=== PATIENT | female | born 1965 | race Caucasian/White ===

== ENCOUNTER 2021-09-13 15:44 | Outpatient (REF) | payer BC, MEDICARE, MEDICAID, SELFPAY ==
--- NOTE | ~2021-09-13 | US_ITS ---
EXAMINATION: US THYROID CLINICAL INFORMATION: Nontoxic goiter, unspecified. COMPARISON: None TECHNIQUE: Linear transducer grayscale and color Doppler examination with attention to the region of the thyroid. FINDINGS: SIZE: Measurements of the thyroid lobes and nodules are given in sagittal, anteroposterior and transverse dimensions respectively. Right Thyroid Lobe: 5.3 x 1.2 x 1.5 cm, volume 4.8 mL. Parenchyma: The gland echotexture is homogeneous. Thyroid vascularity is normal. Left Thyroid Lobe: 4.9 x 1.2 x 1.5 cm, volume 4.5 mL. Parenchyma: The gland echotexture is homogeneous. Thyroid vascularity is normal. Isthmus: 0.4 cm in maximum AP dimension. No focal thyroid nodule is seen. NODES: No lymphadenopathy is seen in the tissue surrounding the thyroid gland. US/US thyroid IMPRESSION: Normal thyroid ultrasound.
== END 2021-09-13 15:45 | disposition home or self-care (01) ==
LOC: HO.US 15:44
PROVIDERS: PCP Internal Medicine; Visit Provider Internal Medicine
DX: E04.9 Nontoxic goiter, unspecified (principal)
CPT/HCPCS: 76536

== ENCOUNTER 2021-11-28 16:01 | Outpatient (REF) | payer BC, MEDICARE, MEDICAID, SELFPAY ==
[2021-11-28 17:57] LABS: Appearance Urine Clear; Color Urine Yellow; Glucose Urine UA Negative (Negative); Leukocyte Esterase Urine Moderate (2+) (Negative); Nitrite Urine Negative (Negative); PH 6.5 (5.0-9.0); Specific Gravity - Urine <= 1.005 (1.005-1.025); Urine Blood Negative (Negative); Urine Ketones Negative (Negative); Urine Protein Negative (Neg-Trace)
[2021-11-28 18:27] LABS: Bacteria Urine None Seen (None Seen); Hyaline Casts Urine 0-2 /LPF (0-2); RBC Urine 0-2 /HPF (0-2); Squamous Epithelial Cell Urine 0-2 /HPF (0-2); WBC Urine 0-5 /HPF (0-5)
== END 2021-11-28 16:02 | disposition home or self-care (01) ==
LOC: HO.LAB 16:01
PROVIDERS: PCP Internal Medicine; Visit Provider Internal Medicine
DX: R30.0 Dysuria (principal)
CPT/HCPCS: 81001

== ENCOUNTER 2021-12-04 08:28 | Outpatient (REF) | payer BC, MEDICARE, MEDICAID, SELFPAY ==
[2021-12-04 08:52] LABS: MANUAL DIFF FLAG NO
[2021-12-04 09:30] LABS: Appearance Urine Clear; Color Urine Yellow; Glucose Urine UA Negative (Negative); Leukocyte Esterase Urine Moderate (2+) (Negative); Nitrite Urine Negative (Negative); PH 5.5 (5.0-9.0); Specific Gravity - Urine 1.015 (1.005-1.025); UMIC TRIGGER UACC YES; Urine Blood Negative (Negative); Urine Ketones Trace mg/dL (Negative); Urine Protein Negative (Neg-Trace)
[2021-12-04 09:35] LABS: Basophils Absolute Auto 0.1 X10*3/uL (0.0-0.2); Basophils Percent Auto 0.9 % (0-2); Eosinophils Absolute Auto 0.5 X10*3/uL (0.0-0.4); Eosinophils Percent Auto 6.6 % (0-4); Hematocrit 38.7 % (37.0-47.0); Hemoglobin 12.5 g/dl (12.0-16.0); Imm Gran Abs Auto 0.01 X10*3/uL (0.00-0.03); Imm Gran Pct Auto 0.1 % (0.0-0.4); Lymphocytes Absolute Auto 2.4 X10*3/uL (1.2-4.9); Mean Corpuscular HGB Conc 32.3 g/dl (31.0-35.0); Mean Corpuscular Hemoglobin 26.2 pg (27.0-33.0); Mean Corpuscular Volume 81.1 fL (80.0-98.0); Mean Platelet Volume 9.4 fL (9.4-12.3); Monocytes Absolute Auto 0.5 X10*3/uL (0.1-1.2); Monocytes Percent Auto 7.6 % (2-11); Neutrophils Absolute Auto 3.5 x10*3/uL (2.0-8.3); Neutrophils Percent Auto 50.8 % (45-73); Platelet Count 279 X10*3/uL (160-400); Red Blood Count 4.77 X10*6/uL (4.20-5.50); Red Cell Distribution Width 12.6 % (11.0-16.0)
[2021-12-04 09:35] LABS: Bacteria Urine Trace (None Seen); Hyaline Casts Urine 0-2 /LPF (0-2); RBC Urine 0-2 /HPF (0-2); UACC Culture Trigger YES
[2021-12-04 10:12] LABS: Alanine Aminotransferase 15 U/L (0-31); Albumin Level 3.8 g/dL (3.5-5.0); Alkaline Phosphatase 94 U/L (39-117); Anion Gap 13 (12-20); Aspartate Amino Transferase 17 U/L (5-31); Bilirubin Total 0.7 mg/dL (0.0-1.0); Blood Urea Nitrogen 9 mg/dL (9-16); Calcium 9.1 mg/dL (8.4-10.2); Carbon Dioxide 24 mmol/L (22-29); Chloride 104 mmol/L (96-108); Estimated Glomerular Filt Rate > 60; Glucose Random 95 mg/dL (60-115); Potassium 4.1 mmol/L (3.3-5.1); Sodium 137 mmol/L (135-145); Total Protein 6.7 g/dL (6.5-8.0)
[2021-12-04 10:16] LABS: Thyroid Stimulating Hormone 1.02 uIU/mL (0.32-4.0)
[2021-12-04 11:50] LABS: Erythrocyte Sedimentation Rate 37 MM/HR (0-20)
== END 2021-12-04 08:29 | disposition home or self-care (01) ==
LOC: HO.LAB 08:28
PROVIDERS: Internal Medicine; PCP Internal Medicine; Visit Provider Internal Medicine
DX: L98.9 Disorder of the skin and subcutaneous tissue, unspecified (principal); D64.9 Anemia, unspecified; E04.9 Nontoxic goiter, unspecified
CPT/HCPCS: 36415; 80053; 81001; 84443; 85025; 85652; 87086

== ENCOUNTER 2022-01-10 14:00 | Outpatient (REF) | payer BC, MEDICARE, MEDICAID, SELFPAY ==
[2022-01-10 15:08] LABS: Cholesterol 161 mg/dL; HDL Cholesterol 41 mg/dL; LDL Cholesterol Calculated 87 mg/dl; Triglycerides 168 mg/dL
== END 2022-01-10 14:01 | disposition home or self-care (01) ==
LOC: HO.LAB 14:00
PROVIDERS: PCP Internal Medicine; Visit Provider Internal Medicine
DX: Z00.00 Encounter for general adult medical examination without abnormal findings (principal)
CPT/HCPCS: 36415; 80061

== ENCOUNTER 2022-07-05 16:44 | Outpatient (REF) | payer BC, MEDICARE, MEDICAID, SELFPAY ==
[2022-07-05 17:29] LABS: Influenza A PCR NEGATIVE (Negative); Influenza B PCR NEGATIVE (Negative); Resp Syncy Virus RNA Qual PCR NEGATIVE (Negative); SARS COV2 PCR INHOUSE NEGATIVE (Negative)
== END 2022-07-05 16:45 | disposition home or self-care (01) ==
LOC: HO.LNP 16:44
PROVIDERS: Visit Provider Internal Medicine
DX: Z20.822 Contact with and (suspected) exposure to COVID-19 (principal); R43.9 Unspecified disturbances of smell and taste
CPT/HCPCS: 0241U

== ENCOUNTER 2022-07-15 15:05 | Outpatient (REF) | payer BC, MEDICARE, MEDICAID, SELFPAY ==
--- NOTE | ~2022-07-15 | XR_ITS ---
EXAMINATION: XR CHEST CLINICAL INFORMATION: J06.9 - Acute upper respiratory infection, unspecified COMPARISON: Portable chest radiograph 02/16/2014 TECHNIQUE: 2 views of the chest were obtained. FINDINGS: The lungs are clear. Heart size normal. Vascularity normal. No airspace consolidation or groundglass opacity or effusion. The hilar and mediastinal contours and visualized bony structures are unremarkable. XR/XR chest 2V IMPRESSION: Unremarkable examination.
== END 2022-07-15 15:06 | disposition home or self-care (01) ==
LOC: HO.XRAY 15:05
PROVIDERS: PCP Internal Medicine; Visit Provider Internal Medicine
DX: J06.9 Acute upper respiratory infection, unspecified (principal)
CPT/HCPCS: 71046

== ENCOUNTER 2022-11-05 12:00 | Emergency (ER) | payer BC, MEDICARE, MEDICAID, SELFPAY ==
--- NOTE | ~2022-11-05 | US_ITS ---
EXAMINATION: US VENOUS ULTRASOUND WITH DOPPLER LOWER EXTREMITY, LEFT CLINICAL INFORMATION: Calf pain and tenderness. COMPARISON: None available. TECHNIQUE: Ultrasound of the deep veins is performed from the hip to the calf with compression sonography and color and pulse Doppler assessment. Spectral analysis with color-flow imaging is performed. FINDINGS: There is normal venous compression and respiratory variation and augmented flow. The visualized common femoral vein, superficial femoral vein, profunda femoral vein, popliteal vein, and the trifurcation region shows no evidence of deep venous thrombosis. There is no significant popliteal fossa cyst. If the patient's symptoms persist, followup ultrasound in 5 days 7 days might be of value to exclude proximal propagation from a non-visualized calf vein. US/US venous duplex LE IMPRESSION: No DVT demonstrated in the left lower extremity.
--- NOTE | ~2022-11-05 | XR_ITS ---
EXAMINATION: XR chest 1V CLINICAL INFORMATION: Chest pain COMPARISON: Prior chest x-ray June 2022 TECHNIQUE: Single frontal view. Lungs and Isabel: Both lungs are clear. Pleura: Normal. Costophrenic angles are sharp. No pneumothorax. Heart: The heart is normal in size. Mediastinum: The mediastinum is within normal limits.. Bones: Skeletal structures included are normal for patient's age. XR/XR chest 1V IMPRESSION: No radiographic evidence of acute cardiopulmonary disease.
--- NOTE | ~2022-11-05 | CT_ITS ---
EXAMINATION: CT HEAD WITHOUT CONTRAST CLINICAL INFORMATION: Headache COMPARISON: CT brain 02/16/2014 TECHNIQUE: Contiguous axial imaging was performed from the skull base to vertex without intravenous administration of contrast. This CT examination was performed using dose optimization techniques as appropriate, variously including the following: *Automated exposure control *Adjustment of mA and/or kV according to patient size (this includes techniques or standardized protocols for targeted exams where dose is matched to indication/reason for exam; i.e. extremities or head) *Use of iterative reconstruction technique DLP: 599 mGy-cm FINDINGS: There is no acute intra-axial, extra-axial bleed, masses, collection or midline shift. There is no acute infarction evolution. There is no edema. The mittal to white matter differentiation is maintained normal. The lateral ventricles are symmetrical in size and configuration without enlargement. Bone windows reveal no calvarial abnormality. Bilateral paranasal sinuses and mastoid air cells are well-aerated. No calvarial abnormality seen. Scalp soft tissue appears unremarkable.. CT/CT head/brain wo IV con IMPRESSION: No acute intracranial process seen.
--- NOTE | ~2022-11-05 | CT_ITS ---
EXAMINATION: CT ANGIOGRAM CHEST WITH AND WITHOUT CONTRAST (CT PULMONARY ANGIOGRAM FOR PE) CLINICAL INFORMATION: Chest pain, history of breast CA. COMPARISON: None available. TECHNIQUE: Prior to contrast administration, noncontrast localization images were obtained. Subsequently, multidetector volumetric imaging was performed from the thoracic inlet to below the diaphragms following the administration of 65 mL Omnipaque 350 intravenous contrast. No contrast reaction reported. Sagittal, coronal, and MIP oblique sagittal reformatted images were obtained on the CT workstation, uploaded to PACS, and reviewed. This CT examination was performed using dose optimization techniques as appropriate, variously including the following: *Automated exposure control. *Adjustment of mA and/or kV according to patient size (this includes techniques or standardized protocols for targeted exams where dose is matched to indication/reason for exam; i.e. extremities or head). *Use of iterative reconstruction technique. Total exam dose-length product 310 mGy-cm. FINDINGS: QUALITY OF STUDY/CONTRAST BOLUS: Satisfactory. PULMONARY ARTERIES: No pulmonary emboli. THORACIC AORTA: No aneurysm. LUNG: No focal consolidation, nodules or masses. PLEURA: No pleural effusion or pneumothorax. MEDIASTINUM: Normal heart size. No pericardial effusion. No hilar or mediastinal lymphadenopathy. No evidence of septal bowing or right heart strain. CORONARY ARTERY CALCIFICATION: None visualized on this study. CHEST WALL/AXILLA: No axillary or internal mammary lymphadenopathy. OSSEOUS STRUCTURES: No acute or suspicious osseous abnormality. UPPER ABDOMEN: Unremarkable. No reflux of contrast into the hepatic veins to suggest elevated right heart pressures. CT/CT angio chest PE protocol IMPRESSION: No evidence for pulmonary embolism. No active cardiopulmonary disease. VTE: Negative.
--- NOTE | 2022-11-05 12:12 | ECG_ITS ---
Test Reason : CHEST PAIN Blood Pressure : / mmHG Vent. Rate : 103 BPM Atrial Rate : 103 BPM P-R Int : 148 ms QRS Dur : 072 ms QT Int : 362 ms P-R-T Axes : 053 010 023 degrees QTc Int : 474 ms Sinus tachycardia Abnormal ECG When compared with ECG of 16-FEB-2014 20:39, Heart rate has increased QRS axis Shifted left Referred By: Bal Stuart Electronically Signed By:ITALIA ALEGRIA
[2022-11-05 12:13] VITALS: BP 160/100; PULSE 107; RESP 18; TEMP 36.8; O2SAT 100; BMI 32.0
--- NOTE | 2022-11-05 12:14 | ED_ITS ---
HPI - General Adult General Chief complaint: General Medical Stated complaint: Chest pain/HBP Time Seen by Provider: 11/05/22 16:36 Source: patient Mode of arrival: ambulatory Limitations: no limitations History of Present Illness HPI narrative: Patient is a 57-year-old female who presents emergency department for evaluation of multiple complaints. Primarily for the past 2 weeks she reports elevated blood pressure and heart rate. Reportedly diastolic blood pressure has not been below 100, systolic blood pressure ranging 140-150 despite taking clonidine as prescribed. Reports heart rate to be 100-110. She has been experiencing substernal chest pain described as a tightness which has been constant for the past 2 weeks with intermittent mild shortness of breath and fatigue. For the past few days she has been experiencing subjective left calf swelling and discomfort described as a tightness. She also endorses an intermittent headache without vision changes, dizziness, neck pain. She contacted her primary care provider who advised her to come to the emergency department for further evaluation. She denies abdominal pain, nausea, vomiting, genitourinary symptoms, known history of DVT/PE. History of breast cancer, s/p chemotherapy and right mastectomy in 2017 currently in remission. Related Data Home Medications Medication Instructions Recorded Confirmed ascorbate calcium (vitamin C) 500 500 mg PO DAILY 08/07/21 08/21/22 mg tablet escitalopram oxalate 10 mg tablet mg PO 04/30/22 08/21/22 Previous Rx's Medication Instructions Recorded alprazolam 0.25 mg tablet 0.25 mg PO TID PRN anxiety 30 days 08/07/21 #90 tabs magnesium oxide 500 mg capsule 500 mg PO DAILY 90 days #90 caps 08/07/21 montelukast 10 mg tablet 10 mg PO DAILY 90 days #90 tabs 08/07/21 meclizine 12.5 mg tablet 12.5 mg PO BID PRN dizziness 90 12/04/21 days #180 tabs cholecalciferol (vitamin D3) 125 125 mcg PO .every other day 03/30/22 mcg (5,000 unit) capsule days #45 caps azithromycin 250 mg tablet See Rx Instructions PO .COMPLEX #6 07/05/22 tabs prednisone 20 mg tablet 60 mg PO DAILY #9 tabs 07/05/22 clonidine HCl 0.1 mg tablet 0.1 mg PO BID 90 days #180 tabs 07/23/22 benzonatate 100 mg capsule 100 mg PO TID PRN cough 10 days 08/21/22 #30 caps desloratadine 5 mg tablet 10 mg PO DAILY 14 days #28 tabs 08/21/22 prednisone 50 mg tablet 50 mg PO DAILY 5 days #5 tabs 08/21/22 Ventolin HFA 90 mcg/actuation 2 puff PO Q6H PRN for muscle spasm 10/21/22 aerosol inhaler (albuterol sulfate) 30 days #18 grams Allergies Allergy/AdvReac Type Severity Reaction Status Date / Time clindamycin Allergy Severe itch, Verified 08/21/22 11:35 nausea, dizziness, scratchy throat, neck redness Penicillins [PENICILLINS] Allergy Intermediate RASH Verified 08/21/22 11:35 hydrocodone [HYDROCODONE] Allergy Unknown UNKNOWN Verified 08/21/22 11:35 morphine [MORPHINE] Allergy Unknown LETHARGY Verified 08/21/22 11:35 oxycodone [OXYCODONE] Allergy Unknown LEHTARGY Verified 08/21/22 11:35 Review of Systems Review of Systems: Yes all other systems are reviewed and are negative PMFSH Past Medical History Attestation statement: The following information was validated with the patient. Source: old records reviewed Medical History Allergic rhinitis Breast cancer, right Chronic fatigue syndrome Essential hypertension Fibromyalgia NAVA (generalized anxiety disorder) Goiter Hypothyroid Hypovitaminosis D Mild persistent asthma Mild recurrent major depression Neuropathy Osteoarthritis, shoulder Panic attacks Vertigo Surgical History History of breast implant History of mastectomy History of salpingectomy Family History Family History Mother Hypertension Asthma Osteoporosis Depression Anxiety Sleep apnea Fibromyalgia Mental health disorder Father Diabetes Substance use disorder Social History Social History Housing: House Alcohol intake: never Patient Tobacco Use Status: Never used Tobacco Smoked in Last 30 Days: No e-Cigarette/Vaping Use: Never Used Second Hand Smoke Exposure: No Use of substances other than those prescribed or required for medical reasons: No Advance Directives: No Advance Directives Information Provided: Yes Patient : No service: No Current occupational status: unemployed and disabled Cognitive needs: No Hearing needs: No Vision needs: No Physical Exam ED Vital Signs: Vital Signs - 24 hr 11/05/22 12:13 11/05/22 17:14 11/05/22 17:37 Temperature 98.2 F 98 F 98.9 F Pulse Rate 107 H 108 H Respiratory Rate 18 20 18 Blood Pressure 160/100 H 152/98 H 174/94 H Pulse Oximetry 100 97 96 Oxygen Delivery Method Room Air Room Air Room Air 11/05/22 18:58 11/05/22 20:43 11/05/22 21:53 Temperature 98.3 F 98.4 F 98.6 F Pulse Rate 102 H 87 84 Respiratory Rate 17 17 16 Blood Pressure 140/89 H 127/80 129/90 H Pulse Oximetry 98 96 98 Oxygen Delivery Method Room Air Room Air Room Air BMI result Body Mass Index 32.0 Appearance: Alert.?Oriented to person, place and time. No acute distress.?Normal affect. Eyes: Pupils equal, round and reactive to light.? ENT: Pharynx normal.?? Neck: Normal inspection.? Neck supple.?? CVS: Heart sounds normal. Normal heart rate and rhythm.? Pulses normal.?? Respiratory: No respiratory distress.? Lung sounds clear to auscultation bilaterally?? Abdomen: Soft and non-tender. Normoactive bowel sounds. ? Skin: Skin warm and dry.? Normal skin color.? Normal skin turgor.?? Extremities: No lower extremity edema.? Positive left calf ttp, 2+ DP/PT pulse bilaterally, +Sameul sign.? Neuro: Moves all extremities spontaneously. Sensation intact bilaterally. CN II- XII intact. No focal neuro deficits. Ambulates with normal steady gait. Course Course Course Narrative: This is an RME: Additional HPI, ROS, PE not included below will be deferred to primary provider. 57-year-old female history of hypertension, fibromyalgia, anxiety, depression presenting for evaluation of palpitations, shortness of breath, fatigue, malaise, headache diffuse in nature with intermittent visual disturbances with past few days. L calf discomfort Plan labs, imaging, EKG, troponin Reevaluation(s) Reevaluation #1: CBC reveals no leukocytosis, no anemia. CMP is unremarkable. BNP within normal limits. Troponin 4.0, EKG revealing a sinus tachycardia with ventricular rate of 103, normal RAFIQ, QTC 474, without ST elevation, ST depression, or acute is chemic findings, symptoms unlikely due to ACS. CT angio of the chest without evidence of pulmonary embolism or acute cardiopulmonary disease. At this time suspect pain is likely musculoskeletal in nature. Improvement in hypertension and tachycardia after receiving clonidine 0.2 mg orally. Venous duplex ultrasound without evidence of DVT. I reviewed all findings with patient. At this time stable for discharge, outpatient follow-up with primary care provider. Reviewed worrisome signs and symptoms that would warrant re-evaluation in the emergency department. All questions answered. Medications Administered Discontinued Medications Generic Name Dose Route Start Last Admin Trade Name Freq PRN Reason Stop Dose Admin Acetaminophen 975 mg 11/05/22 19:55 11/05/22 20:02 Acetaminophen 325 Mg Tablet PO 11/05/22 19:56 975 mg ONCE ONE Administration Clonidine HCl 0.2 mg 11/05/22 17:20 11/05/22 17:42 Clonidine Hcl 0.2 Mg Tablet PO 11/05/22 17:21 0.2 mg ONCE ONE Administration Protocol Sodium Chloride 1,000 mls @ 999 mls/hr 11/05/22 17:30 11/05/22 20:02 Ns IV 11/05/22 18:30 Infused .Q1H1M MEGAN Infusion Iohexol 100 ml 11/05/22 19:02 11/05/22 19:02 Iohexol 350 Mg/Ml 100 Ml Infus..Btl IV 11/05/22 19:03 65 ml ONCE ONE Administration Medical Decision Making Medical Decision Making [facility] Narrative: Patient is a 57-year-old female with past medical history of anxiety, depression, hypertension, hypothyroidism, fibromyalgia, vertigo, osteoarthritis, breast cancer presenting to emergency department for evaluation of multiple complaints as per HPI. At time of my examination she is overall well-appearing. No respiratory distress, speaking clear full sentences, no tachypnea or hypoxia. She is tachycardic and hypertensive. She has not yet taken her cloni dine today will trial clonidine 0.2 mg orally at this time. Will obtain CBC to evaluate for leukocytosis/ anemia, CMP to evaluate for abnormal electrolytes /abnormal renal function/ abnormal hepaticfunction, EKG and troponin to evaluate for ischemia/ACS, CT angio chest due to high risk with history of CA, and Urinalysis. Differential Diagnosis Differential Diagnoses: The differential diagnosis associated with the presentation includes (Migraine, tension headache, ICH, ACS, pulmonary embolism, DVT, uncontrolled hypertension) Admission/Observation Consideration of admission/observation: Escalation of care including admission/observation considered (Considered hospital admission for chest pain and multiple complaints, see course narrative for further detail) Lab Data MDM Lab Attestation statement: I reviewed the patient's lab results. (See course narrative for further detail) 11/05/22 16:16 11/05/22 16:16 Labs: Lab Results 11/05/22 11/05/22 11/05/22 Range/Units 16:16 16:16 16:16 WBC 10.3 (4.8-10.8) X10*3/uL RBC 5.23 (4.20-5.50) X10*6/uL Hgb 13.7 (12.0-16.0) g/dl Hct 43.2 (37.0-47.0) % MCV 82.6 (80.0-98.0) fL MCH 26.2 L (27.0-33.0) pg MCHC 31.7 (31.0-35.0) g/dl RDW 12.7 (11.0-16.0) % Plt Count 332 (160-400) X10*3/uL MPV 8.9 L (9.4-12.3) fL Immature Gran % (Auto) 0.2 (0.0-0.4) % Neut % (Auto) 63.6 (45-73) % Lymph % (Auto) 26.6 (20-40) % Spink % (Auto) 5.7 (2-11) % Eos % (Auto) 3.6 (0-4) % Baso % (Auto) 0.3 (0-2) % Lymph # (Auto) 2.7 (1.2-4.9) X10*3/uL Spink # (Auto) 0.6 (0.1-1.2) X10*3/uL Eos # (Auto) 0.4 (0.0-0.4) X10*3/uL Baso # (Auto) 0.0 (0.0-0.2) X10*3/uL Abs Immat Gran (auto) 0.02 (0.00-0.03) X10*3/uL Absolute Neuts (auto) 6.5 (2.0-8.3) x10*3/uL Absolute Nucleated RBC 0.000 (0.0-0.012) X10*3/uL Nucleated RBC % (auto) 0.0 (0.0-0.2) /100WBC D-Dimer High Sensitivty NG/ML Sodium 141 (135-145) mmol/L Potassium 4.5 (3.3-5.1) mmol/L Chloride 106 (96-108) mmol/L Carbon Dioxide 27 (22-29) mmol/L Anion Gap 13 (12-20) BUN 9 (9-16) mg/dL Creatinine 0.76 (0.5-1.4) mg/dL Estim Creat Clear Calc 65.8 Estimated GFR > 60 Random Glucose 103 (60-115) mg/dL Calcium 9.7 D (8.4-10.2) mg/dL Magnesium 2.1 (1.6-2.6) mg/dL Total Bilirubin 0.5 (0.0-1.0) mg/dL AST 20 (5-31) U/L ALT 19 (0-31) U/L Alkaline Phosphatase 96 (39-117) U/L Troponin I High Sens 4.0 (<3.5-17.0) ng/L B-Natriuretic Peptide (<100) pg/mL Total Protein 7.7 (6.5-8.0) g/dL Albumin 4.0 (3.5-5.0) g/dL Urine Test (NEGATIVE) 11/05/22 11/05/22 11/05/22 Range/Units 16:16 17:40 17:51 WBC (4.8-10.8) X10*3/uL RBC (4.20-5.50) X10*6/uL Hgb (12.0-16.0) g/dl Hct (37.0-47.0) % MCV (80.0-98.0) fL MCH (27.0-33.0) pg MCHC (31.0-35.0) g/dl RDW (11.0-16.0) % Plt Count (160-400) X10*3/uL MPV (9.4-12.3) fL Immature Gran % (Auto) (0.0-0.4) % Neut % (Auto) (45-73) % Lymph % (Auto) (20-40) % Spink % (Auto) (2-11) % Eos % (Auto) (0-4) % Baso % (Auto) (0-2) % Lymph # (Auto) (1.2-4.9) X10*3/uL Spink # (Auto) (0.1-1.2) X10*3/uL Eos # (Auto) (0.0-0.4) X10*3/uL Baso # (Auto) (0.0-0.2) X10*3/uL Abs Immat Gran (auto) (0.00-0.03) X10*3/uL Absolute Neuts (auto) (2.0-8.3) x10*3/uL Absolute Nucleated RBC (0.0-0.012) X10*3/uL Nucleated RBC % (auto) (0.0-0.2) /100WBC D-Dimer High Sensitivty 216 NG/ML Sodium (135-145) mmol/L Potassium (3.3-5.1) mmol/L Chloride (96-108) mmol/L Carbon Dioxide (22-29) mmol/L Anion Gap (12-20) BUN (9-16) mg/dL Creatinine (0.5-1.4) mg/dL Estim Creat Clear Calc Estimated GFR Random Glucose (60-115) mg/dL Calcium (8.4-10.2) mg/dL Magnesium (1.6-2.6) mg/dL Total Bilirubin (0.0-1.0) mg/dL AST (5-31) U/L ALT (0-31) U/L Alkaline Phosphatase (39-117) U/L Troponin I High Sens (<3.5-17.0) ng/L B-Natriuretic Peptide < 10 (<100) pg/mL Total Protein (6.5-8.0) g/dL Albumin (3.5-5.0) g/dL Urine Test NEGATIVE (NEGATIVE) Independent Interpretation I performed an independent interpretation of an: EKG (As per course narrative) and Plain X-Ray (I personally interpreted chest x-ray and agree with radiologist impression, no evidence of pneumonia, pneumothorax, pulmonary congestion) Radiology Impression Discussion of test interpretation with radiology: I have reviewed the radiologist's reading. Radiologist Impression: CT/CT head/brain wo IV con IMPRESSION: No acute intracranial process seen. ? XR/XR chest 1V IMPRESSION: ? No radiographic evidence of acute cardiopulmonary disease. CT/CT angio chest PE protocol IMPRESSION: No evidence for pulmonary embolism. ? No active cardiopulmonary disease. US/US venous duplex LE LT IMPRESSION: No DVT demonstrated in the left lower extremity. External Record Review External record reviewed: Outpatient record Prescription Management I considered prescription management with: Pain Medication (Acetaminophen/ibuprofen appropriate for management at this time) Chronic Conditions Patient?s care impacted by: Hypertension and Cancer Discharge Plan Discharge Clinical Impression: Chest pain, Essential hypertension Acute leg pain Qualifiers: Laterality: left Qualified Code(s): M79.605 - Pain in left leg Patient Disposition: Home, Self-Care Instructions: Chest Pain (ED), Chronic Hypertension (ED), Leg Pain (ED) Additional Instructions: Please return back to the emergency department any new or worsening symptoms or concerns. Follow-up with your primary care provider within 1-3 days. As discussed, they may consider increasing the dosage of your clonidine for persistently elevated blood pressure. You can take ibuprofen 200 mg, 3 tablets (600mg) every 6-8 hours as needed for pain, in addition to Tylenol 500 mg, 2 tablets (1,000mg) every 4-6 hours as ne eded for pain, but not to exceed 3 doses daily (3,000mg).? Prescriptions: No Action cholecalciferol (vitamin D3) 125 mcg (5,000 unit) capsule 125 mcg PO .every other day 90 Days Qty: 45 0RF clonidine HCl 0.1 mg tablet 0.1 mg PO BID 90 Days Qty: 180 1RF albuterol sulfate [Ventolin HFA] 90 mcg/actuation HFA aerosol inhaler 2 puff PO Q6H PRN (Reason: for muscle spasm) 30 Days Qty: 18 0RF escitalopram oxalate 10 mg tablet PO ascorbate calcium (vitamin C) 500 mg tablet 500 mg PO DAILY alprazolam 0.25 mg tablet 0.25 mg PO TID PRN (Reason: anxiety) 30 Days Qty: 90 0RF magnesium oxide 500 mg capsule 500 mg PO DAILY 90 Days Qty: 90 1RF montelukast 10 mg tablet 10 mg PO DAILY 90 Days Qty: 90 1RF meclizine 12.5 mg tablet 12.5 mg PO BID PRN (Reason: dizziness) 90 Days Qty: 180 1RF azithromycin 250 mg tablet See Rx Instructions PO .COMPLEX Qty: 6 0RF Rx Instructions: take 500 mg today (day 1), then 250 mg for 4 days (days 2-5) PO prednisone 20 mg tablet 60 mg PO DAILY Qty: 9 0RF prednisone 50 mg tablet 50 mg PO DAILY 5 Days Qty: 5 0RF desloratadine 5 mg tablet 10 mg PO DAILY 14 Days Qty: 28 0RF benzonatate 100 mg capsule 100 mg PO TID PRN (Reason: cough) 10 Days Qty: 30 1RF Referrals: Khushboo Alvares MD [Primary Care Provider] - Interventions: ED Discharge Assessment Last Done: 11/05/22 22:01 Discharge Date/Time: 11/05/22 22:01
[2022-11-05 16:22] LABS: MANUAL DIFF FLAG NO
[2022-11-05 16:26] LABS: Basophils Percent Auto 0.3 % (0-2); Eosinophils Absolute Auto 0.4 X10*3/uL (0.0-0.4); Eosinophils Percent Auto 3.6 % (0-4); Hematocrit 43.2 % (37.0-47.0); Hemoglobin 13.7 g/dl (12.0-16.0); Imm Gran Abs Auto 0.02 X10*3/uL (0.00-0.03); Imm Gran Pct Auto 0.2 % (0.0-0.4); Lymphocytes Absolute Auto 2.7 X10*3/uL (1.2-4.9); Lymphocytes Percent Auto 26.6 % (20-40); Mean Corpuscular HGB Conc 31.7 g/dl (31.0-35.0); Mean Corpuscular Hemoglobin 26.2 pg (27.0-33.0); Mean Corpuscular Volume 82.6 fL (80.0-98.0); Mean Platelet Volume 8.9 fL (9.4-12.3); Monocytes Absolute Auto 0.6 X10*3/uL (0.1-1.2); Monocytes Percent Auto 5.7 % (2-11); Neutrophils Absolute Auto 6.5 x10*3/uL (2.0-8.3); Neutrophils Percent Auto 63.6 % (45-73); Platelet Count 332 X10*3/uL (160-400); Red Blood Count 5.23 X10*6/uL (4.20-5.50); Red Cell Distribution Width 12.7 % (11.0-16.0); White Blood Count 10.3 X10*3/uL (4.8-10.8)
[2022-11-05 16:33] LABS: D Dimer High Sensitivity 216 NG/ML
[2022-11-05 16:38] LABS: Alanine Aminotransferase 19 U/L (0-31); Alkaline Phosphatase 96 U/L (39-117); Anion Gap 13 (12-20); Aspartate Amino Transferase 20 U/L (5-31); Bilirubin Total 0.5 mg/dL (0.0-1.0); Blood Urea Nitrogen 9 mg/dL (9-16); Calcium 9.7 mg/dL (8.4-10.2); Carbon Dioxide 27 mmol/L (22-29); Chloride 106 mmol/L (96-108); Creatinine Clr Calc Pharmacy 65.8; Estimated Glomerular Filt Rate > 60; Glucose Random 103 mg/dL (60-115); Magnesium 2.1 mg/dL (1.6-2.6); Potassium 4.5 mmol/L (3.3-5.1); Sodium 141 mmol/L (135-145); Total Protein 7.7 g/dL (6.5-8.0)
[2022-11-05 17:14] VITALS: BP 152/98; PULSE 108; RESP 20; TEMP 36.6; O2SAT 97
[2022-11-05 17:37] VITALS: BP 174/94; RESP 18; TEMP 37.2; O2SAT 96
[2022-11-05] MEDS: cloNIDine HCL 0.2 MG TABLET PO (17:42)
[2022-11-05] MEDS: 0.9 % Sodium Chloride 1,000 ML 999 ML IV (17:53)
[2022-11-05 17:54] LABS: UPreg QC Valid YES; Urine Pregnancy NEGATIVE (NEGATIVE)
[2022-11-05 18:23] LABS: B Type Natriuretic Peptide < 10 pg/mL (<100)
[2022-11-05 18:58] VITALS: BP 140/89; PULSE 102; RESP 17; TEMP 36.8; O2SAT 98
[2022-11-05] MEDS: iohexoL 350 MG/ML 100 ML INFUS..BTL IV (19:02)
[2022-11-05] MEDS: Acetaminophen 325 MG TABLET 975 MG PO (20:02)
--- NOTE | 2022-11-05 20:05 | PC.NURSE ---
this rn assumed care of pt @ 1900. pt medicated according to may. CT scan pending at this time
[2022-11-05 20:43] VITALS: BP 127/80; PULSE 87; RESP 17; TEMP 36.9; O2SAT 96
[2022-11-05 21:53] VITALS: BP 129/90; PULSE 84; RESP 16; TEMP 37; O2SAT 98
--- NOTE | 2022-11-05 21:59 | PC.NURSE ---
iv removed at discharge. pt reports decreased pain. vss. pt ambulatory at discharge. pt provided with discharge packet. pt verbalized understanding of discharge plan
== END 2022-11-05 22:01 | disposition home or self-care (01) ==
PROVIDERS: Nurse Practitioner Family; Physician Assistant; Emergency Provider Student in an Organized Health Care Education/Training Program; PCP Internal Medicine
DX: R07.9 Chest pain, unspecified (principal); I10 Essential (primary) hypertension; M79.605 Pain in left leg; R00.0 Tachycardia, unspecified; Z79.899 Other long term (current) drug therapy
CPT/HCPCS: 36415; 70450; 71045; 71275; 80053; 81025; 83735; 83880; 84484; 85025; 85379; 93005; 93971; 96360; 96361; 99284; 99285; Q9967

== ENCOUNTER 2022-12-26 11:48 | Outpatient (AMB) | payer BC, MEDICARE, MEDICAID, SELFPAY ==
[2022-12-26 11:50] VITALS: BP 128/82; PULSE 86; O2SAT 97; BMI 31.6
--- NOTE | 2022-12-26 11:50 | MHC.PC.OV ---
Vital Signs 12/26/22 11:50 Height 4 ft 10 in Weight 151 lb 4 oz BMI 31.6 BP 128/82 Blood Pressure Location Lt brachial Position Sitting Pulse 86 Pulse Source Pulse Oximeter Pulse Oximetry (%) 97 Oxygen Delivery Method Room Air Intake Visit Reasons: BP high Dog Behaviorist Required: No Accompanied by: Self / Same As Patient Allergies clindamycin Allergy (Severe, Verified 12/26/22 11:51) itch, nausea, dizziness, scratchy throat, neck redness Penicillins [PENICILLINS] Allergy (Intermediate, Verified 12/26/22 11:51) RASH hydrocodone [HYDROCODONE] Allergy (Unknown, Verified 12/26/22 11:51) UNKNOWN morphine [MORPHINE] Allergy (Unknown, Verified 12/26/22 11:51) LETHARGY oxycodone [OXYCODONE] Allergy (Unknown, Verified 12/26/22 11:51) LEHTARGY Tobacco use date assessed: 12/26/22 Dental Screening Dental Screen Date: 12/26/22 Did you have a dental visit in the last 12 months?: Yes Did you have a dental problem in the last 6 months where you did not have access to dental care?: No Was dental information given to patient?: Patient has dentist HPI HPI Comments History of Present Illness Details 57-year-old female past medical history significant for asthma, fibromyalgia, hypothyroid, hypertension, right breast, generalized anxiety disorder depression. Patient of Dr. Diallo presents today for ER follow up. Patient presented to [facility] Emergency Room with elevated blood pressure and increased heart rate 140-150/100-110 despite taking her clonidine with substernal chest pain and chest tightness mild shortness of breath fatigue as well as left calf swelling and discomfort. CBC showed no leukocytosis or anemia CMP unremarkable BNP within normal limits, controlled 4.0 EKG revealed sinus tachycardia otherwise unremarkable. Symptoms likely ACS CT angio of chest negative pulmonary embolism or acute cardiopulmonary disease. Venous Doppler negative for DVT. Patient was treated with 0.2 mg clonidine p.o. and responded well. Patient denies any chest pain, palpitations, shortness of breath and syncope. Blood pressure optimal in office today 128/82. Patient does report she does have some sinus pain and pressure x1 some headaches related to this states she is currently producing yellow sputum. Denies fever, chills, cough. States has been requiring to use her inhaler more frequently related to sinus infection. [facility] Medical History Allergic rhinitis Breast cancer, right Chronic fatigue syndrome Essential hypertension Fibromyalgia NAVA (generalized anxiety disorder) Goiter Hypothyroid Hypovitaminosis D Mild persistent asthma Mild recurrent major depression Neuropathy Osteoarthritis, shoulder Panic attacks Vertigo Surgical History History of salpingectomy History of breast implant History of mastectomy Family History Mother Hypertension Asthma Osteoporosis Depression Anxiety Sleep apnea Fibromyalgia Mental health disorder Father Diabetes Substance use disorder Social History Housing: House Alcohol intake: never Patient Tobacco Use Status: Never used Tobacco e-Cigarette/Vaping Use: Never Used Second Hand Smoke Exposure: No service: No Current occupational status: unemployed and disabled Cognitive needs: No Hearing needs: No Vision needs: No Questionnaire PHQ-9 Over the last 2 weeks, how often have you been bothered by any of the following problems? 1. Little interest or pleasure in doing things: not at all 2. Feeling down, depressed, or hopeless: more than half the days 3. Trouble falling or staying asleep, or sleeping too much: nearly every day 4. Feeling tired or having little energy: more than half the days 5. Poor appetite or overeating: several days 6. Feeling bad about yourself - or that you are a failure or have let yourself or your family down: not at all 7. Trouble concentrating on things, such as reading the newspaper or watching television: not at all 8. Moving or speaking so slowly that other people could have noticed. Or the opposite - being so fidgety or restless that you have been moving around a lot more than usual: not at all 9. Thoughts that you would be better off or of hurting yourself in some way: not at all Total score: 8 Depression Screening Interpretation: Positive Depression Screening Follow-up: Existing condition Depression Screening Done: Yes 63683 - PHQ-9 Billing: Yes Source: Developed by Drs. Homar Cancino, Mar Pike, Imre Montesinos and colleagues, with an educational nalini from [employer]. Thrive Questionnaire Date Thrive assessed: 12/26/22 I am a: Patient What is your living situation today?: I have a steady place to live Within the past 12 months, did the food you bought not last and you didn't have the money to get more?: Never true Within the past 12 months, did you worry whether your food would run out before you got money to buy more?: Never true Do you have trouble paying for medicines?: No Do you have trouble getting transportation to medical appointments?: No Do you have trouble paying your heating and electricity bill?: No Do you have trouble taking care of your child, family member or friend?: No Do you have trouble with day-to-day activities such as bathing, preparing meals, shopping, managing finances, etc.?: No Are you currently unemployed and looking for a job?: No Are you interested in more education?: No Please select the resources that you would like help with: None Currently or been in a relationship where the following occur: no concerns reported AUDIT C Alcohol Use Questionnaire (AUDIT-C) 1. How often do you have a drink containing alcohol?: Never Total Score: 0 NAVA-7 AMB Questionnaire NAVA-7 Date NAVA - 7 assessed: 12/26/22 Feeling nervous, anxious, or on edge: 3 = Nearly every day Not being able to stop or control worryin = Several days Worrying too much about different things: 3 = Nearly every day Trouble relaxin = Several days Being so restless that it is hard to sit still: 0 = Not at all Becoming easily annoyed or irritable: 2 = More than half the days Feeling afraid as if something awful might happen: 2 = More than half the days Total NAVA-7 score (0-4 normal; 5-9 mild; 10-14 moderate; 15-21 severe): 12 Source: Developed by Drs. Homar Cancino, Mar Pike, Imer Montesinos and colleagues, with an educational nalini from [employer]. NAVA-7 Assessment Billing NAVA-7 Assessment Tool: NAVA-7 Assessment 24271 Review of Systems Const Denies chills, Denies fatigue, Denies fever(s) and Denies poor appetite Eyes Denies no additional complaints ENT Reports Normal hearing present, Denies otalgia, Reports nasal congestion, Reports nasal discharge (yellow), Reports sinus pain, Reports sinus pressure and Denies sore throat Card Denies chest pain, Denies syncope, Denies rapid heart rate and Denies dyspnea Resp Denies cough and Denies dyspnea GI Denies change in stool character, Denies constipation, Denies diarrhea, Denies nausea and Denies vomiting Denies urinary frequency, Denies dysuria and Denies urinary urgency Neuro Reports Normal hearing present, Denies confusion and Denies syncope Psych Denies confusion Endo Denies fatigue Physical exam (Primary Care) Vital Signs: Last Vital Signs Pulse 86 12/26/22 11:50 BP 128/82 12/26/22 11:50 Pulse Ox 97 12/26/22 11:50 Oxygen Delivery Method Room Air 12/26/22 11:50 BMI result Body Mass Index 31.6 Tobacco/Smoking Status: Tobacco use Status Tobacco use date assessed 12/26/22 12/26/22 12:03 Patient Tobacco Use Status Never used Tobacco 12/26/22 12:03 Tobacco use type 04/25/22 14:48 e-Cigarette/Vaping Use Never Used 12/26/22 12:03 PHQ-9: PHQ-9 Score PHQ-9: Total score 8 12/26/22 12:07 Depression Screening Interpretation: Positive Depression Screening Follow-up: Existing condition Thrive Assessment: Date of Thrive Assessment Date Thrive assessed 12/26/22 12/26/22 12:03 Currently or been in a relationship where the following occur: no concerns reported Const General: No confusion Orientation/consciousness: No confusion HENMT Head: Yes normocephalic and Yes atraumatic Ears: hearing grossly normal bilaterally and TM's normal bilaterally General nose exam: Normal external nose present Face and sinus: Yes face symmetric and Yes sinus tenderness (Frontal and maxillary sinus tenderness noted. ) Eyes Conjunctivae: conjunctivae normal Chest Chest palpation & inspection: normal inspection of the chest Resp Effort & Inspection: normal respiratory effort Auscultation: clear to auscultation bilaterally, no crackles, no rhonchi and no wheezes Cardio Rate: regular rate Rhythm: regular rhythm Heart sounds: S1 normal heart sound present and S2 normal heart sound present GI Inspection: Yes normal to inspection Neuro General: No confusion Cranial nerves: Yes Normal hearing present Extrem General: No edema Assessment and Plan Assessment & Plan (1) Upper respiratory tract infection: Code(s): J06.9 - Acute upper respiratory infection, unspecified Plan: Will cover patient with azithromycin for upper respiratory infection/ possible developing sinus infection give sinus pain and pressure with yellow nasal congestion x 7 days. (2) Essential hypertension: Code(s): I10 - Essential (primary) hypertension Plan: Continue on clonidine 0.1 mg b.i.d.. Follow low-salt and exercise. (3) Fibromyalgia: Code(s): M79.7 - Fibromyalgia Medications: Refilled azithromycin take 500 mg today (day 1), then 250 mg for 4 days (days 2-5) PO 6 tabs 0RF Coding Level of Care Code Est Pt Level 3 (56870) Diagnoses Upper respiratory tract infection J06.9 Essential hypertension I10 Fibromyalgia M79.7 Additional Codes NAVA-7 Assessment Billing - NAVA-7 Assessment Tool: NAVA-7 Assessment 24990 ([id number])
== END 2022-12-26 12:21 | disposition home or self-care (01) ==
PROVIDERS: PCP Internal Medicine; Visit Provider Nurse Practitioner Family
DX: J06.9 Acute upper respiratory infection, unspecified (principal); I10 Essential (primary) hypertension; M79.7 Fibromyalgia
CPT/HCPCS: 99213

== ENCOUNTER 2023-01-06 13:22 | Outpatient (AMB) | payer BC, MEDICARE, MEDICAID, SELFPAY ==
[2023-01-06 14:37] VITALS: BP 118/78; PULSE 87; TEMP 36.6; O2SAT 99; BMI 31.6
--- NOTE | 2023-01-06 14:37 | AM.OFFWIN_ITS ---
Intake Vital Signs 01/06/23 14:37 Height 4 ft 10 in Weight 151 lb BMI 31.6 BP 118/78 Blood Pressure Location Lt brachial Position Sitting Pulse 87 Pulse Source Pulse Oximeter Temp 97.9 F Pulse Oximetry (%) 99 Oxygen Delivery Method Room Air Intake Visit Reasons: EP Asthma/Sinus (Masked) Intake Note: pt is here today for asthma/sinus Patient Tobacco Use Status: Never used Tobacco Allergies clindamycin Allergy (Severe, Verified 01/06/23 15:10) itch, nausea, dizziness, scratchy throat, neck redness Penicillins [PENICILLINS] Allergy (Intermediate, Verified 01/06/23 15:10) RASH hydrocodone [HYDROCODONE] Allergy (Unknown, Verified 01/06/23 15:10) UNKNOWN morphine [MORPHINE] Allergy (Unknown, Verified 01/06/23 15:10) LETHARGY oxycodone [OXYCODONE] Allergy (Unknown, Verified 01/06/23 15:10) LEHTARGY Medication List - Last Reconciled 01/06/23 by Marcio Frances MD alprazolam 0.25 mg PO TID PRN 30 days ascorbate calcium (vitamin C) 500 mg PO DAILY azithromycin take 500 mg today (day 1), then 250 mg for 4 days (days 2-5) PO benzonatate 100 mg PO TID PRN 10 days cholecalciferol (vitamin D3) 125 mcg PO .every other day 90 days clonidine HCl 0.1 mg PO BID 90 days cyclobenzaprine 10 mg PO BEDTIME desloratadine 10 mg (2 x 5 mg) PO DAILY 14 days escitalopram oxalate mg PO magnesium oxide 500 mg PO DAILY 90 days meclizine 12.5 mg PO BID PRN 90 days montelukast 10 mg PO DAILY 90 days Ventolin HFA 90 mcg/actuation (albuterol sulfate) 2 puffs PO Q6H PRN 30 days NS Do you need a note to return to daycare/school/sports/work: No HPI EP Asthma/Sinus (Masked) HPI Details 57-year-old female presents to the [facility] for a sick visit. Patient is complaining of an irritating cough, occasionally productive with postnasal drip in the past month. She has taken 1 round of antibiotics with minimal relief. No fevers or chills. Reporting pain on the right side of upper extremity. Feels very tired. History of breast cancer with right-sided mastectomy 5 years ago. [facility] Medical History Allergic rhinitis Breast cancer, right Chronic fatigue syndrome Essential hypertension Fibromyalgia NAVA (generalized anxiety disorder) Goiter Hypothyroid Hypovitaminosis D Mild persistent asthma Mild recurrent major depression Neuropathy Osteoarthritis, shoulder Panic attacks Vertigo Surgical History History of salpingectomy History of breast implant History of mastectomy Family History Mother Hypertension Asthma Osteoporosis Depression Anxiety Sleep apnea Fibromyalgia Mental health disorder Father Diabetes Substance use disorder Social History Housing: House Alcohol intake: never Patient Tobacco Use Status: Never used Tobacco e-Cigarette/Vaping Use: Never Used Second Hand Smoke Exposure: No service: No Current occupational status: unemployed and disabled Cognitive needs: No Hearing needs: No Vision needs: No Physical Exam Vital Signs: Last Vital Signs Temp 97.9 F 01/06/23 14:37 Pulse 87 01/06/23 14:37 BP 118/78 01/06/23 14:37 Pulse Ox 99 01/06/23 14:37 Oxygen Delivery Method Room Air 01/06/23 14:37 BMI result Body Mass Index 31.6 Const General: cooperative and healthy appearing Nutritional Appearance: well nourished Orientation/consciousness: patient oriented x3 Limitations: no limitations HEENT Head: Yes normal to inspection Eyes General: appearance normal, both eyes and all related structures Neck Neck: Yes normal visual inspection Chest Chest palpation & inspection: normal palpation of entire chest wall Resp Effort & Inspection: normal respiratory effort Neuro General: patient oriented x3 Assessment & Plan Assessment & Plan (1) Upper respiratory tract infection: Code(s): J06.9 - Acute upper respiratory infection, unspecified Plan: X-ray images were reviewed by me. No infiltrate seen. Bactrim, prednisone and blood work ordered. Orders: Orders XR chest 2V Today R05.9 - Cough, unspecified Coding Level of Care Code Est Pt Level 4 (78731) Diagnoses Upper respiratory tract infection J06.9
== END 2023-01-06 15:36 | disposition home or self-care (01) ==
PROVIDERS: PCP Internal Medicine; Visit Provider Internal Medicine
DX: J06.9 Acute upper respiratory infection, unspecified (principal)
CPT/HCPCS: 99214

== ENCOUNTER 2023-01-06 15:06 | Outpatient (REF) | payer BC, MEDICARE, MEDICAID, SELFPAY ==
--- NOTE | ~2023-01-06 | XR_ITS ---
EXAMINATION: XR CHEST CLINICAL INFORMATION: Cough. COMPARISON: 11/05/2022. TECHNIQUE: 2 views of the chest were obtained. FINDINGS: The cardiomediastinal silhouette is normal. There is no focal lung consolidation or pleural effusion. The bony structures and soft tissues are unremarkable. XR/XR chest 2V IMPRESSION: No active cardiopulmonary disease.
== END 2023-01-06 15:07 | disposition home or self-care (01) ==
LOC: HO.HMGCX 15:06
PROVIDERS: PCP Internal Medicine; Visit Provider Internal Medicine
DX: R05.9 Cough, unspecified (principal)
CPT/HCPCS: 71046

== ENCOUNTER 2023-02-06 15:02 | Outpatient (AMB) | payer BC, MEDICARE, MEDICAID, SELFPAY ==
[2023-02-06 15:08] VITALS: BP 120/82; BMI 31.7
--- NOTE | 2023-02-06 15:08 | MHC.PC.OV ---
Vital Signs 02/06/23 15:08 Height 4 ft 10 in Weight 151 lb 8 oz BMI 31.7 BP 120/82 Blood Pressure Location Lt brachial Position Sitting Intake Visit Reasons: ongoing cough, right arm pain, not able to lift Intake Note: Patient here c/o ongoing cough, right arm pain and not able to lift [employer] Required: No Accompanied by: Self / Same As Patient Allergies clindamycin Allergy (Severe, Verified 02/06/23 15:28) itch, nausea, dizziness, scratchy throat, neck redness Penicillins [PENICILLINS] Allergy (Intermediate, Verified 02/06/23 15:28) RASH hydrocodone [HYDROCODONE] Allergy (Unknown, Verified 02/06/23 15:28) UNKNOWN morphine [MORPHINE] Allergy (Unknown, Verified 02/06/23 15:) LETHARGY oxycodone [OXYCODONE] Allergy (Unknown, Verified 02/06/23 15:) LEHTARGY Medication List - Last Reconciled 02/06/23 by Khushboo Godinez MD alprazolam 0.25 mg PO TID PRN 30 days ascorbate calcium (vitamin C) 500 mg PO DAILY benzonatate 100 mg PO TID PRN 10 days cholecalciferol (vitamin D3) 125 mcg PO .every other day 90 days clonidine HCl 0.1 mg PO BID 90 days desloratadine 10 mg (2 x 5 mg) PO DAILY 14 days escitalopram oxalate mg PO magnesium oxide 500 mg PO DAILY 90 days meclizine 12.5 mg PO BID PRN 90 days montelukast 10 mg PO DAILY 90 days Ventolin HFA 90 mcg/actuation (albuterol sulfate) 2 puffs PO Q6H PRN 30 days NS Tobacco use date assessed: 12/26/22 Dental Screening Dental Screen Date: 02/06/23 Did you have a dental visit in the last 12 months?: Yes Did you have a dental problem in the last 6 months where you did not have access to dental care?: No Was dental information given to patient?: Patient has dentist HPI HPI Comments History of Present Illness Details This is a 57-year-old female with hypertension and mild major depression that complains of chronic cough that has been present for about 6 months and multiple upper respiratory tract infections since June that has been bothering her. No fever. Some shortness of breath and wheezing. I will refer her to pulmonology. She also has right shoulder pain which is limited elevation, abduction and adduction that has been present for few weeks. I did order x-ray and physical therapy. Since she had right breast cancer she is follow by Hematology-Oncology which order and imaging that will be done soon. Blood pressure stable with medication. Depression also well controlled with medications. [facility] Medical History (Updated 02/06/23 @ 15:36 by Khushboo Godinez MD) Goiter Osteoarthritis, shoulder Chronic fatigue syndrome Fibromyalgia Neuropathy Panic attacks Hypothyroid Breast cancer, right Essential hypertension Allergic rhinitis Hypovitaminosis D Vertigo Mild persistent asthma NAVA (generalized anxiety disorder) Mild recurrent major depression Surgical History History of salpingectomy History of breast implant History of mastectomy Family History Mother Hypertension Asthma Osteoporosis Depression Anxiety Sleep apnea Fibromyalgia Mental health disorder Father Diabetes Substance use disorder Social History Housing: House Alcohol intake: never Patient Tobacco Use Status: Never used Tobacco e-Cigarette/Vaping Use: Never Used Second Hand Smoke Exposure: No service: No Current occupational status: unemployed and disabled Cognitive needs: No Hearing needs: No Vision needs: No Questionnaire Thrive Questionnaire Date Thrive assessed: 12/26/22 NAVA-7 AMB Questionnaire NAVA-7 Date NAVA - 7 assessed: 12/26/22 Source: Developed by Drs. Homar Cancino, Mar Pike, Imer Montesinos and colleagues, with an educational nalini from [employer]. Review of Systems Const All systems reviewed & are unremarkable except as noted in HPI and below Eyes Reports no additional complaints, Denies change in vision and Denies other visual disturbances Card Denies chest pain at rest, Denies chest pain with activity, Denies edema, Denies irregular heart rhythm, Denies claudication, Denies dyspnea, Denies dyspnea on exertion, Denies orthopnea, Denies paroxysmal nocturnal dyspnea and Denies slow heart rate Resp Denies cough, Denies dyspnea and Denies dyspnea on exertion GI Denies abdominal pain, Denies change in bowel habits, Denies excessive flatus, Denies nausea and Denies vomiting Denies urinary incontinence, Denies urinary hesitancy and Denies urinary urgency Musc Denies abnormal gait, Denies atrophy, Denies deformity, Reports arthralgias and Reports limited range of motion Skin/Breast Denies bleeding lesions, Denies changing lesions and Denies rash Neuro Denies abnormal gait and Denies lack of coordination Physical exam (Primary Care) Vital Signs: Last Vital Signs BP 120/82 02/06/23 15:08 BMI result Body Mass Index 31.7 Tobacco/Smoking Status: Tobacco use Status Tobacco use date assessed 12/26/22 02/06/23 15:15 Patient Tobacco Use Status Never used Tobacco 02/06/23 15:15 Tobacco use type 02/04/23 17:58 e-Cigarette/Vaping Use Never Used 02/06/23 15:15 Thrive Assessment: Date of Thrive Assessment Date Thrive assessed 12/26/22 02/06/23 15:15 Eyes General: appearance normal, both eyes and all related structures Eyelids: Yes eyelids normal Conjunctivae: conjunctivae normal Neck Neck: Yes normal visual inspection and Yes supple Resp Effort & Inspection: normal respiratory effort Auscultation: clear to auscultation bilaterally Cardio Jugular venous distension: no JVD Rate: regular rate Rhythm: regular rhythm Heart sounds: S1 normal heart sound present and S2 normal heart sound present Extrem Right upper extremity: shoulder/upper arm Details: tenderness and abnormal ROM Details: pain with active ROM Details: in ADduction, in ABduction, in extension, in internal rotation and external rotation- Office Procedures Flu Questionnaire Does the patient have a severe egg allergy?: No Immunizations flu vacc [id number] 6mos up(PF) 60 mcg(15 mcgx4)/0.5 mL IM syringe Performing Provider: Khushboo Godinez MD [facility] Documented (not given) by: BHASKAR Call on 02/06/23 15:16 Reason Not Given: Patient Refused Assessment and Plan Assessment & Plan (1) Cough: Code(s): R05.9 - Cough, unspecified Plan: Referred to pulmonology. Treatment sent. (2) Right shoulder pain: Code(s): M25.511 - Pain in right shoulder Plan: X-ray ordered. Referred to physical therapy. (3) Mild recurrent major depression: Code(s): F33.0 - Major depressive disorder, recurrent, mild Plan: Continue escitalopram. (4) Essential hypertension: Code(s): I10 - Essential (primary) hypertension Plan: Continue clonidine. Blood pressure goal is equal or less than 130/80. Orders: Orders XR shoulder RT min 2V Today M25.511 - Pain in right shoulder PT Evaluation and Treatment Today M25.511 - Pain in right shoulder XR DEXA axial skeleton Today N95.9 - Unspecified menopausal and perimenopausal disorder Influenza [id number] Immunization Today Z23 - Encounter for immunization Referrals Pulmonology Referral R05.9 - Cough, unspecified Medications: Refilled benzonatate 100 mg PO TID 10 days PRN 30 caps 1RF cough Coding Level of Care Code Est Pt Level 4 (37204) Diagnoses Cough R05.9 Right shoulder pain M25.511 Mild recurrent major depression F33.0 Essential hypertension I10 Time Spent (min) 23
== END 2023-02-06 15:47 | disposition home or self-care (01) ==
PROVIDERS: PCP Internal Medicine; Visit Provider Internal Medicine
DX: R05.9 Cough, unspecified (principal); M25.511 Pain in right shoulder; F33.0 Major depressive disorder, recurrent, mild; I10 Essential (primary) hypertension
CPT/HCPCS: 99214

== ENCOUNTER 2023-02-06 15:59 | Outpatient (REF) | payer BC, MEDICARE, MEDICAID, SELFPAY ==
--- NOTE | ~2023-02-06 | XR_ITS ---
EXAMINATION: XR SHOULDER, RIGHT CLINICAL INFORMATION: Reason for Exam M25.511 - Pain in right shoulder COMPARISON: None TECHNIQUE: Four views of the shoulder. FINDINGS: No acute fracture or dislocation. Mild osteoarthritis of the shoulder with subchondral cystic change in the humeral head and acromioclavicular osteophytes. Calcification adjacent to the acromion may reflect sequelae of hydroxyapatite deposition disease. Soft tissues are unremarkable. XR/XR shoulder RT min 2V IMPRESSION: 1. Mild osteoarthritis of the shoulder. 2. Calcification adjacent to the acromion may reflect sequelae of hydroxyapatite deposition disease.
== END 2023-02-06 16:00 | disposition home or self-care (01) ==
LOC: HO.XRAY 15:59
PROVIDERS: PCP Internal Medicine; Visit Provider Internal Medicine
DX: M25.511 Pain in right shoulder (principal)
CPT/HCPCS: 73030

== ENCOUNTER 2023-03-11 14:42 | Outpatient (REF) | payer BC, MEDICARE, MEDICAID, SELFPAY ==
--- NOTE | ~2023-03-11 | MM_ITS ---
EXAMINATION: BONE DENSITOMETRY CLINICAL INDICATION: Menopause. COMPARISON: This is the patient's baseline examination. TECHNIQUE: Using a [employer] DXA System (software version: 13.1) manufactured by [employer] ([employer]), dual-energy x-ray absorptiometry was performed of the lumbar spine and left hip. The images are of good technical quality. Summary results are attached. FINDINGS: LEFT FEMUR, NECK: BMD 0.803 g/cm2, Z-score -0.6, T-score 1.7, osteopenia. LEFT FEMUR, TOTAL: BMD 0.955 g/cm2, Z-score 0.4, T-score -0.4, normal. AP SPINE L1-L4: BMD 0.845 g/cm2, Z-score -1.8, T-score -2.8, osteoporosis. IDENTIFIED RISK FACTORS: Menopause, height loss, osteoporosis, right oophorectomy. HISTORY OF FRACTURE: None listed. MEDICATIONS: Calcium, vitamin D. MM/XR DEXA axial skeleton IMPRESSION: 1. DIAGNOSIS: Osteoporosis based on the lowest T-score value of -2.8 in the lumbar spine applying World Health Organization criteria. 2. 10-YEAR FRACTURE RISK PREDICTION, FRAX: According to the guidelines, FRAX calculation should only be performed on patients in the osteopenia bone density category. Therefore, FRAX was not performed on this patient. 3. Treatment Recommendations: NOF guidelines recommend consideration for treatment in postmenopausal women and men age 50 and older presenting with the following: -A hip or vertebral (clinical or morphometric) fracture. -T-score less than or equal to -2.5 at the femoral neck or spine after appropriate evaluation to exclude secondary causes. -Low bone mass at the hip or spine and a 10-year fracture probability by FRAX of greater than or equal to 3% for hip fracture or greater than or equal to 20% for major osteoporotic fracture based on the [place] adapted WHO algorithm. 4. Other Recommendations: All treatment decisions require clinical judgment and consideration of individual patient factors, including patient preferences, comorbidities, previous drug use, risk factors not captured in the FRAX model (e.g. frailty, falls, vitamin D deficiency, increased bone turnover, interval significant decline in bone density) and possible under or overestimation of fracture risk by FRAX. Additional medical evaluation for secondary cause of low bone mineral density may be appropriate. FUTURE SCAN RECOMMENDATION: People with diagnosed cases of osteoporosis or at high risk for fracture should have regular bone mineral density tests. For patients eligible for Medicare, routine testing is allowed once every 2 years. The testing frequency can be increased to one year for patients who have rapidly progressing disease, those who are receiving or discontinuing medical therapy to restore bone mass, or have additional risk factors.
== END 2023-03-11 14:43 | disposition home or self-care (01) ==
LOC: HO.MAMMO 14:42
PROVIDERS: PCP Internal Medicine; Visit Provider Internal Medicine
DX: Z13.820 Encounter for screening for osteoporosis (principal); Z78.0 Asymptomatic menopausal state
CPT/HCPCS: 77080

== ENCOUNTER 2023-03-25 11:08 | Outpatient (AMB) | payer BC, MEDICARE, MEDICAID, SELFPAY ==
[2023-03-25 11:09] VITALS: BP 122/78; PULSE 87; O2SAT 98; BMI 31.8
--- NOTE | 2023-03-25 11:09 | A.OFFPC_ITS ---
Vital Signs 03/25/23 11:09 Height 4 ft 10 in Weight 152 lb 4 oz BMI 31.8 BP 122/78 Blood Pressure Location Lt brachial Position Sitting Pulse 87 Pulse Source Pulse Oximeter Pulse Oximetry (%) 98 Oxygen Delivery Method Room Air Intake Visit Reasons: Fribomyalgia, NAVA, depression, ashtma Health Center Manager Required: No Accompanied by: Self / Same As Patient Allergies clindamycin Allergy (Severe, Verified 03/25/23 11:33) itch, nausea, dizziness, scratchy throat, neck redness Penicillins [PENICILLINS] Allergy (Intermediate, Verified 03/25/23 11:33) RASH hydrocodone [HYDROCODONE] Allergy (Unknown, Verified 03/25/23 11:33) UNKNOWN morphine [MORPHINE] Allergy (Unknown, Verified 03/25/23 11:33) LETHARGY oxycodone [OXYCODONE] Allergy (Unknown, Verified 03/25/23 11:33) LEHTARGY Medication List - Last Reconciled 03/25/23 by Khushboo Godinez MD alprazolam 0.25 mg PO TID PRN 30 days ascorbate calcium (vitamin C) 500 mg PO DAILY benzonatate 100 mg PO TID PRN 10 days cholecalciferol (vitamin D3) 125 mcg PO .every other day 90 days clonidine HCl 0.1 mg PO BID 90 days desloratadine 10 mg (2 x 5 mg) PO DAILY 14 days escitalopram oxalate mg PO magnesium oxide 500 mg PO DAILY 90 days meclizine 12.5 mg PO BID PRN 90 days montelukast 10 mg PO DAILY 90 days Ventolin HFA 90 mcg/actuation (albuterol sulfate) 2 puffs PO Q6H PRN 30 days NS Tobacco use date assessed: 03/25/23 Dental Screening Dental Screen Date: 03/25/23 Did you have a dental visit in the last 12 months?: Yes Did you have a dental problem in the last 6 months where you did not have access to dental care?: No Was dental information given to patient?: Patient has dentist HPI HPI Comments History of Present Illness Details This is a 57-year-old female with mild recurrent major depression, anxiety, mild persistent asthma and right shoulder osteoarthritis that comes today for follow-up on her conditions. Depression and anxiety has been stable with medications. She has been requiring rescue inhaler more 10 of 10 and has an appointment with pulmonology next week. Still has right shoulder pain due to osteoarthritis with limited range of motion and will receive physical therapy tomorrow. No chest pain or shortness of breath. [facility] Medical History (Updated 03/25/23 @ 12:05 by Khushboo Godinez MD) Goiter Osteoarthritis, shoulder Chronic fatigue syndrome Fibromyalgia Neuropathy Panic attacks Hypothyroid Breast cancer, right Essential hypertension Allergic rhinitis Hypovitaminosis D Vertigo Mild persistent asthma NAVA (generalized anxiety disorder) Mild recurrent major depression Surgical History History of salpingectomy History of breast implant History of mastectomy Family History Mother Hypertension Asthma Osteoporosis Depression Anxiety Sleep apnea Fibromyalgia Mental health disorder Father Diabetes Substance use disorder Social History Housing: House Alcohol intake: never Patient Tobacco Use Status: Never used Tobacco e-Cigarette/Vaping Use: Never Used Second Hand Smoke Exposure: No service: No Current occupational status: unemployed and disabled Cognitive needs: No Hearing needs: No Vision needs: No Questionnaire PHQ-9 Over the last 2 weeks, how often have you been bothered by any of the following problems? 1. Little interest or pleasure in doing things: not at all 2. Feeling down, depressed, or hopeless: more than half the days 3. Trouble falling or staying asleep, or sleeping too much: nearly every day 4. Feeling tired or having little energy: more than half the days 5. Poor appetite or overeating: several days 6. Feeling bad about yourself - or that you are a failure or have let yourself or your family down: not at all 7. Trouble concentrating on things, such as reading the newspaper or watching television: not at all 8. Moving or speaking so slowly that other people could have noticed. Or the opposite - being so fidgety or restless that you have been moving around a lot more than usual: not at all 9. Thoughts that you would be better off or of hurting yourself in some way: not at all Total score: 8 Depression Screening Interpretation: Positive Depression Screening Follow-up: Existing condition Depression Screening Done: Yes 30364 - PHQ-9 Billing: Yes Source: Developed by Drs. Homar Cancino, Mar Pike, Imer Montesinos and colleagues, with an educational nalini from [employer]. Thrive Questionnaire Date Thrive assessed: 03/25/23 I am a: Patient What is your living situation today?: I have a steady place to live Within the past 12 months, did the food you bought not last and you didn't have the money to get more?: Never true Within the past 12 months, did you worry whether your food would run out before you got money to buy more?: Never true Do you have trouble paying for medicines?: No Do you have trouble getting transportation to medical appointments?: No Do you have trouble paying your heating and electricity bill?: No Do you have trouble taking care of your child, family member or friend?: No Do you have trouble with day-to-day activities such as bathing, preparing meals, shopping, managing finances, etc.?: No Are you currently unemployed and looking for a job?: No Are you interested in more education?: No Please select the resources that you would like help with: None Currently or been in a relationship where the following occur: no concerns reported AUDIT C Alcohol Use Questionnaire (AUDIT-C) 1. How often do you have a drink containing alcohol?: Never Total Score: 0 NAVA-7 AMB Questionnaire NAVA-7 Date NAVA - 7 assessed: 03/25/23 Feeling nervous, anxious, or on edge: 3 = Nearly every day Not being able to stop or control worryin = Nearly every day Worrying too much about different things: 3 = Nearly every day Trouble relaxin = Several days Being so restless that it is hard to sit still: 0 = Not at all Becoming easily annoyed or irritable: 0 = Not at all Feeling afraid as if something awful might happen: 1 = Several days Total NAVA-7 score (0-4 normal; 5-9 mild; 10-14 moderate; 15-21 severe): 11 Source: Developed by Drs. Homar Cancino, Imer Jj and colleagues, with an educational nalini from [employer]. NAVA-7 Assessment Billing NAVA-7 Assessment Tool: NAVA-7 Assessment 35717 Review of Systems Const All systems reviewed & are unremarkable except as noted in HPI and below Eyes Reports no additional complaints, Denies change in vision and Denies other visual disturbances Card Denies chest pain at rest, Denies chest pain with activity, Denies edema, Denies irregular heart rhythm, Denies claudication, Denies dyspnea, Denies dyspnea on exertion, Denies orthopnea, Denies paroxysmal nocturnal dyspnea and Denies slow heart rate Resp Denies cough, Denies dyspnea and Denies dyspnea on exertion GI Denies abdominal pain, Denies change in bowel habits, Denies excessive flatus, D enies nausea and Denies vomiting Denies urinary incontinence, Denies urinary hesitancy and Denies urinary urgency Musc Denies atrophy, Denies deformity and Denies limited range of motion Physical exam (Primary Care) Vital Signs: Last Vital Signs Pulse 87 03/25/23 11:09 BP 122/78 03/25/23 11:09 Pulse Ox 98 03/25/23 11:09 Oxygen Delivery Method Room Air 03/25/23 11:09 BMI result Body Mass Index 31.8 Tobacco/Smoking Status: Tobacco use Status Tobacco use date assessed 03/25/23 03/25/23 11:11 Patient Tobacco Use Status Never used Tobacco 03/25/23 11:11 Tobacco use type 02/04/23 17:58 e-Cigarette/Vaping Use Never Used 03/25/23 11:11 PHQ-9: PHQ-9 Score PHQ-9: Total score 8 03/25/23 11:35 Depression Screening Interpretation: Positive Depression Screening Follow-up: Existing condition Thrive Assessment: Date of Thrive Assessment Date Thrive assessed 03/25/23 03/25/23 11:11 Currently or been in a relationship where the following occur: no concerns reported Eyes General: appearance normal, both eyes and all related structures Eyelids: Yes eyelids normal Conjunctivae: conjunctivae normal Neck Neck: Yes normal visual inspection and Yes supple Resp Effort & Inspection: normal respiratory effort Auscultation: clear to auscultation bilaterally Cardio Jugular venous distension: no JVD Rate: regular rate Rhythm: regular rhythm Heart sounds: S1 normal heart sound present and S2 normal heart sound present Extrem General: Yes full ROM Assessment and Plan Assessment & Plan (1) Mild recurrent major depression: Code(s): F33.0 - Major depressive disorder, recurrent, mild Plan: Continue escitalopram. (2) NAVA (generalized anxiety disorder): Code(s): F41.1 - Generalized anxiety disorder Plan: Continue escitalopram. (3) Mild persistent asthma: Code(s): J45.30 - Mild persistent asthma, uncomplicated Plan: Use rescue inhaler as needed. Follow-up with pulmonology. (4) Primary osteoarthritis, right shoulder: Code(s): M19.011 - Primary osteoarthritis, right shoulder Plan: Start physical therapy tomorrow. Orders: Orders Lipid Panel Today Z00.00 - Encounter for general adult medical examination without abnormal findings Comprehensive [place]. Panel Fast Today Z00.00 - Encounter for general adult medical examination without abnormal findings Thyroid Stimulating Hormone Today E04.9 - Nontoxic goiter, unspecified Vitamin D 25-OH Total Today E55.9 - Vitamin D deficiency, unspecified Rast Allergen Today T78.40XA - Allergy, unspecified, initial encounter Coding Level of Care Code Est Pt Level 4 (28563) Diagnoses Mild recurrent major depression F33.0 NAVA (generalized anxiety disorder) F41.1 Mild persistent asthma J45.30 Primary osteoarthritis, right shoulder M19.011 Additional Codes NAVA-7 Assessment Billing - NAVA-7 Assessment Tool: NAVA-7 Assessment 32411 ([id number]) Time Spent (min) 22
== END 2023-03-25 11:49 | disposition home or self-care (01) ==
PROVIDERS: PCP Internal Medicine; Visit Provider Internal Medicine
DX: J45.30 Mild persistent asthma, uncomplicated (principal); F33.0 Major depressive disorder, recurrent, mild; F41.1 Generalized anxiety disorder; M19.011 Primary osteoarthritis, right shoulder
CPT/HCPCS: 99214

== ENCOUNTER 2023-03-26 08:30 | Outpatient (RCR) | payer BC, MEDICARE, MEDICAID, SELFPAY ==
[2023-03-26 08:58] VITALS: BP 136/86; PULSE 87
--- NOTE | 2023-03-26 10:11 | MHC.PT.EP ---
[facility] [place] Office [place] Office [place] Office [address] [phone] F: [phone] F: [phone] F: [phone] F: [phone] Physical Therapy Plan of Care Date of Evaluation: 03/26/23 Date of Surgery: NA Diagnosis: R shoulder pain Assessment: Bethany is a 57 year old female who is referred to PT for R shoulder pain . She reports of having pain R shoulder, R side neck, R arm and radiating down to her fingers for the last 6-8 months. She denies any trauma or falls. She has h/o R mastectomy 5 years back. On PT examination she presents with TTP over R UT, 8-10/10 pain in R UE at rest and with over head movements, decreased R shoulder ROM, decreased R shoulder muscle strength and altered posture. She lives with her family. She is independent with most ADLS except lifting heavy weight for which her family helps. She needs assistance with self care activities. She would benefit from skilled PT to address the aforementioned impairments and improve tolerance to functional activities. Frequency and Duration: The patient will be seen 2/week for 5 weeks Short Term Goals: 1. Pt will have 50% decrease in pain which will enable her to sleep through night in 2 weeks. 2. Pt be able to move shoulder through all planes of motion without pain which will enable her to dress her upper body without pain 3 weeks. Residential Goals: 1. Pt will demonstrate an increase in muscle strength by 1 grade which will enable her to carry weights without difficulty in 5 weeks. 2. Pt will be independent with all ADLS for symptom management and maintenance following d/c in 5 weeks. Treatment Plan: Modalities to reduce pain, spasms and effusion. Manual therapy to restore motion and function. Therapeutic exercise to improve strength and flexibility. Neuromuscular re-education for posture and balance. Therapeutic activities to return to functional activities of daily living. Electronically signed by: Dolly Lindsay PT DPT Please sign and return to therapist. Thank you for your referral.
--- NOTE | 2023-04-28 14:34 | MHC.PT.DC ---
[facility] [place] Office [place] Office [place] Office [address] Wright [address] [phone] F: [phone] F: [phone] F: [phone] F: [phone] Physical Therapy Discharge Report Diagnosis: R shoulder pain Date of Surgery: NA Date of Evaluation: 03/26/23 Date of Discharge: 04/28/23 Treatments to Date: 1 Cancellations to Date: 4 No Shows to Date: Discharge Status: Visit Non-compliance Discharge Summary: Bethany attended her eval and canceled several visits after due to lack of transportation. She has not been able to attend PT for about a month due to transportation issues. She is therefore being d/c from PT. Electronically signed by: Dolly Lindsay PT DPT Please sign and return to therapist. Thank you for your referral.
== END 2023-04-28 14:34 | disposition home or self-care (01) ==
LOC: HO.PT 08:30
PROVIDERS: PCP Internal Medicine; Visit Provider Internal Medicine
DX: M25.511 Pain in right shoulder (principal)
CPT/HCPCS: 97112; 97161

== ENCOUNTER 2023-03-26 10:04 | Outpatient (REF) | payer BC, MEDICARE, MEDICAID, SELFPAY | END 2023-03-26 10:05 | disposition home or self-care (01) | LOC: HO.LAB 10:04 | PROVIDERS: PCP Internal Medicine; Visit Provider Internal Medicine | DX: T78.40XA Allergy, unspecified, initial encounter (principal) | CPT/HCPCS: 36415; 86003 ==

== ENCOUNTER 2023-04-01 13:18 | Outpatient (AMB) | payer BC, MEDICARE, MEDICAID, SELFPAY ==
--- NOTE | 2023-04-01 13:21 | MHC.OFFVIS ---
Intake Vital Signs 04/01/23 13:23 Height 4 ft 10 in Weight 150 lb BMI 31.3 BP 128/70 Blood Pressure Location Lt brachial Position Sitting Pulse 86 Pulse Source Pulse Oximeter Pulse Oximetry (%) 99 Oxygen Delivery Method Room Air Intake Visit Reasons: cough Wood Preparation Supervisor Required: No Allergies clindamycin Allergy (Severe, Verified 04/01/23 13:25) itch, nausea, dizziness, scratchy throat, neck redness Penicillins [PENICILLINS] Allergy (Intermediate, Verified 04/01/23 13:25) RASH hydrocodone [HYDROCODONE] Allergy (Unknown, Verified 04/01/23 13:25) UNKNOWN morphine [MORPHINE] Allergy (Unknown, Verified 04/01/23 13:25) LETHARGY oxycodone [OXYCODONE] Allergy (Unknown, Verified 04/01/23 13:) LEHTARGY HPI HPI Comments History of Present Illness Details The patient is here for pulmonary evaluation. The patient is a 57 year woman with a known history of breast cancer status post mastectomy in addition to asthma. She has had mild intermittent asthma for many years. She has an inhaler that she rarely use. Unfortunately, the summer time she started developing worsening respiratory symptoms and had worsening cough and chest tightness. She has been using her rescue inhaler once or twice a day. the patient was evaluated in the ER he follow were October 2022 with worsening respiratory symptoms. She did undergo a CT a and ruled out pneumonia. The patient also with a history of breast cancer was reassuring without any evidence of any recurrence or any nodular densities or lymphadenopathy. the patient has also been allergic to cats and other other things. Based on her blood work she did have some degree of eosinophilia. Now even the family that only the CT when they go to visit her can exacerbate her breathing. Other triggers can be viruses strong perfumes can also trigger her breathing. In the office she does have significant chest tightness and coughing. The patient did receive a Xopenex treatment in the office improving her chest tightness although she did become tremulous. The patient does need to be on respiratory medications with maintenance inhalers at this time. Will request allergy testing PFTs to further address her ongoing symptoms. [facility] Medical History (Updated 04/01/23 @ 19:14 by Gagandeep Maravilla MD) Asthma Goiter Osteoarthritis, shoulder Chronic fatigue syndrome Fibromyalgia Neuropathy Panic attacks Hypothyroid Breast cancer, right Essential hypertension Allergic rhinitis Hypovitaminosis D Vertigo Mild persistent asthma NAVA (generalized anxiety disorder) Mild recurrent major depression Surgical History History of salpingectomy History of breast implant History of mastectomy Family History Mother Hypertension Asthma Osteoporosis Depression Anxiety Sleep apnea Fibromyalgia Mental health disorder Father Diabetes Substance use disorder Social History Housing: House Alcohol intake: never Patient Tobacco Use Status: Never used Tobacco e-Cigarette/Vaping Use: Never Used Second Hand Smoke Exposure: No service: No Current occupational status: unemployed and disabled Cognitive needs: No Hearing needs: No Vision needs: No Review of Systems Const Reports no additional complaints and Denies fever(s) Eyes Reports no additional complaints, Denies change in vision and Denies other visual disturbances ENT Reports nasal congestion Card Denies chest pain at rest Resp Reports chest congestion, Denies cough and Reports wheezing GI Denies abdominal pain Musc Denies atrophy, Denies deformity and Denies limited range of motion Skin/Breast Denies rash Neuro Reports no additional complaints Aller/Immun Reports wheezing Physical Exam Vital Signs: Last Vital Signs Pulse 86 04/01/23 13:23 BP 128/70 04/01/23 13:23 Pulse Ox 99 04/01/23 13:23 Oxygen Delivery Method Room Air 04/01/23 13:23 BMI result Body Mass Index 31.3 Const General: cooperative and healthy appearing Nutritional Appearance: well nourished Orientation/consciousness: patient oriented x3 Limitations: no limitations HEENT Head: Yes normal to inspection Eyes General: appearance normal, both eyes and all related structures Neck Neck: Yes normal visual inspection Chest Chest palpation & inspection: normal inspection of the chest Resp Effort & Inspection: normal respiratory effort and prolonged expiratory phase Auscultation: wheezes and diminished lung sounds Skin General skin exam: no rashes or lesions noted Neuro General: patient oriented x3 Extrem General: Yes no clubbing, cyanosis or edema Office Procedures Nebulizer Treatment Nebulizer Treatment 72308-Hrookqsum/MDI RX initial, or Nebulizer Subsequent Treatment Office Meds levalbuterol HCl 1.25 mg/3 mL solution for nebulization Performing Provider: Gagandeep Maravilla MD Performing Location: [facility] Pulmonology Services Administered by: Jade Cannon LPN on 04/01/23 13:58 Dose Route Admin Location Dispensed Lot Number Expiration Date [facility] Senior Game Designer 1.25 mg inhalation 3 mL [id number] 08/21/24 9219-6212-07 [employer] Assessment & Plan Assessment & Plan (1) Asthma exacerbation: Code(s): J45.901 - Unspecified asthma with (acute) exacerbation Qualifiers: Asthma severity: moderate Asthma persistence: unspecified Qualified Code(s): J45.901 - Unspecified asthma with (acute) exacerbation (2) Cough: Code(s): R05.9 - Cough, unspecified Qualifiers: Cough type: chronic Qualified Code(s): R05.3 - Chronic cough (3) Allergic reaction: Code(s): T78.40XA - Allergy, unspecified, initial encounter Qualifiers: Encounter type: initial encounter Qualified Code(s): T78.40XA - Allergy, unspecified, initial encounter (4) Allergic rhinitis: Code(s): J30.9 - Allergic rhinitis, unspecified Qualifiers: Allergic rhinitis trigger: other Allergic rhinitis seasonality: unspecified Qualified Code(s): J30.89 - Other allergic rhinitis Plan Start Breo 200 JAMES as needed continue singulair start medrol pack if no better anti histamines as needed will likely benefit from Biologic therapy PFTs Bloodwork/allergy testing pending F/U 6-8 weeks Orders: Orders Erythrocyte Sedimentation Rate Today J45.901 - Unspecified asthma with (acute) exacerbation Resp Allergy Profile Region I Today J45.901 - Unspecified asthma with (acute) exacerbation Immunoglobulins,IgG IgA IgM Today J45.901 - Unspecified asthma with (acute) exacerbation PFT pulmonary function test Today J45.909 - Unspecified asthma, uncomplicated AMB Nebulizer Treatment Today J45.901 - Unspecified asthma with (acute) exacerbation Complete Blood Count Auto Diff Today J45.901 - Unspecified asthma with (acute) exacerbation Immunoglobulin E Today J45.901 - Unspecified asthma with (acute) exacerbation Medications: New methylprednisolone (Medrol (Bennett)) 4 mg PO DAILY 6 days 6 ea 0RF fluticasone furoate-vilanterol 200-25 mcg/dose (Breo Ellipta) 1 inh inhalation DAILY 30 days 60 ea 11RF J45.909 - Unspecified asthma, uncomplicated Coding Level of Care Code New Pt Level 4 (48862) Diagnoses Moderate asthma with exacerbation, unspecified whether persistent J45.901 Asthma severity: moderate Asthma persistence: unspecified Chronic cough R05.3 Cough type: chronic Allergic reaction, initial encounter T78.40XA Encounter type: initial encounter Allergic rhinitis due to other allergic trigger, unspecified seasonality J30.89 Allergic rhinitis trigger: other Allergic rhinitis seasonality: unspecified CPT Codes Nebulizer Treatment - Nebulizer Treatment, initial or subsequent: 03209-Fxgaxqqxy/MDI RX initial, or Nebulizer Subsequent Treatment ([id number]) Time Spent (min) 40
[2023-04-01 13:23] VITALS: BP 128/70; PULSE 86; O2SAT 99; BMI 31.3
== END 2023-04-01 14:05 | disposition home or self-care (01) ==
PROVIDERS: PCP Internal Medicine; Visit Provider Hospitalist
DX: J45.901 Unspecified asthma with (acute) exacerbation (principal); R05.3 Chronic cough; T78.40XA Allergy, unspecified, initial encounter; J30.89 Other allergic rhinitis
CPT/HCPCS: 99204

== ENCOUNTER 2023-04-01 13:18 | Outpatient (REF) | payer BC, MEDICARE, MEDICAID, SELFPAY ==
[2023-04-01 14:22] LABS: MANUAL DIFF FLAG NO
[2023-04-01 15:26] LABS: Basophils Percent Auto 0.4 % (0-2); Eosinophils Absolute Auto 0.5 X10*3/uL (0.0-0.4); Eosinophils Percent Auto 4.9 % (0-4); Hematocrit 41.1 % (37.0-47.0); Hemoglobin 12.7 g/dl (12.0-16.0); Imm Gran Abs Auto 0.02 X10*3/uL (0.00-0.03); Imm Gran Pct Auto 0.2 % (0.0-0.4); Lymphocytes Absolute Auto 3.7 X10*3/uL (1.2-4.9); Lymphocytes Percent Auto 38.5 % (20-40); Mean Corpuscular HGB Conc 30.9 g/dl (31.0-35.0); Mean Corpuscular Hemoglobin 25.9 pg (27.0-33.0); Mean Corpuscular Volume 83.9 fL (80.0-98.0); Mean Platelet Volume 9.7 fL (9.4-12.3); Monocytes Absolute Auto 0.5 X10*3/uL (0.1-1.2); Monocytes Percent Auto 5.7 % (2-11); Neutrophils Absolute Auto 4.8 x10*3/uL (2.0-8.3); Neutrophils Percent Auto 50.3 % (45-73); Platelet Count 331 X10*3/uL (160-400); Red Cell Distribution Width 13.1 % (11.0-16.0); White Blood Count 9.5 X10*3/uL (4.8-10.8)
[2023-04-01 16:06] LABS: Erythrocyte Sedimentation Rate 46 MM/HR (0-20)
[2023-04-03 14:18] LABS: IgA 359 mg/dL (47-310); IgG 1105 mg/dL (600-1640); IgM 112 mg/dL (50-300)
[2023-04-04 09:58] LABS: Class Alternaria alternata 0; Class Aspergillus fumigatus 0; Class Bermuda Grass 0; Class Birch 0; Class Cat Dander 4; Class Cladosporium herbarum 0; Class Cockroach 2; Class Common Ragweed 0; Class Cottonwood 0; Class Derm. pterony 1; Class Dermatophagoides farinae 1; Class Dog Dander 6; Class Elm 0; Class Maple Box Elder 0; Class Mountain Cedar 0; Class Mouse Urine Protein 2; Class Mugwort 0; Class Oak 0; Class Penicillium crysogenum 0; Class Rough Pigweed 0; Class Sheep Sorrel 0; Class Sycamore 0; Class Timothy Grass 0; Class Walnut Tree 0; Class White Ash 0; Class White Mulberry 0; D002 - IgE D farinae 0.68 kU/L; E005 - IgE Dog Dander >100 kU/L; E072-IgE Mouse Urine 1.14 kU/L; G002 IgE Bermuda Grass <0.10 kU/L; G006 - IgE Timothy Grass <0.10 kU/L; I006-IgE Cockroach, German 2.33 kU/L; Immunoglobulin E 1127 kU/L (<OR=114); M001 IgE Penicillium chrysogen <0.10 kU/L; M002 - IgE Cladosporium herbar <0.10 kU/L; M003 - IgE Aspergillus fumigat <0.10 kU/L; M006 - IgE Alternaria alternat <0.10 kU/L; T001 IgE Maple/Box Elder <0.10 kU/L; T003 IgE Common Silver Birch <0.10 kU/L; T006 - IgE Cedar, Mountain <0.10 kU/L; T007 - IgE Oak, White <0.10 kU/L; T008 IgE Elm, American <0.10 kU/L; T010 - IgE Walnut <0.10 kU/L; T011 - IgE Maple Leaf Sycamore <0.10 kU/L; T014 - IgE Cottonwood <0.10 kU/L; T015 - IgE Ash, White <0.10 kU/L; T070 - IgE White Mulberry <0.10 kU/L; W001 - IgE Ragweed, Short <0.10 kU/L; W006 - IgE Mugwort <0.10 kU/L; W014 IgE Pigweed, Common <0.10 kU/L; W018 IgE Sheep Sorrel <0.10 kU/L
== END 2023-04-01 13:19 | disposition home or self-care (01) ==
LOC: HO.LAB 13:18
PROVIDERS: PCP Internal Medicine; Visit Provider Hospitalist
DX: J45.901 Unspecified asthma with (acute) exacerbation (principal); T78.40XA Allergy, unspecified, initial encounter; J30.89 Other allergic rhinitis
CPT/HCPCS: 36415; 82784; 82785; 85025; 85652; 86003; 94640

== ENCOUNTER 2023-05-16 10:52 | Outpatient (AMB) | payer BC, MEDICARE, MEDICAID, SELFPAY ==
[2023-05-16 11:25] VITALS: PULSE 71; O2SAT 98; BMI 31.5
--- NOTE | 2023-05-16 11:25 | A.OFFVIS_ITS ---
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 She has had mild intermittent asthma for many years. She has an inhaler that she rarely use. Unfortunately, the summer time she started developing worsening respiratory symptoms and had worsening cough and chest tightness. She has been using her rescue inhaler once or twice a day. the patient was evaluated in the ER he follow were October 2022 with worsening respiratory symptoms. She did undergo a CT a and ruled out pneumonia. The patient also with a history of breast cancer was reassuring without any evidence of any recurrence or any nodular densities or lymphadenopathy. the patient has also been allergic to cats and other other things. Based on her blood work she did have some degree of eosinophilia. Now even the family that only the CT when they go to visit her can exacerbate her breathing. Other triggers can be viruses strong perfumes can also trigger her breathing. In the office she does have significant chest tightness and coughing. The patient did receive a Xopenex treatment in the office improving her chest tightness although she did become tremulous. The patient does need to be on respiratory medications with maintenance inhalers at this time. Will request allergy testing PFTs to further address her ongoing symptoms. 05/16/2023 the patient is here for a pulmonary follow-up visit. The patient overall has been doing better. She continues to take the Breo daily. She does have a rescue inhaler she has not required as often. She continues to take her allergy medications including the Singulair in the antihistamine therapy. Seems like she is doing better from the asthma standpoint on this current therapy. She still uses her rescue inhaler but typically when exposed to her allergens. She did have allergy testing she has significant allergies to dust mites but more significantly has significant high allergies to both cats and dogs. The worse. She has never had episodes of any stridor angioedema or severe reactions in that fashion but she does have significant chest tightness and wheezing at times. The patient does not have a cat or dog. However, her children do. I did give her information for her to take to her children so they know how severe her allergies are to make sure that the animals in pets are not close to the patient. We did talk about biologic therapy. The patient does have a significant elevation of the IgE and also eosinophils and she will be a great candidate for Xolair in addition to other biologics. The patient also can consider allergy shots specially she was 2 modular humeral response to the dogs in the CT in the dust mites. The patient did not have her PFTs she was not able to do because her car broke down. Will plan to do it the next time. Therefore, she will continue with the current therapy but again she will call if her symptoms worsen we can consider biologic therapy. [facility] Medical History (Updated 05/19/23 @ 19:52 by Gagandeep Maravilla MD) Asthma Goiter Osteoarthritis, shoulder Chronic fatigue syndrome Fibromyalgia Neuropathy Panic attacks Hypothyroid Breast cancer, right Essential hypertension Allergic rhinitis Hypovitaminosis D Vertigo Mild persistent asthma NAVA (generalized anxiety disorder) Mild recurrent major depression Surgical History History of salpingectomy History of breast implant History of mastectomy Family History Mother Hypertension Asthma Osteoporosis Depression Anxiety Sleep apnea Fibromyalgia Mental health disorder Father Diabetes Substance use disorder Social History Housing: House Alcohol intake: never Patient Tobacco Use Status: Never used Tobacco e-Cigarette/Vaping Use: Never Used Second Hand Smoke Exposure: No service: No Current occupational status: unemployed and disabled Cognitive needs: No Hearing needs: No Vision needs: No Review of Systems Const Reports no additional complaints and Denies fever(s) Eyes Reports no additional complaints, Denies change in vision and Denies other visual disturbances ENT Reports nasal congestion Card Denies chest pain at rest Resp Reports chest congestion, Denies cough and Reports wheezing GI Denies abdominal pain Musc Denies atrophy, Denies deformity and Denies limited range of motion Skin/Breast Denies rash Neuro Reports no additional complaints Aller/Immun Reports wheezing Physical Exam Vital Signs: Last Vital Signs Pulse 71 05/16/23 11:25 Pulse Ox 98 05/16/23 11:25 Oxygen Delivery Method Room Air 05/16/23 11:25 BMI result Body Mass Index 31.5 Const General: cooperative and healthy appearing Nutritional Appearance: well nourished Orientation/consciousness: patient oriented x3 Limitations: no limitations HEENT Head: Yes normal to inspection Eyes General: appearance normal, both eyes and all related structures Neck Neck: Yes normal visual inspection Chest Chest palpation & inspection: normal inspection of the chest Resp Effort & Inspection: normal respiratory effort and No prolonged expiratory phase Auscultation: no wheezes and diminished lung sounds Skin General skin exam: no rashes or lesions noted Neuro General: patient oriented x3 Extrem General: Yes no clubbing, cyanosis or edema Assessment & Plan Assessment & Plan (1) Asthma: Code(s): J45.909 - Unspecified asthma, uncomplicated Qualifiers: Asthma severity: moderate Asthma persistence: persistent Asthma complication type: uncomplicated Qualified Code(s): J45.40 - Moderate persistent asthma, uncomplicated (2) Cough: Code(s): R05.9 - Cough, unspecified Qualifiers: Cough type: chronic Qualified Code(s): R05.3 - Chronic cough (3) Allergic reaction: Code(s): T78.40XA - Allergy, unspecified, initial encounter Qualifiers: Encounter type: initial encounter Qualified Code(s): T78.40XA - Allergy, unspecified, initial encounter (4) Allergic rhinitis: Code(s): J30.9 - Allergic rhinitis, unspecified Qualifiers: Allergic rhinitis seasonality: unspecified Allergic rhinitis trigger: other Qualified Code(s): J30.89 - Other allergic rhinitis Plan continue Breo 200 JAMES as needed continue singulair start ipratropium nasal spray anti histamines as needed F/U 4-6 months Medications: New ipratropium bromide administer into each nostril 2 sprays intranasal TID PRN 15 mL 6RF allergy symptoms Refilled montelukast 10 mg PO DAILY 90 days 90 tabs 3RF J30.9 - Allergic rhinitis, unspecified Coding Level of Care Code Est Pt Level 4 (86669) Diagnoses Moderate persistent asthma without complication J45.40 Asthma severity: moderate Asthma persistence: persistent Asthma complication type: uncomplicated Chronic cough R05.3 Cough type: chronic Allergic reaction, initial encounter T78.40XA Encounter type: initial encounter Allergic rhinitis due to other allergic trigger, unspecified seasonality J30.89 Allergic rhinitis seasonality: unspecified Allergic rhinitis trigger: other Time Spent (min) 17
== END 2023-05-16 11:48 | disposition home or self-care (01) ==
PROVIDERS: PCP Internal Medicine; Visit Provider Hospitalist
DX: J45.40 Moderate persistent asthma, uncomplicated (principal); R05.3 Chronic cough; T78.40XA Allergy, unspecified, initial encounter; J30.89 Other allergic rhinitis
CPT/HCPCS: 99214

== ENCOUNTER → 2023-05-16 10:52 | Outpatient (BNVA) | payer BC, MEDICARE, MEDICAID, SELFPAY | PROVIDERS: PCP Internal Medicine; Visit Provider Hospitalist | DX: J45.901 Unspecified asthma with (acute) exacerbation (principal); J45.909 Unspecified asthma, uncomplicated ==

== ENCOUNTER 2023-05-27 10:54 | Outpatient (REF) | payer BC, MEDICARE, MEDICAID, SELFPAY ==
[2023-05-27 12:30] LABS: MANUAL DIFF FLAG NO
[2023-05-27 13:53] LABS: Basophils Absolute Auto 0.1 X10*3/uL (0.0-0.2); Basophils Percent Auto 0.6 % (0-2); Eosinophils Absolute Auto 0.4 X10*3/uL (0.0-0.4); Eosinophils Percent Auto 4.7 % (0-4); Hematocrit 40.6 % (37.0-47.0); Hemoglobin 12.8 g/dl (12.0-16.0); Imm Gran Abs Auto 0.03 X10*3/uL (0.00-0.03); Imm Gran Pct Auto 0.3 % (0.0-0.4); Lymphocytes Absolute Auto 2.6 X10*3/uL (1.2-4.9); Lymphocytes Percent Auto 29.1 % (20-40); Mean Corpuscular HGB Conc 31.5 g/dl (31.0-35.0); Mean Corpuscular Hemoglobin 26.2 pg (27.0-33.0); Mean Platelet Volume 9.6 fL (9.4-12.3); Monocytes Absolute Auto 0.5 X10*3/uL (0.1-1.2); Neutrophils Absolute Auto 5.3 x10*3/uL (2.0-8.3); Neutrophils Percent Auto 59.3 % (45-73); Platelet Count 338 X10*3/uL (160-400); Red Blood Count 4.89 X10*6/uL (4.20-5.50); Red Cell Distribution Width 13.2 % (11.0-16.0)
[2023-05-27 14:53] LABS: Alanine Aminotransferase 14 U/L (0-31); Albumin Level 3.9 g/dL (3.5-5.0); Alkaline Phosphatase 108 U/L (39-117); Anion Gap 12 (12-20); Aspartate Amino Transferase 15 U/L (5-31); Bilirubin Total 0.5 mg/dL (0.0-1.0); Blood Urea Nitrogen 8 mg/dL (9-16); Calcium 9.4 mg/dL (8.4-10.2); Carbon Dioxide 28 mmol/L (22-29); Chloride 103 mmol/L (96-108); Estimated Glomerular Filt Rate > 60; Glucose Random 97 mg/dL (60-115); Phosphorus 2.7 mg/dL (2.7-4.5); Potassium 3.8 mmol/L (3.3-5.1); Sodium 139 mmol/L (135-145); TSH reflex Free T4 1.12 uIU/mL (0.32-4.0); Total Protein 7.2 g/dL (6.5-8.0)
[2023-05-27 15:58] LABS: Parathyroid Hormone Intact 82.6 pg/mL (8.7-77.1)
[2023-05-29 12:09] LABS: Prot Elec - Albumin 3.7 g/dL (3.8-4.8); Prot Elec - Alpha1 0.3 g/dL (0.2-0.3); Prot Elec - Alpha2 0.8 g/dL (0.5-0.9); Prot Elec - Beta 1 0.5 g/dL (0.4-0.6); Prot Elec - Beta 2 0.5 g/dL (0.2-0.5); Prot Elec - Total Protein 6.8 g/dL (6.1-8.1)
[2023-05-31 14:38] LABS: Vitamin D 25-OH, D2 <4 ng/mL; Vitamin D 25-OH, D3 37 ng/mL; Vitamin D 25-OH, Total 37 ng/mL (30-100)
== END 2023-05-27 10:55 | disposition home or self-care (01) ==
LOC: HO.LAB 10:54
PROVIDERS: PCP Internal Medicine; Visit Provider Student in an Organized Health Care Education/Training Program
DX: Z13.21 Encounter for screening for nutritional disorder (principal); M81.0 Age-related osteoporosis without current pathological fracture; E04.9 Nontoxic goiter, unspecified
CPT/HCPCS: 36415; 80053; 82306; 83970; 84100; 84165; 84443; 85025

== ENCOUNTER 2023-05-27 10:54 | Outpatient (AMB) | payer BC, MEDICARE, MEDICAID, SELFPAY ==
--- NOTE | 2023-05-27 11:00 | MHC.OFFVIS ---
Intake Vital Signs 05/27/23 11:01 Height 4 ft 11.61 in Weight 151 lb 0.266 oz BMI 29.9 BP 122/76 Blood Pressure Location Rt brachial Position Sitting Pulse 87 Pulse Source Pulse Oximeter Pulse Oximetry (%) 97 Oxygen Delivery Method Room Air Intake Visit Reasons: osteoporosis Intake Note: New pt presents today for Osteoporosis consult. Felt Hooker Required: No Accompanied by: Self / Same As Patient Allergies clindamycin Allergy (Severe, Verified 05/27/23 11:06) itch, nausea, dizziness, scratchy throat, neck redness Penicillins [PENICILLINS] Allergy (Intermediate, Verified 05/27/23 11:06) RASH hydrocodone [HYDROCODONE] Allergy (Unknown, Verified 05/27/23 11:06) UNKNOWN morphine [MORPHINE] Allergy (Unknown, Verified 05/27/23 11:06) LETHARGY oxycodone [OXYCODONE] Allergy (Unknown, Verified 05/27/23 11:06) LEHTARGY Medication List - Last Reconciled 05/27/23 by Franki Pascal MD alprazolam 0.25 mg PO TID PRN 30 days ascorbate calcium (vitamin C) 500 mg PO DAILY benzonatate 100 mg PO TID PRN 10 days cholecalciferol (vitamin D3) 125 mcg PO .every other day 90 days clonidine HCl 0.1 mg PO BID 90 days cyclobenzaprine 10 mg PO BEDTIME PRN desloratadine 10 mg (2 x 5 mg) PO DAILY 14 days duloxetine 30 mg PO QAM escitalopram oxalate 20 mg PO DAILY fluticasone furoate-vilanterol 200-25 mcg/dose (Breo Ellipta) 1 inh inhalation DAILY 30 days ipratropium bromide 2 sprays intranasal TID PRN magnesium oxide 500 mg PO DAILY 90 days meclizine 12.5 mg PO BID PRN 90 days methylprednisolone (Medrol (Bennett)) 4 mg PO DAILY 6 days montelukast 10 mg PO DAILY 90 days Ventolin HFA 90 mcg/actuation (albuterol sulfate) 2 puffs PO Q6H PRN 30 days NS HPI HPI Comments History of Present Illness Details This is a 57-year-old female who presents for evaluation of osteoporosis. Patient states that she was diagnosed with chronic fatigue syndrome many years ago. She was evaluated by senior manufacturing engineer at the [facility] and was told that there was no evidence of an autoimmune rheumatic disease. She was found to have multiple allergies and she was started on prednisone 85 mg daily for 2 and half years. She also stated that for years she would be on prednisone on and off for different conditions such as allergies and increased inflammation She stated that she broke her right foot around 2008 and it took a long time to heal as she was on prednisone around that time. She states that she is planning to get dental implants in the fall. She denies any falls. [facility] Medical History Foot fracture, right Asthma Goiter Osteoarthritis, shoulder Chronic fatigue syndrome Fibromyalgia Neuropathy Panic attacks Hypothyroid Breast cancer, right Essential hypertension Allergic rhinitis Hypovitaminosis D Vertigo Mild persistent asthma NAVA (generalized anxiety disorder) Mild recurrent major depression Surgical History History of salpingectomy History of breast implant History of mastectomy Family History Mother Hypertension Asthma Osteoporosis Depression Anxiety Sleep apnea Fibromyalgia Mental health disorder Father Diabetes Substance use disorder Social History Housing: House Alcohol intake: never Patient Tobacco Use Status: Never used Tobacco e-Cigarette/Vaping Use: Never Used Second Hand Smoke Exposure: No service: No Current occupational status: unemployed and disabled Cognitive needs: No Hearing needs: No Vision needs: No Review of Systems Const Reports fatigue, Reports headache(s), Reports weakness and Reports weight gain Eyes Reports blurry vision and Reports itchy eyes ENT Reports dizziness, Reports dry mouth and Reports headache(s) Card Reports dyspnea Resp Reports cough, Reports dyspnea and Reports wheezing GI Reports heartburn and Reports nausea Musc Reports arthralgias and Reports muscle weakness Neuro Reports dizziness, Reports headache(s), Reports memory loss and Reports weakness Psych Reports abnormal sleep pattern, Reports anxiety, Reports depression and Reports memory loss Endo Reports fatigue Aller/Immun Reports itchy eyes and Reports wheezing Physical Exam Vital Signs: Last Vital Signs Pulse 87 05/27/23 11:01 BP 122/76 05/27/23 11:01 Pulse Ox 97 05/27/23 11:01 Oxygen Delivery Method Room Air 05/27/23 11:01 BMI result Body Mass Index 29.9 Const General: cooperative, healthy appearing and comfortable Nutritional Appearance: overweight Orientation/consciousness: patient oriented x3 Limitations: no limitations HEENT Head: Yes normocephalic and Yes atraumatic Mouth: moist mucous membranes Resp Effort & Inspection: normal respiratory effort and able to speak in complete sentences Auscultation: clear to auscultation bilaterally Cardio Rate: regular rate Skin General skin exam: no rashes or lesions noted Neuro General: patient oriented x3 Extrem Other: No active synovitis Normal nailfold capillaroscopy Assessment & Plan Assessment & Plan (1) Osteoporosis: Code(s): M81.0 - Age-related osteoporosis without current pathological fracture Qualifiers: Osteoporosis type: age-related Presence of current pathological fracture: without current pathological fracture Qualified Code(s): M81.0 - Age-related osteoporosis without current pathological fracture Plan: This is a 57-year-old female who presents for evaluation of osteoporosis. Her mother had osteoporosis and patient was exposed to prednisone for extended periods of time over the last 10-15 years. DEXA last year showed T-score-2.8 in the L-spine. There is no history of fragility fractures. Discussed osteoporosis and its management. Patient states that she is planning to get dental implants this fall. She is worried about any side effects of osteoporosis medications with dental implants. Does not want to take alendronate at this point. Advised patient to get her implants 1st and we will discuss antiresorptive medications afterwards Patient takes vitamin-D 5000 units every other day. Will check vitamin-D level. Discussed weight-bearing exercises Will check labs to evaluate for any secondary causes of osteoporosis. Follow-up in about 9 months Plan I spent 46 minutes reviewing patient's chart, evaluating patient, ordering diagnostic workup, counseling patient and documenting in the chart Orders: Orders TSH reflex Free T4 Today M81.0 - Age-related osteoporosis without current pathological fracture Vitamin D 25-OH (D2 and D3) Today Z13.21 - Encounter for screening for nutritional disorder Comprehensive Met. Panel Today M81.0 - Age-related osteoporosis without current pathological fracture Phosphorus Today M81.0 - Age-related osteoporosis without current pathological fracture Parathyroid Hormone Intact Today M81.0 - Age-related osteoporosis without current pathological fracture Protein Electrophoresis, Serum Today M81.0 - Age-related osteoporosis without current pathological fracture Complete Blood Count Auto Diff Today M81.0 - Age-related osteoporosis without current pathological fracture Coding Level of Care Code New Pt Level 4 (74175) Diagnoses Age-related osteoporosis without current pathological fracture M81.0 Osteoporosis type: age-related Presence of current pathological fracture: without current pathological fracture
[2023-05-27 11:01] VITALS: BP 122/76; PULSE 87; O2SAT 97; BMI 29.9
== END 2023-05-27 11:49 | disposition home or self-care (01) ==
PROVIDERS: PCP Internal Medicine; Referring Provider Internal Medicine; Visit Provider Student in an Organized Health Care Education/Training Program
DX: M81.0 Age-related osteoporosis without current pathological fracture (principal)
CPT/HCPCS: 99204

== ENCOUNTER 2023-06-09 08:44 | Outpatient (REF) | payer BC, MEDICARE, MEDICAID, SELFPAY ==
[2023-06-09 10:47] LABS: Alanine Aminotransferase 13 U/L (0-31); Albumin Level 3.8 g/dL (3.5-5.0); Alkaline Phosphatase 105 U/L (39-117); Anion Gap 13 (12-20); Aspartate Amino Transferase 13 U/L (5-31); Bilirubin Total 0.5 mg/dL (0.0-1.0); Blood Urea Nitrogen 8 mg/dL (9-16); Calcium 9.2 mg/dL (8.4-10.2); Carbon Dioxide 28 mmol/L (22-29); Chloride 104 mmol/L (96-108); Cholesterol 146 mg/dL (<200); Estimated Glomerular Filt Rate > 60; Glucose Fasting 105 mg/dL (60-99); HDL Cholesterol 42 mg/dL (>40); LDL Cholesterol Calculated 85 mg/dL (<100); Potassium 3.2 mmol/L (3.3-5.1); Sodium 142 mmol/L (135-145); Total Protein 7.1 g/dL (6.5-8.0); Triglycerides 99 mg/dL (<150)
[2023-06-09 11:05] LABS: Thyroid Stimulating Hormone 1.26 uIU/mL (0.32-4.0); Vitamin D 25-OH Total 49.7 ng/mL (>30)
== END 2023-06-09 08:45 | disposition home or self-care (01) ==
LOC: HO.LAB 08:44
PROVIDERS: PCP Internal Medicine; Visit Provider Internal Medicine
DX: Z00.00 Encounter for general adult medical examination without abnormal findings (principal); Z13.6 Encounter for screening for cardiovascular disorders; E04.9 Nontoxic goiter, unspecified; E55.9 Vitamin D deficiency, unspecified
CPT/HCPCS: 36415; 80053; 80061; 82306; 84443

== ENCOUNTER 2023-06-11 16:21 | Outpatient (AMB) | payer BC, MEDICARE, MEDICAID, SELFPAY ==
[2023-06-11 16:24] VITALS: BP 130/92; PULSE 82; O2SAT 98; BMI 30.3
--- NOTE | 2023-06-11 16:24 | A.OFFPC_ITS ---
Vital Signs 06/11/23 16:24 Height 4 ft 11.61 in Weight 153 lb 0.2 oz BMI 30.3 BP 130/92 H Blood Pressure Location Lt brachial Position Sitting Pulse 82 Pulse Source Pulse Oximeter Pulse Oximetry (%) 98 Oxygen Delivery Method Room Air Intake Visit Reasons: Annual Exam Intake Note: Patient is here today for a physical. Regulatory Analyst Required: No Accompanied by: Self / Same As Patient Allergies clindamycin Allergy (Severe, Verified 06/11/23 16:46) itch, nausea, dizziness, scratchy throat, neck redness Penicillins [PENICILLINS] Allergy (Intermediate, Verified 06/11/23 16:46) RASH hydrocodone [HYDROCODONE] Allergy (Unknown, Verified 06/11/23 16:46) UNKNOWN morphine [MORPHINE] Allergy (Unknown, Verified 06/11/23 16:46) LETHARGY oxycodone [OXYCODONE] Allergy (Unknown, Verified 06/11/23 16:46) LEHTARGY Medication List - Last Reconciled 06/11/23 by Khushboo Godinez MD alprazolam 0.25 mg PO TID PRN 30 days ascorbate calcium (vitamin C) 500 mg PO DAILY benzonatate 100 mg PO TID PRN 10 days cholecalciferol (vitamin D3) 125 mcg PO .every other day 90 days clonidine HCl 0.1 mg PO BID 90 days desloratadine 10 mg (2 x 5 mg) PO DAILY 14 days duloxetine 30 mg PO QAM escitalopram oxalate 20 mg PO DAILY fluticasone furoate-vilanterol 200-25 mcg/dose (Breo Ellipta) 1 inh inhalation DAILY 30 days ipratropium bromide 2 sprays intranasal TID PRN magnesium oxide 500 mg PO DAILY 90 days methylprednisolone (Medrol (Bennett)) 4 mg PO DAILY 6 days montelukast 10 mg PO DAILY 90 days Ventolin HFA 90 mcg/actuation (albuterol sulfate) 2 puffs PO Q6H PRN 30 days NS Tobacco use date assessed: 06/11/23 Dental Screening Dental Screen Date: 06/11/23 Did you have a dental visit in the last 12 months?: Yes Did you have a dental problem in the last 6 months where you did not have access to dental care?: No Was dental information given to patient?: Patient has dentist HPI HPI Comments History of Present Illness Details This is a 57-year-old female with mild recurrent major depression, history of right breast cancer in 2017 and hyperparathyroidism that comes today for her physical exam. Depression is follow by psychiatrist and has improved but still present. Right breast cancer is follow by Hematology-Oncology. 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 Patient declines alendronate due to planning to do dental implants. Has elevated PTH that will be repeated along with other labs. No chest pain or shortness of breath. Mammogram done 2022. Pap smear done 2019. Colonoscopy done 2020 showing hyperplastic polyp and tubular adenoma. PENDING SALE TO [facility] Medical History (Updated 06/11/23 @ 16:59 by Khushboo Godinez MD) Foot fracture, right Asthma Goiter Osteoarthritis, shoulder Chronic fatigue syndrome Fibromyalgia Neuropathy Panic attacks Hypothyroid Breast cancer, right Essential hypertension Allergic rhinitis Hypovitaminosis D Vertigo Mild persistent asthma NAVA (generalized anxiety disorder) Mild recurrent major depression Surgical History History of salpingectomy History of breast implant History of mastectomy Family History (Updated 06/11/23 @ 16:49 by Khushboo Godinez MD) Mother Hypertension Asthma Osteoporosis Depression Anxiety Sleep apnea Fibromyalgia Mental health disorder Diabetes Father Diabetes Substance use disorder Social History Housing: House Alcohol intake: never Patient Tobacco Use Status: Never used Tobacco e-Cigarette/Vaping Use: Never Used Second Hand Smoke Exposure: No service: No Current occupational status: unemployed and disabled Cognitive needs: No Hearing needs: No Vision needs: No Questionnaire PHQ-9 Over the last 2 weeks, how often have you been bothered by any of the following problems? 1. Little interest or pleasure in doing things: not at all 2. Feeling down, depressed, or hopeless: more than half the days 3. Trouble falling or staying asleep, or sleeping too much: nearly every day 4. Feeling tired or having little energy: more than half the days 5. Poor appetite or overeating: several days 6. Feeling bad about yourself - or that you are a failure or have let yourself or your family down: not at all 7. Trouble concentrating on things, such as reading the newspaper or watching television: not at all 8. Moving or speaking so slowly that other people could have noticed. Or the opposite - being so fidgety or restless that you have been moving around a lot more than usual: not at all 9. Thoughts that you would be better off or of hurting yourself in some way: not at all Total score: 8 Depression Screening Interpretation: Positive Depression Screening Follow-up: Existing condition, In treatment, Community Mental Health Worker F/U and Follow- up Visit Requested Depression Screening Done: Yes 06666 - PHQ-9 Billing: Yes Source: Developed by Drs. Homar Cnacino, Mar Pike, Imer Montesinos and colleagues, with an educational nalini from [employer]. Thrive Questionnaire Date Thrive assessed: 03/25/23 I am a: Patient What is your living situation today?: I have a steady place to live Within the past 12 months, did the food you bought not last and you didn't have the money to get more?: Never true Within the past 12 months, did you worry whether your food would run out before you got money to buy more?: Never true Do you have trouble paying for medicines?: No Do you have trouble getting transportation to medical appointments?: No Do you have trouble paying your heating and electricity bill?: No Do you have trouble taking care of your child, family member or friend?: No Do you have trouble with day-to-day activities such as bathing, preparing meals, shopping, managing finances, etc.?: No Are you currently unemployed and looking for a job?: No Are you interested in more education?: No Please select the resources that you would like help with: None Currently or been in a relationship where the following occur: no concerns reported THRIVE Score: 0 AUDIT C Alcohol Use Questionnaire (AUDIT-C) 1. How often do you have a drink containing alcohol?: Never 3. How often do you have six or more drinks on one occasion?: Never Total Score: 0 NAVA-7 AMB Questionnaire NAVA-7 Date NAVA - 7 assessed: 03/25/23 Feeling nervous, anxious, or on edge: 3 = Nearly every day Not being able to stop or control worryin = Nearly every day Worrying too much about different things: 3 = Nearly every day Trouble relaxin = Several days Being so restless that it is hard to sit still: 0 = Not at all Becoming easily annoyed or irritable: 0 = Not at all Feeling afraid as if something awful might happen: 1 = Several days Total NAVA-7 score (0-4 normal; 5-9 mild; 10-14 moderate; 15-21 severe): 11 Source: Developed by Drs. Homar Cancino, Mar Pike, Imer Montesinos and colleagues, with an educational nalini from [employer]. NAVA-7 Assessment Billing NAVA-7 Assessment Tool: NAVA-7 Assessment 92566 Review of Systems Const All systems reviewed & are unremarkable except as noted in HPI and below Eyes Reports no additional complaints, Denies change in vision and Denies other visual disturbances Card Denies chest pain at rest, Denies chest pain with activity, Denies edema, Denies irregular heart rhythm, Denies claudication, Denies dyspnea, Denies dyspnea on exertion, Denies orthopnea, Denies paroxysmal nocturnal dyspnea and Denies slow heart rate Resp Denies cough, Denies dyspnea and Denies dyspnea on exertion GI Denies abdominal pain, Denies change in bowel habits, Denies excessive flatus, Denies nausea and Denies vomiting Denies urinary incontinence, Denies urinary hesitancy and Denies urinary urgency Musc Denies abnormal gait, Denies atrophy, Denies deformity and Denies limited range of motion Skin/Breast Denies bleeding lesions, Denies changing lesions and Denies rash Neuro Denies abnormal gait and Denies lack of coordination Physical exam (Primary Care) Vital Signs: Last Vital Signs Pulse 82 06/11/23 16:24 BP 130/92 H 06/11/23 16:24 Pulse Ox 98 06/11/23 16:24 Oxygen Delivery Method Room Air 06/11/23 16:24 BMI result Body Mass Index 30.3 Tobacco/Smoking Status: Tobacco use Status Tobacco use date assessed 06/11/23 06/11/23 16:35 Patient Tobacco Use Status Never used Tobacco 06/11/23 16:35 Tobacco use type 02/04/23 17:58 e-Cigarette/Vaping Use Never Used 06/11/23 16:35 PHQ-9: PHQ-9 Score PHQ-9: Total score 8 06/11/23 16:35 Depression Screening Interpretation: Positive Depression Screening Follow-up: Existing condition, In treatment, Community Mental Health Worker F/U and Follow- up Visit Requested Thrive Assessment: Date of Thrive Assessment Date Thrive assessed 03/25/23 06/11/23 16:35 Currently or been in a relationship where the following occur: no concerns reported Const Orientation/consciousness: patient oriented x3 [facility] Head: Yes normal to inspection, Yes normocephalic and Yes atraumatic Ears: external ears normal Eyes General: appearance normal, both eyes and all related structures Eyelids: Yes eyelids normal Conjunctivae: conjunctivae normal Neck Neck: Yes normal visual inspection and Yes supple Resp Effort & Inspection: normal respiratory effort Auscultation: clear to auscultation bilaterally Cardio Jugular venous distension: no JVD Rate: regular rate Rhythm: regular rhythm Heart sounds: S1 normal heart sound present and S2 normal heart sound present GI Inspection: Yes normal to inspection Palpation (GI): Soft to palpation and nontender Auscultation: normal bowel sounds Skin General skin exam: no rashes or lesions noted Neuro General: patient oriented x3 and no focal motor deficits Extrem General: Yes full ROM Psych Affect: Sad affect present Assessment and Plan Assessment & Plan (1) Physical exam: Code(s): Z00.00 - Encounter for general adult medical examination without abnormal findings Plan: Repeat in a year. (2) Hyperparathyroidism: Code(s): E21.3 - Hyperparathyroidism, unspecified Plan: Repeat labs and urine. (3) Mild recurrent major depression: Code(s): F33.0 - Major depressive disorder, recurrent, mild Plan: Continue duloxetine and escitalopram. Follow-up with psychiatry. (4) Breast cancer, right: Comment: 2017. [facility] receiving with right mastectomy and chemotherapy Code(s): C50.911 - Malignant neoplasm of unspecified site of right female breast Plan: Continue following up with Hematology-Oncology. Orders: Orders Parathyroid Hormone Intact Today E21.3 - Hyperparathyroidism, unspecified Calcium, Ionized 4 Months E21.3 - Hyperparathyroidism, unspecified Vitamin D 25-OH Total 4 Months E21.3 - Hyperparathyroidism, unspecified, E55.9 - Vitamin D deficiency, unspecified Vitamin D 25-OH (D2 and D3) 4 Months E21.3 - Hyperparathyroidism, unspecified, E55.9 - Vitamin D deficiency, unspecified Thyroid Stimulating Hormone 4 Months E21.3 - Hyperparathyroidism, unspecified Comprehensive Met. Panel 4 Months E21.3 - Hyperparathyroidism, unspecified Calcium, 24 Hr Ur 4 Months E21.3 - Hyperparathyroidism, unspecified Phosphorus 4 Months E21.3 - Hyperparathyroidism, unspecified Vitamin A 4 Months E21.3 - Hyperparathyroidism, unspecified Medications: New terbinafine HCl 250 mg PO DAILY 90 days 90 tabs 0RF Coding Level of Care Code Est Pt Prev Care 40-64y(24688) Diagnoses Physical exam Z00.00 Hyperparathyroidism E21.3 Mild recurrent major depression F33.0 Breast cancer, right C50.911 Additional Codes NAVA-7 Assessment Billing - NAVA-7 Assessment Tool: NAVA-7 Assessment 82515 ([id number]) Time Spent (min) 36
== END 2023-06-11 16:57 | disposition home or self-care (01) ==
PROVIDERS: PCP Internal Medicine; Visit Provider Internal Medicine
DX: Z00.00 Encounter for general adult medical examination without abnormal findings (principal); E21.3 Hyperparathyroidism, unspecified; F33.0 Major depressive disorder, recurrent, mild; C50.911 Malignant neoplasm of unspecified site of right female breast
CPT/HCPCS: 99396

== ENCOUNTER 2023-07-02 09:20 | Outpatient (AMB) | payer BC, MEDICARE, MEDICAID, SELFPAY ==
--- NOTE | 2023-07-02 09:30 | MHC.OFFWIV ---
Intake Vital Signs 07/02/23 09:31 Height 4 ft 11.61 in Weight 152 lb 2 oz BMI 30.1 BP 130/86 Blood Pressure Location Lt brachial Position Sitting Pulse 93 Pulse Source Pulse Oximeter Temp 97.7 F Temp Source Temporal Artery Scan Pulse Oximetry (%) 97 Oxygen Delivery Method Room Air Intake Visit Reasons: EP UTI (lobby) Intake Note: Pt presents to the office today for c/o UTI symptoms. Pt states she is having buring with urination, back pain, and urinary frequency that started this past weekend. Patient Tobacco Use Status: Never used Tobacco Allergies clindamycin Allergy (Severe, Verified 07/02/23 09:33) itch, nausea, dizziness, scratchy throat, neck redness Penicillins [PENICILLINS] Allergy (Intermediate, Verified 07/02/23:33) RASH hydrocodone [HYDROCODONE] Allergy (Unknown, Verified 07/02/23 09:33) UNKNOWN morphine [MORPHINE] Allergy (Unknown, Verified 07/02/23 09:33) LETHARGY oxycodone [OXYCODONE] Allergy (Unknown, Verified 07/02/23 09:33) LEHTARGY HPI HPI Comments History of Present Illness Details She presents to office with concern UTI she has back pain, strong urine odor + dysuria, urgency and frequency No hematuria 9/10 back pain intermittent since last week She has been very active so unsure if she hurt it initially No fever or chills PFSH Medical History Foot fracture, right Asthma Goiter Osteoarthritis, shoulder Chronic fatigue syndrome Fibromyalgia Neuropathy Panic attacks Hypothyroid Breast cancer, right Essential hypertension Allergic rhinitis Hypovitaminosis D Vertigo Mild persistent asthma NAVA (generalized anxiety disorder) Mild recurrent major depression Surgical History History of salpingectomy History of breast implant History of mastectomy Family History Mother Hypertension Asthma Osteoporosis Depression Anxiety Sleep apnea Fibromyalgia Mental health disorder Diabetes Father Diabetes Substance use disorder Social History Housing: House Alcohol intake: never Patient Tobacco Use Status: Never used Tobacco e-Cigarette/Vaping Use: Never Used Second Hand Smoke Exposure: No service: No Current occupational status: unemployed and disabled Cognitive needs: No Hearing needs: No Vision needs: No Review of Systems Const Reports body aches (back ache), Denies chills and Denies fever(s) Resp Denies cough GI Reports abdominal pain (pelvic pressure), Reports GI cramping, Denies nausea and Denies vomiting Denies hematuria, Reports difficulty voiding, Reports dysuria, Reports urinary hesitancy and Reports urinary urgency Musc Reports back pain Physical Exam Vital Signs: Last Vital Signs Temp 97.7 F 07/02/23 09:31 Pulse 93 07/02/23 09:31 BP 130/86 07/02/23 09:31 Pulse Ox 97 07/02/23 09:31 Oxygen Delivery Method Room Air 07/02/23 09:31 BMI result Body Mass Index 30.1 General: Non-toxic, NAD. Speaking full sentences. Skin: Warm dry throughout Eye: EOMI Respiratory: CTA bilaterally. No wheezes, rales or rhonchi Cardiac: RRR. No murmur Abdominal: Bs present. Non-tender to palpation. No CVAT MSK: Full ROM extremities. No midline spinal tenderness. Diffuse lumbar paravertebral muscle tendereness. Neurology: A/O. No aphasia or facial droop. Gait without abnormality Psych: Good mood and affect Results AMB Urinalysis, Automated UA Leukoctes 500 Sunshine/uL Last Edit by Jacqueline Simpson CMA on 07/02/23 09:46 UA Nitrite Negative Last Edit by Jacqueline Simpson CMA on 07/02/23 09:46 UA Urobilinogen 0.2 mg/dL Last Edit by Jacqueline Simpson CMA on 07/02/23 09:46 UA Protein 0 mg/dL Last Edit by Jacqueline Simpson CMA on 07/02/23 09:46 UA pH 6.0 Last Edit by Jacqueline Simpson CMA on 07/02/23 09:46 UA Blood 0 Alberto/uL Last Edit by Jacqueline Simpson CMA on 07/02/23 09:46 UA Specific [place] 1.005 Last Edit by Jacqueline Simpson CMA on 07/02/23 09:46 UA Ketone Negative Last Edit by Jacqueline Simpson CMA on 07/02/23 09:46 UA Bilirubin 0 mg/dL Last Edit by Jacqueline Simpson CMA on 07/02/23 09:46 UA Glucose 0 mg/dL Last Edit by Jacqueline Simpson CMA on 07/02/23 09:46 Results Reviewed Results Reviewed: Laboratory Last Values Urine pH (Auto) 6.0 07/02/23 09:45 Specific [place] (Auto) 1.005 07/02/23 09:45 Urine Protein (Auto) 0 mg/dL 07/02/23 09:45 Glucose (UA)(Auto) 0 mg/dL 07/02/23 09:45 Urine Ketones (Auto) Negative 07/02/23 09:45 Urine Blood (Auto) 0 Alberto/uL 07/02/23 09:45 Urine Nitrite (Auto) Negative 07/02/23 09:45 Urine Bilirubin (Auto) 0 mg/dL 07/02/23 09:45 Urine Urobilinogen (Auto) 0.2 mg/dL 07/02/23 09:45 Leukocyte Esterase (Auto) 500 Sunshine/uL 07/02/23 09:45 Assessment & Plan Assessment & Plan (1) Urinary tract infection: Code(s): N39.0 - Urinary tract infection, site not specified Qualifiers: Hematuria presence: without hematuria Urinary tract infection type: acute cystitis Qualified Code(s): N30.00 - Acute cystitis without hematuria Plan: Patient seen and evaluated. Ua + leuks Macrobid to pharmacy No CVAT on exam and vital stable Increase fluid Patient gave verbal understanding and had no additional questions or concerns at time of discharge All questions answered Orders: Orders AMB Urinalysis Automated Today Z13.9 - Encounter for screening, unspecified Medications: New nitrofurantoin monohyd/m-cryst 100 mg (Macrobid) must administer with a meal/food 100 mg PO Q12H 14 caps 0RF 7 days Coding Level of Care Code Est Pt Level 3 (43829) Diagnoses Acute cystitis without hematuria N30.00 Hematuria presence: without hematuria Urinary tract infection type: acute cystitis
[2023-07-02 09:31] VITALS: BP 130/86; PULSE 93; TEMP 36.5; O2SAT 97; BMI 30.1
== END 2023-07-02 09:50 | disposition home or self-care (01) ==
PROVIDERS: PCP Internal Medicine; Visit Provider Physician Assistant
DX: N30.00 Acute cystitis without hematuria (principal); R35.0 Frequency of micturition
CPT/HCPCS: 81003; 99213

== ENCOUNTER 2023-07-09 11:24 | Outpatient (AMB) | payer BC, MEDICARE, MEDICAID, SELFPAY ==
[2023-07-09 11:32] VITALS: BP 126/80; PULSE 93; O2SAT 98; BMI 30.7
--- NOTE | 2023-07-09 11:32 | MHC.OFFWIV ---
Intake Vital Signs 07/09/23 11:32 Height 4 ft 11 in Weight 152 lb BMI 30.7 BP 126/80 Blood Pressure Location Lt brachial Position Sitting Pulse 93 Pulse Source Pulse Oximeter Pulse Oximetry (%) 98 Oxygen Delivery Method Room Air Intake Visit Reasons: EP UTI severe back pain fever (lobby) Intake Note: pt is here for c/o severe back pain due to UTI. Patient Tobacco Use Status: Never used Tobacco Allergies clindamycin Allergy (Severe, Verified 07/09/23 11:32) itch, nausea, dizziness, scratchy throat, neck redness Penicillins [PENICILLINS] Allergy (Intermediate, Verified 07/09/23 11:32) RASH hydrocodone [HYDROCODONE] Allergy (Unknown, Verified 07/09/23 11:32) UNKNOWN morphine [MORPHINE] Allergy (Unknown, Verified 07/09/23 11:32) LETHARGY oxycodone [OXYCODONE] Allergy (Unknown, Verified 07/09/23 11:32) LEHTARGY Medication List - Last Reconciled 07/09/23 by Nedra Keller MD alprazolam 0.25 mg PO TID PRN 30 days ascorbate calcium (vitamin C) 500 mg PO DAILY benzonatate 100 mg PO TID PRN 10 days cholecalciferol (vitamin D3) 125 mcg PO .every other day 90 days clonidine HCl 0.1 mg PO BID 90 days desloratadine 10 mg (2 x 5 mg) PO DAILY 14 days duloxetine 30 mg PO QAM escitalopram oxalate 20 mg PO DAILY fluticasone furoate-vilanterol 200-25 mcg/dose (Breo Ellipta) 1 inh inhalation DAILY 30 days ipratropium bromide 2 sprays intranasal TID PRN magnesium oxide 500 mg PO DAILY 90 days montelukast 10 mg PO DAILY 90 days terbinafine HCl 250 mg PO DAILY 90 days umeclidinium 62.5 mcg/actuation (Incruse Ellipta) 1 inh inhalation DAILY 30 days Ventolin HFA 90 mcg/actuation (albuterol sulfate) 2 puffs PO Q6H PRN 30 days NS Do you need a note to return to daycare/school/sports/work: No HPI EP UTI severe back pain fever (lobby) HPI Details Patient is a 57 year old female came in today to be evaluated for possible urinary tract infection Patient says that she came in here July 01 for the same problem and was prescribed antibiotic for 5 days Patient says that she felt better for 2 days and then symptoms came back Now she has pain left flank as well She has a family history of kidney stones in brother Patient does not know if she has kidney stones or not She does have some chills this morning Also having frequency of urination and slight dysuria She is drinking a lot of water On urine test today we did not see any signs of inflammation or blood I have ordered ultrasound kidneys for the patient And I am treating her for possible kidney infection with Levaquin 500 mg once a day for 7 days Patient is to follow up with primary care for further management. [facility] Medical History Foot fracture, right Asthma Goiter Osteoarthritis, shoulder Chronic fatigue syndrome Fibromyalgia Neuropathy Panic attacks Hypothyroid Breast cancer, right Essential hypertension Allergic rhinitis Hypovitaminosis D Vertigo Mild persistent asthma NAVA (generalized anxiety disorder) Mild recurrent major depression Surgical History History of salpingectomy History of breast implant History of mastectomy Family History Mother Hypertension Asthma Osteoporosis Depression Anxiety Sleep apnea Fibromyalgia Mental health disorder Diabetes Father Diabetes Substance use disorder Social History Housing: House Alcohol intake: never Patient Tobacco Use Status: Never used Tobacco e-Cigarette/Vaping Use: Never Used Second Hand Smoke Exposure: No service: No Current occupational status: unemployed and disabled Cognitive needs: No Hearing needs: No Vision needs: No Review of Systems Const All systems reviewed & are unremarkable except as noted in HPI and below Physical Exam Vital Signs: Last Vital Signs Pulse 93 07/09/23 11:32 BP 126/80 07/09/23 11:32 Pulse Ox 98 07/09/23 11:32 Oxygen Delivery Method Room Air 07/09/23 11:32 BMI result Body Mass Index 30.7 Const General: no acute distress Orientation/consciousness: patient oriented x3 Eyes General: appearance normal, both eyes and all related structures Resp Effort & Inspection: normal respiratory effort and able to speak in complete sentences Auscultation: clear to auscultation bilaterally Cardio Other: S1 S2 GI Abdomen image: 1. Slight discomfort with deep pressure Back/Spine/Pelvis Back/spine/pelvis image: 1. Pain with percussion Neuro General: patient oriented x3 Psych Mental Status: mental status grossly normal Results AMB Urinalysis, Automated UA Leukoctes 0 Sunshine/uL Last Edit by Tejinder Green CMA on 07/09/23 11:43 UA Nitrite Negative Last Edit by Tejinder Green CMA on 07/09/23 11:43 UA Urobilinogen 0.2 mg/dL Last Edit by Tejinder Green CMA on 07/09/23 11:43 UA Protein 0 mg/dL Last Edit by Tejinder Green CMA on 07/09/23 11:43 UA pH 6.0 Last Edit by Tejinder Green CMA on 07/09/23 11:43 UA Blood 0 Alberto/uL Last Edit by Tejinder Green CMA on 07/09/23 11:43 UA Specific [place] 1.010 Last Edit by Tejinder Green CMA on 07/09/23 11:43 UA Ketone Negative Last Edit by Tejinder Green CMA on 07/09/23 11:43 UA Bilirubin 0 mg/dL Last Edit by Tejinder Green CMA on 07/09/23 11:43 UA Glucose 0 mg/dL Last Edit by Tejinder Green CMA on 07/09/23 11:43 Results Reviewed Results Reviewed: Laboratory Last Values Urine pH (Auto) 6.0 07/09/23 11:42 Specific [place] (Auto) 1.010 07/09/23 11:42 Urine Protein (Auto) 0 mg/dL 07/09/23 11:42 Glucose (UA)(Auto) 0 mg/dL 07/09/23 11:42 Urine Ketones (Auto) Negative 07/09/23 11:42 Urine Blood (Auto) 0 Alberto/uL 07/09/23 11:42 Urine Nitrite (Auto) Negative 07/09/23 11:42 Urine Bilirubin (Auto) 0 mg/dL 07/09/23 11:42 Urine Urobilinogen (Auto) 0.2 mg/dL 07/09/23 11:42 Leukocyte Esterase (Auto) 0 Sunshine/uL 07/09/23 11:42 Assessment & Plan Assessment & Plan (1) Left flank pain: Code(s): R10.9 - Unspecified abdominal pain (2) Frequency of urination: Code(s): R35.0 - Frequency of micturition (3) Suprapubic discomfort: Code(s): R10.2 - Pelvic and perineal pain (4) Dysuria: Code(s): R30.0 - Dysuria (5) Chills: Code(s): R68.83 - Chills (without fever) Plan Patient is a 57 year old female came in today to be evaluated for possible urinary tract infection Patient says that she came in here July 01 for the same problem and was prescribed antibiotic for 5 days Patient says that she felt better for 2 days and then symptoms came back Now she has pain left flank as well She has a family history of kidney stones in brother Patient does not know if she has kidney stones or not She does have some chills this morning Also having frequency of urination and slight dysuria She is drinking a lot of water On urine test today we did not see any signs of inflammation or blood I have ordered ultrasound kidneys for the patient And I am treating her for possible kidney infection with Levaquin 500 mg once a day for 7 days Patient is to follow up with primary care for further management. Orders: Orders US renal LT Today R10.9 - Unspecified abdominal pain AMB Urinalysis Automated Today Z13.9 - Encounter for screening, unspecified Medications: New levofloxacin 500 mg PO DAILY 7 tabs 0RF 7 days Coding Level of Care Code Est Pt Level 4 (53005) Diagnoses Left flank pain R10.9 Frequency of urination R35.0 Suprapubic discomfort R10.2 Dysuria R30.0 Chills R68.83
== END 2023-07-09 11:49 | disposition home or self-care (01) ==
PROVIDERS: PCP Internal Medicine; Visit Provider Internal Medicine
DX: R10.9 Unspecified abdominal pain (principal); R35.0 Frequency of micturition; R10.2 Pelvic and perineal pain; R30.0 Dysuria; R68.83 Chills (without fever); Z13.9 Encounter for screening, unspecified
CPT/HCPCS: 81003; 99214

== ENCOUNTER 2023-07-11 14:06 | Outpatient (REF) | payer BC, MEDICARE, MEDICAID, SELFPAY ==
--- NOTE | ~2023-07-11 | US_ITS ---
STUDY: Left renal ultrasound. INDICATION: Left flank pain COMPARISON: None TECHNIQUE: Real-time ultrasound was used to scan the left kidney. Permanent documented images obtained. FINDINGS: Left kidney measures 9.5 x 4.8 x 5.8 cm. No hydronephrosis, renal calculi or space-occupying lesions seen. US/US renal LT IMPRESSION: Unremarkable left kidney.
== END 2023-07-11 14:07 | disposition home or self-care (01) ==
LOC: HO.HMGCX 14:06
PROVIDERS: PCP Internal Medicine; Visit Provider Internal Medicine
DX: R10.9 Unspecified abdominal pain (principal)
CPT/HCPCS: 76775

== ENCOUNTER 2023-07-17 11:38 | Emergency (ER) | payer BC, MEDICARE, MEDICAID, SELFPAY ==
--- NOTE | ~2023-07-17 | CT_ITS ---
EXAMINATION: CT ABDOMEN AND PELVIS WITH CONTRAST CLINICAL INFORMATION: Abdominal pain. Left lower quadrant abdominal pain. COMPARISON: CT abdomen pelvis dated 12/08/2011. Renal ultrasound dated 07/11/2023. TECHNIQUE: Multidetector volumetric images were obtained from the superior aspect of the liver through the pubic symphysis following administration 85 mL of Omnipaque 350 intravenous contrast. Sagittal and coronal reformatted images were obtained on the technologist's workstation. Oral contrast: No This CT examination was performed using dose optimization techniques as appropriate, variously including the following: *Automated exposure control *Adjustment of mA and/or kV according to patient size (this includes techniques or standardized protocols for targeted exams where dose is matched to indication/reason for exam; i.e. extremities or head) *Use of iterative reconstruction technique DLP: 525 mGy-cm FINDINGS: LUNG BASES: The visualized lung bases are unremarkable. LIVER, GALLBLADDER, AND BILIARY TREE: The liver is normal in size, shape, and attenuation. No focal hepatic lesion or biliary ductal dilatation is present. There are gallstones. There is no gallbladder wall thickening or obvious pericholecystic inflammatory changes. PANCREAS: Unremarkable. SPLEEN: Unremarkable. ADRENAL GLANDS: There is thickening of the medial and lateral limbs of the right adrenal gland. Left adrenal gland is unremarkable. KIDNEYS AND URETERS: The kidneys are normal in size, shape, and attenuation. No hydronephrosis, hydroureter, or calculi seen. No perinephric stranding. BLADDER: Unremarkable. GASTROINTESTINAL TRACT: The small bowel and colon are normal in caliber. There is no pericolonic inflammatory stranding. No colonic wall thickening. The appendix is not definitively identified. However, there are no inflammatory changes within the right lower quadrant to suggest acute appendicitis. ABDOMINAL WALL: No significant hernia is appreciated. LYMPH NODES: No lymphadenopathy. VASCULAR: The aorta is normal in caliber. PELVIC VISCERA: The uterus and adnexal structures are normal in appearance. There is no adnexal mass. OSSEOUS STRUCTURES: There is significant sclerosis of the sacroiliac joints with marginal erosions, right greater than left. CT/CT abdomen pelvis w IV con IMPRESSION: No acute intra-abdominal/intrapelvic abnormality is seen. Cholelithiasis without evidence of acute cholecystitis. No evidence of colonic diverticular disease. Significant sclerosis of the sacroiliac joints with marginal erosions, right greater than left. Fleischner guidelines were followed.
[2023-07-17 11:40] VITALS: BP 129/89; PULSE 81; RESP 18; TEMP 36.3; O2SAT 99; BMI 30.8
--- NOTE | 2023-07-17 11:43 | ED_ITS ---
HPI - General Adult General Chief complaint: Urogenital-Female Stated complaint: UTI - sent by Time Seen by Provider: 07/17/23 18:11 Source: patient Mode of arrival: ambulatory Limitations: no limitations History of Present Illness HPI narrative: Patient comes to the emergency room complaining of left lower abdominal pain for approximately 5 weeks. Patient states that 5 weeks ago she was diagnosed with a UTI, patient has been on 2 courses of antibiotics, still complaining of left lower quadrant pain. Patient denies hematuria or dysuria. Denies nausea vomiting or diarrhea, no fever or chills. Patient had a renal ultrasound done on July 09, 6 days ago, did not show kidney stones. Related Data Home Medications ?Medication ?Instructions ?Recorded ?Confirmed ascorbate calcium (vitamin C) 500 500 mg PO DAILY 08/07/21 07/09/23 mg tablet duloxetine 30 mg capsule,delayed 30 mg PO QAM 04/01/23 07/09/23 release escitalopram oxalate 20 mg tablet 20 mg PO DAILY 05/16/23 07/09/23 Previous Rx's ?Medication ?Instructions ?Recorded alprazolam 0.25 mg tablet 0.25 mg PO TID PRN anxiety 30 days 08/07/21 #90 tabs magnesium oxide 500 mg capsule 500 mg PO DAILY 90 days #90 caps 08/07/21 cholecalciferol (vitamin D3) 125 125 mcg PO .every other day 03/30/22 mcg (5,000 unit) capsule days #45 caps desloratadine 5 mg tablet 10 mg (2 x 5 mg) PO DAILY 14 days 08/21/22 #28 tabs benzonatate 100 mg capsule 100 mg PO TID PRN cough 10 days 02/06/23 #30 caps Ventolin HFA 90 mcg/actuation 2 puff PO Q6H PRN for muscle spasm 03/26/23 aerosol inhaler (albuterol sulfate) 30 days #18 grams fluticasone furoate 200 1 inh inhalation DAILY 30 days #60 04/01/23 mcg-vilanterol 25 mcg/dose ea inhalation powder (Breo Ellipta) clonidine HCl 0.1 mg tablet 0.1 mg PO BID 90 days #180 tabs 05/07/23 ipratropium bromide 42 mcg (0.06 2 spray intranasal TID PRN allergy 05/16/23 %) nasal spray symptoms #15 mL montelukast 10 mg tablet 10 mg PO DAILY 90 days #90 tabs 05/16/23 terbinafine HCl 250 mg tablet 250 mg PO DAILY 90 days #90 tabs 06/11/23 umeclidinium 62.5 mcg/actuation 1 inh inhalation DAILY 30 days #30 06/30/23 blister powder for inhalation ea (Incruse Ellipta) levofloxacin 500 mg tablet 500 mg PO DAILY 7 days #7 tabs 07/09/23 Allergies Allergy/AdvReac Type Severity Reaction Status Date / Time clindamycin Allergy Severe itch, Verified 07/17/23 11:41 nausea, dizziness, scratchy throat, neck redness Penicillins [PENICILLINS] Allergy Intermediate RASH Verified 07/17/23 11:41 hydrocodone [HYDROCODONE] Allergy Unknown UNKNOWN Verified 07/17/23 11:41 morphine [MORPHINE] Allergy Unknown LETHARGY Verified 07/17/23 11:41 oxycodone [OXYCODONE] Allergy Unknown LEHTARGY Verified 07/17/23 11:41 Review of Systems 2 Review of Systems: Constitutional : No Weight loss, No Fever, No Chills, No Night Sweats, No Fatigue, No Malaise ENT/Mouth : No Hearing loss, No Ear Pain, No Nasal Congestion, No Sinus Pain, No Hoarseness, No sore throat, No Rhinorrhea, No Swallowing Difficulty Eyes: No Eye Pain, No Swelling, No Redness, No Foreign Body, No Discharge, No Vision Changes Cardiovascular : No Chest Pain, No SOB, No Dyspnea on Exertion, No Orthopnea, No Edema, No Palpitations Respiratory : No Cough, No Sputum, No Wheezing, No Smoke Exposure, No Dyspnea Gastrointestinal : No Nausea, No Vomiting, No Diarrhea, No Constipation, complaining of 5 weeks of left lower quadrant pain Genitourinary : no irregular bleeding, No Dysuria, No Urinary Frequency, No Hematuria, No Urinary Incontinence, No Urgency, No Flank Pain, No Urinary Flow Changes, No Hesitancy Musculoskeletal : No joint pain, No Myalgias, No Joint Swelling Skin : No Skin Lesions, No rash Neuro : No Weakness, No Numbness, No Paresthesias, No Loss of Consciousness, No Dizziness, No Headache Psych : No Anxiety/Panic, No Depression, No SI/HI/AH/VH, No Social Issues, Heme/Lymph: No Bruising, No Bleeding,No Lymphadenopathy Endocrine : No Polyuria, No Polydipsia, No Temperature Intolerance [facility] Past Medical History Medical History Foot fracture, right Asthma Goiter Osteoarthritis, shoulder Chronic fatigue syndrome Fibromyalgia Neuropathy Panic attacks Hypothyroid Breast cancer, right Essential hypertension Allergic rhinitis Hypovitaminosis D Vertigo Mild persistent asthma NAVA (generalized anxiety disorder) Mild recurrent major depression Surgical History History of salpingectomy History of breast implant History of mastectomy Family History Family History Mother Hypertension Asthma Osteoporosis Depression Anxiety Sleep apnea Fibromyalgia Mental health disorder Diabetes Father Diabetes Substance use disorder Social History Social History Housing: House Alcohol intake: never Patient Tobacco Use Status: Never used Tobacco e-Cigarette/Vaping Use: Never Used Second Hand Smoke Exposure: No Advance Directives: No Do you have a plan to hurt others: No Plan service: No Current occupational status: unemployed and disabled Cognitive needs: No Hearing needs: No Vision needs: No Physical Exam ED Vital Signs: Vital Signs - 24 hr 07/17/23 11:40 07/17/23 19:07 Temperature 97.3 F 97.9 F Pulse Rate 81 67 Respiratory Rate 18 17 Blood Pressure 129/89 142/76 H Pulse Oximetry 99 98 Oxygen Delivery Method Room Air Room Air BMI result Body Mass Index 30.8 Const Other: Appearance: Alert. Oriented X3. No acute distress. Eyes: Pupils equal, round and reactive to light. ENT: Pharynx normal. Neck: Normal inspection. Neck supple. No lymph nodes noted. No crepitus CVS: Normal heart rate and rhythm. Pulses normal. Normal S1 and S2 Respiratory: No respiratory distress. Breath sounds normal. No Wheezing. No rales Abdomen: Soft and nontender. No rigidity. No distention. Skin: Skin warm and dry. Normal skin color. Normal skin turgor. Extremities: No lower extremity edema. No Lacerations. No Rash Neuro: Oriented X 3. No motor deficit. No sensory deficit. Moving all extremities. No slurred speech. CN 2 through 12 grossly intact Psych: calm, cooperative, normal affect Course Course Course Narrative: This is a rapid medical exam: Additional HPI, ROS, PE not included below will be deferred to primary provider. Patient is a 57-year-old female with history of HTN, asthma, hypothyroid, fibromyalgia presenting to the emergency department with complaint of dysuria. Was treated for UTI on the , then went to [place] and symptoms did not resolve, returned on the and went back to the , was placed on additional abx still without improvement, PCP referred here. Plan: labs, UA 15:21 Patient back to triage office, complaining of 10/10 L sided abdominal pain, ibuprofen ordered, will likely need CT Medications Administered Discontinued Medications Generic Name Dose Route Start Last Admin Trade Name Freq PRN Reason Stop Dose Admin Ibuprofen 600 mg 07/17/23 15:19 07/17/23 15:20 Ibuprofen 600 Mg Tablet PO 07/17/23 15:20 600 mg ONCE ONE Administration Iohexol 85 ml 07/17/23 19:52 07/17/23 19:52 Iohexol 350 Mg/Ml 100 Ml Infus..Btl IV 07/17/23 19:53 85 ml ONCE ONE Administration Ketorolac Tromethamine 30 mg 07/17/23 20:54 07/17/23 21:02 Ketorolac Tromethamine 30 Mg/Ml Vial IVPUSH 07/17/23 20:55 30 mg ONCE ONE Administration Medical Decision Making Medical Decision Making [facility] Narrative: -my interpretation of labs: Hematology and chemistry at baseline, normal LFTs, normal kidney function, urinalysis negative for UTI, chronic leukocyte esterase. -my interpretation CT scan: No obvious abnormality that would explain patient's pain. -patient given a dose of IM Toradol. -radiology report: Sclerosis of sacroiliac joints [id number], which may be causing patient's pain Differential Diagnosis Differential Diagnoses: The differential diagnosis associated with the presentation includes (Ureterolithiasis, pyelonephritis, UTI, musculoskeletal pain) Admission/Observation Consideration of admission/observation: Escalation of care including admission/observation considered (Given patient's symptoms in length of symptoms, admission considered) Lab Data [facility] Lab Attestation statement: I reviewed the patient's lab results. 07/17/23 11:53 07/17/23 11:53 Labs: Lab Results 07/17/23 07/17/23 Range/Units 11:53 15:31 WBC 8.8 (4.8-10.8) X10*3/uL RBC 4.84 (4.20-5.50) X10*6/uL Hgb 12.6 (12.0-16.0) g/dl Hct 39.4 (37.0-47.0) % MCV 81.4 (80.0-98.0) fL MCH 26.0 L (27.0-33.0) pg MCHC 32.0 (31.0-35.0) g/dl RDW 13.2 (11.0-16.0) % Plt Count 332 (160-400) X10*3/uL MPV 9.1 L (9.4-12.3) fL Immature Gran % (Auto) 0.2 (0.0-0.4) % Neut % (Auto) 56.1 (45-73) % Lymph % (Auto) 29.2 (20-40) % Wise % (Auto) 7.4 (2-11) % Eos % (Auto) 6.6 H (0-4) % Baso % (Auto) 0.5 (0-2) % Lymph # (Auto) 2.6 (1.2-4.9) X10*3/uL Wise # (Auto) 0.7 (0.1-1.2) X10*3/uL Eos # (Auto) 0.6 H (0.0-0.4) X10*3/uL Baso # (Auto) 0.0 (0.0-0.2) X10*3/uL Abs Immat Gran (auto) 0.02 (0.00-0.03) X10*3/uL Absolute Neuts (auto) 4.9 (2.0-8.3) x10*3/uL Absolute Nucleated RBC 0.000 (0.0-0.012) X10*3/uL Nucleated RBC % (auto) 0.0 (0.0-0.2) /100WBC Sodium 140 (135-145) mmol/L Potassium 3.9 D (3.3-5.1) mmol/L Chloride 106 (96-108) mmol/L Carbon Dioxide 27 (22-29) mmol/L Anion Gap 11 L (12-20) BUN 15 (9-16) mg/dL Creatinine 0.70 (0.5-1.4) mg/dL Estim Creat Clear Calc 73.2 Estimated GFR > 60 Random Glucose 109 (60-115) mg/dL Calcium 9.4 (8.4-10.2) mg/dL Total Bilirubin 0.5 (0.0-1.0) mg/dL AST 16 (5-31) U/L ALT 16 (0-31) U/L Alkaline Phosphatase 105 (39-117) U/L Total Protein 7.2 (6.5-8.0) g/dL Albumin 3.9 (3.5-5.0) g/dL Urine Color Yellow Urine Appearance Clear Urine pH 5.5 (5.0-9.0) Ur Specific Moira 1.010 (1.005-1.025) Urine Protein Negative (Neg-Trace) mg/dL Urine Glucose (UA) Negative (Negative) mg/dL Urine Ketones Negative (Negative) mg/dL Urine Blood Negative (Negative) Urine Nitrite Negative (Negative) Ur Leukocyte Esterase Trace H (Negative) Urine RBC 0-2 (0-2) /HPF Urine WBC 0-5 (0-5) /HPF Ur Squamous Epith Cells 0-2 (0-2) /HPF Urine Bacteria None Seen (None Seen) Hyaline Casts 0-2 (0-2) /LPF Independent Interpretation I performed an independent interpretation of an: CT Scan Radiology Impression Discussion of test interpretation with radiology: I have reviewed the radiologist's reading. Radiologist Impression: FINDINGS: LUNG BASES: The visualized lung bases are unremarkable. LIVER, GALLBLADDER, AND BILIARY TREE: The liver is normal in size, shape, and attenuation. No focal hepatic lesion or biliary ductal dilatation is present. There are gallstones. There is no gallbladder wall thickening or obvious pericholecystic inflammatory changes. PANCREAS: Unremarkable. SPLEEN: Unremarkable. ADRENAL GLANDS: There is thickening of the medial and lateral limbs of the right adrenal gland. Left adrenal gland is unremarkable. KIDNEYS AND URETERS: The kidneys are normal in size, shape, and attenuation. No hydronephrosis, hydroureter, or calculi seen. No perinephric stranding. BLADDER: Unremarkable. GASTROINTESTINAL TRACT: The small bowel and colon are normal in caliber. There is no pericolonic inflammatory stranding. No colonic wall thickening. The appendix is not definitively identified. However, there are no inflammatory changes within the right lower quadrant to suggest acute appendicitis. ABDOMINAL WALL: No significant hernia is appreciated. LYMPH NODES: No lymphadenopathy. VASCULAR: The aorta is normal in caliber. PELVIC VISCERA: The uterus and adnexal structures are normal in appearance. There is no adnexal mass. OSSEOUS STRUCTURES: There is significant sclerosis of the sacroiliac joints with marginal erosions, right greater than left. CT/CT abdomen pelvis w IV con IMPRESSION: No acute intra-abdominal/intrapelvic abnormality is seen. Cholelithiasis without evidence of acute cholecystitis. No evidence of colonic diverticular disease. Significant sclerosis of the sacroiliac joints with marginal erosions, right greater than left. Critical Care Time Critical Care Time Critical Care Time: Yes Total Critical Care Time: 45 Attestation: I have personally provided critical care time. Time includes review of lab data, radiology results, discussion with consultants, and monitoring for potential decompensation. Intervention performed as documented. Discharge Plan Discharge Clinical Impression: Chronic abdominal pain Patient Disposition: Home, Self-Care Instructions: Abdominal Pain (ED) Additional Instructions: Please follow-up with your primary care physician tomorrow. If you have any worsening or new symptoms, please return to the emergency room or call 911 Prescriptions: No Action cholecalciferol (vitamin D3) 125 mcg (5,000 unit) capsule 125 mcg PO .every other day 90 Days Qty: 45 0RF albuterol sulfate [Ventolin HFA] 90 mcg/actuation HFA aerosol inhaler 2 puff PO Q6H PRN (Reason: for muscle spasm) 30 Days Qty: 18 0RF clonidine HCl 0.1 mg tablet 0.1 mg PO BID 90 Days Qty: 180 1RF Incruse Ellipta 62.5 mcg/actuation blister with device 1 inh inhalation DAILY 30 Days Qty: 30 11RF benzonatate 100 mg capsule 100 mg PO TID PRN (Reason: cough) 10 Days Qty: 30 1RF terbinafine HCl 250 mg tablet 250 mg PO DAILY 90 Days Qty: 90 0RF levofloxacin 500 mg tablet 500 mg PO DAILY 7 Days Qty: 7 0RF ascorbate calcium (vitamin C) 500 mg tablet 500 mg PO DAILY alprazolam 0.25 mg tablet 0.25 mg PO TID PRN (Reason: anxiety) 30 Days Qty: 90 0RF magnesium oxide 500 mg capsule 500 mg PO DAILY 90 Days Qty: 90 1RF desloratadine 5 mg tablet 10 mg PO DAILY 14 Days Qty: 28 0RF duloxetine 30 mg capsule,delayed release(DR/EC) 30 mg PO QAM fluticasone furoate-vilanterol [Breo Ellipta] 200-25 mcg/dose blister with device 1 inh inhalation DAILY 30 Days Qty: 60 11RF escitalopram oxalate 20 mg tablet 20 mg PO DAILY ipratropium bromide 42 mcg (0.06 %) spray,non-aerosol 2 spray intranasal TID PRN (Reason: allergy symptoms) Qty: 15 6RF Rx Instructions: administer into each nostril montelukast 10 mg tablet 10 mg PO DAILY 90 Days Qty: 90 3RF Print Language: Moroccan
[2023-07-17 11:59] LABS: MANUAL DIFF FLAG NO
[2023-07-17 12:02] LABS: Basophils Percent Auto 0.5 % (0-2); Eosinophils Absolute Auto 0.6 X10*3/uL (0.0-0.4); Eosinophils Percent Auto 6.6 % (0-4); Hematocrit 39.4 % (37.0-47.0); Hemoglobin 12.6 g/dl (12.0-16.0); Imm Gran Abs Auto 0.02 X10*3/uL (0.00-0.03); Imm Gran Pct Auto 0.2 % (0.0-0.4); Lymphocytes Absolute Auto 2.6 X10*3/uL (1.2-4.9); Lymphocytes Percent Auto 29.2 % (20-40); Mean Corpuscular Volume 81.4 fL (80.0-98.0); Mean Platelet Volume 9.1 fL (9.4-12.3); Monocytes Absolute Auto 0.7 X10*3/uL (0.1-1.2); Monocytes Percent Auto 7.4 % (2-11); Neutrophils Absolute Auto 4.9 x10*3/uL (2.0-8.3); Neutrophils Percent Auto 56.1 % (45-73); Platelet Count 332 X10*3/uL (160-400); Red Blood Count 4.84 X10*6/uL (4.20-5.50); Red Cell Distribution Width 13.2 % (11.0-16.0); White Blood Count 8.8 X10*3/uL (4.8-10.8)
[2023-07-17 12:17] LABS: Alanine Aminotransferase 16 U/L (0-31); Albumin Level 3.9 g/dL (3.5-5.0); Alkaline Phosphatase 105 U/L (39-117); Anion Gap 11 (12-20); Aspartate Amino Transferase 16 U/L (5-31); Bilirubin Total 0.5 mg/dL (0.0-1.0); Blood Urea Nitrogen 15 mg/dL (9-16); Calcium 9.4 mg/dL (8.4-10.2); Carbon Dioxide 27 mmol/L (22-29); Chloride 106 mmol/L (96-108); Creatinine Clr Calc Pharmacy 73.2; Estimated Glomerular Filt Rate > 60; Glucose Random 109 mg/dL (60-115); Potassium 3.9 mmol/L (3.3-5.1); Sodium 140 mmol/L (135-145); Total Protein 7.2 g/dL (6.5-8.0)
[2023-07-17] MEDS: Ibuprofen 600 MG TABLET PO (15:20)
[2023-07-17 15:39] LABS: Appearance Urine Clear; Color Urine Yellow; Glucose Urine UA Negative (Negative); Leukocyte Esterase Urine Trace (Negative); Nitrite Urine Negative (Negative); PH 5.5 (5.0-9.0); UMIC TRIGGER UACC YES; Urine Blood Negative (Negative); Urine Ketones Negative (Negative); Urine Protein Negative (Neg-Trace)
[2023-07-17 15:41] LABS: Bacteria Urine None Seen (None Seen); Hyaline Casts Urine 0-2 /LPF (0-2); RBC Urine 0-2 /HPF (0-2); Squamous Epithelial Cell Urine 0-2 /HPF (0-2); WBC Urine 0-5 /HPF (0-5)
[2023-07-17 19:07] VITALS: BP 142/76; PULSE 67; RESP 17; TEMP 36.6; O2SAT 98
--- NOTE | 2023-07-17 19:50 | PC.NURSE ---
p to ct-scan
--- NOTE | 2023-07-17 19:51 | PC.NURSE ---
pt has #20 in her left ac
[2023-07-17] MEDS: iohexoL 350 MG/ML 100 ML INFUS..BTL 85 ML IV (19:52)
[2023-07-17] MEDS: Ketorolac Tromethamine 30 MG/ML VIAL IVPUSH (21:02)
[2023-07-17 21:21] VITALS: BP 131/90; PULSE 76; RESP 16; TEMP 36.8; O2SAT 96
[2023-07-17 21:29] VITALS: BP 131/90; PULSE 76; RESP 16; TEMP 36.8; O2SAT 96
== END 2023-07-17 21:32 | disposition home or self-care (01) ==
PROVIDERS: Registered Nurse Emergency; Emergency Provider Emergency Medicine; PCP Internal Medicine
DX: R10.32 Left lower quadrant pain (principal); R30.0 Dysuria; Z79.899 Other long term (current) drug therapy
CPT/HCPCS: 36415; 74177; 80053; 81001; 85025; 96374; 99283; 99284; J1885; Q9967

== ENCOUNTER 2023-08-04 16:26 | Outpatient (AMB) | payer BC, MEDICARE, MEDICAID, SELFPAY ==
--- NOTE | 2023-08-04 16:35 | A.OFFPC_ITS ---
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: No Accompanied by: Self / Same As Patient Allergies clindamycin Allergy (Severe, Verified 08/04/23 17:00) itch, nausea, dizziness, scratchy throat, neck redness Penicillins [PENICILLINS] Allergy (Intermediate, Verified 08/04/23 17:00) RASH hydrocodone [HYDROCODONE] Allergy (Unknown, Verified 08/04/23 17:00) UNKNOWN morphine [MORPHINE] Allergy (Unknown, Verified 08/04/23 17:00) LETHARGY oxycodone [OXYCODONE] Allergy (Unknown, Verified 08/04/23 17:00) LEHTARGY Medication List - Last Reconciled 08/04/23 by Khushboo Godinez MD alprazolam 0.25 mg PO TID PRN 30 days ascorbate calcium (vitamin C) 500 mg PO DAILY cholecalciferol (vitamin D3) 125 mcg PO .every other day 90 days clonidine HCl 0.1 mg PO BID 90 days desloratadine 10 mg (2 x 5 mg) PO DAILY 14 days duloxetine 30 mg PO QAM escitalopram oxalate 20 mg PO DAILY fluticasone furoate-vilanterol 200-25 mcg/dose (Breo Ellipta) 1 inh inhalation DAILY 30 days ipratropium bromide 2 sprays intranasal TID PRN magnesium oxide 500 mg PO DAILY 90 days montelukast 10 mg PO DAILY 90 days terbinafine HCl 250 mg PO DAILY 90 days umeclidinium 62.5 mcg/actuation (Incruse Ellipta) 1 inh inhalation DAILY 30 days Ventolin HFA 90 mcg/actuation (albuterol sulfate) 2 puffs PO Q6H PRN 30 days NS Tobacco use date assessed: 06/11/23 Dental Screening Dental Screen Date: 06/11/23 HPI HPI Comments History of Present Illness Details This is a 57-year-old female with history of right breast cancer in 2017 treated with mastectomy, hypertension, major depression, anxiety and mild persistent asthma that comes today complaining of left lower quadrant abdominal pain that started about a month ago. She went to ER last month due to this matter and had a CT scan of abdomen and pelvis showing only gallstones and sclerosis of sacroiliac joint. She has been constipated for the past few days. No fever. No nausea or vomiting. Pain is slightly more prominent after eating. Will be referred to General surgery and Gastroenterology. Breast cancer is follow by Hematology-Oncology and has been in remission. Depression with anxiety stable with medications. Asthma well controlled with long-acting inhaler. Blood pressure stable with clonidine. [facility] Medical History (Updated 08/04/23 @ 19:51 by Khushboo Godinez MD) Foot fracture, right Asthma Goiter Osteoarthritis, shoulder Chronic fatigue syndrome Fibromyalgia Neuropathy Panic attacks Hypothyroid Breast cancer, right Essential hypertension Allergic rhinitis Hypovitaminosis D Vertigo Mild persistent asthma NAVA (generalized anxiety disorder) Mild recurrent major depression Surgical History History of salpingectomy History of breast implant History of mastectomy Family History Mother Hypertension Asthma Osteoporosis Depression Anxiety Sleep apnea Fibromyalgia Mental health disorder Diabetes Father Diabetes Substance use disorder Social History Housing: House Alcohol intake: never Patient Tobacco Use Status: Never used Tobacco e-Cigarette/Vaping Use: Never Used Second Hand Smoke Exposure: No service: No Current occupational status: unemployed and disabled Cognitive needs: No Hearing needs: No Vision needs: No Questionnaire Thrive Questionnaire Date Thrive assessed: 03/25/23 NAVA-7 AMB Questionnaire NAVA-7 Date NAVA - 7 assessed: 03/25/23 Source: Developed by Drs. Homar Cancino, Mar Pike, Imer Montesinos and colleagues, with an educational nalini from [employer]. Review of Systems Const All systems reviewed & are unremarkable except as noted in HPI and below Eyes Reports no additional complaints, Denies change in vision and Denies other visual disturbances Card Denies chest pain at rest, Denies chest pain with activity, Denies edema, Denies irregular heart rhythm, Denies claudication, Denies dyspnea, Denies dyspnea on exertion, Denies orthopnea, Denies paroxysmal nocturnal dyspnea and Denies slow heart rate Resp Denies cough, Denies dyspnea and Denies dyspnea on exertion GI Reports abdominal pain, Denies change in bowel habits, Denies excessive flatus, Denies nausea and Denies vomiting Denies urinary incontinence, Denies urinary hesitancy and Denies urinary urgency Physical exam (Primary Care) Vital Signs: Last Vital Signs BP 150/102 H 08/04/23 16:36 BMI result Body Mass Index 31.3 Tobacco/Smoking Status: Tobacco use Status Tobacco use date assessed 06/11/23 08/04/23 16:35 Patient Tobacco Use Status Never used Tobacco 08/04/23 16:35 Tobacco use type 02/04/23 17:58 e-Cigarette/Vaping Use Never Used 08/04/23 16:35 Thrive Assessment: Date of Thrive Assessment Date Thrive assessed 03/25/23 08/04/23 16:35 Resp Effort & Inspection: normal respiratory effort Auscultation: clear to auscultation bilaterally Cardio Jugular venous distension: no JVD Rate: regular rate Rhythm: regular rhythm Heart sounds: S1 normal heart sound present and S2 normal heart sound present GI Inspection: Yes normal to inspection Palpation (GI): Soft to palpation and Tenderness to palpation present (GI) in the LLQ Auscultation: normal bowel sounds Extrem General: Yes full ROM Results AMB Urinalysis, Automated UA Leukoctes 2 Sunshine/uL Last Edit by BHASKAR Call on 08/04/23 16:58 UA Nitrite Negative Last Edit by BHASKAR Call on 08/04/23 16:58 UA Urobilinogen 0.2 mg/dL Last Edit by BHASKAR Call on 08/04/23 16: 58 UA Protein 0 mg/dL Last Edit by BHASKAR Call on 08/04/23 16:58 UA pH 6.0 Last Edit by BHASKAR Call on 08/04/23 16:58 UA Blood 0 Alberto/uL Last Edit by BHASKAR Call on 08/04/23 16:58 UA Specific [place] 1.015 Last Edit by BHASKAR Call on 08/04/23 16 :58 UA Ketone Negative Last Edit by BHASKAR Call on 08/04/23 16:58 UA Bilirubin 0 mg/dL Last Edit by BHASKAR Call on 08/04/23 16:58 UA Glucose 0 mg/dL Last Edit by KhushbooBHASKAR Gabriel on 08/04/23 16:58 Results Reviewed Results Reviewed: Laboratory Last Values Urine pH (Auto) 6.0 08/04/23 16:49 Specific [place] (Auto) 1.015 08/04/23 16:49 Urine Protein (Auto) 0 mg/dL 08/04/23 16:49 Glucose (UA)(Auto) 0 mg/dL 08/04/23 16:49 Urine Ketones (Auto) Negative 08/04/23 16:49 Urine Blood (Auto) 0 Alberto/uL 08/04/23 16:49 Urine Nitrite (Auto) Negative 08/04/23 16:49 Urine Bilirubin (Auto) 0 mg/dL 08/04/23 16:49 Urine Urobilinogen (Auto) 0.2 mg/dL 08/04/23 16:49 Leukocyte Esterase (Auto) 2 Sunshine/uL 08/04/23 16:49 Assessment and Plan Assessment & Plan (1) Mild recurrent major depression: Code(s): F33.0 - Major depressive disorder, recurrent, mild Plan: Continue escitalopram. (2) NAVA (generalized anxiety disorder): Code(s): F41.1 - Generalized anxiety disorder Plan: Continue benzodiazepines as needed. Follow-up with psychiatry. (3) Mild persistent asthma: Code(s): J45.30 - Mild persistent asthma, uncomplicated Qualifiers: Asthma complication type: uncomplicated Qualified Code(s): J45.30 - Mild persistent asthma, uncomplicated Plan: Continue long-acting inhaler. Use rescue inhaler as needed. (4) Essential hypertension: Code(s): I10 - Essential (primary) hypertension Plan: Continue clonidine. Blood pressure goal is equal or less than 130/80. (5) Abdominal pain: Code(s): R10.9 - Unspecified abdominal pain Qualifiers: Abdominal location: left lower quadrant Qualified Code(s): R10.32 - Left lower quadrant pain Plan: Referred to surgery and Gastroenterology. Orders: Orders AMB Urinalysis Automated Today R30.0 - Dysuria Urine Culture Today R30.0 - Dysuria Referrals General Surgery Referral K80.20 - Calculus of gallbladder without cholecystitis without obstruction, R10.9 - Unspecified abdominal pain Gastroenterology Referral R10.9 - Unspecified abdominal pain Coding Level of Care Code Est Pt Level 4 (64624) Diagnoses Mild recurrent major depression F33.0 NVAA (generalized anxiety disorder) F41.1 Mild persistent asthma without complication J45.30 Asthma complication type: uncomplicated Essential hypertension I10 Left lower quadrant abdominal pain R10.32 Abdominal location: left lower quadrant Time Spent (min) 25
[2023-08-04 16:36] VITALS: BP 150/102; BMI 31.3
== END 2023-08-04 17:21 | disposition home or self-care (01) ==
PROVIDERS: PCP Internal Medicine; Visit Provider Internal Medicine
DX: F33.0 Major depressive disorder, recurrent, mild (principal); F41.1 Generalized anxiety disorder; J45.30 Mild persistent asthma, uncomplicated; I10 Essential (primary) hypertension; R10.32 Left lower quadrant pain; R30.0 Dysuria
CPT/HCPCS: 81003; 99214

== ENCOUNTER 2023-08-04 17:01 | Outpatient (REF) | payer BC, MEDICARE, MEDICAID, SELFPAY | END 2023-08-04 17:02 | disposition home or self-care (01) | LOC: HO.LAB 17:01 | PROVIDERS: Visit Provider Internal Medicine | DX: R30.0 Dysuria (principal) | CPT/HCPCS: 87086 ==

== ENCOUNTER 2023-08-14 14:11 | Outpatient (AMB) | payer BC, MEDICARE, MEDICAID, SELFPAY ==
--- NOTE | 2023-08-14 14:12 | A.OFFVIS_ITS ---
Intake Visit Reasons: Calculus of gallbladder, abdominal pain Intake Note: Patient referred by PCP Dr.Roca Godinez for evaluation and treatment of the gallbladder. Pt c/o: rt abd pain. Pain started 2m ago. CT:07/17/23 Service Center Technician Required: No Accompanied by: Self / Same As Patient Allergies clindamycin Allergy (Severe, Verified 08/14/23 14:19) itch, nausea, dizziness, scratchy throat, neck redness Penicillins [PENICILLINS] Allergy (Intermediate, Verified 08/14/23 14:19) RASH hydrocodone [HYDROCODONE] Allergy (Unknown, Verified 08/14/23 14:19) UNKNOWN morphine [MORPHINE] Allergy (Unknown, Verified 08/14/23 14:19) LETHARGY oxycodone [OXYCODONE] Allergy (Unknown, Verified 08/14/23 14:19) LEHTARGY Medication List - Last Reconciled 08/14/23 by Juan Boateng MD alprazolam 0.25 mg PO TID PRN 30 days ascorbate calcium (vitamin C) 500 mg PO DAILY cholecalciferol (vitamin D3) 125 mcg PO .every other day 90 days clonidine HCl 0.1 mg PO BID 90 days escitalopram oxalate 20 mg PO DAILY fluticasone furoate-vilanterol 200-25 mcg/dose (Breo Ellipta) 1 inh inhalation DAILY 30 days ipratropium bromide 2 sprays intranasal TID PRN magnesium oxide 500 mg PO DAILY 90 days montelukast 10 mg PO DAILY 90 days umeclidinium 62.5 mcg/actuation (Incruse Ellipta) 1 inh inhalation DAILY 30 days Ventolin HFA 90 mcg/actuation (albuterol sulfate) 2 puffs PO Q6H PRN 30 days NS HPI Comments Details: 57-year-old female patient with a prior history of right breast cancer status post right mastectomy with reconstruction in 2017 presenting with complaints of abdominal pain mainly in the left upper lower quadrants. The pain is associated with constipation, in fact she reports no bowel movement in the last 2 weeks. She reports feeling full with not much appetite and a constant bloated feeling. She does report increased discomfort when eating greasy foods however the pain begins immediately after eating. She previously underwent a colonoscopy in 2019 or 2020 and a repeat colonoscopy was recommended in 5 years ([facility]). She was determined to have a UTI and placed on oral antibiotics. The UTI improved however she continues to have the abdominal pain. Subsequent workup with CT abdomen and pelvis revealed gallstones within the gallbladder. She presents today to discuss a possible role for cholecystectomy. [facility] Medical History Foot fracture, right Asthma Goiter Osteoarthritis, shoulder Chronic fatigue syndrome Fibromyalgia Neuropathy Panic attacks Hypothyroid Breast cancer, right Essential hypertension Allergic rhinitis Hypovitaminosis D Vertigo Mild persistent asthma NAVA (generalized anxiety disorder) Mild recurrent major depression Surgical History History of salpingectomy History of breast implant History of mastectomy Family History Mother Hypertension Asthma Osteoporosis Depression Anxiety Sleep apnea Fibromyalgia Mental health disorder Diabetes Father Diabetes Substance use disorder Social History Housing: House Alcohol intake: never Patient Tobacco Use Status: Never used Tobacco e-Cigarette/Vaping Use: Never Used Second Hand Smoke Exposure: No service: No Current occupational status: unemployed and disabled Cognitive needs: No Hearing needs: No Vision needs: No Review of Systems Const All systems reviewed & are unremarkable except as noted in HPI and below Denies chills, Denies fever(s), Denies headache(s), Denies poor appetite and Denies weakness ENT Denies headache(s) Card Denies chest pain, Denies irregular heart rhythm, Denies palpitations and Denies dyspnea Resp Denies cough, Denies excessive phlegm production and Denies dyspnea GI Reports abdominal pain, Reports bloating, Denies change in bowel habits, Reports constipation, Denies heartburn, Denies diarrhea, Reports nausea and Denies vomiting Reports as per HPI and Denies urinary frequency Musc Denies back pain, Denies muscle weakness and Denies numbness Skin/Breast Denies changing lesions and Denies unusual bruising Neuro Denies headache(s), Denies numbness, Denies paresthesias and Denies weakness Psych Denies anxiety and Denies depression Endo Denies palpitations Chandu/Lymph Denies lymphadenopathy Physical Exam Const General: cooperative and no acute distress Nutritional Appearance: well nourished Orientation/consciousness: patient oriented x3 Limitations: no limitations HEENT Head: Yes normocephalic and Yes atraumatic Ears: hearing grossly normal bilaterally Resp Effort & Inspection: normal respiratory effort, no audible wheezes, no cough and no respiratory distress Cardio Jugular venous distension: no JVD GI Inspection: Yes normal to inspection Palpation (GI): Soft to palpation Skin Other: Warm, dry, no rash Neuro General: patient oriented x3 Extrem General: Yes no clubbing, cyanosis or edema Results Reviewed Results Reviewed: CT abdomen and pelvis reviewed with the patient. Assessment & Plan Assessment & Plan (1) Abdominal pain: Code(s): R10.9 - Unspecified abdominal pain Category: Medical Qualifiers: Abdominal location: left lower quadrant Qualified Code(s): R10.32 - Left lower quadrant pain (2) Gallstones: Code(s): K80.20 - Calculus of gallbladder without cholecystitis without obstruction Category: Medical (3) Constipation: Code(s): K59.00 - Constipation, unspecified Category: Medical Plan 57-year-old female patient presenting with complaints of left-sided abdominal pain, constipation, abdominal bloating and decreased appetite found on workup to have gallstones in the gallbladder. Patient does report fatty food intolerance as well. Her symptoms may be multifactorial including the chronic constipation causing the left-sided abdominal pain. She is due to see the gastroenterology clinic tomorrow and I will await their evaluation prior to any recommendations of surgery. If she can improve her symptoms by treating the constipation, no surgical intervention will be recommended for the gallstones. I recommended she return in 2 weeks to reassess her symptoms. She expressed understanding and agrees with the plan. Coding Level of Care Code New Pt Level 4 (26266) Diagnoses Left lower quadrant abdominal pain R10.32 Abdominal location: left lower quadrant Gallstones K80.20 Constipation K59.00
== END 2023-08-14 14:42 | disposition home or self-care (01) ==
PROVIDERS: PCP Internal Medicine; Referring Provider Internal Medicine; Visit Provider Surgery
DX: R10.32 Left lower quadrant pain (principal); K80.20 Calculus of gallbladder without cholecystitis without obstruction; K59.00 Constipation, unspecified
CPT/HCPCS: 99204

== ENCOUNTER → 2023-08-14 14:11 | Outpatient (BNVA) | payer BC, MEDICARE, MEDICAID, SELFPAY | PROVIDERS: PCP Internal Medicine; Referring Provider Internal Medicine; Visit Provider Surgery ==

== ENCOUNTER 2023-08-15 13:16 | Outpatient (AMB) | payer BC, MEDICARE, MEDICAID, SELFPAY ==
[2023-08-15 13:22] VITALS: BP 124/70; PULSE 90; BMI 30.7
--- NOTE | 2023-08-15 13:22 | A.OFFVIS_ITS ---
Vital Signs 08/15/23 13:22 Height 4 ft 11 in Weight 152 lb 1.903 oz BMI 30.7 BP 124/70 Blood Pressure Location Lt brachial Position Sitting Pulse 90 Intake Visit Reasons: Abdominal Pains Intake Note: Bethany presents in the office as a new patient for abdominal pains. CC: She states that she has been constipated on and off for the past 2.5 weeks. She was here yesterday seeing a surgeon. Professional Tutor Required: No Allergies clindamycin Allergy (Severe, Verified 08/15/23 13:22) itch, nausea, dizziness, scratchy throat, neck redness Penicillins [PENICILLINS] Allergy (Intermediate, Verified 08/15/23 13:22) RASH acetaminophen [From Percocet] Allergy (Mild, Verified 08/15/23 13:25) Unknown mushroom Allergy (Mild, Verified 08/15/23 13:25) Rash pineapple Allergy (Mild, Verified 08/15/23 13:25) Rash hydrocodone [HYDROCODONE] Allergy (Unknown, Verified 08/15/23 13:22) UNKNOWN morphine [MORPHINE] Allergy (Unknown, Verified 08/15/23 13:22) LETHARGY oxycodone [OXYCODONE] Allergy (Unknown, Verified 08/15/23 13:22) LEHTARGY HPI HPI Abdominal Pains: Details: 57-year-old female with past medical history of cholelithiasis, hyperparathyroidism, asthma, osteoarthritis of right shoulder, osteoporosis, asthma, fibromyalgia, neuropathy, hypothyroidism, essential hypertension, GERD, breast cancer, status post mastectomy is here today for initial consultation. Patient was referred to us by PCP for evaluation of abdominal pain. Patient reports that in the past several weeks she has had left lumbar and left lower abdominal discomfort. Patient reports that for about 2 weeks now she has not had a normal bowel movement. When she goes she only goes very small amount. Patient feels bloated. No matter what she eats she has pain in her left side of her abdomen. Patient denies right upper quadrant pain postprandially no pain in epigastric or right upper quadrant. Patient was seen in the ER on 16 of July and was diagnosed with cholelithiasis without cholecystitis on CT scan. No abnormalities were seen in small or large bowel. No diverticulosis noted. Prior to her ED visit patient had UTI and has been treated with antibiotic. Her pain then was more in her pelvic and left lower quadrant. Patient reports that she is using MiraLax and only able to go very small amounts. Reports postp randial abdominal bloating. Feels bloated and distended. Patient denies any melena, hematochezia, unintentional weight loss or ribbon like stools. Had colonoscopy 08/08/2020 that showed hyperplastic polyp in hepatic flexure and tubular adenoma in ascending colon. Patient also reports of feeling nauseous [facility] Medical History Foot fracture, right Asthma Goiter Osteoarthritis, shoulder Chronic fatigue syndrome Fibromyalgia Neuropathy Panic attacks Hypothyroid Breast cancer, right Essential hypertension Allergic rhinitis Hypovitaminosis D Vertigo Mild persistent asthma NAVA (generalized anxiety disorder) Mild recurrent major depression Surgical History Hx of colonoscopy History of salpingectomy History of breast implant History of mastectomy Family History Mother Hypertension Asthma Osteoporosis Depression Anxiety Sleep apnea Fibromyalgia Mental health disorder Diabetes Father Diabetes Substance use disorder Social History Housing: House Alcohol intake: never Patient Tobacco Use Status: Never used Tobacco e-Cigarette/Vaping Use: Never Used Second Hand Smoke Exposure: No service: No Current occupational status: unemployed and disabled Cognitive needs: No Hearing needs: No Vision needs: No Review of Systems Const Denies weight gain and Denies weight loss ENT Reports no additional complaints, Denies dysphagia and Denies odynophagia Card Reports no additional complaints Resp Reports no additional complaints GI Reports abdominal pain, Denies belching, Denies melena, Reports bloating, Reports constipation, Denies dysphagia, Denies excessive flatus, Denies dyspepsia, Denies heartburn, Denies diarrhea, Denies loose stools, Reports nausea, Denies odynophagia and Denies vomiting Reports no additional complaints Musc Reports no additional complaints Neuro Reports no additional complaints Psych Reports no additional complaints Endo Reports no additional complaints Physical Exam Vital Signs: Last Vital Signs Pulse 90 08/15/23 13:22 BP 124/70 08/15/23 13:22 BMI result Body Mass Index 30.7 Const General: healthy appearing and no acute distress Nutritional Appearance: obese Orientation/consciousness: patient oriented x3 Resp Effort & Inspection: normal respiratory effort, able to speak in complete sentences, no tracheal deviation and symmetric chest movement Auscultation: clear to auscultation bilaterally Cardio Rate: regular rate GI Inspection: Yes normal to inspection, No distended and Yes obesity Palpation (GI): Soft to palpation, not firm, nontender and No hepatosplenomegaly present Auscultation: normal bowel sounds General: Yes no CVA tenderness Back/Spine/Pelvis Back: no CVA tenderness Skin General skin exam: elasticity normal, turgor normal and dry skin Neuro General: patient oriented x3 Psych Appearance: grossly normal Mental Status: mental status grossly normal Assessment & Plan Assessment & Plan (1) Constipation: Code(s): K59.00 - Constipation, unspecified Category: Medical Qualifiers: Constipation type: slow transit constipation Qualified Code(s): K59.01 - Slow transit constipation (2) Abdominal pain: Code(s): R10.9 - Unspecified abdominal pain Category: Medical Qualifiers: Abdominal location: left lower quadrant Qualified Code(s): R10.32 - Left lower quadrant pain (3) Gallstones: Code(s): K80.20 - Calculus of gallbladder without cholecystitis without obstruction Category: Medical (4) Postprandial abdominal bloating: Code(s): R14.0 - Abdominal distension (gaseous) Plan Patient was encouraged to continue drinking fluids. Increase activity to promote better bowel motility. Decreased bowel sounds in the left side. Patient will take milk of citrate when she gets home split in 2 halves 1 hour apart. Continue taking MiraLax in the morning and will add senna. Patient will return in the office in 2 weeks to re-evaluate. If she will be going to the bathroom well and will continue to have pain we will send her for HIDA scan. Patient had negative Bautista sign good bowel sounds on the right side. Patient has appointment with Dr. Boateng in in 2 weeks as well. Patient will call our office if she will not have a bowel movement after taking magnesium citrate. Patient is agreeable to this plan and verbalizes understanding of instructions. She was given the opportunity to ask questions and all questions answered. Medications: New sennosides (Natural Senna Laxative) 17.2 mg (2 x 8.6 mg) PO BEDTIME 60 tabs 3RF constipation K59.00 - Constipation, unspecified magnesium citrate (Citrate of Magnesia oral) 150 mL PO DAILY PRN 296 mL 5RF constipation K59.00 - Constipation, unspecified Coding Level of Care Code New Pt Level 4 (35174) Diagnoses Slow transit constipation K59.01 Constipation type: slow transit constipation Left lower quadrant abdominal pain R10.32 Abdominal location: left lower quadrant Gallstones K80.20 Postprandial abdominal bloating R14.0 Time Spent (min) 45 Comment 30 minutes spent with patient and additional 15 minutes spent reviewing her records
== END 2023-08-15 14:00 | disposition home or self-care (01) ==
PROVIDERS: PCP Internal Medicine; Visit Provider Nurse Practitioner Family
DX: K59.01 Slow transit constipation (principal); R10.32 Left lower quadrant pain; K80.20 Calculus of gallbladder without cholecystitis without obstruction; R14.0 Abdominal distension (gaseous)
CPT/HCPCS: 99204

== ENCOUNTER → 2023-08-15 13:16 | Outpatient (BNVA) | payer BC, MEDICARE, MEDICAID, SELFPAY | PROVIDERS: PCP Internal Medicine; Visit Provider Nurse Practitioner Family ==

== ENCOUNTER 2023-08-27 12:54 | Outpatient (REF) | payer BC, MEDICARE, MEDICAID, SELFPAY ==
--- NOTE | ~2023-08-27 | XR_ITS ---
EXAMINATION: XR ABDOMEN KUB CLINICAL INDICATION: Constipation unspecified. COMPARISON: 07/17/2023 CT abdomen and pelvis, 07/11/2023 renal ultrasound. TECHNIQUE: 2 AP views of the abdomen. FINDINGS: Nonobstructive bowel gas pattern. [id number] amount of stool in the colon. Degenerative changes in the lumbar spine. Degenerative changes in bilateral sacroiliac joints. XR/XR KUB IMPRESSION: Nonobstructive bowel gas pattern. [id number] amount of stool in the colon.
== END 2023-08-27 12:55 | disposition home or self-care (01) ==
LOC: HO.XRAY 12:54
PROVIDERS: PCP Internal Medicine; Visit Provider Nurse Practitioner Family
DX: K59.01 Slow transit constipation (principal); R10.32 Left lower quadrant pain
CPT/HCPCS: 74018

== ENCOUNTER 2023-08-27 12:54 | Outpatient (AMB) | payer BC, MEDICARE, MEDICAID, SELFPAY ==
--- NOTE | 2023-08-27 13:03 | MHC.OFFVIS ---
Vital Signs 08/27/23 13:07 Height 4 ft 11 in Weight 152 lb 1.903 oz BMI 30.7 BP 134/79 Blood Pressure Location Lt brachial Position Sitting Pulse 84 Intake Visit Reasons: 2 week follow up Intake Note: Bethany presents in the office as a 2 week follow up. CC: She states the nagging pain is not as bad as before but every time she eats she has to go to the bathroom. When she has a BM she has diarrhea. 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 Allergies clindamycin Allergy (Severe, Verified 08/27/23 13:07) itch, nausea, dizziness, scratchy throat, neck redness Penicillins [PENICILLINS] Allergy (Intermediate, Verified 08/27/23 13:07) RASH acetaminophen [From Percocet] Allergy (Mild, Verified 08/27/23 13:07) Unknown mushroom Allergy (Mild, Verified 08/27/23 13:07) Rash pineapple Allergy (Mild, Verified 08/27/23 13:07) Rash hydrocodone [HYDROCODONE] Allergy (Unknown, Verified 08/27/23 13:07) UNKNOWN morphine [MORPHINE] Allergy (Unknown, Verified 08/27/23 13:07) LETHARGY oxycodone [OXYCODONE] Allergy (Unknown, Verified 08/27/23 13:07) LEHTARGY HPI HPI 2 week follow up: Details: LAST VISIT: Constipation Abdominal pain Gallstones Postprandial abdominal bloating Plan Patient was encouraged to continue drinking fluids. Increase activity to promote better bowel motility. Decreased bowel sounds in the left side. Patient will take milk of citrate when she gets home split in 2 halves 1 hour apart. Continue taking MiraLax in the morning and will add senna. Patient will return in the office in 2 weeks to re-evaluate. If she will be going to the bathroom well and will continue to have pain we will send her for HIDA scan. Patient had negative Bautista sign good bowel sounds on the right side. Patient has appointment with Dr. Boateng in in 2 weeks as well. Patient will call our office if she will not have a bowel movement after taking magnesium citrate. Patient is agreeable to this plan and verbalizes understanding of instructions. She was given the opportunity to ask questions and all questions answered. Medications New sennosides (Natural Senna Laxative) 17.2 mg (2 x 8.6 mg) PO BEDTIME 60 tabs 3RF constipation K59.00 magnesium citrate (Citrate of Magnesia oral) 150 mL PO DAILY PRN 296 mL 5RF constipation K59.00 TODAY'S VISIT: Patient is here today for follow-up. Patient reports that she is feeling little better, however she continues to have abdominal bloating. Patient admits to having epigastric discomfort as well as right upper quadrant pain postprandially. Patient did notice that her right upper quadrant pain is worse when she has something that is greasy. Patient however tries to avoid that. Patient denies any nausea or vomiting. Reports that she is moving her bowels, however she does not feel like she empties them completely. Often postprandial loose stools usually when she eats something that contains fat not necessarily fried or greasy or any fast food. Sometimes eating chicken salad with my on as will have her have a loose stool. Patient has an appointment with Dr. Boateng. Unsure if she should go for cholecystectomy. Patient denies any melena, hematochezia. Reports dyspepsia with acid reflux and epigastric burning postprandially. [facility] Medical History Foot fracture, right Asthma Goiter Osteoarthritis, shoulder Chronic fatigue syndrome Fibromyalgia Neuropathy Panic attacks Hypothyroid Breast cancer, right Essential hypertension Allergic rhinitis Hypovitaminosis D Vertigo Mild persistent asthma NAVA (generalized anxiety disorder) Mild recurrent major depression Surgical History Hx of colonoscopy History of salpingectomy History of breast implant History of mastectomy Family History Mother Hypertension Asthma Osteoporosis Depression Anxiety Sleep apnea Fibromyalgia Mental health disorder Diabetes Father Diabetes Substance use disorder Social History Housing: House Alcohol intake: never Patient Tobacco Use Status: Never used Tobacco e-Cigarette/Vaping Use: Never Used Second Hand Smoke Exposure: No service: No Current occupational status: unemployed and disabled Cognitive needs: No Hearing needs: No Vision needs: No Review of Systems Const Denies weight gain and Denies weight loss ENT Reports no additional complaints, Denies dysphagia and Denies odynophagia Card Reports no additional complaints Resp Reports no additional complaints GI Reports abdominal pain (Epigastric and right upper quadrant), Denies belching, Denies melena, Reports bloating, Reports constipation, Denies dysphagia, Denies excessive flatus, Reports dyspepsia, Denies heartburn, Denies diarrhea, Reports loose stools, Denies nausea, Denies odynophagia and Denies vomiting Reports no additional complaints Musc Reports no additional complaints Neuro Reports no additional complaints Psych Reports no additional complaints Endo Reports no additional complaints Physical Exam Vital Signs: Last Vital Signs Pulse 84 08/27/23 13:07 BP 134/79 08/27/23 13:07 BMI result Body Mass Index 30.7 Const General: healthy appearing and no acute distress Nutritional Appearance: obese Orientation/consciousness: patient oriented x3 Resp Effort & Inspection: normal respiratory effort, able to speak in complete sentences, no tracheal deviation and symmetric chest movement Auscultation: clear to auscultation bilaterally Cardio Rate: regular rate GI Inspection: Yes normal to inspection, No distended and Yes obesity Palpation (GI): Soft to palpation, not firm, nontender and No hepatosplenomegaly present Auscultation: normal bowel sounds General: Yes no CVA tenderness Back/Spine/Pelvis Back: no CVA tenderness Skin General skin exam: elasticity normal, turgor normal and dry skin Neuro General: patient oriented x3 Psych Appearance: grossly normal Mental Status: mental status grossly normal Assessment & Plan Assessment & Plan (1) Constipation: Code(s): K59.00 - Constipation, unspecified Category: Medical Qualifiers: Constipation type: slow transit constipation Qualified Code(s): K59.01 - Slow transit constipation (2) Abdominal pain: Code(s): R10.9 - Unspecified abdominal pain Category: Medical Qualifiers: Abdominal location: left lower quadrant Qualified Code(s): R10.32 - Left lower quadrant pain (3) Gallstones: Code(s): K80.20 - Calculus of gallbladder without cholecystitis without obstruction Category: Medical (4) Postprandial abdominal bloating: Code(s): R14.0 - Abdominal distension (gaseous) (5) GERD (gastroesophageal reflux disease): Code(s): K21.9 - Gastro-esophageal reflux disease without esophagitis Qualifiers: Esophagitis presence: esophagitis presence not specified Qualified Code(s): K21.9 - Gastro-esophageal reflux disease without esophagitis (6) Postprandial epigastric pain: Code(s): R10.13 - Epigastric pain Plan Will send patient for KUB ? Constipation. Patient does have decreased bowels sounds, no abdominal tenderness, negative Bautista sign. Will send her for HIDA scan. Script for simethicone, up to 3 times a day with food. Patient can start taking omeprazole every morning half an hour before breakfast. Continue avoiding dietary triggers. Small meals and more often. Discussed with patient low FODMAP diet. List of food recommended as well as list of food to avoid given to patient. Unsure if surgery is the right option for her at this point as her symptoms very specially with the bloating. Patient is not emptying her bowels completely her right upper quadrant pain is more right lumbar pain. Her symptoms could yet worst like postprandial diarrhea after the surgery. I will see patient in 5-6 weeks, sooner on as needed basis. She is agreeable to this plan and verbalizes understanding of instructions. She was given the opportunity to ask questions and all questions answered. Thank you for allowing me to participate in her care Orders: Orders NM hepatobiliary w pharm Today R10.11 - Right upper quadrant pain XR KUB Today K59.00 - Constipation, unspecified Medications: New simethicone 125 mg PO BID-QID PRN 120 caps 3RF abdominal distention K21.9 - Gastro-esophageal reflux disease without esophagitis omeprazole 20 mg PO DAILY 30 caps 3RF K21.9 - Gastro-esophageal reflux disease without esophagitis Coding Level of Care Code Est Pt Level 4 (08321) Diagnoses Slow transit constipation K59.01 Constipation type: slow transit constipation Left lower quadrant abdominal pain R10.32 Abdominal location: left lower quadrant Gallstones K80.20 Postprandial abdominal bloating R14.0 Gastroesophageal reflux disease, unspecified whether esophagitis present K21.9 Esophagitis presence: esophagitis presence not specified Postprandial epigastric pain R10.13 Time Spent (min) 35 Comment 20 minutes spent with patient and additional 15 minutes spent reviewing her records
[2023-08-27 13:07] VITALS: BP 134/79; PULSE 84; BMI 30.7
== END 2023-08-27 14:07 | disposition home or self-care (01) ==
PROVIDERS: PCP Internal Medicine; Visit Provider Nurse Practitioner Family
DX: K59.01 Slow transit constipation (principal); R10.32 Left lower quadrant pain; K80.20 Calculus of gallbladder without cholecystitis without obstruction; R14.0 Abdominal distension (gaseous); K21.9 Gastro-esophageal reflux disease without esophagitis; R10.13 Epigastric pain
CPT/HCPCS: 99214

== ENCOUNTER 2023-08-28 13:58 | Outpatient (AMB) | payer BC, MEDICARE, MEDICAID, SELFPAY ==
--- NOTE | 2023-08-28 14:00 | MHC.OFFVIS ---
Vital Signs 08/28/23 14:09 Height 4 ft 11 in Weight 152 lb BMI 30.7 BP 140/91 H Blood Pressure Location Lt brachial Position Sitting Pulse 97 Intake Visit Reasons: 2 wk follow up Calculus of gallbladder abd pain Intake Note: Patient is seen in office for 2 wks follow up visit, following calculus of the gallbladder. Pt c/o:started taking Magnesium with no relief, continued nausea, vomit, unable to eat, started a gluten free diet, bloating taking meds for const ? helped ? 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 Operator Required: No Accompanied by: Self / Same As Patient Allergies clindamycin Allergy (Severe, Verified 08/28/23 14:01) itch, nausea, dizziness, scratchy throat, neck redness Penicillins [PENICILLINS] Allergy (Intermediate, Verified 08/28/23 14:01) RASH acetaminophen [From Percocet] Allergy (Mild, Verified 08/28/23 14:01) Unknown mushroom Allergy (Mild, Verified 08/28/23 14:01) Rash pineapple Allergy (Mild, Verified 08/28/23 14:01) Rash hydrocodone [HYDROCODONE] Allergy (Unknown, Verified 08/28/23 14:01) UNKNOWN morphine [MORPHINE] Allergy (Unknown, Verified 08/28/23 14:01) LETHARGY oxycodone [OXYCODONE] Allergy (Unknown, Verified 08/28/23 14:01) LEHTARGY HPI Comments Details: 57-year-old female patient with a prior history of right breast cancer status post right mastectomy with reconstruction in 2017 presenting with complaints of abdominal pain mainly in the left upper lower quadrants. The pain is associated with constipation. She is been evaluated by Maddie Pak in gastroenterology. A HIDA scan has been ordered to further evaluate the gallbladder. She continues to have difficulty with the bowels and generally feels tired without much energy. She does occasionally have discomfort in the right side and less discomfort on the left side. She returns today for re-evaluation regarding her gallbladder. [facility] Medical History Foot fracture, right Asthma Goiter Osteoarthritis, shoulder Chronic fatigue syndrome Fibromyalgia Neuropathy Panic attacks Hypothyroid Breast cancer, right Essential hypertension Allergic rhinitis Hypovitaminosis D Vertigo Mild persistent asthma NAVA (generalized anxiety disorder) Mild recurrent major depression Surgical History Hx of colonoscopy History of salpingectomy History of breast implant History of mastectomy Family History Mother Hypertension Asthma Osteoporosis Depression Anxiety Sleep apnea Fibromyalgia Mental health disorder Diabetes Father Diabetes Substance use disorder Social History Housing: House Alcohol intake: never Patient Tobacco Use Status: Never used Tobacco e-Cigarette/Vaping Use: Never Used Second Hand Smoke Exposure: No service: No Current occupational status: unemployed and disabled Cognitive needs: No Hearing needs: No Vision needs: No Review of Systems Const All systems reviewed & are unremarkable except as noted in HPI and below Denies chills, Denies fever(s), Denies headache(s), Denies poor appetite and Denies weakness ENT Denies headache(s) Card Denies chest pain, Denies irregular heart rhythm, Denies palpitations and Denies dyspnea Resp Denies cough, Denies excessive phlegm production and Denies dyspnea GI Reports abdominal pain, Reports bloating, Denies change in bowel habits, Reports constipation, Denies heartburn, Denies diarrhea, Reports nausea and Denies vomiting Reports as per HPI and Denies urinary frequency Musc Denies back pain, Denies muscle weakness and Denies numbness Skin/Breast Denies changing lesions and Denies unusual bruising Neuro Denies headache(s), Denies numbness, Denies paresthesias and Denies weakness Psych Denies anxiety and Denies depression Endo Denies palpitations Chandu/Lymph Denies lymphadenopathy Physical Exam Vital Signs: Last Vital Signs Pulse 97 08/28/23 14:09 BP 140/91 H 08/28/23 14:09 BMI result Body Mass Index 30.7 Const General: cooperative and no acute distress Nutritional Appearance: well nourished Orientation/consciousness: patient oriented x3 Limitations: no limitations HEENT Head: Yes normocephalic and Yes atraumatic Ears: hearing grossly normal bilaterally Resp Effort & Inspection: normal respiratory effort, no audible wheezes, no cough and no respiratory distress Cardio Jugular venous distension: no JVD GI Inspection: Yes normal to inspection Palpation (GI): Soft to palpation Skin Other: Warm, dry, no rash Neuro General: patient oriented x3 Extrem General: Yes no clubbing, cyanosis or edema Assessment & Plan Assessment & Plan (1) Constipation: Code(s): K59.00 - Constipation, unspecified Category: Medical Qualifiers: Constipation type: slow transit constipation Qualified Code(s): K59.01 - Slow transit constipation (2) Abdominal pain: Code(s): R10.9 - Unspecified abdominal pain Category: Medical Qualifiers: Abdominal location: left lower quadrant Qualified Code(s): R10.32 - Left lower quadrant pain (3) Gallstones: Code(s): K80.20 - Calculus of gallbladder without cholecystitis without obstruction Category: Medical Plan Overall the patient is not significantly changed since her prior examination. She continues to have difficulty with the bowels but now reports some discomfort on the right side extending into the right back which may be more consistent with biliary colic. She is scheduled for a HIDA scan and asked her to return following the study to review the results and discuss any surgical options. She expressed understanding and agrees with the plan. Coding Level of Care Code Est Pt Level 3 (66706) Diagnoses Slow transit constipation K59.01 Constipation type: slow transit constipation Left lower quadrant abdominal pain R10.32 Abdominal location: left lower quadrant Gallstones K80.20
[2023-08-28 14:09] VITALS: BP 140/91; PULSE 97; BMI 30.7
== END 2023-08-28 14:39 | disposition home or self-care (01) ==
PROVIDERS: PCP Internal Medicine; Visit Provider Surgery
DX: K59.01 Slow transit constipation (principal); R10.32 Left lower quadrant pain; K80.20 Calculus of gallbladder without cholecystitis without obstruction
CPT/HCPCS: 99213

== ENCOUNTER → 2023-08-28 13:58 | Outpatient (BNVA) | payer BC, MEDICARE, MEDICAID, SELFPAY | PROVIDERS: PCP Internal Medicine; Visit Provider Surgery ==

== ENCOUNTER → 2023-09-08 12:37 | Outpatient (REF) | payer BC, MEDICARE, MEDICAID, SELFPAY ==
--- NOTE | ~2023-09-08 | NM_ITS ---
EXAMINATION: BILIARY TRACT IMAGING STUDY WITH CCK CLINICAL INFORMATION: Right upper quadrant pain.. COMPARISON: No previous biliary scan is available for comparison. The diagnostic CT scan of the abdomen and pelvis, dated 07/17/2023, is available for comparison.. TECHNIQUE: Serial gamma scintillation camera images were obtained over the abdomen for a total observation period of 95 minutes following the intravenous administration of 5 mCi Tc-99m Mebrofenin. FINDINGS: There is good concentration of activity in the liver by 5 minutes post injection. Biliary activity is visualized by 10 minutes. The gallbladder is well visualized by 35 minutes. Small bowel is well visualized by 20 minutes. At 60 minutes post radiopharmaceutical injection, a 30-minute infusion of 1.4 micrograms Sincalide was then begun and an additional 40 minutes of images were obtained. There is only minimal gallbladder emptying during the sincalide infusion. At the end of the study there is marked retention of activity in the gallbladder but almost complete clearance of activity from the liver. Diffuse small bowel activity is also visualized at this time. The calculated gallbladder ejection fraction is 22% (normal gallbladder ejection fraction is greater than 35%). NM/NM hepatobiliary w pharm IMPRESSION: 1. Visualization of the gallbladder is evidence of a patent cystic duct and strong evidence against the diagnosis of acute cholecystitis. The common bile duct is patent. Liver function appears normal. 2. Poor gallbladder emptying and a low gallbladder ejection fraction are evidence of impaired gallbladder contractility and most likely due to chronic cholecystitis.
== END ==
LOC: HO.NUCMED 12:37
PROVIDERS: PCP Internal Medicine; Visit Provider Nurse Practitioner Family
DX: R10.11 Right upper quadrant pain (principal)
CPT/HCPCS: 78227; A9537; J2805

== ENCOUNTER 2023-09-10 17:00 | Outpatient (AMB) | payer BC, MEDICARE, MEDICAID, SELFPAY ==
[2023-09-10 17:15] VITALS: BP 122/80; BMI 30.5
--- NOTE | 2023-09-10 17:15 | A.OFFPC_ITS ---
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 Accompanied by: Self / Same As Patient Allergies clindamycin Allergy (Severe, Verified 09/10/23 17:27) itch, nausea, dizziness, scratchy throat, neck redness Penicillins [PENICILLINS] Allergy (Intermediate, Verified 09/10/23 17:27) RASH acetaminophen [From Percocet] Allergy (Mild, Verified 09/10/23 17:27) Unknown mushroom Allergy (Mild, Verified 09/10/23 17:27) Rash pineapple Allergy (Mild, Verified 09/10/23 17:27) Rash hydrocodone [HYDROCODONE] Allergy (Unknown, Verified 09/10/23 17:27) UNKNOWN morphine [MORPHINE] Allergy (Unknown, Verified 09/10/23 17:27) LETHARGY oxycodone [OXYCODONE] Allergy (Unknown, Verified 09/10/23 17:27) LEHTARGY Medication List - Last Reconciled 09/10/23 by Khushboo Godinez MD alprazolam 0.25 mg PO TID PRN 30 days ascorbate calcium (vitamin C) 500 mg PO DAILY cholecalciferol (vitamin D3) 125 mcg PO .every other day 90 days clonidine HCl 0.1 mg PO BID 90 days cyclobenzaprine 10 mg PO BEDTIME PRN escitalopram oxalate 20 mg PO DAILY fluticasone furoate-vilanterol 200-25 mcg/dose (Breo Ellipta) 1 inh inhalation DAILY 30 days ipratropium bromide 2 sprays intranasal TID PRN magnesium citrate (Citrate of Magnesia oral) 150 mL PO DAILY PRN magnesium oxide 500 mg PO DAILY 90 days montelukast 10 mg PO DAILY 90 days omeprazole 20 mg PO DAILY sennosides (Natural Senna Laxative) 17.2 mg (2 x 8.6 mg) PO BEDTIME simethicone 125 mg PO BID-QID PRN umeclidinium 62.5 mcg/actuation (Incruse Ellipta) 1 inh inhalation DAILY 30 days Ventolin HFA 90 mcg/actuation (albuterol sulfate) 2 puffs PO Q6H PRN 30 days NS Tobacco use date assessed: 06/11/23 Dental Screening Dental Screen Date: 06/11/23 HPI HPI Comments History of Present Illness Details This is a 58-year-old female with mild major depression, anxiety, hypertension and chronic cholecystitis that still complains of abdominal pain. Will see surgeon tomorrow for this matter. Depression and anxiety stable with medications. Blood pressure well controlled. [facility] Medical History (Updated 09/10/23 @ 19:16 by Khushboo Godinez MD) Foot fracture, right Asthma Goiter Osteoarthritis, shoulder Chronic fatigue syndrome Fibromyalgia Neuropathy Panic attacks Hypothyroid Breast cancer, right Essential hypertension Allergic rhinitis Hypovitaminosis D Vertigo Mild persistent asthma NAVA (generalized anxiety disorder) Mild recurrent major depression Surgical History Hx of colonoscopy History of salpingectomy History of breast implant History of mastectomy Family History Mother Hypertension Asthma Osteoporosis Depression Anxiety Sleep apnea Fibromyalgia Mental health disorder Diabetes Father Diabetes Substance use disorder Social History Housing: House Alcohol intake: never Patient Tobacco Use Status: Never used Tobacco e-Cigarette/Vaping Use: Never Used Second Hand Smoke Exposure: No service: No Current occupational status: unemployed and disabled Cognitive needs: No Hearing needs: No Vision needs: No Questionnaire Thrive Questionnaire Date Thrive assessed: 03/25/23 NAVA-7 AMB Questionnaire NAVA-7 Date NAVA - 7 assessed: 03/25/23 Source: Developed by Drs. Homar Cancino, Mar Pike, Imer Montesinos and colleagues, with an educational nalini from [email or web address]. Review of Systems Const All systems reviewed & are unremarkable except as noted in HPI and below Card Denies chest pain at rest, Denies chest pain with activity, Denies edema, Denies irregular heart rhythm, Denies claudication, Denies dyspnea, Denies dyspnea on exertion, Denies orthopnea, Denies paroxysmal nocturnal dyspnea and Denies slow heart rate Resp Denies cough, Denies dyspnea and Denies dyspnea on exertion Physical exam (Primary Care) Vital Signs: Last Vital Signs BP 122/80 09/10/23 17:15 BMI result Body Mass Index 30.5 Tobacco/Smoking Status: Tobacco use Status Tobacco use date assessed 06/11/23 09/10/23 17:20 Patient Tobacco Use Status Never used Tobacco 09/10/23 17:20 Tobacco use type 02/04/23 17:58 e-Cigarette/Vaping Use Never Used 09/10/23 17:20 Thrive Assessment: Date of Thrive Assessment Date Thrive assessed 03/25/23 09/10/23 17:20 Resp Effort & Inspection: normal respiratory effort Auscultation: clear to auscultation bilaterally Cardio Jugular venous distension: no JVD Rate: regular rate Rhythm: regular rhythm Heart sounds: S1 normal heart sound present and S2 normal heart sound present GI Inspection: Yes normal to inspection Palpation (GI): Soft to palpation and nontender Auscultation: normal bowel sounds Extrem General: Yes full ROM Assessment and Plan Assessment & Plan (1) Mild recurrent major depression: Code(s): F33.0 - Major depressive disorder, recurrent, mild Plan: Continue escitalopram. (2) NAVA (generalized anxiety disorder): Code(s): F41.1 - Generalized anxiety disorder Plan: Continue benzodiazepines. Follow-up with psychiatry. (3) Essential hypertension: Code(s): I10 - Essential (primary) hypertension Plan: Continue clonidine. Blood pressure goal is equal or less than 130/80. (4) Chronic cholecystitis: Code(s): K81.1 - Chronic cholecystitis Plan: Follow-up with surgeon. Coding Level of Care Code Est Pt Level 4 (02137) Complex EM visit Add On G2211 Diagnoses Mild recurrent major depression F33.0 NAVA (generalized anxiety disorder) F41.1 Essential hypertension I10 Chronic cholecystitis K81.1 Time Spent (min) 20
== END 2023-09-10 17:54 | disposition home or self-care (01) ==
PROVIDERS: PCP Internal Medicine; Visit Provider Internal Medicine
DX: F33.0 Major depressive disorder, recurrent, mild (principal); F41.1 Generalized anxiety disorder; I10 Essential (primary) hypertension; K81.1 Chronic cholecystitis
CPT/HCPCS: 99214

== ENCOUNTER 2023-09-11 09:18 | Outpatient (AMB) | payer BC, MEDICARE, MEDICAID, SELFPAY ==
--- NOTE | 2023-09-11 09:24 | MHC.OFFVIS ---
Vital Signs 09/11/23 09:30 Height 4 ft 11 in Weight 152 lb BMI 30.7 BP 134/89 Blood Pressure Location Lt brachial Position Sitting Pulse 97 Intake Visit Reasons: Discuss HIDA scan & surg for gb Intake Note: Patient is seen in office for HIDA scan results, following the cholecystitis. Pt c/o: increase pain and gas, here for results HIDA: 09/08/23 Occupational Therapy Program Director Required: No Accompanied by: Self / Same As Patient Allergies clindamycin Allergy (Severe, Verified 09/11/23 09:25) itch, nausea, dizziness, scratchy throat, neck redness Penicillins [PENICILLINS] Allergy (Intermediate, Verified 09/11/23 09:25) RASH acetaminophen [From Percocet] Allergy (Mild, Verified 09/11/23 09:25) Unknown mushroom Allergy (Mild, Verified 09/11/23 09:25) Rash pineapple Allergy (Mild, Verified 09/11/23 09:25) Rash hydrocodone [HYDROCODONE] Allergy (Unknown, Verified 09/11/23 09:25) UNKNOWN morphine [MORPHINE] Allergy (Unknown, Verified 09/11/23 09:25) LETHARGY oxycodone [OXYCODONE] Allergy (Unknown, Verified 09/11/23 09:25) LEHTARGY Medication List - Last Reconciled 09/11/23 by Juan Boateng MD alprazolam 0.25 mg PO TID PRN 30 days ascorbate calcium (vitamin C) 500 mg PO DAILY cholecalciferol (vitamin D3) 125 mcg PO .every other day 90 days clonidine HCl 0.1 mg PO BID 90 days cyclobenzaprine 10 mg PO BEDTIME PRN escitalopram oxalate 20 mg PO DAILY fluticasone furoate-vilanterol 200-25 mcg/dose (Breo Ellipta) 1 inh inhalation DAILY 30 days ipratropium bromide 2 sprays intranasal TID PRN magnesium citrate (Citrate of Magnesia oral) 150 mL PO DAILY PRN magnesium oxide 500 mg PO DAILY 90 days montelukast 10 mg PO DAILY 90 days omeprazole 20 mg PO DAILY sennosides (Natural Senna Laxative) 17.2 mg (2 x 8.6 mg) PO BEDTIME simethicone 125 mg PO BID-QID PRN umeclidinium 62.5 mcg/actuation (Incruse Ellipta) 1 inh inhalation DAILY 30 days Ventolin HFA 90 mcg/actuation (albuterol sulfate) 2 puffs PO Q6H PRN 30 days NS HPI Comments Details: 57-year-old female patient with a prior history of right breast cancer status post right mastectomy with reconstruction in 2017 presenting with complaints of abdominal pain mainly in the left upper lower quadrants. The pain is associated with constipation. She is been evaluated by Maddie Pak in gastroenterology. A HIDA scan was recently completed and revealed normal visualization of the gallbladder however a delayed ejection fraction consistent with chronic cholecystitis. She continues to have difficulty with the bowels and generally feels tired without much energy. She does occasionally have discomfort in the right side and less discomfort on the left side. She returns today for re-evaluation regarding her gallbladder. [facility] Medical History Foot fracture, right Asthma Goiter Osteoarthritis, shoulder Chronic fatigue syndrome Fibromyalgia Neuropathy Panic attacks Hypothyroid Breast cancer, right Essential hypertension Allergic rhinitis Hypovitaminosis D Vertigo Mild persistent asthma NAVA (generalized anxiety disorder) Mild recurrent major depression Surgical History Hx of colonoscopy History of salpingectomy History of breast implant History of mastectomy Family History Mother Hypertension Asthma Osteoporosis Depression Anxiety Sleep apnea Fibromyalgia Mental health disorder Diabetes Father Diabetes Substance use disorder Social History Housing: House Alcohol intake: never Patient Tobacco Use Status: Never used Tobacco e-Cigarette/Vaping Use: Never Used Second Hand Smoke Exposure: No service: No Current occupational status: unemployed and disabled Cognitive needs: No Hearing needs: No Vision needs: No Review of Systems Const All systems reviewed & are unremarkable except as noted in HPI and below Denies chills, Denies fever(s), Denies headache(s), Denies poor appetite and Denies weakness ENT Denies headache(s) Card Denies chest pain, Denies irregular heart rhythm, Denies palpitations and Denies dyspnea Resp Denies cough, Denies excessive phlegm production and Denies dyspnea GI Reports abdominal pain, Reports bloating, Denies change in bowel habits, Reports constipation, Denies heartburn, Denies diarrhea, Reports nausea and Denies vomiting Reports as per HPI and Denies urinary frequency Musc Denies back pain, Denies muscle weakness and Denies numbness Skin/Breast Denies changing lesions and Denies unusual bruising Neuro Denies headache(s), Denies numbness, Denies paresthesias and Denies weakness Psych Denies anxiety and Denies depression Endo Denies palpitations Chandu/Lymph Denies lymphadenopathy Physical Exam Const General: cooperative and no acute distress Nutritional Appearance: well nourished Orientation/consciousness: patient oriented x3 Limitations: no limitations HEENT Head: Yes normocephalic and Yes atraumatic Ears: hearing grossly normal bilaterally Resp Effort & Inspection: normal respiratory effort, no audible wheezes, no cough and no respiratory distress Cardio Jugular venous distension: no JVD GI Inspection: Yes normal to inspection Palpation (GI): Soft to palpation and Tenderness to palpation present (GI) in the RUQ Skin Other: Warm, dry, no rash Neuro General: patient oriented x3 Extrem General: Yes no clubbing, cyanosis or edema Assessment & Plan Assessment & Plan (1) Constipation: Code(s): K59.00 - Constipation, unspecified Category: Medical Qualifiers: Constipation type: slow transit constipation Qualified Code(s): K59.01 - Slow transit constipation (2) Abdominal pain: Code(s): R10.9 - Unspecified abdominal pain Category: Medical Qualifiers: Abdominal location: left lower quadrant Qualified Code(s): R10.32 - Left lower quadrant pain (3) Gallstones: Code(s): K80.20 - Calculus of gallbladder without cholecystitis without obstruction Category: Medical Plan Overall the patient is not significantly changed since her prior examination. She continues to have difficulty with the bowels but now reports some discomfort on the right side extending into the right back which may be more consistent with biliary colic. HIDA scan confirms chronic cholecystitis with a delayed ejection fraction. We discussed the option of laparoscopic or possible open cholecystectomy. After discussion of the procedure, risks, and alternatives, she consents to the surgery. Coding Level of Care Code Est Pt Level 3 (55783) Diagnoses Slow transit constipation K59.01 Constipation type: slow transit constipation Left lower quadrant abdominal pain R10.32 Abdominal location: left lower quadrant Gallstones K80.20
[2023-09-11 09:30] VITALS: BP 134/89; PULSE 97; BMI 30.7
== END 2023-09-11 10:15 | disposition home or self-care (01) ==
PROVIDERS: PCP Internal Medicine; Visit Provider Surgery
DX: K59.01 Slow transit constipation (principal); R10.32 Left lower quadrant pain; K80.20 Calculus of gallbladder without cholecystitis without obstruction
CPT/HCPCS: 99214

== ENCOUNTER → 2023-09-11 09:18 | Outpatient (BNVA) | payer BC, MEDICARE, MEDICAID, SELFPAY | PROVIDERS: PCP Internal Medicine; Visit Provider Surgery ==

== ENCOUNTER 2023-09-17 07:29 | Day surgery (SDC) | payer BC, MEDICARE, MEDICAID, SELFPAY ==
--- NOTE | 2023-09-15 15:10 | HO.ANESPROP2 ---
Documented by User: Paulette Joyce NP 09/15/23 15:11 HPI - Anesthesia Eval Consult details Narrative: 58yo F for Cholecystectomy Laparoscopic,possible open PMFSH Active Problems Active Problems: All Active Problems Chronic cholecystitis (Acute) Constipation (Acute) Abdominal pain (Acute) Gallstones (Acute) Chills (Acute) Dysuria (Acute) Suprapubic discomfort (Acute) Frequency of urination (Acute) Left flank pain (Acute) Urinary tract infection (Acute) Hyperparathyroidism (Acute) Asthma (Acute) Primary osteoarthritis, right shoulder (Acute) Allergic reaction (Acute) Osteoporosis (Acute) Cough (Acute) Right shoulder pain (Acute) Asthma exacerbation (Acute) Upper respiratory tract infection (Acute) Pain in tooth (Acute) Toenail deformity (Acute) Physical exam (Acute) Skin lesion (Acute) Goiter (Acute) Osteoarthritis, shoulder (Acute) Chronic fatigue syndrome (Acute) Fibromyalgia (Acute) Neuropathy (Acute) Panic attacks (Acute) Hypothyroid (Acute) Breast cancer, right (Acute) Essential hypertension (Acute) Allergic rhinitis (Acute) Hypovitaminosis D (Acute) Vertigo (Acute) Mild persistent asthma (Acute) NAVA (generalized anxiety disorder) (Acute) Mild recurrent major depression (Acute) Past Medical History Medical History Foot fracture, right Asthma Goiter Osteoarthritis, shoulder Chronic fatigue syndrome Fibromyalgia Neuropathy Panic attacks Hypothyroid Breast cancer, right Essential hypertension Allergic rhinitis Hypovitaminosis D Vertigo Mild persistent asthma NAVA (generalized anxiety disorder) Mild recurrent major depression Family History Family History Mother Hypertension Asthma Osteoporosis Depression Anxiety Sleep apnea Fibromyalgia Mental health disorder Diabetes Father Diabetes Substance use disorder Surgical History Surgical History Hx of colonoscopy History of salpingectomy History of breast implant History of mastectomy Social History Social History Housing: House Alcohol intake: never Patient Tobacco Use Status: Never used Tobacco e-Cigarette/Vaping Use: Never Used Second Hand Smoke Exposure: No Use of substances other than those prescribed or required for medical reasons: No Are you DNR?: No Advance Directives: No Advance Directives Information Provided: Yes service: No Current occupational status: unemployed and disabled Cognitive needs: No Hearing needs: No Vision needs: No Meds Allergies Allergy/AdvReac Type Severity Reaction Status Date / Time clindamycin Allergy Severe itch, Verified 09/17/23 08:15 nausea, dizziness, scratchy throat, neck redness Penicillins [PENICILLINS] Allergy Intermediate RASH Verified 09/17/23 08:15 acetaminophen [From Percocet] Allergy Mild Unknown Verified 09/17/23 08:15 mushroom Allergy Mild Rash Verified 09/17/23 08:15 pineapple Allergy Mild Rash Verified 09/17/23 08:15 hydrocodone [HYDROCODONE] Allergy Unknown UNKNOWN Verified 09/17/23 08:15 morphine [MORPHINE] Allergy Unknown LETHARGY Verified 09/17/23 08:15 oxycodone [OXYCODONE] Allergy Unknown LEHTARGY Verified 09/17/23 08:15 Home Medications ?Medication ?Instructions ?Recorded ?Confirmed ?Last Taken ?Type ascorbate calcium (vitamin C) 500 500 mg PO DAILY 08/07/21 09/17/23 Unknown History mg tablet escitalopram oxalate 20 mg tablet 20 mg PO DAILY 05/16/23 09/17/23 Unknown History cyclobenzaprine 10 mg tablet 10 mg PO BEDTIME PRN Pain 08/15/23 09/17/23 Unknown History Exam Pertinent Lab Results Pertinent Lab Results: Laboratory Tests 07/17/23 11:53 WBC 8.8 Hgb 12.6 Hct 39.4 Plt Count 332 Sodium 140 Potassium 3.9 D Chloride 106 Carbon Dioxide 27 BUN 15 Creatinine 0.70 Narrative Narrative: EKG 2022 Vent. Rate : 103 BPM Atrial Rate : 103 BPM P-R Int : 148 ms QRS Dur : 072 ms QT Int : 362 ms P-R-T Axes : 053 010 023 degrees QTc Int : 474 ms Sinus tachycardia Abnormal ECG When compared with ECG of 16-FEB-2014 20:39, Heart rate has increased QRS axis Shifted left Assessment and Plan Assessment Anesthesia Assessment: Chart Reviewed Documented by User: Triny Amaro MD 09/17/23 09:42 PMFSH Past Medical History Medical History Foot fracture, right Asthma Goiter Osteoarthritis, shoulder Chronic fatigue syndrome Fibromyalgia Neuropathy Panic attacks Hypothyroid Breast cancer, right Essential hypertension Allergic rhinitis Hypovitaminosis D Vertigo Mild persistent asthma NAVA (generalized anxiety disorder) Mild recurrent major depression Family History Family History Mother Hypertension Asthma Osteoporosis Depression Anxiety Sleep apnea Fibromyalgia Mental health disorder Diabetes Father Diabetes Substance use disorder Surgical History Surgical History Hx of colonoscopy History of salpingectomy History of breast implant History of mastectomy History of Problems with Anesthesia: No Social History Social History Housing: House Alcohol intake: never Patient Tobacco Use Status: Never used Tobacco e-Cigarette/Vaping Use: Never Used Second Hand Smoke Exposure: No Use of substances other than those prescribed or required for medical reasons: No Are you DNR?: No Advance Directives: No Advance Directives Information Provided: Yes service: No Current occupational status: unemployed and disabled Cognitive needs: No Hearing needs: No Vision needs: No Meds Allergies Allergy/AdvReac Type Severity Reaction Status Date / Time clindamycin Allergy Severe itch, Verified 09/17/23 08:15 nausea, dizziness, scratchy throat, neck redness Penicillins [PENICILLINS] Allergy Intermediate RASH Verified 09/17/23 08:15 acetaminophen [From Percocet] Allergy Mild Unknown Verified 09/17/23 08:15 mushroom Allergy Mild Rash Verified 09/17/23 08:15 pineapple Allergy Mild Rash Verified 09/17/23 08:15 hydrocodone [HYDROCODONE] Allergy Unknown UNKNOWN Verified 09/17/23 08:15 morphine [MORPHINE] Allergy Unknown LETHARGY Verified 09/17/23 08:15 oxycodone [OXYCODONE] Allergy Unknown LEHTARGY Verified 09/17/23 08:15 Home Medications ?Medication ?Instructions ?Recorded ?Confirmed ?Last Taken ?Type ascorbate calcium (vitamin C) 500 500 mg PO DAILY 08/07/21 09/17/23 Unknown History mg tablet escitalopram oxalate 20 mg tablet 20 mg PO DAILY 05/16/23 09/17/23 Unknown History cyclobenzaprine 10 mg tablet 10 mg PO BEDTIME PRN Pain 08/15/23 09/17/23 Unknown History Exam Airway Mallampati Class: II TM Dist: >3cm Neck ROM: Full Denture: Upper Loose/Missing/Broken Teeth: Yes, Upper and Lower Heart: RRR Lungs: CTA Assessment and Plan Assessment Anesthesia Assessment: Anesthesia Plan Discussed Final Anesthetic Review History of Problems with Anesthesia: No NPO: Yes ASA Class: II Final Preanesthetic Review: Meds/Allgs Chart Reviewed, Consent Obtained/Reviewed and Anes Risks/Benef Reviewed Patient Risk: Low Procedure Risk: Intermediate Anesthetic Plan Anesthetic Plan: GA Disposition: Standard PACU
[2023-09-17] VITALS (8 sets, daily range): BP systolic 131–175; BP diastolic 89–101; PULSE 75–92; RESP 16–20; TEMP 36.2–36.6; O2SAT 95–100; BMI 30.7
--- NOTE | 2023-09-17 08:32 | MHC.SHP ---
Pre-Procedural Eval Section A - 24 Hr Update-Section A only Date of Service: 09/17/23 The patient is an INPATIENT: No Changes since office visit: Yes Patient answered all questions; No Cold of Flu in the past 2 weeks, No New Medical Problems and No Changes in Medication The patient has been examined within 24 hours of the surgical procedure. The History & Physical has been completed within 30 days and I have reviewed it.: Yes Section B - Complete if H&P > 30 days Chief Complaint: Calculus of gallbladder without cholecystitis, Allergies: Allergies Allergy/AdvReac Type Severity Reaction Status Date / Time clindamycin Allergy Severe itch, Verified 09/17/23 08:15 nausea, dizziness, scratchy throat, neck redness Penicillins [PENICILLINS] Allergy Intermediate RASH Verified 09/17/23 08:15 acetaminophen [From Percocet] Allergy Mild Unknown Verified 09/17/23 08:15 mushroom Allergy Mild Rash Verified 09/17/23 08:15 pineapple Allergy Mild Rash Verified 09/17/23 08:15 hydrocodone [HYDROCODONE] Allergy Unknown UNKNOWN Verified 09/17/23 08:15 morphine [MORPHINE] Allergy Unknown LETHARGY Verified 09/17/23 08:15 oxycodone [OXYCODONE] Allergy Unknown LEHTARGY Verified 09/17/23 08:15 Plan Diagnosis/Plan: Unchanged I have reviewed the history and physical and performed a pertinent physical examination on my patient. No changes have occurred unless specified. Time Spent With Patient Time: Total time managing care of this patient today ____ minutes.
--- NOTE | 2023-09-17 09:53 | W.PM.OPN ---
Operative Note Operative Note Date of Service: 09/17/23 Narrative: Preoperative diagnosis: Chronic cholecystitis Postoperative diagnosis: Same Procedure: Laparoscopic cholecystectomy Surgeon: Juan Boateng MD Maintenance Advisor: MAXINE Gerard Anesthesia: General endotracheal Indications for procedure: 58-year-old female patient with a history of abdominal pain in the left upper quadrant and right upper quadrant. Patient was found to have gallstones within the gallbladder. HIDA scan revealed delayed ejection fraction consistent with chronic cholecystitis. Operative findings: Minimally inflamed gallbladder with a gallbladder stone at the neck. Specimen: gallbladder Estimated blood loss: Less than 2 mL Complications: None Procedure details: Patient was brought to the OR and placed in a supine position. After administering general anesthesia the patient's abdomen was prepped with ChloraPrep and draped in a sterile fashion. A surgical time-out was called the consent confirmed. Patient received preoperative antibiotics and Venodyne boots were in place. Local anesthesia consisting of 0.5% Sensorcaine without epinephrine was infiltrated in a periumbilical region. A 5 mm incision was made above the umbilicus in a transverse fashion. The Veress needle was then inserted while elevating abdominal cavity with towel clips. After positive drop test the abdomen was insufflated to a pressure of 15 mm of mercury. The Veress needle was then removed and a 5 mm trocar inserted. The camera was inserted in the abdomen explored. A 12 mm trocar was then placed in the epigastrium. Two 5 mm trocars placed in the right upper quadrant by the assignment desk assistant. The patient was placed in reverse Trendelenburg positioning and rotated to the left. The gallbladder was grasped with the fundus and retracted cephalad by the assignment desk assistant. The infundibulum was then grasped and retracted away from the liver bed, also by the assignment desk assistant. The Dolphin dissected was then used by the surgeon to dissect the peritoneum off the infundibulum to reveal the junction with the cystic duct. Cystic artery was noted slightly medial and posterior to the cystic duct. After obtaining a critical view the cystic duct was doubly clipped and divided. The cystic artery was then doubly clipped and divided. The gallbladder was then dissected off the liver bed using electrocautery with an L hook. Hemostasis was assured all times using the electrocautery. When the gallbladder is completely dissected off the liver bed was placed in an Endo-Catch bag and brought out through the epigastric incision. The gallbladder was sent to pathology for further examination. The abdomen was then re-examined. The liver bed was irrigated and suctioned dry. No bleeding or bile leak could be identified. CO2 was then evacuated and all trocars removed. Fascia was closed at the epigastric incision using a [id number] 0 Polysorb suture. Skin was closed in all incisions using a subcuticular 4 0 Polysorb suture by both the surgeon and assignment desk assistant. Sterile dressings consisting of Steri-Strips, 2 x 2 gauze, and Tegaderm were then applied. The patient tolerated the procedure well. Sponge instrument and needle counts reported as correct. The patient was transferred to PACU in stable condition.
[2023-09-17] MEDS: fentaNYL citrate/PF 100 MCG/2 ML VIAL 25 MCG IVPUSH (10:45)
== END 2023-09-17 11:51 | disposition home or self-care (01) ==
PROVIDERS: PCP Internal Medicine; Visit Provider Surgery
PROC: 0FT44ZZ Resection of Gallbladder, Percutaneous Endoscopic Approach (ICD-10-PCS; CPT 47562; principal; 2023-09-17 09:10)
DX: K80.10 Calculus of gallbladder with chronic cholecystitis without obstruction (principal); R10.32 Left lower quadrant pain; M79.7 Fibromyalgia; G93.32 Myalgic encephalomyelitis/chronic fatigue syndrome; K59.01 Slow transit constipation; I10 Essential (primary) hypertension; F33.0 Major depressive disorder, recurrent, mild; F41.9 Anxiety disorder, unspecified; J45.20 Mild intermittent asthma, uncomplicated; Z85.3 Personal history of malignant neoplasm of breast; Z90.11 Acquired absence of right breast and nipple; Z79.51 Long term (current) use of inhaled steroids; Z79.899 Other long term (current) drug therapy; Z88.0 Allergy status to penicillin; Z88.5 Allergy status to narcotic agent; Z88.8 Allergy status to other drugs, medicaments and biological substances; Z56.0 Unemployment, unspecified
CPT/HCPCS: 47562; 88304; J2250; J2704; J2795; J3010

== ENCOUNTER → 2023-09-17 07:29 | Outpatient (BNV) | payer BC, MEDICARE, MEDICAID, SELFPAY | PROVIDERS: PCP Internal Medicine; Visit Provider Surgery | DX: K80.20 Calculus of gallbladder without cholecystitis without obstruction (principal) | CPT/HCPCS: 47562 ==

== ENCOUNTER 2023-09-26 11:50 | Outpatient (AMB) | payer BC, MEDICARE, MEDICAID, SELFPAY ==
--- NOTE | 2023-09-26 11:52 | MHC.OFFVIS ---
Vital Signs 09/26/23 11:58 Weight 149 lb BP 125/85 Blood Pressure Location Lt brachial Position Sitting Pulse 106 H Intake Visit Reasons: S/P lap arin Intake Note: This patient presents for a post-op assessment status post laparoscopic cholecystectomy. Patient c/o; reports dizziness, reports urinating more than usual. 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 Accompanied by: Daughter Allergies clindamycin Allergy (Severe, Verified 09/26/23 11:59) itch, nausea, dizziness, scratchy throat, neck redness Penicillins [PENICILLINS] Allergy (Intermediate, Verified 09/26/23 11:59) RASH mushroom Allergy (Mild, Verified 09/26/23 11:59) Rash pineapple Allergy (Mild, Verified 09/26/23 11:59) Rash hydrocodone [HYDROCODONE] Allergy (Unknown, Verified 09/26/23 11:59) UNKNOWN morphine [MORPHINE] Allergy (Unknown, Verified 09/26/23 11:59) LETHARGY oxycodone [OXYCODONE] Allergy (Unknown, Verified 09/26/23 11:59) LEHTARGY HPI Comments Details: Patient returns 1 week following laparoscopic cholecystectomy. She tolerated the procedure well but does have some incisional pain in the epigastric incision. Denies nausea or vomiting. [facility] Medical History Foot fracture, right Asthma Goiter Osteoarthritis, shoulder Chronic fatigue syndrome Fibromyalgia Neuropathy Panic attacks Hypothyroid Breast cancer, right Essential hypertension Allergic rhinitis Hypovitaminosis D Vertigo Mild persistent asthma NAVA (generalized anxiety disorder) Mild recurrent major depression Surgical History Hx of colonoscopy History of salpingectomy History of breast implant History of mastectomy Family History Mother Hypertension Asthma Osteoporosis Depression Anxiety Sleep apnea Fibromyalgia Mental health disorder Diabetes Father Diabetes Substance use disorder Social History Housing: House Alcohol intake: never Patient Tobacco Use Status: Never used Tobacco e-Cigarette/Vaping Use: Never Used Second Hand Smoke Exposure: No service: No Current occupational status: unemployed and disabled Cognitive needs: No Hearing needs: No Vision needs: No Physical Exam Vital Signs: Last Vital Signs Pulse 106 H 09/26/23 11:58 BP 125/85 09/26/23 11:58 Const General: comfortable Nutritional Appearance: well nourished Orientation/consciousness: patient oriented x3 Resp Effort & Inspection: normal respiratory effort GI Other: Trocar incisions are clean, dry, and intact. No hernia or infection is identified. Inspection: No distended Palpation (GI): Soft to palpation Neuro General: patient oriented x3 Extrem Other: No edema Assessment & Plan Assessment & Plan (1) Chronic cholecystitis: Code(s): K81.1 - Chronic cholecystitis Category: Medical Plan 58-year-old female patient status post laparoscopic cholecystectomy for chronic cholecystitis. She tolerated the procedure well and her wounds are healing nicely. She should continue to avoid lifting greater than 10 lb for the next week. She should also avoid fatty/fried foods for one-month following the surgery. She should follow up as needed. Coding Level of Care Code Global (68318) Diagnoses Chronic cholecystitis K81.1
[2023-09-26 11:58] VITALS: BP 125/85; PULSE 106
== END 2023-09-26 12:02 | disposition home or self-care (01) ==
PROVIDERS: PCP Internal Medicine; Visit Provider Surgery
DX: K81.1 Chronic cholecystitis (principal)
CPT/HCPCS: 99024

== ENCOUNTER → 2023-09-26 11:50 | Outpatient (BNVA) | payer BC, MEDICARE, MEDICAID, SELFPAY | PROVIDERS: PCP Internal Medicine; Visit Provider Surgery ==

== ENCOUNTER 2023-10-07 13:12 | Outpatient (REF) | payer BC, SELFPAY ==
[2023-10-07 14:51] LABS: Appearance Urine Clear; Color Urine Yellow; Glucose Urine UA Negative (Negative); Leukocyte Esterase Urine Negative (Negative); Nitrite Urine Negative (Negative); Specific Gravity - Urine <= 1.005 (1.005-1.025); Urine Blood Negative (Negative); Urine Ketones Negative (Negative); Urine Protein Negative (Neg-Trace)
== END 2023-10-07 13:13 | disposition home or self-care (01) ==
LOC: HO.LAB 13:12
PROVIDERS: PCP Internal Medicine; Visit Provider Nurse Practitioner Family
DX: R30.9 Painful micturition, unspecified (principal); K81.1 Chronic cholecystitis
CPT/HCPCS: 81003

== ENCOUNTER 2023-10-07 13:12 | Outpatient (AMB) | payer BC, MEDICARE, MEDICAID, SELFPAY ==
--- NOTE | 2023-10-07 13:26 | MHC.OFFVIS ---
Vital Signs 10/07/23 13:37 Height 4 ft 11 in Weight 153 lb 0.013 oz BMI 30.9 BP 124/88 Blood Pressure Location Lt brachial Position Sitting Pulse 90 Pulse Source Pulse Oximeter Pulse Oximetry (%) 96 Oxygen Delivery Method Room Air Intake Visit Reasons: 5 week Follow up Intake Note: Bethany presents in office for a scheduled 5 week FUV. CC; Pt reports that they did have their cholecystectomy s/p and have been healing well. Pt reports that they had been given colace by their surgeon for post op. Pt had been taking that and doing OK. Pt then obtained and began taking another stool softener as instructed by their surgeon and PCP. Pt has been doing somewhat OK since then. However, pt reports that they are still struggling with diarrhea intermittently as well as new onset of pain in the R flank. Pt has also been urinating frequently lately. Pt is unsure if this could be related to a UTI or if this is something GI related. Greeter Guest Services Required: No Allergies clindamycin Allergy (Severe, Verified 10/07/23 13:36) itch, nausea, dizziness, scratchy throat, neck redness Penicillins [PENICILLINS] Allergy (Intermediate, Verified 10/07/23 13:36) RASH mushroom Allergy (Mild, Verified 10/07/23 13:36) Rash pineapple Allergy (Mild, Verified 10/07/23 13:36) Rash hydrocodone [HYDROCODONE] Allergy (Unknown, Verified 10/07/23 13:36) UNKNOWN morphine [MORPHINE] Allergy (Unknown, Verified 10/07/23 13:36) LETHARGY oxycodone [OXYCODONE] Allergy (Unknown, Verified 10/07/23 13:36) LEHTARGY HPI HPI 5 week Follow up: Details: LAST VISIT Constipation Abdominal pain Gallstones Postprandial abdominal bloating GERD (gastroesophageal reflux disease) Postprandial epigastric pain Plan Will send patient for KUB ? Constipation. Patient does have decreased bowels sounds, no abdominal tenderness, negative Bautista sign. Will send her for HIDA scan. Script for simethicone, up to 3 times a day with food. Patient can start taking omeprazole every morning half an hour before breakfast. Continue avoiding dietary triggers. Small meals and more often. Discussed with patient low FODMAP diet. List of food recommended as well as list of food to avoid given to patient. Unsure if surgery is the right option for her at this point as her symptoms very specially with the bloating. Patient is not emptying her bowels completely her right upper quadrant pain is more right lumbar pain. Her symptoms could yet worst like postprandial diarrhea after the surgery. I will see patient in 5-6 weeks, sooner on as needed basis. She is agreeable to this plan and verbalizes understanding of instructions. She was given the opportunity to ask questions and all questions answered. ? Thank you for allowing me to participate in her care Orders Orders NM hepatobiliary w pharm Today R10.11 XR KUB Today K59.00 Medications New simethicone 125 mg PO BID-QID PRN 120 caps 3RF abdominal distention K21.9 omeprazole 20 mg PO DAILY 30 caps 3RF K21.9 TODAY'S VISIT Patient is here today for follow-up. Patient recently had cholecystectomy. HIDA scan showed poor gallbladder emptying most likely due to chronic cholecystitis. Patient is doing well after the surgery. Moving her bowels better now. Patient is taking stool softener. However she does report that she has increased pain in right upper quadrant that radiates to her right flank. Patient is worry about urinary infection that might affect her kidney. Patient denies any fever or chills. Denies any urinary symptoms. Patient describes this pain as cramping. Patient states that the pain is not associated to meals. Patient is following low FODMAP diet as discuss prior to her cholecystectomy had patient denies any nausea or vomiting. Denies any dyspepsia, dysphagia or odynophagia. [facility] Medical History Foot fracture, right Asthma Goiter Osteoarthritis, shoulder Chronic fatigue syndrome Fibromyalgia Neuropathy Panic attacks Hypothyroid Breast cancer, right Essential hypertension Allergic rhinitis Hypovitaminosis D Vertigo Mild persistent asthma NAVA (generalized anxiety disorder) Mild recurrent major depression Surgical History (Updated 10/07/23 @ 14:09 by Huma Pak CLERICAL AIDE-) Status post laparoscopic cholecystectomy Hx of cholecystectomy Hx of colonoscopy History of salpingectomy History of breast implant History of mastectomy Family History Mother Hypertension Asthma Osteoporosis Depression Anxiety Sleep apnea Fibromyalgia Mental health disorder Diabetes Father Diabetes Substance use disorder Social History Housing: House Alcohol intake: never Patient Tobacco Use Status: Never used Tobacco e-Cigarette/Vaping Use: Never Used Second Hand Smoke Exposure: No service: No Current occupational status: unemployed and disabled Cognitive needs: No Hearing needs: No Vision needs: No Review of Systems Const Denies weight gain and Denies weight loss ENT Reports no additional complaints, Denies dysphagia and Denies odynophagia Card Reports no additional complaints Resp Reports no additional complaints GI Reports abdominal pain (Epigastric and right upper quadrant), Denies belching, Denies melena, Reports bloating, Reports constipation, Denies dysphagia, Denies excessive flatus, Reports dyspepsia, Denies heartburn, Denies diarrhea, Reports loose stools, Denies nausea, Denies odynophagia and Denies vomiting Reports no additional complaints Musc Reports no additional complaints Neuro Reports no additional complaints Psych Reports no additional complaints Endo Reports no additional complaints Physical Exam Vital Signs: Last Vital Signs Pulse 90 10/07/23 13:37 BP 124/88 10/07/23 13:37 Pulse Ox 96 10/07/23 13:37 Oxygen Delivery Method Room Air 10/07/23 13:37 BMI result Body Mass Index 30.9 Const General: healthy appearing and no acute distress Nutritional Appearance: obese Orientation/consciousness: patient oriented x3 Resp Effort & Inspection: normal respiratory effort, able to speak in complete sentences, no tracheal deviation and symmetric chest movement Auscultation: clear to auscultation bilaterally Cardio Rate: regular rate GI Inspection: No distended and Yes obesity Palpation (GI): Soft to palpation, not firm, nontender and No hepatosplenomegaly present Auscultation: normal bowel sounds General: Yes no CVA tenderness Back/Spine/Pelvis Back: no CVA tenderness Skin General skin exam: elasticity normal, turgor normal and dry skin Neuro General: patient oriented x3 Psych Appearance: grossly normal Mental Status: mental status grossly normal Results Reviewed Results Reviewed: HIDA SCAN 09/08/2023 FINDINGS: There is good concentration of activity in the liver by 5 minutes post injection. Biliary activity is visualized by 10 minutes. The gallbladder is well visualized by 35 minutes. Small bowel is well visualized by 20 minutes. At 60 minutes post radiopharmaceutical injection, a 30-minute infusion of 1.4 micrograms Sincalide was then begun and an additional 40 minutes of images were obtained. There is only minimal gallbladder emptying during the sincalide infusion. At the end of the study there is marked retention of activity in the gallbladder but almost complete clearance of activity from the liver. Diffuse small bowel activity is also visualized at this time. The calculated gallbladder ejection fraction is 22% (normal gallbladder ejection fraction is greater than 35%). NM/NM hepatobiliary w pharm IMPRESSION: 1. Visualization of the gallbladder is evidence of a patent cystic duct and strong evidence against the diagnosis of acute cholecystitis. The common bile duct is patent. Liver function appears normal. 2. Poor gallbladder emptying and a low gallbladder ejection fraction are evidence of impaired gallbladder contractility and most likely due to chronic cholecystitis. Assessment & Plan Assessment & Plan (1) Chronic cholecystitis: Code(s): K81.1 - Chronic cholecystitis Category: Medical (2) Constipation: Code(s): K59.00 - Constipation, unspecified Category: Medical Qualifiers: Constipation type: slow transit constipation Qualified Code(s): K59.01 - Slow transit constipation (3) Abdominal pain: Code(s): R10.9 - Unspecified abdominal pain Category: Medical Qualifiers: Abdominal location: left lower quadrant Qualified Code(s): R10.32 - Left lower quadrant pain (4) Status post laparoscopic cholecystectomy: Code(s): Z90.49 - Acquired absence of other specified parts of digestive tract Category: Surgical Plan Patient reports right upper quadrant pain radiating to her flank. Denies any urinary symptoms, however will send patient for urinalysis. Patient reports that she was taking senna, however it was not helping her. Patient will start taking Dulcolax tablets. Increase fluid intake and activity to promote better bowel motility. Continue low FODMAP diet as well as low fat diet. Patient will follow-up in 3 months, sooner on as needed basis. Patient is agreeable to this plan and verbalizes understanding of instructions. She was given the opportunity to ask questions and all questions answered. Thank you for allowing me to participate in her care Orders: Orders UA CC w/rflx Micro + Cult 10/07/23 R30.9 - Painful micturition, unspecified Medications: New bisacodyl (Dulcolax (bisacodyl)) 10 mg (2 x 5 mg) PO BEDTIME 180 tabs 4RF Discontinued sennosides (Natural Senna Laxative) Discontinued Reason: Doctor's Order 17.2 mg (2 x 8.6 mg) PO BEDTIME 60 tabs 3RF constipation K59.00 - Constipation, unspecified Coding Level of Care Code Est Pt Level 4 (13182) Diagnoses Chronic cholecystitis K81.1 Slow transit constipation K59.01 Constipation type: slow transit constipation Left lower quadrant abdominal pain R10.32 Abdominal location: left lower quadrant Status post laparoscopic cholecystectomy Z90.49 Time Spent (min) 35 Comment 20 minutes spent with patient and additional 15 minutes spent reviewing her records
[2023-10-07 13:37] VITALS: BP 124/88; PULSE 90; O2SAT 96; BMI 30.9
== END 2023-10-07 14:17 | disposition home or self-care (01) ==
PROVIDERS: PCP Internal Medicine; Visit Provider Nurse Practitioner Family
DX: K81.1 Chronic cholecystitis (principal); K59.01 Slow transit constipation; R10.32 Left lower quadrant pain; Z90.49 Acquired absence of other specified parts of digestive tract
CPT/HCPCS: 99214

== ENCOUNTER 2023-11-12 11:16 | Outpatient (AMB) | payer BC, MEDICARE, MEDICAID, SELFPAY ==
[2023-11-12 11:18] VITALS: PULSE 89; O2SAT 100; BMI 30.5
--- NOTE | 2023-11-12 11:18 | MHC.OFFVIS ---
Vital Signs 11/12/23 11:18 Height 4 ft 11 in Weight 151 lb BMI 30.5 Pulse 89 Pulse Source Pulse Oximeter Pulse Oximetry (%) 100 Oxygen Delivery Method Room Air Intake Visit Reasons: cough Cloth Baler Required: No Allergies clindamycin Allergy (Severe, Verified 11/12/23 11:19) itch, nausea, dizziness, scratchy throat, neck redness Penicillins [PENICILLINS] Allergy (Intermediate, Verified 11/12/23 11:19) RASH mushroom Allergy (Mild, Verified 11/12/23 11:19) Rash pineapple Allergy (Mild, Verified 11/12/23 11:19) Rash hydrocodone [HYDROCODONE] Allergy (Unknown, Verified 11/12/23 11:19) UNKNOWN morphine [MORPHINE] Allergy (Unknown, Verified 11/12/23 11:19) LETHARGY oxycodone [OXYCODONE] Allergy (Unknown, Verified 11/12/23 11:19) LEHTARGY HPI Comments Details: The patient is a 58 year woman with a known history of breast cancer status post mastectomy in addition to asthma. She has had mild intermittent asthma for many years. She has an inhaler that she rarely use. Unfortunately, the summer time she started developing worsening respiratory symptoms and had worsening cough and chest tightness. She has been using her rescue inhaler once or twice a day. the patient was evaluated in the ER he follow were October 2022 with worsening respiratory symptoms. She did undergo a CT a and ruled out pneumonia. The patient also with a history of breast cancer was reassuring without any evidence of any recurrence or any nodular densities or lymphadenopathy. the patient has also been allergic to cats and other other things. Based on her blood work she did have some degree of eosinophilia. Now even the family that only the CT when they go to visit her can exacerbate her breathing. Other triggers can be viruses strong perfumes can also trigger her breathing. In the office she does have significant chest tightness and coughing. The patient did receive a Xopenex treatment in the office improving her chest tightness although she did become tremulous. The patient does need to be on respiratory medications with maintenance inhalers at this time. Will request allergy testing PFTs to further address her ongoing symptoms. 05/16/2023 the patient is here for a pulmonary follow-up visit. The patient overall has been doing better. She continues to take the Breo daily. She does have a rescue inhaler she has not required as often. She continues to take her allergy medications including the Singulair in the antihistamine therapy. Seems like she is doing better from the asthma standpoint on this current therapy. She still uses her rescue inhaler but typically when exposed to her allergens. She did have allergy testing she has significant allergies to dust mites but more significantly has significant high allergies to both cats and dogs. The worse. She has never had episodes of any stridor angioedema or severe reactions in that fashion but she does have significant chest tightness and wheezing at times. The patient does not have a cat or dog. However, her children do. I did give her information for her to take to her children so they know how severe her allergies are to make sure that the animals in pets are not close to the patient. We did talk about biologic therapy. The patient does have a significant elevation of the IgE and also eosinophils and she will be a great candidate for Xolair in addition to other biologics. The patient also can consider allergy shots specially she was 2 modular humeral response to the dogs in the CT in the dust mites. The patient did not have her PFTs she was not able to do because her car broke down. Will plan to do it the next time. Therefore, she will continue with the current therapy but again she will call if her symptoms worsen we can consider biologic therapy. 11/12/2023 the patient is here for a pulmonary follow-up visit. Overall she is doing better. Unfortunately, her dog and she now had does not have the allergy exposure which will help her asthma. The patient has been responding well to Breo. For some reason she has not been able to fill it. I will send him to the pharmacy. The Breo has been very affecting beneficial so we want to continue. She was not able to get her pulmonary function studies because we had to cancel. Will plan to repeat them or do them in 6 months' time. The patient does not need biologic therapy at this point. Her respiratory symptoms are better controlled on the maintenance inhaler and she needs to continue it as prescribed. She also has a rescue inhaler that she uses and tries to minimize to less than 2 times a week. If she is going to visit her siblings who have dogs sometimes she does have some symptoms. I did recommend that she can pretreated prior to those visits. She also continue antihistamine therapy as needed. So therefore for now will continue with the current therapy will make sure that she gets her Breo and will follow-up in 6 months with PFTs. [facility] Medical History Foot fracture, right Asthma Goiter Osteoarthritis, shoulder Chronic fatigue syndrome Fibromyalgia Neuropathy Panic attacks Hypothyroid Breast cancer, right Essential hypertension Allergic rhinitis Hypovitaminosis D Vertigo Mild persistent asthma NAVA (generalized anxiety disorder) Mild recurrent major depression Surgical History (Updated 10/07/23 @ 14:09 by Huma Pak, [facility]) Status post laparoscopic cholecystectomy Hx of cholecystectomy Hx of colonoscopy History of salpingectomy History of breast implant History of mastectomy Family History Mother Hypertension Asthma Osteoporosis Depression Anxiety Sleep apnea Fibromyalgia Mental health disorder Diabetes Father Diabetes Substance use disorder Social History Housing: House Alcohol intake: never Patient Tobacco Use Status: Never used Tobacco e-Cigarette/Vaping Use: Never Used Second Hand Smoke Exposure: No service: No Current occupational status: unemployed and disabled Cognitive needs: No Hearing needs: No Vision needs: No Review of Systems Const Reports no additional complaints and Denies fever(s) Eyes Reports no additional complaints, Denies change in vision and Denies other visual disturbances ENT Reports nasal congestion Card Denies chest pain at rest Resp Reports chest congestion, Denies cough and Reports wheezing GI Denies abdominal pain Musc Denies atrophy, Denies deformity and Denies limited range of motion Skin/Breast Denies rash Neuro Reports no additional complaints Aller/Immun Reports wheezing Physical Exam Vital Signs: Last Vital Signs Pulse 89 11/12/23 11:18 Pulse Ox 100 11/12/23 11:18 Oxygen Delivery Method Room Air 11/12/23 11:18 BMI result Body Mass Index 30.5 Const General: cooperative and healthy appearing Nutritional Appearance: well nourished Orientation/consciousness: patient oriented x3 Limitations: no limitations HEENT Head: Yes normal to inspection Eyes General: appearance normal, both eyes and all related structures Neck Neck: Yes normal visual inspection Chest Chest palpation & inspection: normal inspection of the chest Resp Effort & Inspection: normal respiratory effort and No prolonged expiratory phase Auscultation: clear to auscultation bilaterally and no wheezes Skin General skin exam: no rashes or lesions noted Neuro General: patient oriented x3 Extrem General: Yes no clubbing, cyanosis or edema Assessment & Plan Assessment & Plan (1) Asthma: Code(s): J45.909 - Unspecified asthma, uncomplicated Category: Medical Qualifiers: Asthma severity: moderate Asthma persistence: persistent Asthma complication type: uncomplicated Qualified Code(s): J45.40 - Moderate persistent asthma, uncomplicated (2) Cough: Code(s): R05.9 - Cough, unspecified Category: Medical Qualifiers: Cough type: chronic Qualified Code(s): R05.3 - Chronic cough (3) Allergic reaction: Code(s): T78.40XA - Allergy, unspecified, initial encounter Category: Medical Qualifiers: Encounter type: initial encounter Qualified Code(s): T78.40XA - Allergy, unspecified, initial encounter (4) Allergic rhinitis: Code(s): J30.9 - Allergic rhinitis, unspecified Category: Medical Qualifiers: Allergic rhinitis trigger: other Allergic rhinitis seasonality: unspecified Qualified Code(s): J30.89 - Other allergic rhinitis Plan continue Breo 200 JAMES as needed continue singulair ipratropium nasal spray anti histamines as needed PFTs 6 months F/U 4-6 months Medications: New fluticasone furoate-vilanterol 200-25 mcg/dose (Breo Ellipta) 1 inh inhalation DAILY 30 days 60 ea 11RF J45.40 - Moderate persistent asthma, uncomplicated Coding Level of Care Code Est Pt Level 4 (75843) Diagnoses Moderate persistent asthma without complication J45.40 Asthma severity: moderate Asthma persistence: persistent Asthma complication type: uncomplicated Chronic cough R05.3 Cough type: chronic Allergic reaction, initial encounter T78.40XA Encounter type: initial encounter Allergic rhinitis due to other allergic trigger, unspecified seasonality J30.89 Allergic rhinitis trigger: other Allergic rhinitis seasonality: unspecified Time Spent (min) 16
== END 2023-11-12 11:36 | disposition home or self-care (01) ==
PROVIDERS: PCP Internal Medicine; Visit Provider Hospitalist
DX: J45.40 Moderate persistent asthma, uncomplicated (principal); R05.3 Chronic cough; T78.40XA Allergy, unspecified, initial encounter; J30.89 Other allergic rhinitis
CPT/HCPCS: 99214

== ENCOUNTER → 2023-11-12 11:16 | Outpatient (BNVA) | payer BC, MEDICARE, MEDICAID, SELFPAY | PROVIDERS: PCP Internal Medicine; Visit Provider Hospitalist | DX: J45.901 Unspecified asthma with (acute) exacerbation (principal); J45.909 Unspecified asthma, uncomplicated; J30.9 Allergic rhinitis, unspecified ==

== ENCOUNTER 2024-01-07 12:40 | Outpatient (AMB) | payer BC, MEDICARE, MEDICAID, SELFPAY ==
--- NOTE | 2024-01-07 12:51 | MHC.OFFVIS ---
Vital Signs 01/07/24 12:52 Height 4 ft 11 in Weight 154 lb 12.232 oz BMI 31.3 BP 159/99 H Blood Pressure Location Lt brachial Position Sitting Pulse 86 Intake Visit Reasons: 3 month follow up Intake Note: Bethany presents in follow up of constipation and abdominal pain. CC: Patient states that even though she takes her laxative every day she still struggles to have a BM. She continues having lower left lower abdominal pain. 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 Accompanied by: Self / Same As Patient Allergies clindamycin Allergy (Severe, Verified 01/07/24 13:04) itch, nausea, dizziness, scratchy throat, neck redness Penicillins [PENICILLINS] Allergy (Intermediate, Verified 01/07/24 13:04) RASH mushroom Allergy (Mild, Verified 01/07/24 13:04) Rash pineapple Allergy (Mild, Verified 01/07/24 13:04) Rash hydrocodone [HYDROCODONE] Allergy (Unknown, Verified 01/07/24 13:04) UNKNOWN morphine [MORPHINE] Allergy (Unknown, Verified 01/07/24 13:04) LETHARGY oxycodone [OXYCODONE] Allergy (Unknown, Verified 01/07/24 13:04) LEHTARGY HPI HPI 3 month follow up: Details: LAST VISIT: Chronic cholecystitis Constipation Abdominal pain Status post laparoscopic cholecystectomy Plan Patient reports right upper quadrant pain radiating to her flank. Denies any urinary symptoms, however will send patient for urinalysis. Patient reports that she was taking senna, however it was not helping her. Patient will start taking Dulcolax tablets. Increase fluid intake and activity to promote better bowel motility. Continue low FODMAP diet as well as low fat diet. Patient will follow-up in 3 months, sooner on as needed basis. Patient is agreeable to this plan and verbalizes understanding of instructions. She was given the opportunity to ask questions and all questions answered. ? Thank you for allowing me to participate in her care Orders Orders UA CC w/rflx Micro + Cult 10/07/23 R30.9 Medications New bisacodyl (Dulcolax (bisacodyl)) 10 mg (2 x 5 mg) PO BEDTIME 180 tabs 4RF Discontinued sennosides (Natural Senna Laxative) Discontinued Reason: Doctor's Order 17.2 mg (2 x 8.6 mg) PO BEDTIME 60 tabs 3RF constipation K59.00 TODAY'S VISIT Patient is here today for follow-up. Patient reports that she continues to have constipation despite taking Dulcolax. Patient states that she is drinking fluids, admits to stressful and personal issues in her family. Patient does admit that this could be contributing to this. Patient reports that she is drinking fluids. Patient denies melena, hematochezia, unintentional weight loss or ribbon like stools. Patient denies any dyspepsia, dysphagia or odynophagia, admits that she continues to have acid taking omeprazole. Occasional postprandial epigastric pain and bloating. [facility] Medical History Foot fracture, right Asthma Goiter Osteoarthritis, shoulder Chronic fatigue syndrome Fibromyalgia Neuropathy Panic attacks Hypothyroid Breast cancer, right Essential hypertension Allergic rhinitis Hypovitaminosis D Vertigo Mild persistent asthma NAVA (generalized anxiety disorder) Mild recurrent major depression Surgical History Status post laparoscopic cholecystectomy Hx of cholecystectomy Hx of colonoscopy History of salpingectomy History of breast implant History of mastectomy Family History Mother Hypertension Asthma Osteoporosis Depression Anxiety Sleep apnea Fibromyalgia Mental health disorder Diabetes Father Diabetes Substance use disorder Social History Housing: House Alcohol intake: never Patient Tobacco Use Status: Never used Tobacco e-Cigarette/Vaping Use: Never Used Second Hand Smoke Exposure: No service: No Current occupational status: unemployed and disabled Cognitive needs: No Hearing needs: No Vision needs: No Review of Systems Const Denies weight gain and Denies weight loss ENT Reports no additional complaints, Denies dysphagia and Denies odynophagia Card Reports no additional complaints Resp Reports no additional complaints GI Denies abdominal pain, Denies belching, Denies melena, Denies bloating, Denies change in bowel habits, Reports constipation, Denies dysphagia, Denies excessive flatus, Denies dyspepsia, Reports heartburn, Denies diarrhea, Denies loose stools, Denies nausea, Denies odynophagia and Denies vomiting Reports no additional complaints Musc Reports no additional complaints Neuro Reports no additional complaints Psych Reports no additional complaints Endo Reports no additional complaints Physical Exam Vital Signs: Last Vital Signs Pulse 86 01/07/24 12:52 BP 159/99 H 01/07/24 12:52 BMI result Body Mass Index 31.3 Const General: healthy appearing and no acute distress Nutritional Appearance: obese Orientation/consciousness: patient oriented x3 Resp Effort & Inspection: normal respiratory effort, able to speak in complete sentences, no tracheal deviation and symmetric chest movement Auscultation: clear to auscultation bilaterally Cardio Rate: regular rate GI Inspection: No distended and Yes obesity Palpation (GI): Soft to palpation, not firm, nontender and No hepatosplenomegaly present Auscultation: normal bowel sounds General: Yes no CVA tenderness Back/Spine/Pelvis Back: no CVA tenderness Skin General skin exam: elasticity normal, turgor normal and dry skin Neuro General: patient oriented x3 Psych Appearance: grossly normal Mental Status: mental status grossly normal Assessment & Plan Assessment & Plan (1) Constipation: Code(s): K59.00 - Constipation, unspecified Category: Medical Qualifiers: Constipation type: slow transit constipation Qualified Code(s): K59.01 - Slow transit constipation (2) Abdominal pain: Code(s): R10.9 - Unspecified abdominal pain Category: Medical Qualifiers: Abdominal location: left lower quadrant Qualified Code(s): R10.32 - Left lower quadrant pain (3) Status post laparoscopic cholecystectomy: Code(s): Z90.49 - Acquired absence of other specified parts of digestive tract Category: Surgical (4) IBS (irritable bowel syndrome): Code(s): K58.9 - Irritable bowel syndrome, unspecified Qualifiers: Irritable bowel syndrome type: without diarrhea Qualified Code(s): K58.9 - Irritable bowel syndrome, unspecified Plan Will stop Dulcolax and patient can start taking Linzess. She will call our office if she will continue to be constipated we can increase the dose. Increase fluid intake and activity to promote better bowel motility. Stop omeprazole and start Nexium daily. Avoid dietary triggers and late night snacking. Staying upright for minimum 3 hours after meals discussed with patient. Script for Proctosol send. Follow-up in the office in 3 months, sooner on as needed basis. Patient is agreeable to this plan and verbalizes understanding of instructions. She was given the opportunity to ask questions and all questions answered. Thank you for allowing me to participate in her care Medications: New hydrocortisone 2.5% (Proctosol HC) 1 appl PA BID-QID PRN 30 grams 2RF hemorrhoids K64.9 - Unspecified hemorrhoids linaclotide (Linzess) 145 mcg PO DAILY 30 caps 2RF esomeprazole magnesium (Nexium) 40 mg PO DAILY 30 caps 5RF K21.9 - Gastro-esophageal reflux disease without esophagitis Discontinued omeprazole Discontinued Reason: Doctor's Order 20 mg PO DAILY 30 caps 3RF K21.9 - Gastro-esophageal reflux disease without esophagitis Coding Level of Care Code Est Pt Level 3 (27865) Diagnoses Slow transit constipation K59.01 Constipation type: slow transit constipation Left lower quadrant abdominal pain R10.32 Abdominal location: left lower quadrant Status post laparoscopic cholecystectomy Z90.49 Irritable bowel syndrome without diarrhea K58.9 Irritable bowel syndrome type: without diarrhea Time Spent (min) 35 Comment 25 minutes spent with patient and additional 10 minutes spent reviewing her records
[2024-01-07 12:52] VITALS: BP 159/99; PULSE 86; BMI 31.3
== END 2024-01-07 13:41 | disposition home or self-care (01) ==
PROVIDERS: PCP Internal Medicine; Visit Provider Nurse Practitioner Family
DX: K59.01 Slow transit constipation (principal); R10.32 Left lower quadrant pain; Z90.49 Acquired absence of other specified parts of digestive tract; K58.9 Irritable bowel syndrome, unspecified
CPT/HCPCS: 99213

== ENCOUNTER → 2024-01-07 12:40 | Outpatient (BNVA) | payer BC, MEDICARE, MEDICAID, SELFPAY | PROVIDERS: PCP Internal Medicine; Visit Provider Nurse Practitioner Family ==

== ENCOUNTER 2024-01-28 16:41 | Outpatient (AMB) | payer BC, MEDICARE, MEDICAID, SELFPAY ==
--- NOTE | 2024-01-28 16:46 | A.OFFPC_ITS ---
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 Accompanied by: Self / Same As Patient Allergies clindamycin Allergy (Severe, Verified 01/28/24 16:54) itch, nausea, dizziness, scratchy throat, neck redness Penicillins [PENICILLINS] Allergy (Intermediate, Verified 01/28/24 16:54) RASH mushroom Allergy (Mild, Verified 01/28/24 16:54) Rash pineapple Allergy (Mild, Verified 01/28/24 16:54) Rash hydrocodone [HYDROCODONE] Allergy (Unknown, Verified 01/28/24 16:54) UNKNOWN morphine [MORPHINE] Allergy (Unknown, Verified 01/28/24 16:54) LETHARGY oxycodone [OXYCODONE] Allergy (Unknown, Verified 01/28/24 16:54) LEHTARGY Medication List - Last Reconciled 01/28/24 by Khushboo Godinez MD alprazolam 0.25 mg PO TID PRN 30 days ascorbate calcium (vitamin C) 500 mg PO DAILY bisacodyl (Dulcolax (bisacodyl)) 10 mg (2 x 5 mg) PO BEDTIME cholecalciferol (vitamin D3) 125 mcg PO .every other day 90 days clonidine HCl 0.1 mg PO BID 90 days cyclobenzaprine 10 mg PO BEDTIME PRN esomeprazole magnesium (Nexium) 40 mg PO DAILY fluticasone furoate-vilanterol 200-25 mcg/dose (Breo Ellipta) 1 inh inhalation DAILY 30 days hydrocortisone 2.5% (Proctosol HC) 1 appl GA BID-QID PRN ipratropium bromide 2 sprays intranasal TID PRN ketorolac 10 mg PO Q8H PRN 5 days linaclotide (Linzess) 145 mcg PO DAILY magnesium citrate (Citrate of Magnesia oral) 150 mL PO DAILY PRN magnesium oxide 500 mg PO DAILY 90 days meclizine 12.5 mg PO BID PRN 90 days montelukast 10 mg PO DAILY 90 days simethicone 125 mg PO BID-QID PRN umeclidinium 62.5 mcg/actuation (Incruse Ellipta) 1 inh inhalation DAILY 30 days Ventolin HFA 90 mcg/actuation (albuterol sulfate) 2 puffs PO Q6H PRN 30 days NS Tobacco use date assessed: 06/11/23 Dental Screening Dental Screen Date: 01/28/24 Did you have a dental visit in the last 12 months?: No Did you have a dental problem in the last 6 months where you did not have access to dental care?: No Was dental information given to patient?: Patient has dentist HPI HPI Comments History of Present Illness Details This is a 58-year-old female with hypertension, mild persistent asthma, mild recurrent major depression and anxiety that comes today for follow-up on her conditions. Blood pressure stable. On long-acting inhalers for her asthma and use rescue inhaler once a month. Anxiety stable with alprazolam as needed. Depression follow by Psychiatry and it has been on remission. Has a skin mole that has increase in size and will be referred to Dermatology. She is obese with a BMI of 30.5 and has tried diet and exercise with no improvement and I will start her on wegovy. Side effects were advised. [facility] Medical History (Updated 01/28/24 @ 17:14 by Khushboo Godinez MD) Foot fracture, right Asthma Goiter Osteoarthritis, shoulder Chronic fatigue syndrome Fibromyalgia Neuropathy Panic attacks Hypothyroid Breast cancer, right Essential hypertension Allergic rhinitis Hypovitaminosis D Vertigo Mild persistent asthma NAVA (generalized anxiety disorder) Mild recurrent major depression Surgical History Status post laparoscopic cholecystectomy Hx of cholecystectomy Hx of colonoscopy History of salpingectomy History of breast implant History of mastectomy Family History Mother Hypertension Asthma Osteoporosis Depression Anxiety Sleep apnea Fibromyalgia Mental health disorder Diabetes Father Diabetes Substance use disorder Social History Housing: House Alcohol intake: never Patient Tobacco Use Status: Never used Tobacco e-Cigarette/Vaping Use: Never Used Second Hand Smoke Exposure: No service: No Current occupational status: unemployed and disabled Cognitive needs: No Hearing needs: No Vision needs: No Questionnaire Thrive Questionnaire Date Thrive assessed: 03/25/23 NAVA-7 AMB Questionnaire NAVA-7 Date NAVA - 7 assessed: 03/25/23 Source: Developed by Drs. Homar Cancino, Mar Pike, Imer Montesinos and colleagues, with an educational nalini from [employer]. Review of Systems Const All systems reviewed & are unremarkable except as noted in HPI and below Card Denies chest pain at rest, Denies chest pain with activity, Denies edema, Denies irregular heart rhythm, Denies claudication, Denies dyspnea, Denies dyspnea on exertion, Denies orthopnea, Denies paroxysmal nocturnal dyspnea and Denies slow heart rate Resp Denies cough, Denies dyspnea and Denies dyspnea on exertion Neuro Denies lack of coordination Physical exam (Primary Care) Vital Signs: Last Vital Signs BP 126/82 01/28/24 16:47 BMI result Body Mass Index 30.5 BMI Assessment/Plan discussion: High BMI High, discussed plan: lifestyle, weight reduction, dietary and physical activity Tobacco/Smoking Status: Tobacco use Status Tobacco use date assessed 06/11/23 01/28/24 16:50 Patient Tobacco Use Status Never used Tobacco 01/28/24 16:50 Tobacco use type 10/07/23 09:05 e-Cigarette/Vaping Use Never Used 01/28/24 16:50 Thrive Assessment: Date of Thrive Assessment Date Thrive assessed 03/25/23 01/28/24 16:50 Resp Effort & Inspection: normal respiratory effort Auscultation: clear to auscultation bilaterally Cardio Jugular venous distension: no JVD Rate: regular rate Rhythm: regular rhythm Heart sounds: S1 normal heart sound present and S2 normal heart sound present Extrem General: Yes full ROM Office Procedures Flu Questionnaire Does the patient have a severe egg allergy?: No Immunizations Fluarix Triv [id number] (PF) 45 mcg (15 mcg x 3)/0.5 mL IM syringe Performing Provider: Khushboo Godinez MD [place] [place] [facility] Documented (not given) by: BHASKAR Call on 01/28/24 16:51 Reason Not Given: Patient Refused Coding Level of Care Code Est Pt Level 4 (21074) Complex EM visit Add On G2211 Diagnoses Mild recurrent major depression F33.0 NAVA (generalized anxiety disorder) F41.1 Mild persistent asthma without complication J45.30 Asthma complication type: uncomplicated Essential hypertension I10 Time Spent (min) 23 Assessment & Plan Assessment & Plan (1) Mild recurrent major depression: Code(s): F33.0 - Major depressive disorder, recurrent, mild Category: Medical Plan: Follow-up with psychiatry. (2) NAVA (generalized anxiety disorder): Code(s): F41.1 - Generalized anxiety disorder Category: Medical Plan: Continue benzodiazepines as needed. (3) Mild persistent asthma: Code(s): J45.30 - Mild persistent asthma, uncomplicated Category: Medical Qualifiers: Asthma complication type: uncomplicated Qualified Code(s): J45.30 - Mild persistent asthma, uncomplicated Plan: Continue long-acting inhaler. Use rescue inhaler as needed. (4) Essential hypertension: Code(s): I10 - Essential (primary) hypertension Category: Medical Plan: Continue clonidine. Blood pressure goal is equal or less than 130/80. Orders: Orders Influenza [id number] Immunization Today Z23 - Encounter for immunization Vitamin D 25-OH Total Today E55.9 - Vitamin D deficiency, unspecified Complete Blood Count Auto Diff Today E66.9 - Obesity, unspecified Comprehensive [place]. Panel Fast Today E66.9 - Obesity, unspecified Celiac Disease Panel Today R10.32 - Left lower quadrant pain Referrals Dermatology Referral D22.9 - Melanocytic nevi, unspecified Medications: New semaglutide (weight loss) ([place]) administer weeks 1 through 4 of therapy 0.25 mg (0.5 mL) subcut QWEEK 2 mL 0RF 4 weeks E66.9 - Obesity, unspecified
[2024-01-28 16:47] VITALS: BP 126/82; BMI 30.5
== END 2024-01-28 17:16 | disposition home or self-care (01) ==
LOC: HO.HMCH 16:41
PROVIDERS: PCP Internal Medicine; Visit Provider Internal Medicine
DX: F33.0 Major depressive disorder, recurrent, mild (principal); F41.1 Generalized anxiety disorder; J45.30 Mild persistent asthma, uncomplicated; I10 Essential (primary) hypertension; Z23 Encounter for immunization

== ENCOUNTER → 2024-01-28 16:41 | Outpatient (BNVA) | payer BC, MEDICARE, MEDICAID, SELFPAY | PROVIDERS: PCP Internal Medicine; Visit Provider Internal Medicine | DX: F33.0 Major depressive disorder, recurrent, mild (principal); F41.1 Generalized anxiety disorder; J45.30 Mild persistent asthma, uncomplicated; I10 Essential (primary) hypertension; Z79.899 Other long term (current) drug therapy; Z28.21 Immunization not carried out because of patient refusal | CPT/HCPCS: 90471 ==

== ENCOUNTER 2024-01-29 11:55 | Outpatient (REF) | payer BC, MEDICARE, MEDICAID, SELFPAY ==
[2024-01-29 12:52] LABS: MANUAL DIFF FLAG NO
[2024-01-29 13:47] LABS: Basophils Absolute Auto 0.1 X10*3/uL (0.0-0.2); Basophils Percent Auto 0.6 % (0-2); Eosinophils Absolute Auto 0.3 X10*3/uL (0.0-0.4); Eosinophils Percent Auto 3.6 % (0-4); Hematocrit 39.1 % (37.0-47.0); Hemoglobin 12.4 g/dl (12.0-16.0); Imm Gran Abs Auto 0.03 X10*3/uL (0.00-0.03); Imm Gran Pct Auto 0.3 % (0.0-0.4); Lymphocytes Absolute Auto 2.9 X10*3/uL (1.2-4.9); Lymphocytes Percent Auto 33.1 % (20-40); Mean Corpuscular HGB Conc 31.7 g/dl (31.0-35.0); Mean Corpuscular Hemoglobin 25.8 pg (27.0-33.0); Mean Corpuscular Volume 81.5 fL (80.0-98.0); Mean Platelet Volume 9.4 fL (9.4-12.3); Monocytes Absolute Auto 0.5 X10*3/uL (0.1-1.2); Monocytes Percent Auto 5.9 % (2-11); Neutrophils Percent Auto 56.5 % (45-73); Platelet Count 323 X10*3/uL (160-400); Red Cell Distribution Width 12.8 % (11.0-16.0); White Blood Count 8.9 X10*3/uL (4.8-10.8)
[2024-01-29 14:15] LABS: Appearance Urine Clear; Color Urine Yellow; Glucose Urine UA Negative (Negative); Leukocyte Esterase Urine Negative (Negative); Nitrite Urine Negative (Negative); PH 6.5 (5.0-9.0); Specific Gravity - Urine <= 1.005 (1.005-1.025); Urine Blood Negative (Negative); Urine Ketones Negative (Negative); Urine Protein Negative (Neg-Trace)
[2024-01-29 14:35] LABS: Alanine Aminotransferase 16 U/L (0-31); Albumin Level 4.1 g/dL (3.5-5.0); Alkaline Phosphatase 97 U/L (39-117); Anion Gap 14 (12-20); Aspartate Amino Transferase 22 U/L (5-31); Blood Urea Nitrogen 11 mg/dL (9-16); Calcium 9.7 mg/dL (8.4-10.2); Carbon Dioxide 24 mmol/L (22-29); Chloride 103 mmol/L (96-108); Estimated Glomerular Filt Rate > 60; Glucose Fasting 80 mg/dL (60-99); Glucose Random 80 mg/dL (60-115); Phosphorus 2.7 mg/dL (2.7-4.5); Sodium 137 mmol/L (135-145); Total Protein 7.5 g/dL (6.5-8.0)
[2024-01-29 14:44] LABS: Thyroid Stimulating Hormone 0.81 uIU/mL (0.32-4.0); Vitamin D 25-OH Total 72.5 ng/mL (>30)
[2024-01-30 15:53] LABS: Calcium, Ionized 5.2 mg/dL (4.7-5.5)
[2024-01-30 21:32] LABS: Immunoglobulin A 378 mg/dL (47-310); Transglutaminase IgA <1.0 U/mL
[2024-02-02 16:43] LABS: Vitamin D 25-OH, D2 <4 ng/mL; Vitamin D 25-OH, D3 44 ng/mL; Vitamin D 25-OH, Total 44 ng/mL (30-100)
[2024-02-02 21:08] LABS: Immunoglobulin E 604 kU/L (<OR=114)
[2024-02-04 03:08] LABS: Vitamin A 32 mcg/dL (38-98)
== END 2024-01-29 11:56 | disposition home or self-care (01) ==
LOC: HO.LAB 11:55
PROVIDERS: Absent Provider Hospitalist; PCP Internal Medicine; Visit Provider Internal Medicine
DX: E55.9 Vitamin D deficiency, unspecified (principal); E21.3 Hyperparathyroidism, unspecified; R30.0 Dysuria; E66.9 Obesity, unspecified; R10.32 Left lower quadrant pain; J45.901 Unspecified asthma with (acute) exacerbation
CPT/HCPCS: 36415; 80053; 81003; 82306; 82330; 82784; 82785; 83970; 84100; 84443; 84590; 85025; 86364

== ENCOUNTER 2024-02-04 09:07 | Outpatient (REF) | payer BC, MEDICARE, MEDICAID, SELFPAY ==
[2024-02-06 14:28] LABS: Calcium, 24 Hr Urine 101 mg/24 h; Calcium/Creatinine Ratio 103 mg/g creat (30-275); Creatinine 24Hr Urine 0.98 g/24 h (0.50-2.15)
== END 2024-02-04 09:08 | disposition home or self-care (01) ==
LOC: HO.LNP 09:07
PROVIDERS: Visit Provider Internal Medicine
DX: E21.3 Hyperparathyroidism, unspecified (principal)
CPT/HCPCS: 82340

== ENCOUNTER 2024-04-02 10:24 | Outpatient (REF) | payer BC, MEDICARE, MEDICAID, SELFPAY ==
[2024-04-02 14:00] LABS: Influenza A PCR NEGATIVE (Negative); Influenza B PCR NEGATIVE (Negative); Resp Syncy Virus RNA Qual PCR POSITIVE (Negative); SARS COV2 PCR INHOUSE NEGATIVE (Negative)
== END 2024-04-02 10:25 | disposition home or self-care (01) ==
LOC: HO.LNP 10:24
PROVIDERS: Nurse Practitioner Family; PCP Internal Medicine
DX: J06.9 Acute upper respiratory infection, unspecified (principal)
CPT/HCPCS: 0241U

== ENCOUNTER 2024-04-02 10:24 | Outpatient (AMB) | payer BC, MEDICARE, MEDICAID, SELFPAY ==
--- NOTE | 2024-04-02 10:54 | MHC.OFFWIV ---
Intake Vital Signs 04/02/24 11:00 Weight 151 lb BP 120/80 Blood Pressure Location Lt brachial Position Sitting Pulse 77 Pulse Source Pulse Oximeter Temp 98.6 F Temp Source Oral Pulse Oximetry (%) 99 Oxygen Delivery Method Room Air Intake Visit Reasons: EP Head ache, sore throat, Cough Intake Note: Patient here for cough, head ache which has been present for about 2 weeks. she has been around her mom who recently tested positive for RSV. Patient Tobacco Use Status: Never used Tobacco Allergies clindamycin Allergy (Severe, Verified 04/02/24 11:) itch, nausea, dizziness, scratchy throat, neck redness Penicillins [PENICILLINS] Allergy (Intermediate, Verified 04/02/24:) RASH mushroom Allergy (Mild, Verified 04/02/24:) Rash pineapple Allergy (Mild, Verified 04/02/24:) Rash hydrocodone [HYDROCODONE] Allergy (Unknown, Verified 04/02/24 11:) UNKNOWN morphine [MORPHINE] Allergy (Unknown, Verified 04/02/24:) LETHARGY oxycodone [OXYCODONE] Allergy (Unknown, Verified 04/02/24 11:) LEHTARGY Do you need a note to return to daycare/school/sports/work: No HPI EP Head ache, sore throat, Cough HPI Details This is a 58-year-old female patient who presents to the walk-in clinic today with a 2 week history of productive cough with yellow sputum, headache, sore throat, bilateral ear pressure. Denies any fever. Has had known exposure to both flu and RSV recently. Has Breo inhaler at home which she has been using. Her cough has been very bothersome for her, and constant throughout the day and keeping her up at night. [facility] Medical History Foot fracture, right Asthma Goiter Osteoarthritis, shoulder Chronic fatigue syndrome Fibromyalgia Neuropathy Panic attacks Hypothyroid Breast cancer, right Essential hypertension Allergic rhinitis Hypovitaminosis D Vertigo Mild persistent asthma NAVA (generalized anxiety disorder) Mild recurrent major depression Surgical History Status post laparoscopic cholecystectomy Hx of cholecystectomy Hx of colonoscopy History of salpingectomy History of breast implant History of mastectomy Family History Mother Hypertension Asthma Osteoporosis Depression Anxiety Sleep apnea Fibromyalgia Mental health disorder Diabetes Father Diabetes Substance use disorder Social History Housing: House Alcohol intake: never Patient Tobacco Use Status: Never used Tobacco e-Cigarette/Vaping Use: Never Used Second Hand Smoke Exposure: No service: No Current occupational status: unemployed and disabled Cognitive needs: No Hearing needs: No Vision needs: No Review of Systems Const All systems reviewed & are unremarkable except as noted in HPI and below Physical Exam Vital Signs: Last Vital Signs Temp 98.6 F 04/02/24 11:00 Pulse 77 04/02/24 11:00 BP 120/80 04/02/24 11:00 Pulse Ox 99 04/02/24 11:00 Oxygen Delivery Method Room Air 04/02/24 11:00 Const General: cooperative and no acute distress HEENT Head: Yes normal to inspection Ears: hearing grossly normal bilaterally and TM's normal bilaterally General nose exam: Normal external nose present Face and sinus: Yes normal facial exam Mouth: Normal oral and palatal mucosa present Throat: Yes posterior oropharynx normal Neck Neck: Yes no lymphadenopathy Resp Effort & Inspection: normal respiratory effort Auscultation: clear to auscultation bilaterally and rhonchi upper bilaterally Cardio Rate: regular rate Rhythm: regular rhythm Skin General skin exam: no rashes or lesions noted Extrem General: Yes capillary refill normal and Yes no clubbing, cyanosis or edema Psych Appearance: grossly normal Mental Status: mental status grossly normal Speech and movement: Normal speech and movement present Assessment & Plan Assessment & Plan (1) Upper respiratory tract infection: Code(s): J06.9 - Acute upper respiratory infection, unspecified Qualifiers: URI type: unspecified URI Qualified Code(s): J06.9 - Acute upper respiratory infection, unspecified Plan: Likely this originated as viral illness, however it is now more concerning for a bronchitis, which patient states that she gets a couple of times a year. COVID/flu/RSV swab was obtained today and patient aware she will be notified of results once these are available. I am going to start her on an antibiotic and also a short course of p.o. prednisone, as this has helped her previously. We reviewed indications, use, possible side effects of medications. She can take OTC Tylenol as needed. We reviewed conservative treatment methods with rest, hydration, healthy food/vitamin intake. If she does not improve with time and above measures, or if symptoms worsen/new symptoms develop, she can return to the clinic for further evaluation. Patient verbalizes understanding and agrees to plan. Orders: Orders SARS-CoV2/FLU/RSV Today J06.9 - Acute upper respiratory infection, unspecified Medications: New doxycycline hyclate Take 1 capsule twice a day for 7 days 100 mg PO BID 7 days 14 caps 0RF J06.9 - Acute upper respiratory infection, unspecified prednisone Take one tablet twice a day for 3 days. 20 mg PO BID 3 days 6 tabs 0RF J06.9 - Acute upper respiratory infection, unspecified Coding Level of Care Code Est Pt Level 4 (04319) Diagnoses Upper respiratory tract infection, unspecified type J06.9 URI type: unspecified URI
[2024-04-02 11:00] VITALS: BP 120/80; PULSE 77; TEMP 37; O2SAT 99
== END 2024-04-02 11:34 | disposition home or self-care (01) ==
PROVIDERS: PCP Internal Medicine; Visit Provider Nurse Practitioner Family
DX: J06.9 Acute upper respiratory infection, unspecified (principal)

== ENCOUNTER 2024-05-01 09:04 | Outpatient (AMB) | payer BC, MEDICARE, MEDICAID, SELFPAY ==
[2024-05-01 09:12] VITALS: BP 122/82; PULSE 82; RESP 16; TEMP 36.5; O2SAT 98; BMI 30.7
--- NOTE | 2024-05-01 09:12 | MHC.OFFWIV ---
Intake Vital Signs 05/01/24 09:12 Height 4 ft 11 in Weight 152 lb BMI 30.7 BP 122/82 Blood Pressure Location Rt brachial Position Sitting Respiration 16 Pulse 82 Pulse Source Pulse Oximeter Temp 97.7 F Temp Source Oral Pulse Oximetry (%) 98 Oxygen Delivery Method Room Air Intake Visit Reasons: EP pain on LT side of face & ear Intake Note: Pt is here today c/o Rt ear and face pain Patient Tobacco Use Status: Never used Tobacco Allergies clindamycin Allergy (Severe, Verified 04/02/24 11:01) itch, nausea, dizziness, scratchy throat, neck redness Penicillins [PENICILLINS] Allergy (Intermediate, Verified 04/02/24 11:01) RASH mushroom Allergy (Mild, Verified 04/02/24 11:01) Rash pineapple Allergy (Mild, Verified 04/02/24 11:01) Rash hydrocodone [HYDROCODONE] Allergy (Unknown, Verified 04/02/24 11:01) UNKNOWN morphine [MORPHINE] Allergy (Unknown, Verified 04/02/24 11:01) LETHARGY oxycodone [OXYCODONE] Allergy (Unknown, Verified 04/02/24 11:01) LEHTARGY HPI EP pain on LT side of face & ear HPI Details Patient is a 58-year-old female with anxiety, depression, hypertension, asthma and other comorbidities, who comes to the walk-in clinic complaining of right ear pain radiating down her neck, as well as muffled sounds on that side, and feeling of fullness or pressure. She also complains of her vertigo getting aggravated, which she does have intermittently. She takes meclizine as needed. She reports that she did slip and fall on the ice a few days ago, but did not hit her head and has no headache or TBI associated symptoms related to the fall. She had RSV prior to these symptoms, and had come to the walk-in for treatment. She reports that over symptoms have resolved prior to this ear discomfort starting. She denies fever or chills, headache, current dizziness or vertigo, nausea vomiting or diarrhea, shortness of breath were chest pain, myalgias or malaise, significant sore throat, or other significant associated symptoms. She does have a history of asthma but does not complain of her asthma being aggravated. Her blood pressure has been controlled. [facility] Medical History Foot fracture, right Asthma Goiter Osteoarthritis, shoulder Chronic fatigue syndrome Fibromyalgia Neuropathy Panic attacks Hypothyroid Breast cancer, right Essential hypertension Allergic rhinitis Hypovitaminosis D Vertigo Mild persistent asthma NAVA (generalized anxiety disorder) Mild recurrent major depression Surgical History Status post laparoscopic cholecystectomy Hx of cholecystectomy Hx of colonoscopy History of salpingectomy History of breast implant History of mastectomy Family History Mother Hypertension Asthma Osteoporosis Depression Anxiety Sleep apnea Fibromyalgia Mental health disorder Diabetes Father Diabetes Substance use disorder Social History Housing: House Alcohol intake: never Patient Tobacco Use Status: Never used Tobacco e-Cigarette/Vaping Use: Never Used Second Hand Smoke Exposure: No service: No Current occupational status: unemployed and disabled Cognitive needs: No Hearing needs: No Vision needs: No Physical Exam Vital Signs: Last Vital Signs Temp 97.7 F 05/01/24 09:12 Pulse 82 05/01/24 09:12 Resp 16 05/01/24 09:12 BP 122/82 05/01/24 09:12 Pulse Ox 98 05/01/24 09:12 Oxygen Delivery Method Room Air 05/01/24 09:12 BMI result Body Mass Index 30.7 Const General: cooperative, healthy appearing, comfortable, no acute distress, alert, awake, Physically active, tired appearing and well groomed; No anxious, diaphoretic, ill appearing, intoxicated appearing or poor hygiene Nutritional Appearance: average body habitus Orientation/consciousness: patient oriented x3 Limitations: no limitations HEENT Head: Yes normal to inspection, Yes normocephalic and Yes atraumatic Ears: hearing grossly normal bilaterally, external ears normal, EAC's normal and TM abnormal (Bilaterally, although she only complains of symptoms to the right) dull, wth effusion, with fluid behind the TM and with loss of landmarks; not bulging, not bullous, not erythematous and not perforated General nose exam: Normal external nose present, Normal nares present, No nasal polyps present, Normal nasal mucous membranes and turbinates present, Normal septum present and No nasal discharge present Face and sinus: Yes normal facial exam, Yes sinuses nontender and Yes face symmetric Mouth: Normal oral and palatal mucosa present, lip normal and tongue normal Throat: Yes abnormal tonsil (mildly erythematous bilaterally), No peritonsillar mass, Yes postnasal drainage, No uvula laterally displaced, No uvular edema and No cobblestoning Eyes General: appearance normal, both eyes and all related structures Neck Neck: Yes normal visual inspection, Yes no lymphadenopathy, Yes trachea midline, Yes supple and No anterior neck swelling Chest Chest palpation & inspection: normal palpation of entire chest wall Resp Effort & Inspection: normal respiratory effort, able to speak in complete sentences, no audible wheezes, no cough, no grunting, not labored, no nasal flaring, no retractions and symmetric chest movement Skin Other: Good color, warm and dry Neuro General: patient oriented x3 Psych Appearance: grossly normal Mental Status: mental status grossly normal Speech and movement: Normal speech and movement present Affect: normal affect Attitude: cooperative Thought process: Normal thought process present Insight: Good insight present (Psych) Judgement: Good judgement present (Psych) Assessment & Plan Assessment & Plan (1) Serous otitis media: Code(s): H65.90 - Unspecified nonsuppurative otitis media, unspecified ear Qualifiers: Chronicity: acute Laterality: right Recurrence: non-recurrent Qualified Code(s): H65.01 - Acute serous otitis media, right ear (2) Labyrinthitis, right ear: Code(s): H83.01 - Labyrinthitis, right ear Plan Patient has new onset of serous otitis media, likely as a result of RSV infection for which she was treated and has resolved otherwise. She complains of dullness with hearing, a swishing sound, pressure to the area radiating down her neck, and foggy headed feeling. It also has exacerbated vertigo for her, which she has had in the past. She does have meclizine and can take this as needed if the vertigo reoccurs. I wrote her for moderate dose short course steroid to help with inflammation and hopefully this will help resolve symptoms. She does have hypertension, but this has been controlled with medications and she is stable. We also discussed conservative measures such as heating the ear and surrounding area, gentle massage and tugging to the ear, as well as adequate fluid high duration and she can do warm beverages for the throat discomfort as it drains. I also wrote her for a course of antibiotics if her symptoms worsen, such as fever, nausea, headache, fast heart rate, or other significant associated symptoms. She is competent to only take the antibiotic as needed. If symptoms continue to persist, she should return to the walk-in or see her primary care. She knows to go to the emergency department with worrisome symptoms. Medications: New prednisone 40 mg (2 x 20 mg) PO DAILY 5 days 10 tabs 0RF doxycycline hyclate 100 mg PO BID 7 days 14 tabs 0RF Coding Level of Care Code Est Pt Level 4 (84539) Diagnoses Non-recurrent acute serous otitis media of right ear H65.01 Chronicity: acute Laterality: right Recurrence: non-recurrent Labyrinthitis, right ear H83.01
== END 2024-05-01 09:38 | disposition home or self-care (01) ==
PROVIDERS: PCP Internal Medicine; Visit Provider Physician Assistant Medical
DX: H65.01 Acute serous otitis media, right ear (principal); H83.01 Labyrinthitis, right ear

== ENCOUNTER 2024-05-07 12:17 | Outpatient (REF) | payer BC, MEDICARE, MEDICAID, SELFPAY ==
[2024-05-07 16:41] LABS: Folate 5.2 ng/mL (> or = 4.0); Vitamin B12 380 pg/mL (200-900)
[2024-05-12 00:18] LABS: Vitamin A 69 mcg/dL (38-98)
[2024-05-12 01:14] LABS: Vitamin D 25-OH, D2 <4 ng/mL; Vitamin D 25-OH, D3 38 ng/mL; Vitamin D 25-OH, Total 38 ng/mL (30-100)
[2024-05-15 12:43] LABS: Alpha-Tocopherol 9.3 mg/L (5.7-19.9); Beta-Gamma Tocopherol <1.0 mg/L (<=4.3)
== END 2024-05-07 12:18 | disposition home or self-care (01) ==
LOC: HO.LAB 12:17
PROVIDERS: PCP Internal Medicine; Visit Provider Nurse Practitioner Family
DX: R19.7 Diarrhea, unspecified (principal); Z90.49 Acquired absence of other specified parts of digestive tract; K86.89 Other specified diseases of pancreas; E55.9 Vitamin D deficiency, unspecified
CPT/HCPCS: 36415; 82306; 82607; 82746; 84446; 84590

== ENCOUNTER 2024-05-07 12:17 | Outpatient (AMB) | payer BC, MEDICARE, MEDICAID, SELFPAY ==
--- NOTE | 2024-05-07 12:51 | A.OFFVIS_ITS ---
Vital Signs 05/07/24 12:52 Height 4 ft 11 in Weight 152 lb 8.958 oz BMI 30.8 BP 128/92 H Blood Pressure Location Lt brachial Position Sitting Pulse 66 Pulse Source Pulse Oximeter Pulse Oximetry (%) 98 Oxygen Delivery Method Room Air Intake Visit Reasons: 3 month follow up Intake Note: ESTABLISHED PATIENT for IBS w/ abd pain. Chief Complaint; C/O recent unintentional weight gain, intermittent episodes of excessive gas, bloating, and constipation. Pt denies any additional GI concerns. 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 Required: No Accompanied by: Self / Same As Patient Allergies clindamycin Allergy (Severe, Verified 05/07/24 12:51) itch, nausea, dizziness, scratchy throat, neck redness Penicillins [PENICILLINS] Allergy (Intermediate, Verified 05/07/24 12:51) RASH mushroom Allergy (Mild, Verified 05/07/24 12:51) Rash pineapple Allergy (Mild, Verified 05/07/24 12:51) Rash hydrocodone [HYDROCODONE] Allergy (Unknown, Verified 05/07/24 12:51) UNKNOWN morphine [MORPHINE] Allergy (Unknown, Verified 05/07/24 12:51) LETHARGY oxycodone [OXYCODONE] Allergy (Unknown, Verified 05/07/24 12:51) LEHTARGY HPI HPI 3 month follow up: Details: LAST VISIT Constipation Abdominal pain Status post laparoscopic cholecystectomy IBS (irritable bowel syndrome) Plan Will stop Dulcolax and patient can start taking Linzess. She will call our office if she will continue to be constipated we can increase the dose. Increase fluid intake and activity to promote better bowel motility. Stop omeprazole and start Nexium daily. Avoid dietary triggers and late night snacking. Staying upright for minimum 3 hours after meals discussed with patient. Script for Proctosol send. Follow-up in the office in 3 months, sooner on as needed basis. Patient is agreeable to this plan and verbalizes understanding of instructions. She was given the opportunity to ask questions and all questions answered. ? Thank you for allowing me to participate in her care Medications New hydrocortisone 2.5% (Proctosol HC) 1 appl MT BID-QID PRN 30 grams 2RF hemorrhoids K64.9 linaclotide (Linzess) 145 mcg PO DAILY 30 caps 2RF esomeprazole magnesium (Nexium) 40 mg PO DAILY 30 caps 5RF K21.9 Discontinued omeprazole Discontinued Reason: Doctor's Order 20 mg PO DAILY 30 caps 3RF K21.9 TODAY'S VISIT Patient is seen today for follow-up. Patient reports that she continues to have trouble moving her bowels. Patient reports that she is very busy trying to take care of her mom and her disabled brother. Patient reports that she has been eating right. Drinks Coca Cola and because of her busy schedule she eats a lot of ritz crackers. She stopped taking Linzess every day, only occasionally. In the beginning patient reports that Linzess was working and now she feels like it does not. Patient is not eating much of fiber. She reports gaining weight even though she is not eating much. Patient reports that she drinks few 8 oz bottles a day. Patient denies melena, hematochezia. Reports occasional acid reflux without dyspepsia, dysphagia or odynophagia. For the most part she feels like Nexium has been helpful. Denies any nausea or vomiting. Reports frequent postprandial abdominal bloating [facility] Medical History Foot fracture, right Asthma Goiter Osteoarthritis, shoulder Chronic fatigue syndrome Fibromyalgia Neuropathy Panic attacks Hypothyroid Breast cancer, right Essential hypertension Allergic rhinitis Hypovitaminosis D Vertigo Mild persistent asthma NAVA (generalized anxiety disorder) Mild recurrent major depression Surgical History Status post laparoscopic cholecystectomy Hx of cholecystectomy Hx of colonoscopy History of salpingectomy History of breast implant History of mastectomy Family History Mother Hypertension Asthma Osteoporosis Depression Anxiety Sleep apnea Fibromyalgia Mental health disorder Diabetes Father Diabetes Substance use disorder Social History Housing: House Alcohol intake: never Patient Tobacco Use Status: Never used Tobacco e-Cigarette/Vaping Use: Never Used Second Hand Smoke Exposure: No service: No Current occupational status: unemployed and disabled Cognitive needs: No Hearing needs: No Vision needs: No Review of Systems Const Denies weight gain and Denies weight loss ENT Reports no additional complaints, Denies dysphagia and Denies odynophagia Card Reports no additional complaints Resp Reports no additional complaints GI Denies abdominal pain, Denies belching, Denies melena, Denies bloating, Denies change in bowel habits, Denies dysphagia, Denies excessive flatus, Denies dyspepsia, Denies heartburn, Denies diarrhea, Denies loose stools, Denies nausea, Denies odynophagia and Denies vomiting Musc Reports no additional complaints Neuro Reports no additional complaints Psych Reports no additional complaints Endo Reports no additional complaints Physical Exam Vital Signs: Last Vital Signs Pulse 66 05/07/24 12:52 BP 128/92 H 05/07/24 12:52 Pulse Ox 98 05/07/24 12:52 Oxygen Delivery Method Room Air 05/07/24 12:52 BMI result Body Mass Index 30.8 Const General: healthy appearing and no acute distress Nutritional Appearance: obese Orientation/consciousness: patient oriented x3 Resp Effort & Inspection: normal respiratory effort, able to speak in complete sentences, no tracheal deviation and symmetric chest movement Auscultation: clear to auscultation bilaterally Cardio Rate: regular rate GI Inspection: No distended and Yes obesity Palpation (GI): Soft to palpation, not firm, nontender and No hepatosplenomegaly present Auscultation: normal bowel sounds General: Yes no CVA tenderness Back/Spine/Pelvis Back: no CVA tenderness Skin General skin exam: elasticity normal, turgor normal and dry skin Neuro General: patient oriented x3 Psych Appearance: grossly normal Mental Status: mental status grossly normal Assessment & Plan Assessment & Plan (1) Constipation: Code(s): K59.00 - Constipation, unspecified Category: Medical Qualifiers: Constipation type: slow transit constipation Qualified Code(s): K59.01 - Slow transit constipation (2) Abdominal pain: Code(s): R10.9 - Unspecified abdominal pain Category: Medical Qualifiers: Abdominal location: left lower quadrant Qualified Code(s): R10.32 - Left lower quadrant pain (3) Status post laparoscopic cholecystectomy: Code(s): Z90.49 - Acquired absence of other specified parts of digestive tract Category: Medical (4) IBS (irritable bowel syndrome): Code(s): K58.9 - Irritable bowel syndrome, unspecified Qualifiers: Irritable bowel syndrome type: without diarrhea Qualified Code(s): K58.9 - Irritable bowel syndrome, unspecified (5) GERD (gastroesophageal reflux disease): Code(s): K21.9 - Gastro-esophageal reflux disease without esophagitis Qualifiers: Esophagitis presence: esophagitis presence not specified Qualified Code(s): K21.9 - Gastro-esophageal reflux disease without esophagitis Plan Will check vitamin levels. Patient in the past had low vitamin levels and was told to take supplements. Patient will try to take Dulcolax. Patient will start eating more fiber and protein and avoid carbs. Patient will get [id number] fiber supplement with pre and probiotic. Increase fluid intake and activity to promote better bowel motility. Patient will take Dulcolax 2 tablets starting today and will call our office if she will continues to be constipated. We can increase the dose of Linzess to 145, however for now patient chooses not to take Linzess. Continue taking Nexium in the morning. Avoid dietary triggers and late night snacking. Staying upright for minimum 3 hours after meals discussed with patient. Patient will follow-up in 2-3 months, sooner on as needed basis. She is agreeable to this plan and verbalizes understanding of instructions. She was given the opportunity to ask questions and all questions answered. Thank you for allowing me to participate in her care Orders: Orders Vitamin B12 and Folate 05/07/24 R19.7 - Diarrhea, unspecified Vitamin A 05/07/24 K86.89 - Other specified diseases of pancreas Vitamin D 25-OH (D2 and D3) 05/07/24 E55.9 - Vitamin D deficiency, unspecified Vitamin E 05/07/24 Z90.49 - Acquired absence of other specified parts of digestive tract Medications: Refilled bisacodyl (Dulcolax (bisacodyl)) 10 mg (2 x 5 mg) PO BEDTIME 180 tabs 4RF esomeprazole magnesium (Nexium) 40 mg PO DAILY 30 caps 5RF K21.9 - Gastro- esophageal reflux disease without esophagitis Coding Level of Care Code Est Pt Level 4 (29778) Diagnoses Slow transit constipation K59.01 Constipation type: slow transit constipation Left lower quadrant abdominal pain R10.32 Abdominal location: left lower quadrant Status post laparoscopic cholecystectomy Z90.49 Irritable bowel syndrome without diarrhea K58.9 Irritable bowel syndrome type: without diarrhea Gastroesophageal reflux disease, unspecified whether esophagitis present K21.9 Esophagitis presence: esophagitis presence not specified Time Spent (min) 35 Comment 20 minutes spent with patient and additional 15 minutes spent reviewing her records
[2024-05-07 12:52] VITALS: BP 128/92; PULSE 66; O2SAT 98; BMI 30.8
== END 2024-05-07 13:30 | disposition home or self-care (01) ==
PROVIDERS: PCP Internal Medicine; Visit Provider Nurse Practitioner Family
DX: K59.01 Slow transit constipation (principal); R10.32 Left lower quadrant pain; Z90.49 Acquired absence of other specified parts of digestive tract; K58.9 Irritable bowel syndrome, unspecified; K21.9 Gastro-esophageal reflux disease without esophagitis
CPT/HCPCS: 99214

== ENCOUNTER 2024-05-14 10:53 | Outpatient (AMB) | payer BC, MEDICARE, MEDICAID, SELFPAY ==
[2024-05-14 11:04] VITALS: BP 128/86; PULSE 90; O2SAT 98; BMI 31.2
--- NOTE | 2024-05-14 11:04 | MHC.OFFVIS ---
Vital Signs 05/14/24 11:04 Height 4 ft 11 in Weight 154 lb 5.177 oz BMI 31.2 BP 128/86 Blood Pressure Location Lt brachial Position Sitting Pulse 90 Pulse Source Pulse Oximeter Pulse Oximetry (%) 98 Oxygen Delivery Method Room Air Intake Visit Reasons: cough Allergies clindamycin Allergy (Severe, Verified 05/14/24 11:06) itch, nausea, dizziness, scratchy throat, neck redness Penicillins [PENICILLINS] Allergy (Intermediate, Verified 05/14/24 11:06) RASH mushroom Allergy (Mild, Verified 05/14/24 11:06) Rash pineapple Allergy (Mild, Verified 05/14/24 11:06) Rash hydrocodone [HYDROCODONE] Allergy (Unknown, Verified 05/14/24 11:06) UNKNOWN morphine [MORPHINE] Allergy (Unknown, Verified 05/14/24 11:06) LETHARGY oxycodone [OXYCODONE] Allergy (Unknown, Verified 05/14/24 11:06) LEHTARGY HPI Comments Details: The patient is a 58 year woman with a known history of breast cancer status post mastectomy in addition to asthma. She has had mild intermittent asthma for many years. She has an inhaler that she rarely use. Unfortunately, the summer time she started developing worsening respiratory symptoms and had worsening cough and chest tightness. She has been using her rescue inhaler once or twice a day. the patient was evaluated in the ER he follow were October 2022 with worsening respiratory symptoms. She did undergo a CT a and ruled out pneumonia. The patient also with a history of breast cancer was reassuring without any evidence of any recurrence or any nodular densities or lymphadenopathy. the patient has also been allergic to cats and other other things. Based on her blood work she did have some degree of eosinophilia. Now even the family that only the CT when they go to visit her can exacerbate her breathing. Other triggers can be viruses strong perfumes can also trigger her breathing. In the office she does have significant chest tightness and coughing. The patient did receive a Xopenex treatment in the office improving her chest tightness although she did become tremulous. The patient does need to be on respiratory medications with maintenance inhalers at this time. Will request allergy testing PFTs to further address her ongoing symptoms. 05/16/2023 the patient is here for a pulmonary follow-up visit. The patient overall has been doing better. She continues to take the Breo daily. She does have a rescue inhaler she has not required as often. She continues to take her allergy medications including the Singulair in the antihistamine therapy. Seems like she is doing better from the asthma standpoint on this current therapy. She still uses her rescue inhaler but typically when exposed to her allergens. She did have allergy testing she has significant allergies to dust mites but more significantly has significant high allergies to both cats and dogs. The worse. She has never had episodes of any stridor angioedema or severe reactions in that fashion but she does have significant chest tightness and wheezing at times. The patient does not have a cat or dog. However, her children do. I did give her information for her to take to her children so they know how severe her allergies are to make sure that the animals in pets are not close to the patient. We did talk about biologic therapy. The patient does have a significant elevation of the IgE and also eosinophils and she will be a great candidate for Xolair in addition to other biologics. The patient also can consider allergy shots specially she was 2 modular humeral response to the dogs in the CT in the dust mites. The patient did not have her PFTs she was not able to do because her car broke down. Will plan to do it the next time. Therefore, she will continue with the current therapy but again she will call if her symptoms worsen we can consider biologic therapy. 11/12/2023 the patient is here for a pulmonary follow-up visit. Overall she is doing better. Unfortunately, her dog and she now had does not have the allergy exposure which will help her asthma. The patient has been responding well to Breo. For some reason she has not been able to fill it. I will send him to the pharmacy. The Breo has been very affecting beneficial so we want to continue. She was not able to get her pulmonary function studies because we had to cancel. Will plan to repeat them or do them in 6 months' time. The patient does not need biologic therapy at this point. Her respiratory symptoms are better controlled on the maintenance inhaler and she needs to continue it as prescribed. She also has a rescue inhaler that she uses and tries to minimize to less than 2 times a week. If she is going to visit her siblings who have dogs sometimes she does have some symptoms. I did recommend that she can pretreated prior to those visits. She also continue antihistamine therapy as needed. So therefore for now will continue with the current therapy will make sure that she gets her Breo and will follow-up in 6 months with PFTs. 05/14/2024 the patient is here for pulmonary follow-up visit. Overall the patient has been doing okay she does complaint of ear pressure and pain. She was started on a course of prednisone and she did not like the way that made her feel. The patient otherwise has not been using her Breo she does not like to use a powdered irritates her. Breathing lam she is doing okay although she has a cough. [id number] severity. Her last imaging study was CT scan of the abdomen that was back in 07/12/2023 lung windows appear to be okay. She had surgery after that for her gallbladder. It showed that she did having the chronic cholecystitis. And now she is following up with her oncologist regarding her history of breast cancer. She did not receive any radiation to the chest. She does have some nasal congestion. We are going to go ahead and start her on fluticasone nasal spray. We did talk about a NeilMed sinus rinse with the Neti bottle. She is going to see about getting 1 and understands she can only use it with distilled water make sure the bottle was clean. In addition to that will switch over to Symbicort to minimize on the powder irritation. [facility] Medical History Foot fracture, right Asthma Goiter Osteoarthritis, shoulder Chronic fatigue syndrome Fibromyalgia Neuropathy Panic attacks Hypothyroid Breast cancer, right Essential hypertension Allergic rhinitis Hypovitaminosis D Vertigo Mild persistent asthma NAVA (generalized anxiety disorder) Mild recurrent major depression Surgical History Status post laparoscopic cholecystectomy Hx of cholecystectomy Hx of colonoscopy History of salpingectomy History of breast implant History of mastectomy Family History Mother Hypertension Asthma Osteoporosis Depression Anxiety Sleep apnea Fibromyalgia Mental health disorder Diabetes Father Diabetes Substance use disorder Social History Housing: House Alcohol intake: never Patient Tobacco Use Status: Never used Tobacco e-Cigarette/Vaping Use: Never Used Second Hand Smoke Exposure: No service: No Current occupational status: unemployed and disabled Cognitive needs: No Hearing needs: No Vision needs: No Review of Systems Const Reports no additional complaints and Denies fever(s) Eyes Reports no additional complaints, Denies change in vision and Denies other visual disturbances ENT Reports nasal congestion Card Denies chest pain at rest Resp Reports chest congestion, Denies cough and Reports wheezing GI Denies abdominal pain Musc Denies atrophy, Denies deformity and Denies limited range of motion Skin/Breast Denies rash Neuro Reports no additional complaints Aller/Immun Reports wheezing Physical Exam Vital Signs: Last Vital Signs Pulse 90 05/14/24 11:04 BP 128/86 05/14/24 11:04 Pulse Ox 98 05/14/24 11:04 Oxygen Delivery Method Room Air 05/14/24 11:04 BMI result Body Mass Index 31.2 Const General: healthy appearing and no acute distress Nutritional Appearance: obese Orientation/consciousness: patient oriented x3 Resp Effort & Inspection: normal respiratory effort, able to speak in complete sentences and no tracheal deviation Auscultation: clear to auscultation bilaterally Cardio Rate: regular rate GI Inspection: No distended and Yes obesity Palpation (GI): Soft to palpation, not firm, nontender and No hepatosplenomegaly present Auscultation: normal bowel sounds General: Yes no CVA tenderness Back/Spine/Pelvis Back: no CVA tenderness Skin General skin exam: elasticity normal, turgor normal and dry skin Neuro General: patient oriented x3 Psych Appearance: grossly normal Mental Status: mental status grossly normal Assessment & Plan Assessment & Plan (1) GERD (gastroesophageal reflux disease): Code(s): K21.9 - Gastro-esophageal reflux disease without esophagitis (2) Asthma: Code(s): J45.909 - Unspecified asthma, uncomplicated Category: Medical Qualifiers: Asthma complication type: uncomplicated Asthma persistence: persistent Asthma severity: moderate Qualified Code(s): J45.40 - Moderate persistent asthma, uncomplicated (3) Cough: Code(s): R05.9 - Cough, unspecified Category: Medical Qualifiers: Cough type: chronic Qualified Code(s): R05.3 - Chronic cough (4) Allergic reaction: Code(s): T78.40XA - Allergy, unspecified, initial encounter Category: Medical Qualifiers: Encounter type: initial encounter Qualified Code(s): T78.40XA - Allergy, unspecified, initial encounter (5) Allergic rhinitis: Code(s): J30.9 - Allergic rhinitis, unspecified Category: Medical Qualifiers: Allergic rhinitis seasonality: unspecified Allergic rhinitis trigger: other Qualified Code(s): J30.89 - Other allergic rhinitis Plan stop Breo 200 start symbicort HFA JAMES as needed continue singulair fluticasone nasal spray anti histamines as needed F/U 6-8 months Medications: New fluticasone propionate 50 mcg/actuation (Flonase Allergy Relief) administer into each nostril 2 sprays intranasal DAILY 15.8 mL 12RF 30 days budesonide-formoterol 160-4.5 mcg/actuation 2 puffs inhalation BID 10.2 grams 11RF 30 days J44.89 - Other specified chronic obstructive pulmonary disease Discontinued fluticasone furoate-vilanterol 200-25 mcg/dose (Breo Ellipta) Discontinued Reason: Ancillary Entered New Order 1 inh inhalation DAILY 30 days 60 ea 11RF J45.40 - Moderate persistent asthma, uncomplicated Coding Level of Care Code Est Pt Level 4 (90388) Diagnoses GERD (gastroesophageal reflux disease) K21.9 Moderate persistent asthma without complication J45.40 Asthma complication type: uncomplicated Asthma persistence: persistent Asthma severity: moderate Chronic cough R05.3 Cough type: chronic Allergic reaction, initial encounter T78.40XA Encounter type: initial encounter Allergic rhinitis due to other allergic trigger, unspecified seasonality J30.89 Allergic rhinitis seasonality: unspecified Allergic rhinitis trigger: other Time Spent (min) 16
== END 2024-05-14 11:27 | disposition home or self-care (01) ==
PROVIDERS: PCP Internal Medicine; Visit Provider Hospitalist
DX: K21.9 Gastro-esophageal reflux disease without esophagitis (principal); J45.40 Moderate persistent asthma, uncomplicated; R05.3 Chronic cough; T78.40XA Allergy, unspecified, initial encounter; J30.89 Other allergic rhinitis
CPT/HCPCS: 99214

== ENCOUNTER 2024-06-16 16:47 | Outpatient (AMB) | payer BC, MEDICARE, MEDICAID, SELFPAY ==
--- NOTE | 2024-06-16 16:55 | MHC.PC.OV ---
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 Required: No Accompanied by: Self / Same As Patient Allergies clindamycin Allergy (Severe, Verified 06/16/24 17:26) itch, nausea, dizziness, scratchy throat, neck redness Penicillins [PENICILLINS] Allergy (Intermediate, Verified 06/16/24 17:26) RASH mushroom Allergy (Mild, Verified 06/16/24 17:26) Rash pineapple Allergy (Mild, Verified 06/16/24 17:26) Rash hydrocodone [HYDROCODONE] Allergy (Unknown, Verified 06/16/24 17:) UNKNOWN morphine [MORPHINE] Allergy (Unknown, Verified 06/16/24 17:) LETHARGY oxycodone [OXYCODONE] Allergy (Unknown, Verified 06/16/24 17:) LEHTARGY Medication List - Last Reconciled 06/16/24 by Khushboo Godinez MD alprazolam 0.25 mg PO TID PRN 30 days ascorbate calcium (vitamin C) 500 mg PO DAILY bisacodyl (Dulcolax (bisacodyl)) 10 mg (2 x 5 mg) PO BEDTIME budesonide-formoterol 160-4.5 mcg/actuation 2 puffs inhalation BID 30 days cholecalciferol (vitamin D3) 125 mcg PO .every other day 90 days clonidine HCl 0.1 mg PO BID 90 days doxycycline hyclate 100 mg PO BID 7 days esomeprazole magnesium (Nexium) 40 mg PO DAILY fluticasone propionate 50 mcg/actuation (Flonase Allergy Relief) 2 sprays intranasal DAILY 30 days hydrocortisone 2.5% (Proctosol HC) 1 appl [place] BID-QID PRN ipratropium bromide 2 sprays intranasal TID PRN ketorolac 10 mg PO Q8H PRN 5 days linaclotide (Linzess) 145 mcg PO DAILY magnesium oxide 500 mg PO DAILY 90 days meclizine 12.5 mg PO BID PRN 90 days montelukast 10 mg PO DAILY 90 days simethicone 125 mg PO BID-QID PRN Ventolin HFA 90 mcg/actuation (albuterol sulfate) 2 puffs PO Q6H PRN 30 days NS vitamin A 2,400 mcg PO DAILY 30 days Tobacco use date assessed: 06/16/24 Dental Screening Dental Screen Date: 06/16/24 Did you have a dental visit in the last 12 months?: No Did you have a dental problem in the last 6 months where you did not have access to dental care?: No Was dental information given to patient?: Patient has dentist HPI HPI Comments History of Present Illness Details The patient is a 58-year-old female presenting with concerns regarding an adrenal nodule and associated symptoms. Diagnosed with fibromyalgia since 2008, she has experienced muscle weakness and body aches since 2012. In 2022, a CT scan performed for abdominal pain identified an adrenal nodule above the right adrenal gland. The patient correlates symptoms such as weight gain, muscular weakness, fatigue, anxiety, and dry eyes with this finding. She also has a history of breast cancer, managed by her oncology team. Social stressors have likely exacerbated her anxiety symptoms, with recent family losses impacting her mental health. She expresses preference for minimizing medication use due to side effects and is pursuing non-pharmacologic management strategies where possible. She has depression follow by Psychiatry but declines medication. She also complains of dry eyes and I will test her for Sjogren's disease. I did advise her to hold her vitamin a because her levels are normal and vitamin a can cause dry eyes. She still has chronic constipation follow by Gastroenterology. [facility] Medical History (Updated 06/16/24 @ 20:31 by Khushboo Godinez MD) Hyperparathyroidism Foot fracture, right Asthma Goiter Osteoarthritis, shoulder Chronic fatigue syndrome Fibromyalgia Neuropathy Panic attacks Hypothyroid Breast cancer, right Essential hypertension Allergic rhinitis Hypovitaminosis D Vertigo Mild persistent asthma NAVA (generalized anxiety disorder) Mild recurrent major depression Surgical History Status post laparoscopic cholecystectomy Hx of cholecystectomy Hx of colonoscopy History of salpingectomy History of breast implant History of mastectomy Family History Mother Hypertension Asthma Osteoporosis Depression Anxiety Sleep apnea Fibromyalgia Mental health disorder Diabetes Father Diabetes Substance use disorder Social History Housing: House Alcohol intake: never Patient Tobacco Use Status: Never used Tobacco e-Cigarette/Vaping Use: Never Used Second Hand Smoke Exposure: No service: No Current occupational status: unemployed and disabled Cognitive needs: No Hearing needs: No Vision needs: Yes Questionnaire PHQ-9 Over the last 2 weeks, how often have you been bothered by any of the following problems? 1. Little interest or pleasure in doing things: not at all 2. Feeling down, depressed, or hopeless: more than half the days 3. Trouble falling or staying asleep, or sleeping too much: nearly every day 4. Feeling tired or having little energy: more than half the days 5. Poor appetite or overeating: several days 6. Feeling bad about yourself - or that you are a failure or have let yourself or your family down: not at all 7. Trouble concentrating on things, such as reading the newspaper or watching television: not at all 8. Moving or speaking so slowly that other people could have noticed. Or the opposite - being so fidgety or restless that you have been moving around a lot more than usual: not at all 9. Thoughts that you would be better off or of hurting yourself in some way: not at all Total score: 8 Depression Screening Interpretation: Positive Depression Screening Follow-up: Existing condition, In treatment, Community Mental Health Worker F/U and Follow-up Visit Requested Depression Screening Done: Yes 62453 - PHQ-9 Billing: Yes Source: Developed by Drs. Homar Cancino, Mar Pike, Imer Montesinos and colleagues, with an educational nalini from [employer]. Thrive Questionnaire Date Thrive assessed: 06/16/24 I am a: Patient What is your living situation today?: I have a steady place to live Within the past 12 months, did the food you bought not last and you didn't have the money to get more?: Never true Within the past 12 months, did you worry whether your food would run out before you got money to buy more?: Never true Do you have trouble paying for medicines?: No Do you have trouble getting transportation to medical appointments?: No Do you have trouble paying your heating and electricity bill?: No Do you have trouble taking care of your child, family member or friend?: No Do you have trouble with day-to-day activities such as bathing, preparing meals, shopping, managing finances, etc.?: No Are you currently unemployed and looking for a job?: No Are you interested in more education?: No Please select the resources that you would like help with: None Currently or been in a relationship where the following occur: No concerns reported THRIVE Score: 0 AUDIT C Alcohol Use Questionnaire (AUDIT-C) 1. How often do you have a drink containing alcohol?: Never Total Score: 0 Score Reviewed/Action Taken: No NAVA-7 AMB Questionnaire NAVA-7 Date NAVA - 7 assessed: 06/16/24 Feeling nervous, anxious, or on edge: 3 = Nearly every day Not being able to stop or control worryin = Nearly every day Worrying too much about different things: 3 = Nearly every day Trouble relaxin = Several days Being so restless that it is hard to sit still: 0 = Not at all Becoming easily annoyed or irritable: 0 = Not at all Feeling afraid as if something awful might happen: 1 = Several days Total NAVA-7 score (0-4 normal; 5-9 mild; 10-14 moderate; 15-21 severe): 11 Source: Developed by Drs. Homar Cancino, Mar Pike, Imer Montesinos and colleagues, with an educational nalini from [employer]. NAVA-7 Assessment Billing NAVA-7 Assessment Tool: NAVA-7 Assessment 84152 Review of Systems Const All systems reviewed & are unremarkable except as noted in HPI and below Card Denies chest pain at rest, Denies chest pain with activity, Denies edema, Denies irregular heart rhythm, Denies claudication, Denies dyspnea, Denies dyspnea on exertion, Denies orthopnea, Denies paroxysmal nocturnal dyspnea and Denies slow heart rate Resp Denies cough, Denies dyspnea and Denies dyspnea on exertion GI Denies abdominal pain, Denies change in bowel habits, Denies excessive flatus, Denies nausea and Denies vomiting Denies urinary incontinence, Denies urinary hesitancy and Denies urinary urgency Musc Denies abnormal gait, Denies atrophy, Denies deformity and Denies limited range of motion Skin/Breast Denies bleeding lesions, Denies changing lesions and Denies rash Neuro Denies abnormal gait and Denies lack of coordination Physical exam (Primary Care) Vital Signs: Last Vital Signs BP 126/82 03/26/25 16:56 BMI result Body Mass Index 31.1 BMI Assessment/Plan discussion: High BMI High, discussed plan: lifestyle, weight reduction, dietary and physical activity Tobacco/Smoking Status: Tobacco use Status Tobacco use date assessed 06/16/24 06/16/24 17:01 Patient Tobacco Use Status Never used Tobacco 06/16/24 17:01 Tobacco use type 05/07/24 13:32 e-Cigarette/Vaping Use Never Used 06/16/24 17:01 PHQ-9: PHQ-9 Score PHQ-9: Total score 8 06/16/24 17:27 Depression Screening Interpretation: Positive Depression Screening Follow-up: Existing condition, In treatment, Community Mental Health Worker F/U and Follow-up Visit Requested Thrive Assessment: Date of Thrive Assessment Date Thrive assessed 06/16/24 06/16/24 17:01 Currently or been in a relationship where the following occur: No concerns reported Resp Effort & Inspection: normal respiratory effort Auscultation: clear to auscultation bilaterally Cardio Jugular venous distension: no JVD Rate: regular rate Rhythm: regular rhythm Heart sounds: S1 normal heart sound present and S2 normal heart sound present Extrem General: Yes full ROM Coding Level of Care Code Est Pt Level 4 (15733) Complex EM visit Add On G2211 Diagnoses Vitamin A deficiency E50.9 Dry eyes H04.123 Slow transit constipation K59.01 Constipation type: slow transit constipation Fibromyalgia M79.7 Breast cancer, right C50.911 NAVA (generalized anxiety disorder) F41.1 Mild recurrent major depression F33.0 Additional Codes NAVA-7 Assessment Billing - NAVA-7 Assessment Tool: NAVA-7 Assessment 21608 ([id number]) PHQ-9 - 07176 - PHQ-9 Billing: Yes ([id number]) Time Spent (min) 35 Assessment & Plan Assessment & Plan (1) Vitamin A deficiency: Code(s): E50.9 - Vitamin A deficiency, unspecified Category: Medical (2) Dry eyes: Code(s): H04.123 - Dry eye syndrome of bilateral lacrimal glands Category: Medical (3) Constipation: Code(s): K59.00 - Constipation, unspecified Category: Medical Qualifiers: Constipation type: slow transit constipation Qualified Code(s): K59.01 - Slow transit constipation (4) Fibromyalgia: Code(s): M79.7 - Fibromyalgia Category: Medical (5) Breast cancer, right: Comment: 2017. [facility] receiving with right mastectomy and chemotherapy Code(s): C50.911 - Malignant neoplasm of unspecified site of right female breast Category: Medical (6) NAVA (generalized anxiety disorder): Code(s): F41.1 - Generalized anxiety disorder Category: Medical (7) Mild recurrent major depression: Code(s): F33.0 - Major depressive disorder, recurrent, mild Category: Medical Plan To manage the adrenal nodule concerns, ensuring it is monitored by endocrinology is crucial due to potential hormone involvement. We will test for Sjogren's antibodies given symptoms of dry eyes. Anxiety will continue to be managed with current medication, while investigating lifestyle changes that could support mental well-being, such as increased physical activity. Psychotherapy or activity changes might relieve depressive symptoms. Providing additional social support and resources is vital given her stress from caregiving duties and recent bereavements. Patient was informed and verbally consented to the use of an ambient scribe for clinic note documentation during this visit. During our discussion, I explained the significance of monitoring the adrenal nodule with the core analysis operator. We discussed the potential hormonal impact of the nodule and agreed that further evaluation might be required based on future symptoms and diagnostic findings. Testing for Sjogren's antibodies was recommended due to the presenting symptom of dry eyes. We addressed anxiety and depression management, emphasizing non-pharmacological options to coincide with her preference to avoid extensive medication. I advised that activities such as CrossFit could be beneficial for mental wellness. Social support discussions included resource referrals for managing care stressors and recent bereavements. Orders: Orders Vitamin A 4 Months E50.9 - Vitamin A deficiency, unspecified Sjogren's Antibodies Today H04.123 - Dry eye syndrome of bilateral lacrimal glands Medications: Discontinued simethicone Discontinued Reason: Insurance Denied 125 mg PO BID-QID PRN 120 caps 3RF abdominal distention K21.9 - Gastro-esophageal reflux disease without esophagitis linaclotide (Linzess) Discontinued Reason: Insurance Denied 145 mcg PO DAILY 30 caps 2RF Patient Instructions: - Follow up with the core analysis operator regarding adrenal nodule monitoring. - Get tested for Sjogren's syndrome antibodies. - Continue managing anxiety with current treatment, considering non-pharmacological strategies. - Seek support and options for managing caregiving stress and recent family bereavements. - Consider incorporating increased physical activity, such as CrossFit, to improve mental well-being. - Stay in touch with health providers for any changes in symptoms or concerns.
[2024-06-16 16:56] VITALS: BP 126/82; BMI 31.1
== END 2024-06-16 17:46 | disposition home or self-care (01) ==
LOC: HO.HMCH 16:48
PROVIDERS: PCP Internal Medicine; Visit Provider Internal Medicine
DX: E50.9 Vitamin A deficiency, unspecified (principal); C50.911 Malignant neoplasm of unspecified site of right female breast; F33.0 Major depressive disorder, recurrent, mild; H04.123 Dry eye syndrome of bilateral lacrimal glands; K59.01 Slow transit constipation; M79.7 Fibromyalgia; F41.1 Generalized anxiety disorder

== ENCOUNTER → 2024-06-16 16:47 | Outpatient (BNVA) | payer BC, MEDICARE, MEDICAID, SELFPAY | PROVIDERS: PCP Internal Medicine; Visit Provider Internal Medicine | DX: E50.9 Vitamin A deficiency, unspecified (principal); H04.123 Dry eye syndrome of bilateral lacrimal glands; K59.01 Slow transit constipation; M79.7 Fibromyalgia; F41.1 Generalized anxiety disorder; F33.0 Major depressive disorder, recurrent, mild; Z85.3 Personal history of malignant neoplasm of breast | CPT/HCPCS: 96127 ==

== ENCOUNTER 2024-06-24 17:12 | Emergency (ER) | payer BC, MEDICARE, MEDICAID, SELFPAY ==
--- NOTE | ~2024-06-24 | XR_ITS ---
CLINICAL HISTORY: chest pain 2 view chest x-ray Comparison: CR/SR - XR CHEST 2V - 01/06/23 15:26 EDT Findings: Heart size is normal. No consolidation, pleural effusion or pneumothorax. No acute fracture. IMPRESSION: 1. No acute findings. This document has been electronically signed by: Emmanuelle Bustamante MD on 06/24/2024 17:49:01
--- NOTE | ~2024-06-24 | CT_ITS ---
CLINICAL HISTORY: headache, confusion CT head without contrast Comparison: CT/REG/SR - CT HEAD/BRAIN WO IV CON - 11/05/22 13:26 EDT Findings: No intra-axial mass, midline shift, hydrocephalus, or acute hemorrhage. No significant atrophy-like change or white matter disease. Mild mucosal thickening in left sphenoid sinus and minimal mucosal thickening in right sphenoid sinus. Left maxillary sinus mucous retention cyst/polyp. The orbits are within normal limits. No acute skull fracture. IMPRESSION: 1. No acute intracranial findings. This document has been electronically signed by: Emmanuelle Bustamante MD on 06/24/2024 19:00:28
[2024-06-24 17:16] VITALS: BP 171/107; PULSE 96; RESP 20; TEMP 36.6; O2SAT 98; BMI 32.4
--- NOTE | 2024-06-24 17:16 | ED.GENADULT ---
HPI - General Adult General Chief complaint: General Medical Stated complaint: asthma/sob Time Seen by Provider: 06/24/24 21:15 Source: patient Mode of arrival: ambulatory Limitations: no limitations History of Present Illness ED Provider: Dr. Adriana Hernandez HPI narrative: Patient comes to the emergency room complaining of 3-4 days complaining of shortness of breath, chest pain, back pain, anxiety. Patient states that earlier today she was confused when she was driving. patient states that she had whole-body numbness and tingling that now self-resolved. Patient states that she took clonidine, which she takes for anxiety and panic attacks. Related Data Home Medications ?Medication ?Instructions ?Recorded ?Confirmed ascorbate calcium (vitamin C) 500 500 mg PO DAILY 08/07/21 06/16/24 mg tablet Previous Rx's ?Medication ?Instructions ?Recorded alprazolam 0.25 mg tablet 0.25 mg PO TID PRN anxiety 30 days 08/07/21 #90 tabs magnesium oxide 500 mg capsule 500 mg PO DAILY 90 days #90 caps 08/07/21 cholecalciferol (vitamin D3) 125 125 mcg PO .every other day 90 03/30/22 mcg (5,000 unit) capsule days #45 caps ipratropium bromide 42 mcg (0.06 2 spray intranasal TID PRN allergy 05/16/23 %) nasal spray symptoms #15 mL ketorolac 10 mg tablet 10 mg PO Q8H PRN pain 5 days #15 09/17/23 tabs hydrocortisone 2.5 % topical cream 1 appl UT BID-QID PRN hemorrhoids 01/07/24 with perineal applicator #30 grams (Proctosol HC) meclizine 12.5 mg tablet 12.5 mg PO BID PRN dizziness 90 01/11/24 days #180 tabs Ventolin HFA 90 mcg/actuation 2 puff PO Q6H PRN for muscle spasm 02/02/24 aerosol inhaler (albuterol sulfate) 30 days #18 grams vitamin A 2,400 mcg capsule 2,400 mcg PO DAILY 30 days #30 caps 02/04/24 clonidine HCl 0.1 mg tablet 0.1 mg PO BID 90 days #180 tabs 04/21/24 doxycycline hyclate 100 mg tablet 100 mg PO BID 7 days #14 tabs 05/01/24 montelukast 10 mg tablet 10 mg PO DAILY 90 days #90 tabs 05/04/24 bisacodyl 5 mg tablet,delayed 10 mg (2 x 5 mg) PO BEDTIME #180 05/07/24 release (Dulcolax (bisacodyl)) tabs esomeprazole magnesium 40 mg 40 mg PO DAILY #30 caps 05/07/24 capsule,delayed release (Nexium) budesonide-formoterol HFA 160 2 puff inhalation BID 30 days 05/14/24 mcg-4.5 mcg/actuation aerosol #10.2 grams inhaler fluticasone propionate 50 2 spray intranasal DAILY 30 days 05/14/24 mcg/actuation nasal #15.8 mL spray,suspension (Flonase Allergy Relief) Allergies Allergy/AdvReac Type Severity Reaction Status Date / Time clindamycin Allergy Severe itch, Verified 06/24/24 17:21 nausea, dizziness, scratchy throat, neck redness Penicillins [PENICILLINS] Allergy Intermediate RASH Verified 06/24/24 17:21 mushroom Allergy Mild Rash Verified 06/24/24 17:21 pineapple Allergy Mild Rash Verified 06/24/24 17:21 hydrocodone [HYDROCODONE] Allergy Unknown UNKNOWN Verified 06/24/24 17:21 morphine [MORPHINE] Allergy Unknown LETHARGY Verified 06/24/24 17:21 oxycodone [OXYCODONE] Allergy Unknown LEHTARGY Verified 06/24/24 17:21 Review of Systems Review of Systems: Constitutional : No Weight loss, No Fever, No Chills, No Night Sweats, No Fatigue, No Malaise ENT/Mouth : No Hearing loss, No Ear Pain, No Nasal Congestion, No Sinus Pain, No Hoarseness, No sore throat, No Rhinorrhea, No Swallowing Difficulty Eyes: No Eye Pain, No Swelling, No Redness, No Foreign Body, No Discharge, No Vision Changes Cardiovascular : No Chest Pain, No SOB, No Dyspnea on Exertion, No Orthopnea, No Edema, No Palpitations Respiratory : No Cough, No Sputum, No Wheezing, No Smoke Exposure, No Dyspnea Gastrointestinal : No Nausea, No Vomiting, No Diarrhea, No Constipation, No abdominal Pain, No Hematochezia, No Melena Genitourinary : no irregular bleeding, No Dysuria, No Urinary Frequency, No Hematuria, No Urinary Incontinence, No Urgency, No Flank Pain, No Urinary Flow Changes, No Hesitancy Musculoskeletal : complaining of musculoskeletal chest pain that radiates from the wrist to the chest up to the neck to the back and wraps around the thorax, No joint pain, No Myalgias, No Joint Swelling Skin : No Skin Lesions, No rash Neuro : No Weakness, No Numbness, No Paresthesias, complaining of an episode of confusion for a few sec, No Loss of Consciousness, No Dizziness, No Headache Psych : admits to having anxiety and panic attacks, No Depression, No SI/HI/AH/VH, No Social Issues, Heme/Lymph: No Bruising, No Bleeding,No Lymphadenopathy Endocrine : No Polyuria, No Polydipsia, No Temperature Intolerance [facility] Past Medical History Medical History Hyperparathyroidism Foot fracture, right Asthma Goiter Osteoarthritis, shoulder Chronic fatigue syndrome Fibromyalgia Neuropathy Panic attacks Hypothyroid Breast cancer, right Essential hypertension Allergic rhinitis Hypovitaminosis D Vertigo Mild persistent asthma NAVA (generalized anxiety disorder) Mild recurrent major depression Surgical History Status post laparoscopic cholecystectomy Hx of cholecystectomy Hx of colonoscopy History of salpingectomy History of breast implant History of mastectomy Family History Family History Mother Hypertension Asthma Osteoporosis Depression Anxiety Sleep apnea Fibromyalgia Mental health disorder Diabetes Father Diabetes Substance use disorder Social History Social History Housing: House Alcohol intake: never Patient Tobacco Use Status: Never used Tobacco Smoked in Last 30 Days: No e-Cigarette/Vaping Use: Never Used Second Hand Smoke Exposure: No Use of substances other than those prescribed or required for medical reasons: No Do you have a plan to hurt others: No Plan Patient : No service: No Current occupational status: unemployed and disabled Cognitive needs: No Hearing needs: No Vision needs: Yes Physical Exam ED Vital Signs: Vital Signs - 24 hr 06/24/24 17:16 06/24/24 21:02 06/24/24 21:41 Temperature 97.8 F 97.9 F Pulse Rate 96 88 82 Respiratory Rate 20 13 Blood Pressure 171/107 H 182/96 H 185/103 H Pulse Oximetry 98 99 Oxygen Delivery Method Room Air Room Air 06/24/24 22:14 Temperature Pulse Rate 85 Respiratory Rate 18 Blood Pressure 174/90 H Pulse Oximetry 97 Oxygen Delivery Method Room Air BMI result Body Mass Index 32.4 Const Other: Appearance: Alert. Oriented X3. No acute distress. Eyes: Pupils equal, round and reactive to light. ENT: Pharynx normal. Neck: Normal inspection. Neck supple. No lymph nodes noted. No crepitus CVS: reproducible pain to palpation over the left side of the chest, supraclavicular area, Normal heart rate and rhythm. Pulses normal. Normal S1 and S2 Respiratory: No respiratory distress. Breath sounds normal. No Wheezing. No rales Abdomen: Soft and nontender. No rigidity. No distention. Skin: Skin warm and dry. Normal skin color. Normal skin turgor. Extremities: No lower extremity edema. No Lacerations. No Rash Neuro: Oriented X 3. No motor deficit. No sensory deficit. Moving all extremities. No slurred speech. CN 2 through 12 grossly intact Psych: calm, cooperative, normal affect Course Course Course Narrative: This is a rapid medical exam performed by Rebeka Whitney NP: Additional HPI, ROS, PE not included below will be deferred to primary provider. 06/24/24 17:17 Patient is a 58-year-old female with history of asthma, fibromyalgia, R breast CA, panic attacks, anxiety and depression presenting with complaint of chest pain, shortness of breath, headache, back pain, face tingling for the past few days. Also complains of dizziness, confusion, states she didn't know where she was going while driving. She initially attributed symptoms to anxiety. Plan: EKG, labs, CT head, CXR Medications Administered Discontinued Medications Generic Name Dose Route Start Last Admin Trade Name Freq PRN Reason Stop Dose Admin Labetalol HCl 100 mg 06/24/24 21:23 06/24/24 21:41 Labetalol Hcl 100 Mg Tablet PO 06/24/24 21:24 100 mg ONCE ONE Administration Protocol Medical Decision Making Medical Decision Making [facility] Narrative: my interpretation of EKG: Normal sinus rhythm, heart rate 95, no ST segment depression or elevation, no T-wave inversion, QTC 482 my interpretation of labs: No significant abnormality in patient's hematology chemistry, normal LFTs and troponin CT scan of the head does not show any acute abnormality Chest x-ray: no acute abnormality patient's blood pressure in the 180s systolic , heart rate in the 90s. patient states that earlier today she took her clonidine. Patient will be given 1 dose of p.o. labetalol. After p.o. dose, patient's blood pressure improved to 174/90, patient overall feeling better, no chest pain shortness of breath , no visual changes, no headache. Differential Diagnosis Differential Diagnoses: The differential diagnosis associated with the presentation includes ( ACS, musculoskeletal chest pain, costochondritis, anxiety) Admission/Observation Consideration of admission/observation: Escalation of care including admission/observation considered ( given patient's symptoms, observation was considered) Lab Data MDM Lab Attestation statement: I reviewed the patient's lab results. 06/24/24 17:32 06/24/24 17:32 Labs: Lab Results 06/24/24 06/24/24 Range/Units 17:32 21:16 WBC 8.9 (4.8-10.8) X10*3/uL RBC 4.33 (4.20-5.50) X10*6/uL Hgb 11.4 L (12.0-16.0) g/dl Hct 34.9 L (37.0-47.0) % MCV 80.6 (80.0-98.0) fL MCH 26.3 L (27.0-33.0) pg MCHC 32.7 (31.0-35.0) g/dl RDW 12.6 (11.0-16.0) % Plt Count 325 (160-400) X10*3/uL MPV 9.2 L (9.4-12.3) fL Immature Gran % (Auto) 0.2 (0.0-0.4) % Neut % (Auto) 60.2 (45-73) % Lymph % (Auto) 27.1 (20-40) % [place] % (Auto) 8.6 (2-11) % Eos % (Auto) 3.3 (0-4) % Baso % (Auto) 0.6 (0-2) % Lymph # (Auto) 2.4 (1.2-4.9) X10*3/uL [place] # (Auto) 0.8 (0.1-1.2) X10*3/uL Eos # (Auto) 0.3 (0.0-0.4) X10*3/uL Baso # (Auto) 0.1 (0.0-0.2) X10*3/uL Abs Immat Gran (auto) 0.02 (0.00-0.03) X10*3/uL Absolute Neuts (auto) 5.4 (2.0-8.3) x10*3/uL Absolute Nucleated RBC 0.000 (0.0-0.012) X10*3/uL Nucleated RBC % (auto) 0.0 (0.0-0.2) /100WBC Sodium 143 (135-145) mmol/L Potassium 3.3 (3.3-5.1) mmol/L Chloride 110 H (96-108) mmol/L Carbon Dioxide 27 (22-29) mmol/L Anion Gap 9 L (12-20) BUN 7 L (9-16) mg/dL Creatinine 0.59 (0.5-1.4) mg/dL Estim Creat Clear Calc 84.3 Estimated GFR > 60 Random Glucose 94 (60-115) mg/dL Calcium 9.1 D (8.4-10.2) mg/dL Magnesium 1.8 (1.6-2.6) mg/dL Total Bilirubin 0.5 (0.0-1.0) mg/dL AST 21 (5-31) U/L ALT 12 (0-31) U/L Alkaline Phosphatase 101 (39-117) U/L Troponin I High Sens < 2.7 (<3.5-17.0) ng/L Total Protein 6.5 (6.5-8.0) g/dL Albumin 3.7 (3.5-5.0) g/dL Urine Color Yellow Urine Appearance Clear Urine pH 6.5 (5.0-9.0) Ur Specific [place] <= 1.005 (1.005-1.025) Urine Protein Negative (Neg-Trace) mg/dL Urine Glucose (UA) Negative (Negative) mg/dL Urine Ketones Negative (Negative) mg/dL Urine Blood Negative (Negative) Urine Nitrite Negative (Negative) Ur Leukocyte Esterase Negative (Negative) Independent Interpretation I performed an independent interpretation of an: EKG, Plain X-Ray and CT Scan Radiology Impression Discussion of test interpretation with radiology: I have reviewed the radiologist's reading. Radiologist Impression: No intra-axial mass, midline shift, hydrocephalus, or acute hemorrhage. No significant atrophy-like change or white matter disease. Mild mucosal thickening in left sphenoid sinus and minimal mucosal thickening in right sphenoid sinus. Left maxillary sinus mucous retention cyst/polyp. The orbits are within normal limits. No acute skull fracture. Heart size is normal. No consolidation, pleural effusion or pneumothorax. No acute fracture. Scores Heart Score History: -0- slightly suspicious ECG: -0- normal Age: -1- >45 - <65 Risk factory: -1- 1 or 2 risk factors Troponin: -0- < or = normal limit Score: 2 Risk: 1.7% Critical Care Time Critical Care Time Critical Care Time: Yes Total Critical Care Time: 45 Attestation: I have personally provided critical care time. Time includes review of lab data, radiology results, discussion with consultants, and monitoring for potential decompensation. Intervention performed as documented. Discharge Plan Discharge Clinical Impression: Atypical chest pain, Hypertension Patient Disposition: Home, Self-Care Instructions: Chest Pain (ED), Chronic Hypertension (ED) Prescriptions: No Action cholecalciferol (vitamin D3) 125 mcg (5,000 unit) capsule 125 mcg PO .every other day 90 Days Qty: 45 0RF meclizine 12.5 mg tablet 12.5 mg PO BID PRN (Reason: dizziness) 90 Days Qty: 180 0RF albuterol sulfate [Ventolin HFA] 90 mcg/actuation HFA aerosol inhaler 2 puff PO Q6H PRN (Reason: for muscle spasm) 30 Days Qty: 18 0RF vitamin A 2,400 mcg capsule 2,400 mcg PO DAILY 30 Days Qty: 30 1RF clonidine HCl 0.1 mg tablet 0.1 mg PO BID 90 Days Qty: 180 1RF montelukast 10 mg tablet 10 mg PO DAILY 90 Days Qty: 90 3RF ketorolac 10 mg tablet 10 mg PO Q8H PRN (Reason: pain) 5 Days Qty: 15 0RF ascorbate calcium (vitamin C) 500 mg tablet 500 mg PO DAILY alprazolam 0.25 mg tablet 0.25 mg PO TID PRN (Reason: anxiety) 30 Days Qty: 90 0RF magnesium oxide 500 mg capsule 500 mg PO DAILY 90 Days Qty: 90 1RF doxycycline hyclate 100 mg tablet 100 mg PO BID 7 Days Qty: 14 0RF ipratropium bromide 42 mcg (0.06 %) spray,non-aerosol 2 spray intranasal TID PRN (Reason: allergy symptoms) Qty: 15 6RF Rx Instructions: administer into each nostril hydrocortisone [Proctosol HC] 2.5 % cream with perineal applicator 1 appl UT BID-QID PRN (Reason: hemorrhoids) Qty: 30 2RF budesonide-formoterol 160-4.5 mcg/actuation HFA aerosol inhaler 2 puff inhalation BID 30 Days Qty: 10.2 11RF fluticasone propionate [Flonase Allergy Relief] 50 mcg/actuation spray,suspension 2 spray intranasal DAILY 30 Days Qty: 15.8 12RF Rx Instructions: administer into each nostril esomeprazole magnesium [Nexium] 40 mg capsule,delayed release(DR/EC) 40 mg PO DAILY Qty: 30 5RF bisacodyl [Dulcolax (bisacodyl)] 5 mg tablet,delayed release (DR/EC) 10 mg PO BEDTIME Qty: 180 4RF Print Language: Sinhala
--- NOTE | 2024-06-24 17:20 | ECG_ITS ---
Test Reason : CHEST PAIN Blood Pressure : */* mmHG Vent. Rate : 95 BPM Atrial Rate : 95 BPM P-R Int : 162 ms QRS Dur : 80 ms QT Int : 384 ms P-R-T Axes : 48 12 24 degrees QTcB Int : 482 ms Normal sinus rhythm Normal ECG When compared with ECG of 05-Nov-2022 12:22, No significant change was found Referred By: Celestina Whitney Electronically Signed By: LYDIA SAAVEDRA
[2024-06-24 17:36] LABS: MANUAL DIFF FLAG NO
[2024-06-24 17:40] LABS: Basophils Absolute Auto 0.1 X10*3/uL (0.0-0.2); Basophils Percent Auto 0.6 % (0-2); Eosinophils Absolute Auto 0.3 X10*3/uL (0.0-0.4); Eosinophils Percent Auto 3.3 % (0-4); Hematocrit 34.9 % (37.0-47.0); Hemoglobin 11.4 g/dl (12.0-16.0); Imm Gran Abs Auto 0.02 X10*3/uL (0.00-0.03); Imm Gran Pct Auto 0.2 % (0.0-0.4); Lymphocytes Absolute Auto 2.4 X10*3/uL (1.2-4.9); Lymphocytes Percent Auto 27.1 % (20-40); Mean Corpuscular HGB Conc 32.7 g/dl (31.0-35.0); Mean Corpuscular Hemoglobin 26.3 pg (27.0-33.0); Mean Corpuscular Volume 80.6 fL (80.0-98.0); Mean Platelet Volume 9.2 fL (9.4-12.3); Monocytes Absolute Auto 0.8 X10*3/uL (0.1-1.2); Monocytes Percent Auto 8.6 % (2-11); Neutrophils Absolute Auto 5.4 x10*3/uL (2.0-8.3); Neutrophils Percent Auto 60.2 % (45-73); Platelet Count 325 X10*3/uL (160-400); Red Blood Count 4.33 X10*6/uL (4.20-5.50); Red Cell Distribution Width 12.6 % (11.0-16.0); White Blood Count 8.9 X10*3/uL (4.8-10.8)
[2024-06-24 17:54] LABS: Alanine Aminotransferase 12 U/L (0-31); Albumin Level 3.7 g/dL (3.5-5.0); Alkaline Phosphatase 101 U/L (39-117); Anion Gap 9 (12-20); Aspartate Amino Transferase 21 U/L (5-31); Bilirubin Total 0.5 mg/dL (0.0-1.0); Blood Urea Nitrogen 7 mg/dL (9-16); Calcium 9.1 mg/dL (8.4-10.2); Carbon Dioxide 27 mmol/L (22-29); Chloride 110 mmol/L (96-108); Creatinine Clr Calc Pharmacy 84.3; Estimated Glomerular Filt Rate > 60; Glucose Random 94 mg/dL (60-115); Magnesium 1.8 mg/dL (1.6-2.6); Potassium 3.3 mmol/L (3.3-5.1); Sodium 143 mmol/L (135-145); Total Protein 6.5 g/dL (6.5-8.0)
[2024-06-24 18:00] LABS: Troponin-I High Sensitivity < 2.7 ng/L (<3.5-17.0)
[2024-06-24 21:02] VITALS: BP 182/96; PULSE 88; RESP 13; TEMP 36.6; O2SAT 99
[2024-06-24 21:24] LABS: Appearance Urine Clear; Color Urine Yellow; Glucose Urine UA Negative (Negative); Leukocyte Esterase Urine Negative (Negative); Nitrite Urine Negative (Negative); PH 6.5 (5.0-9.0); Specific Gravity - Urine <= 1.005 (1.005-1.025); Urine Blood Negative (Negative); Urine Ketones Negative (Negative); Urine Protein Negative (Neg-Trace)
[2024-06-24 21:41] VITALS: BP 185/103; PULSE 82
[2024-06-24] MEDS: Labetalol HCL 100 MG TABLET PO (21:41)
[2024-06-24 22:14] VITALS: BP 174/90; PULSE 85; RESP 18; O2SAT 97
[2024-06-24 22:51] VITALS: BP 174/90; PULSE 85; RESP 18; TEMP 36.8; O2SAT 97
--- NOTE | 2024-06-24 22:51 | PC.NURSE ---
Report given to CHE Pineda.
--- NOTE | 2024-06-24 22:52 | PC.NURSE ---
Dr. Hernandez is aware of BP 174/97, patient denies chest pain, shortness of breath, dizziness, lightheadedness. Per , AURE to d/c patient.
== END 2024-06-24 23:02 | disposition home or self-care (01) ==
PROVIDERS: Registered Nurse Emergency; Emergency Provider Emergency Medicine; PCP Internal Medicine
DX: R07.89 Other chest pain (principal); I10 Essential (primary) hypertension; J45.909 Unspecified asthma, uncomplicated; Z79.899 Other long term (current) drug therapy
CPT/HCPCS: 36415; 70450; 71046; 80053; 81003; 83735; 84484; 85025; 93005; 99284; 99285

== ENCOUNTER → 2024-06-24 17:20 | Outpatient (BNV) | payer BC, MEDICARE, MEDICAID, SELFPAY | PROVIDERS: Emergency Provider Emergency Medicine; PCP Internal Medicine; Visit Provider Internal Medicine | DX: R07.9 Chest pain, unspecified (principal) | CPT/HCPCS: 93010 ==

== ENCOUNTER → 2024-06-24 17:20 | Outpatient (BNV) | payer BC, MEDICARE, MEDICAID, SELFPAY | PROVIDERS: PCP Internal Medicine; Visit Provider Specialist | DX: R51.9 Headache, unspecified (principal); R41.0 Disorientation, unspecified; R07.9 Chest pain, unspecified | CPT/HCPCS: 70450; 71046 ==

== ENCOUNTER 2024-07-02 12:33 | Outpatient (AMB) | payer BC, MEDICARE, MEDICAID, SELFPAY ==
--- NOTE | 2024-07-02 12:37 | AM.OFFVISNUR ---
Intake Visit Reasons: [facility] [place] 4/3 Allergies clindamycin Allergy (Severe, Verified 06/24/24 17:21) itch, nausea, dizziness, scratchy throat, neck redness Penicillins [PENICILLINS] Allergy (Intermediate, Verified 06/24/24 17:21) RASH mushroom Allergy (Mild, Verified 06/24/24 17:21) Rash pineapple Allergy (Mild, Verified 06/24/24 17:21) Rash hydrocodone [HYDROCODONE] Allergy (Unknown, Verified 06/24/24 17:21) UNKNOWN morphine [MORPHINE] Allergy (Unknown, Verified 06/24/24 17:21) LETHARGY oxycodone [OXYCODONE] Allergy (Unknown, Verified 06/24/24 17:21) LEHTARGY Coding
--- NOTE | 2024-07-02 12:38 | A.OFFPC_ITS ---
Vital Signs 07/02/24 12:39 Height 4 ft 10 in Weight 155 lb BMI 32.4 BP 138/100 H Blood Pressure Location Lt brachial Position Sitting Pulse 87 Pulse Source Pulse Oximeter Temp 97.1 F Temp Source Temporal Artery Scan Pulse Oximetry (%) 99 Oxygen Delivery Method Room Air [place] [facility] [place] Intake Note: Patient is here to follow-up after a visit the emergency department at [facility] on 06/24/2024 [place] Required: No Accompanied by: Self / Same As Patient Allergies clindamycin Allergy (Severe, Verified 07/02/24 12:40) itch, nausea, dizziness, scratchy throat, neck redness Penicillins [PENICILLINS] Allergy (Intermediate, Verified 07/02/24 12:40) RASH mushroom Allergy (Mild, Verified 07/02/24 12:40) Rash pineapple Allergy (Mild, Verified 07/02/24 12:40) Rash hydrocodone [HYDROCODONE] Allergy (Unknown, Verified 07/02/24 12:40) UNKNOWN morphine [MORPHINE] Allergy (Unknown, Verified 07/02/24 12:40) LETHARGY oxycodone [OXYCODONE] Allergy (Unknown, Verified 07/02/24 12:40) LEHTARGY Tobacco use date assessed: 07/02/24 Dental Screening Dental Screen Date: 07/02/24 Did you have a dental visit in the last 12 months?: Yes Did you have a dental problem in the last 6 months where you did not have access to dental care?: No Was dental information given to patient?: Patient has dentist HPI HPI Comments History of Present Illness Details 58 y/o female patient who presents to [facility] for EDF. [place] [facility] [place] for Atypical Chest Pain and High Blood Pressure. All work-up negative. She does have h/o Anxiety, Panic Attacks and HTN. She takes Clodine for Anxiety. Today BP elevated and the review of her BP Log shows High BP readings. [facility] Medical History Hyperparathyroidism Foot fracture, right Asthma Goiter Osteoarthritis, shoulder Chronic fatigue syndrome Fibromyalgia Neuropathy Panic attacks Hypothyroid Breast cancer, right Essential hypertension Allergic rhinitis Hypovitaminosis D Vertigo Mild persistent asthma NAVA (generalized anxiety disorder) Mild recurrent major depression Surgical History Status post laparoscopic cholecystectomy Hx of cholecystectomy Hx of colonoscopy History of salpingectomy History of breast implant History of mastectomy Family History Mother Hypertension Asthma Osteoporosis Depression Anxiety Sleep apnea Fibromyalgia Mental health disorder Diabetes Father Diabetes Substance use disorder Social History Housing: House Alcohol intake: never Patient Tobacco Use Status: Never used Tobacco e-Cigarette/Vaping Use: Never Used Second Hand Smoke Exposure: No service: No Current occupational status: unemployed and disabled Cognitive needs: No Hearing needs: No Vision needs: Yes (Glasses) Questionnaire Thrive Questionnaire Date Thrive assessed: 07/02/24 I am a: Patient What is your living situation today?: I have a steady place to live Within the past 12 months, did the food you bought not last and you didn't have the money to get more?: Never true Within the past 12 months, did you worry whether your food would run out before you got money to buy more?: Never true Do you have trouble paying for medicines?: No Do you have trouble getting transportation to medical appointments?: No Do you have trouble paying your heating and electricity bill?: No Do you have trouble taking care of your child, family member or friend?: No Do you have trouble with day-to-day activities such as bathing, preparing meals, shopping, managing finances, etc.?: No Are you currently unemployed and looking for a job?: No Are you interested in more education?: No Please select the resources that you would like help with: None Currently or been in a relationship where the following occur: No concerns reported THRIVE Score: 0 AUDIT C Alcohol Use Questionnaire (AUDIT-C) 1. How often do you have a drink containing alcohol?: Never 3. How often do you have six or more drinks on one occasion?: Never Total Score: 0 Score Reviewed/Action Taken: No NAAV-7 AMB Questionnaire NAVA-7 Date NAVA - 7 assessed: 06/16/24 Source: Developed by Drs. Homar Cancino, Mar Pike, Imer Montesinos and colleagues, with an educational nalini from [employer]. Review of Systems Const All systems reviewed & are unremarkable except as noted in HPI and below Physical exam (Primary Care) Vital Signs: Last Vital Signs Temp 97.1 F 07/02/24 12:39 Pulse 87 07/02/24 12:39 BP 138/100 H 07/02/24 12:39 Pulse Ox 99 07/02/24 12:39 Oxygen Delivery Method Room Air 07/02/24 12:39 BMI result Body Mass Index 32.4 Tobacco/Smoking Status: Tobacco use Status Tobacco use date assessed 07/02/24 07/02/24 12:53 Patient Tobacco Use Status Never used Tobacco 07/02/24 12:53 Tobacco use type 05/07/24 13:32 e-Cigarette/Vaping Use Never Used 07/02/24 12:53 Thrive Assessment: Date of Thrive Assessment Date Thrive assessed 07/02/24 07/02/24 12:53 Currently or been in a relationship where the following occur: No concerns reported Const General: no acute distress Nutritional Appearance: obese Orientation/consciousness: patient oriented x3 Resp Effort & Inspection: normal respiratory effort and able to speak in complete sentences Auscultation: clear to auscultation bilaterally, no crackles, no rales, no rhonchi and no wheezes Cardio Rate: regular rate Heart sounds: S1 normal heart sound present and S2 normal heart sound present Neuro General: patient oriented x3 Coding Level of Care Code Est Pt Level 4 (90001) Diagnoses Essential hypertension I10 Time Spent (min) 20 Assessment & Plan Assessment & Plan (1) Essential hypertension: Code(s): I10 - Essential (primary) hypertension Category: Medical Plan: Started metoprolol 25 mg once daily. Patient hesitant to start new medication. Advised to check BPs at home daily and Hold Metoprolol for BP below; Systolic <90 and Diastolic <50 F/U with PCP for Blood Management. Medications: New metoprolol tartrate 25 mg PO DAILY 30 tabs 0RF I10 - Essential (primary) hypertension, R07.89 - Other chest pain
[2024-07-02 12:39] VITALS: BP 138/100; PULSE 87; TEMP 36.2; O2SAT 99; BMI 32.4
== END 2024-07-02 13:28 | disposition home or self-care (01) ==
LOC: HO.HMCH 12:34
PROVIDERS: PCP Internal Medicine; Visit Provider Nurse Practitioner Family
DX: I10 Essential (primary) hypertension (principal)

== ENCOUNTER → 2024-07-02 12:33 | Outpatient (BNVA) | payer BC, MEDICARE, MEDICAID, SELFPAY | PROVIDERS: PCP Internal Medicine; Visit Provider Nurse Practitioner Family ==

== ENCOUNTER 2024-07-26 12:00 | Outpatient (AMB) | payer BC, MEDICARE, MEDICAID, SELFPAY ==
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
[2024-07-26 12:04] VITALS: BP 144/82; PULSE 74; O2SAT 100; BMI 32.4
== END 2024-07-26 13:22 | disposition home or self-care (01) ==
LOC: HO.HGI 12:00
PROVIDERS: PCP Internal Medicine; Visit Provider Nurse Practitioner Family
DX: K59.01 Slow transit constipation (principal); R10.32 Left lower quadrant pain; Z90.49 Acquired absence of other specified parts of digestive tract; K58.1 Irritable bowel syndrome with constipation; K21.9 Gastro-esophageal reflux disease without esophagitis
CPT/HCPCS: 99214

== ENCOUNTER 2024-09-09 10:24 | Outpatient (AMB) | payer BC, MEDICARE, MEDICAID, SELFPAY ==
[2024-09-09 10:36] VITALS: PULSE 78; TEMP 36.6; O2SAT 95; BMI 31.2
--- NOTE | 2024-09-09 10:36 | AM.OFFWIN_ITS ---
Intake Vital Signs 09/09/24 10:36 Height 4 ft 10 in Weight 149 lb 6 oz BMI 31.2 Pulse 78 Pulse Source Pulse Oximeter Temp 97.9 F Temp Source Oral Pulse Oximetry (%) 95 Oxygen Delivery Method Room Air Intake Visit Reasons: EP-rt side lower back pain Intake Note: Patient present with right sided low back pain times 2 weeks. Friday frequent urination with pain and Friday she started with diarrhea and heartburn Patient Tobacco Use Status: Never used Tobacco Allergies clindamycin Allergy (Severe, Verified 09/09/24 10:43) itch, nausea, dizziness, scratchy throat, neck redness Penicillins (PENICILLINS) Allergy (Intermediate, Verified 09/09/24 10:43) RASH mushroom Allergy (Mild, Verified 09/09/24 10:43) Rash pineapple Allergy (Mild, Verified 09/09/24 10:43) Rash hydrocodone (HYDROCODONE) Allergy (Unknown, Verified 09/09/24 10:43) UNKNOWN morphine (MORPHINE) Allergy (Unknown, Verified 09/09/24 10:43) LETHARGY oxycodone (OXYCODONE) Allergy (Unknown, Verified 09/09/24 10:43) LEHTARGY Do you need a note to return to daycare/school/sports/work: No HPI HPI Comments History of Present Illness Details 59 y/o Female patient who presents to [facility] in clinic with c/o right sided lower back pain for 2 weeks. Denies injury or trauma to the Back. Reports from Friday started to have frequent urination with pain and Epigastric region burning pain associated with diarrhea and heartburn. She does have h/o GERD and Constipation - sees GI, and takes Nexium and Dulcolax. Was prescribed Linzess but she is not taking it yet. [facility] Medical History (Updated 09/09/24 @ 12:03 by Ekta Rocha NP) Low back pain radiating to right leg GERD (gastroesophageal reflux disease) Hyperparathyroidism Foot fracture, right Asthma Goiter Osteoarthritis, shoulder Chronic fatigue syndrome Fibromyalgia Neuropathy Panic attacks Hypothyroid Breast cancer, right Essential hypertension Allergic rhinitis Hypovitaminosis D Vertigo Mild persistent asthma NAVA (generalized anxiety disorder) Mild recurrent major depression Surgical History Status post laparoscopic cholecystectomy Hx of cholecystectomy Hx of colonoscopy History of salpingectomy History of breast implant History of mastectomy Family History Mother Hypertension Asthma Osteoporosis Depression Anxiety Sleep apnea Fibromyalgia Mental health disorder Diabetes Father Diabetes Substance use disorder Social History Housing: House Alcohol intake: never Patient Tobacco Use Status: Never used Tobacco e-Cigarette/Vaping Use: Never Used Second Hand Smoke Exposure: No service: No Current occupational status: unemployed and disabled Cognitive needs: No Hearing needs: No Vision needs: Yes (Glasses) Physical Exam Vital Signs: Last Vital Signs Temp 97.9 F 09/09/24 10:36 Pulse 78 09/09/24 10:36 Pulse Ox 95 09/09/24 10:36 Oxygen Delivery Method Room Air 09/09/24 10:36 BMI result Body Mass Index 31.2 Const General: no acute distress Nutritional Appearance: obese Orientation/consciousness: patient oriented x3 GI Inspection: Yes obesity Palpation (GI): Soft to palpation, not firm, Tenderness to palpation present (GI) in the epigastrum, no guarding, not rigid and No hepatosplenomegaly present Auscultation: Hypoactive bowel sounds present Neuro General: patient oriented x3, gait normal and moves all extremities Psych Speech and movement: Normal speech and movement present Assessment & Plan Assessment & Plan (1) Low back pain radiating to right leg: Code(s): M54.50 - Low back pain, unspecified; M79.604 - Pain in right leg Plan: Urinalysis negative NSAIDs or Acetaminophen for pain relief. Ice/Hot (2) GERD (gastroesophageal reflux disease): Code(s): K21.9 - Gastro-esophageal reflux disease without esophagitis Qualifiers: Esophagitis presence: without esophagitis Qualified Code(s): K21.9 - Gastro-esophageal reflux disease without esophagitis Plan: Managed by GI Continue on prescribed medications. F/U with GI Coding Level of Care Code Est Pt Level 4 (35404) Diagnoses Low back pain radiating to right leg M54.50; M79.604 Gastroesophageal reflux disease without esophagitis K21.9 Esophagitis presence: without esophagitis Time Spent (min) 20
== END 2024-09-09 12:10 | disposition home or self-care (01) ==
PROVIDERS: PCP Internal Medicine; Visit Provider Nurse Practitioner Family
DX: M54.50 Low back pain, unspecified (principal); M79.604 Pain in right leg; K21.9 Gastro-esophageal reflux disease without esophagitis

== ENCOUNTER → 2024-09-09 10:24 | Outpatient (BNVA) | payer BC, MEDICARE, MEDICAID, SELFPAY | PROVIDERS: PCP Internal Medicine; Visit Provider Nurse Practitioner Family ==

== ENCOUNTER 2024-10-27 17:01 | Outpatient (AMB) | payer BC, MEDICARE, MEDICAID, SELFPAY ==
--- NOTE | 2024-10-27 17:03 | A.OFFPC_ITS ---
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: No Accompanied by: Self / Same As Patient Allergies clindamycin Allergy (Severe, Verified 10/27/24 17:15) itch, nausea, dizziness, scratchy throat, neck redness Penicillins (PENICILLINS) Allergy (Intermediate, Verified 10/27/24 17:15) RASH mushroom Allergy (Mild, Verified 10/27/24 17:15) Rash pineapple Allergy (Mild, Verified 10/27/24 17:15) Rash hydrocodone (HYDROCODONE) Allergy (Unknown, Verified 10/27/24 17:15) UNKNOWN morphine (MORPHINE) Allergy (Unknown, Verified 10/27/24 17:15) LETHARGY oxycodone (OXYCODONE) Allergy (Unknown, Verified 10/27/24 17:15) LEHTARGY Medication List - Last Reconciled 10/27/24 by Khushboo Godinez MD alprazolam 0.25 mg PO TID PRN 30 days ascorbate calcium (vitamin C) 500 mg PO DAILY bisacodyl (Dulcolax (bisacodyl)) 10 mg (2 x 5 mg) PO BEDTIME budesonide-formoterol 160-4.5 mcg/actuation 2 puffs inhalation BID 30 days cholecalciferol (vitamin D3) 125 mcg PO .every other day 90 days clonidine HCl 0.1 mg PO BID 90 days esomeprazole magnesium (Nexium) 40 mg PO DAILY hydrocortisone 2.5% (Proctosol HC) 1 appl [place] BID-QID PRN magnesium oxide 500 mg PO DAILY 90 days meclizine 12.5 mg PO BID PRN 90 days metoprolol tartrate 25 mg PO DAILY Ventolin HFA 90 mcg/actuation (albuterol sulfate) 2 puffs PO Q6H PRN 30 days NS Tobacco use date assessed: 07/02/24 Dental Screening Dental Screen Date: 07/02/24 HPI HPI Comments History of Present Illness Details The patient is a 59-year-old female presenting for management of anxiety, depression, and hypertension. The patient reports experiencing anxiety and depression, with symptoms including feelings of sadness and lack of emotion. She has been wary of medications due to side effects such as lethargy and emotional numbness. She denies suicidal ideation but acknowledges feeling sad, especially after family bereavements. The patient has a history of hypertension, with a recent reading of 176/102 mmHg while in [place], attributed to missed medication doses. She uses clonidine, which has led to concerns about rebound hypertension. The patient has been diagnosed with gluten sensitivity, leading her to avoid gluten-containing foods. She has switched to sourdough bread, which contains less gluten, to manage her symptoms. Preventative care measures include a discussion about scheduling a colonoscopy, which the patient is considering for the current year despite no immediate symptoms. [facility] Medical History Low back pain radiating to right leg GERD (gastroesophageal reflux disease) Hyperparathyroidism Foot fracture, right Asthma Goiter Osteoarthritis, shoulder Chronic fatigue syndrome Fibromyalgia Neuropathy Panic attacks Hypothyroid Breast cancer, right Essential hypertension Allergic rhinitis Hypovitaminosis D Vertigo Mild persistent asthma NAVA (generalized anxiety disorder) Mild recurrent major depression Surgical History Status post laparoscopic cholecystectomy Hx of cholecystectomy Hx of colonoscopy History of salpingectomy History of breast implant History of mastectomy Family History Mother Hypertension Asthma Osteoporosis Depression Anxiety Sleep apnea Fibromyalgia Mental health disorder Diabetes Father Diabetes Substance use disorder Social History Housing: House Alcohol intake: never Patient Tobacco Use Status: Never used Tobacco e-Cigarette/Vaping Use: Never Used Second Hand Smoke Exposure: No service: No Current occupational status: unemployed and disabled Cognitive needs: No Hearing needs: No Vision needs: Yes (Glasses) Questionnaire PHQ-9 Over the last 2 weeks, how often have you been bothered by any of the following problems? 1. Little interest or pleasure in doing things: several days 2. Feeling down, depressed, or hopeless: several days 3. Trouble falling or staying asleep, or sleeping too much: nearly every day 4. Feeling tired or having little energy: nearly every day 5. Poor appetite or overeating: nearly every day 6. Feeling bad about yourself - or that you are a failure or have let yourself or your family down: not at all 7. Trouble concentrating on things, such as reading the newspaper or watching television: several days 8. Moving or speaking so slowly that other people could have noticed. Or the opposite - being so fidgety or restless that you have been moving around a lot more than usual: not at all 9. Thoughts that you would be better off or of hurting yourself in some way: not at all Total score: 12 Depression Screening Interpretation: Positive Depression Screening Follow-up: Existing condition and Follow-up Visit Requested Depression Screening Done: Yes 31575 - PHQ-9 Billing: Yes Source: Developed by Drs. Homar Cancino, Mar Pike, Imer Montesinos and colleagues, with an educational nalini from [employer]. Thrive Questionnaire Date Thrive assessed: 07/02/24 I am a: Patient What is your living situation today?: I have a steady place to live Within the past 12 months, did the food you bought not last and you didn't have the money to get more?: Never true Within the past 12 months, did you worry whether your food would run out before you got money to buy more?: Never true Do you have trouble paying for medicines?: Yes Do you have trouble getting transportation to medical appointments?: Yes Do you have trouble paying your heating and electricity bill?: Yes Do you have trouble taking care of your child, family member or friend?: No Do you have trouble with day-to-day activities such as bathing, preparing meals, shopping, managing finances, etc.?: No Are you currently unemployed and looking for a job?: I choose not to answer this question Are you interested in more education?: I choose not to answer this question Please select the resources that you would like help with: Paying for medicine Currently or been in a relationship where the following occur: No concerns reported THRIVE Score: 2 AUDIT C Alcohol Use Questionnaire (AUDIT-C) 1. How often do you have a drink containing alcohol?: Never Total Score: 0 Score Reviewed/Action Taken: No NAVA-7 AMB Questionnaire NAVA-7 Date NAVA - 7 assessed: 06/16/24 Feeling nervous, anxious, or on edge: 1 = Several days Not being able to stop or control worryin = Several days Worrying too much about different things: 1 = Several days Trouble relaxin = Several days Being so restless that it is hard to sit still: 1 = Several days Becoming easily annoyed or irritable: 0 = Not at all Feeling afraid as if something awful might happen: 1 = Several days Total NAVA-7 score (0-4 normal; 5-9 mild; 10-14 moderate; 15-21 severe): 6 Source: Developed by Drs. Homar Cancino, Mar Pike, Imer Montesinos and colleagues, with an educational nalini from [employer]. NAVA-7 Assessment Billing NAVA-7 Assessment Tool: NAVA-7 Assessment 31855 Review of Systems Const All systems reviewed & are unremarkable except as noted in HPI and below Card Denies chest pain at rest, Denies chest pain with activity, Denies edema, Denies irregular heart rhythm, Denies claudication, Denies dyspnea, Denies dyspnea on exertion, Denies orthopnea, Denies paroxysmal nocturnal dyspnea and Denies slow heart rate Resp Denies cough, Denies dyspnea and Denies dyspnea on exertion GI Denies abdominal pain, Denies change in bowel habits, Denies excessive flatus, Denies nausea and Denies vomiting Physical exam (Primary Care) Vital Signs: Last Vital Signs BP 154/108 H 10/27/24 17:04 BMI result Body Mass Index 30.7 Tobacco/Smoking Status: Tobacco use Status Tobacco use date assessed 07/02/24 10/27/24 17:09 Patient Tobacco Use Status Never used Tobacco 10/27/24 17:09 Tobacco use type 05/07/24 13:32 e-Cigarette/Vaping Use Never Used 10/27/24 17:09 PHQ-9: PHQ-9 Score PHQ-9: Total score 12 10/27/24 17:24 Depression Screening Interpretation: Positive Depression Screening Follow-up: Existing condition and Follow-up Visit Requested Thrive Assessment: Date of Thrive Assessment Date Thrive assessed 07/02/24 10/27/24 17:09 Currently or been in a relationship where the following occur: No concerns reported Resp Effort & Inspection: normal respiratory effort Auscultation: clear to auscultation bilaterally Cardio Jugular venous distension: no JVD Rate: regular rate Rhythm: regular rhythm Heart sounds: S1 normal heart sound present and S2 normal heart sound present Extrem General: Yes full ROM Coding Level of Care Code Est Pt Level 4 (05326) Complex EM visit Add On G2211 Diagnoses Mild recurrent major depression F33.0 NAVA (generalized anxiety disorder) F41.1 Essential hypertension I10 Hypothyroid E03.9 Gastroesophageal reflux disease without esophagitis K21.9 Esophagitis presence: without esophagitis Breast cancer, right C50.911 Mild persistent asthma without complication J45.30 Asthma complication type: uncomplicated Additional Codes NAVA-7 Assessment Billing - NAVA-7 Assessment Tool: NAVA-7 Assessment 49875 ([id number]) PHQ-9 - 46629 - PHQ-9 Billing: Yes ([id number]) Time Spent (min) 23 Assessment & Plan Assessment & Plan (1) Mild recurrent major depression: Code(s): F33.0 - Major depressive disorder, recurrent, mild Category: Medical (2) NAVA (generalized anxiety disorder): Code(s): F41.1 - Generalized anxiety disorder Category: Medical (3) Essential hypertension: Code(s): I10 - Essential (primary) hypertension Category: Medical (4) Hypothyroid: Code(s): E03.9 - Hypothyroidism, unspecified Category: Medical (5) GERD (gastroesophageal reflux disease): Code(s): K21.9 - Gastro-esophageal reflux disease without esophagitis Category: Medical Qualifiers: Esophagitis presence: without esophagitis Qualified Code(s): K21.9 - Gastro-esophageal reflux disease without esophagitis (6) Breast cancer, right: Comment: 2017. [facility] receiving with right mastectomy and chemotherapy Code(s): C50.911 - Malignant neoplasm of unspecified site of right female breast Category: Medical (7) Mild persistent asthma: Code(s): J45.30 - Mild persistent asthma, uncomplicated Category: Medical Qualifiers: Asthma complication type: uncomplicated Qualified Code(s): J45.30 - Mild persistent asthma, uncomplicated Plan The patient will continue to manage her anxiety and depression with careful monitoring of medication side effects, particularly those affecting her emotional state. For hypertension, she will ensure adherence to her medication regimen, particularly clonidine, to prevent rebound hypertension. Dietary modifications will continue for gluten sensitivity, with a focus on maintaining a gluten-free diet. Preventative care includes scheduling a colonoscopy within the year to ensure early detection of any potential issues. Patient was informed and verbally consented to the use of an ambient scribe for clinic note documentation during this visit. Orders: Orders Thyroid Stimulating Hormone Today E03.9 - Hypothyroidism, unspecified Complete Blood Count Auto Diff 4 Months D64.9 - Anemia, unspecified, R53.82 - Chronic fatigue, unspecified Vitamin B12 and Folate 4 Months E53.8 - Deficiency of other specified B group vitamins, R53.82 - Chronic fatigue, unspecified Vitamin D 25-OH Total 4 Months E55.9 - Vitamin D deficiency, unspecified, R53.82 - Chronic fatigue, unspecified IRON PROFILE 4 Months D64.9 - Anemia, unspecified, R53.82 - Chronic fatigue, un specified Lipid Panel 4 Months E78.5 - Hyperlipidemia, unspecified Medications: New levalbuterol tartrate 45 mcg/actuation (Xopenex HFA) 2 puffs inhalation Q4-6H PRN 15 grams 1RF shortness of breath 30 days pantoprazole 40 mg PO DAILY 90 tabs 1RF 90 days
[2024-10-27 17:04] VITALS: BP 154/108; BMI 30.7
[2024-10-27 19:55] VITALS: BP 138/88
== END 2024-10-27 17:38 | disposition home or self-care (01) ==
LOC: HO.HMCH 17:02
PROVIDERS: PCP Internal Medicine; Visit Provider Internal Medicine
DX: F33.0 Major depressive disorder, recurrent, mild (principal); F41.1 Generalized anxiety disorder; I10 Essential (primary) hypertension; E03.9 Hypothyroidism, unspecified; K21.9 Gastro-esophageal reflux disease without esophagitis; C50.911 Malignant neoplasm of unspecified site of right female breast; J45.30 Mild persistent asthma, uncomplicated

== ENCOUNTER → 2024-10-27 17:01 | Outpatient (BNVA) | payer BC, MEDICARE, MEDICAID, SELFPAY | PROVIDERS: PCP Internal Medicine; Visit Provider Internal Medicine | DX: F33.0 Major depressive disorder, recurrent, mild (principal); F41.1 Generalized anxiety disorder; I10 Essential (primary) hypertension; E03.9 Hypothyroidism, unspecified; K21.9 Gastro-esophageal reflux disease without esophagitis; J45.30 Mild persistent asthma, uncomplicated; Z85.3 Personal history of malignant neoplasm of breast; Z13.31 Encounter for screening for depression | CPT/HCPCS: 96127 ==

== ENCOUNTER 2024-12-02 10:52 | Outpatient (AMB) | payer BC, MEDICARE, MEDICAID, SELFPAY ==
[2024-12-02 11:12] VITALS: BP 98/70; PULSE 80; O2SAT 98; BMI 31.1
--- NOTE | 2024-12-02 11:12 | MHC.OFFVIS ---
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 Accompanied by: Self / Same As Patient Allergies clindamycin Allergy (Severe, Verified 12/02/24 11:16) itch, nausea, dizziness, scratchy throat, neck redness Penicillins (PENICILLINS) Allergy (Intermediate, Verified 12/02/24 11:16) RASH mushroom Allergy (Mild, Verified 12/02/24 11:16) Rash pineapple Allergy (Mild, Verified 12/02/24 11:16) Rash hydrocodone (HYDROCODONE) Allergy (Unknown, Verified 12/02/24 11:16) UNKNOWN morphine (MORPHINE) Allergy (Unknown, Verified 12/02/24 11:16) LETHARGY oxycodone (OXYCODONE) Allergy (Unknown, Verified 12/02/24 11:16) LEHTARGY HPI Comments Details: The patient is a 59 year woman with a known history of breast cancer status post mastectomy in addition to asthma. She has had mild intermittent asthma for many years. She has an inhaler that she rarely use. Unfortunately, the summer time she started developing worsening respiratory symptoms and had worsening cough and chest tightness. She has been using her rescue inhaler once or twice a day. the patient was evaluated in the ER he follow were October 2022 with worsening respiratory symptoms. She did undergo a CT a and ruled out pneumonia. The patient also with a history of breast cancer was reassuring without any evidence of any recurrence or any nodular densities or lymphadenopathy. the patient has also been allergic to cats and other other things. Based on her blood work she did have some degree of eosinophilia. Now even the family that only the CT when they go to visit her can exacerbate her breathing. Other triggers can be viruses strong perfumes can also trigger her breathing. In the office she does have significant chest tightness and coughing. The patient did receive a Xopenex treatment in the office improving her chest tightness although she did become tremulous. The patient does need to be on respiratory medications with maintenance inhalers at this time. Will request allergy testing PFTs to further address her ongoing symptoms. 05/16/2023 the patient is here for a pulmonary follow-up visit. The patient overall has been doing better. She continues to take the Breo daily. She does have a rescue inhaler she has not required as often. She continues to take her allergy medications including the Singulair in the antihistamine therapy. Seems like she is doing better from the asthma standpoint on this current therapy. She still uses her rescue inhaler but typically when exposed to her allergens. She did have allergy testing she has significant allergies to dust mites but more significantly has significant high allergies to both cats and dogs. The worse. She has never had episodes of any stridor angioedema or severe reactions in that fashion but she does have significant chest tightness and wheezing at times. The patient does not have a cat or dog. However, her children do. I did give her information for her to take to her children so they know how severe her allergies are to make sure that the animals in pets are not close to the patient. We did talk about biologic therapy. The patient does have a significant elevation of the IgE and also eosinophils and she will be a great candidate for Xolair in addition to other biologics. The patient also can consider allergy shots specially she was 2 modular humeral response to the dogs in the CT in the dust mites. The patient did not have her PFTs she was not able to do because her car broke down. Will plan to do it the next time. Therefore, she will continue with the current therapy but again she will call if her symptoms worsen we can consider biologic therapy. 11/12/2023 the patient is here for a pulmonary follow-up visit. Overall she is doing better. Unfortunately, her dog and she now had does not have the allergy exposure which will help her asthma. The patient has been responding well to Breo. For some reason she has not been able to fill it. I will send him to the pharmacy. The Breo has been very affecting beneficial so we want to continue. She was not able to get her pulmonary function studies because we had to cancel. Will plan to repeat them or do them in 6 months' time. The patient does not need biologic therapy at this point. Her respiratory symptoms are better controlled on the maintenance inhaler and she needs to continue it as prescribed. She also has a rescue inhaler that she uses and tries to minimize to less than 2 times a week. If she is going to visit her siblings who have dogs sometimes she does have some symptoms. I did recommend that she can pretreated prior to those visits. She also continue antihistamine therapy as needed. So therefore for now will continue with the current therapy will make sure that she gets her Breo and will follow-up in 6 months with PFTs. 05/14/2024 the patient is here for pulmonary follow-up visit. Overall the patient has been doing okay she does complaint of ear pressure and pain. She was started on a course of prednisone and she did not like the way that made her feel. The patient otherwise has not been using her Breo she does not like to use a powdered irritates her. Breathing lam she is doing okay although she has a cough. [id number] severity. Her last imaging study was CT scan of the abdomen that was back in 07/12/2023 lung windows appear to be okay. She had surgery after that for her gallbladder. It showed that she did having the chronic cholecystitis. And now she is following up with her oncologist regarding her history of breast cancer. She did not receive any radiation to the chest. She does have some nasal congestion. We are going to go ahead and start her on fluticasone nasal spray. We did talk about a NeilMed sinus rinse with the Neti bottle. She is going to see about getting 1 and understands she can only use it with distilled water make sure the bottle was clean. In addition to that will switch over to Symbicort to minimize on the powder irritation. 12/02/2024 the patient is here for pulmonary follow-up visit. She has been complaining of dyspnea in addition to some chest pressure. In part she feels like it is related to her blood pressures has been very uncontrolled. She had been followed by endocrinology for the question of pheochromocytoma but that pin down okay. She continues to be on blood pressure medications into the actually her blood pressure was on the low side. She will follow-up with her primary care doctor. In the meantime I will request a stress echo to assess for any cardiac involvement of her ongoing chest pain and shortness of breath. In part because of the elevated blood pressures the patient also was noted to have daytime drowsiness with an elevated Mayview score of 11/24. Will go ahead and request a sleep study this time to see if untreated sleep apnea may be a culprit of her high blood pressure. The patient follow-up after those studies. From a pulmonary standpoint she will continue with the current respiratory therapy as prescribed. [facility] Medical History Low back pain radiating to right leg GERD (gastroesophageal reflux disease) Hyperparathyroidism Foot fracture, right Asthma Goiter Osteoarthritis, shoulder Chronic fatigue syndrome Fibromyalgia Neuropathy Panic attacks Hypothyroid Breast cancer, right Essential hypertension Allergic rhinitis Hypovitaminosis D Vertigo Mild persistent asthma NAVA (generalized anxiety disorder) Mild recurrent major depression Surgical History Status post laparoscopic cholecystectomy Hx of cholecystectomy Hx of colonoscopy History of salpingectomy History of breast implant History of mastectomy Family History Mother Hypertension Asthma Osteoporosis Depression Anxiety Sleep apnea Fibromyalgia Mental health disorder Diabetes Father Diabetes Substance use disorder Social History Housing: House Alcohol intake: never Patient Tobacco Use Status: Never used Tobacco e-Cigarette/Vaping Use: Never Used Second Hand Smoke Exposure: No service: No Current occupational status: unemployed and disabled Cognitive needs: No Hearing needs: No Vision needs: Yes (Glasses) Review of Systems Const All systems reviewed & are unremarkable except as noted in HPI and below Eyes Reports no additional complaints ENT Reports nasal congestion and Reports nasal discharge Card Denies chest pain at rest, Denies chest pain with activity, Denies edema, Denies irregular heart rhythm, Denies claudication, Denies dyspnea, Denies dyspnea on exertion, Denies orthopnea, Denies paroxysmal nocturnal dyspnea and Denies slow heart rate Resp Reports cough, Denies dyspnea, Denies dyspnea on exertion and Denies wheezing GI Denies abdominal pain, Denies change in bowel habits, Denies excessive flatus, Denies nausea and Denies vomiting Skin/Breast Denies rash Neuro Reports no additional complaints Chandu/Lymph Reports no additional complaints Aller/Immun Denies wheezing Physical Exam Vital Signs: Last Vital Signs Pulse 80 12/02/24 11:12 BP 98/70 12/02/24 11:12 Pulse Ox 98 12/02/24 11:12 Oxygen Delivery Method Room Air 12/02/24 11:12 BMI result Body Mass Index 31.1 Const General: healthy appearing and no acute distress Nutritional Appearance: obese Orientation/consciousness: patient oriented x3 Resp Effort & Inspection: normal respiratory effort, able to speak in complete sentences and no tracheal deviation Auscultation: clear to auscultation bilaterally Cardio Rate: regular rate GI Inspection: No distended and Yes obesity Palpation (GI): Soft to palpation, not firm, nontender and No hepatosplenomegaly present Auscultation: normal bowel sounds General: Yes no CVA tenderness Back/Spine/Pelvis Back: no CVA tenderness Skin General skin exam: elasticity normal, turgor normal and dry skin Neuro General: patient oriented x3 Psych Appearance: grossly normal Mental Status: mental status grossly normal Assessment & Plan Assessment & Plan (1) GERD (gastroesophageal reflux disease): Code(s): K21.9 - Gastro-esophageal reflux disease without esophagitis Qualifiers: Esophagitis presence: without esophagitis Qualified Code(s): K21.9 - Gastro-esophageal reflux disease without esophagitis (2) Asthma: Code(s): J45.909 - Unspecified asthma, uncomplicated Category: Medical Qualifiers: Asthma complication type: uncomplicated Asthma persistence: persistent Asthma severity: moderate Qualified Code(s): J45.40 - Moderate persistent asthma, uncomplicated (3) Cough: Code(s): R05.9 - Cough, unspecified Category: Medical Qualifiers: Cough type: chronic Qualified Code(s): R05.3 - Chronic cough (4) Allergic reaction: Code(s): T78.40XA - Allergy, unspecified, initial encounter Category: Medical Qualifiers: Encounter type: initial encounter Qualified Code(s): T78.40XA - Allergy, unspecified, initial encounter (5) Allergic rhinitis: Code(s): J30.9 - Allergic rhinitis, unspecified Category: Medical Qualifiers: Allergic rhinitis seasonality: unspecified Allergic rhinitis trigger: other Qualified Code(s): J30.89 - Other allergic rhinitis (6) Chest pain: Code(s): R07.9 - Chest pain, unspecified Category: Medical (7) MARCELO (obstructive sleep apnea): Code(s): G47.33 - Obstructive sleep apnea (adult) (pediatric) Category: Medical Plan symbicort HFA JAMES as needed continue singulair Stress ECHO Home PSG fluticasone nasal spray anti histamines as needed F/U 3-4 months Orders: Orders CA echo transthoracic complete Today G47.33 - Obstructive sleep apnea (adult) (pediatric), I27.20 - Pulmonary hypertension, unspecified, R07.9 - Chest pain, unspecified RT home sleep study Today G47.33 - Obstructive sleep apnea (adult) (pediatric), R07.9 - Chest pain, unspecified Coding Level of Care Code Est Pt Level 4 (57551) Diagnoses Gastroesophageal reflux disease without esophagitis K21.9 Esophagitis presence: without esophagitis Moderate persistent asthma without complication J45.40 Asthma complication type: uncomplicated Asthma persistence: persistent Asthma severity: moderate Chronic cough R05.3 Cough type: chronic Allergic reaction, initial encounter T78.40XA Encounter type: initial encounter Allergic rhinitis due to other allergic trigger, unspecified seasonality J30.89 Allergic rhinitis seasonality: unspecified Allergic rhinitis trigger: other Chest pain R07.9 MARCELO (obstructive sleep apnea) G47.33 Time Spent (min) 16
== END 2024-12-02 11:41 | disposition home or self-care (01) ==
LOC: HO.HPS 10:53
PROVIDERS: PCP Internal Medicine; Visit Provider Hospitalist
DX: K21.9 Gastro-esophageal reflux disease without esophagitis (principal); J45.40 Moderate persistent asthma, uncomplicated; R05.3 Chronic cough; T78.40XA Allergy, unspecified, initial encounter; J30.89 Other allergic rhinitis; R07.9 Chest pain, unspecified; G47.33 Obstructive sleep apnea (adult) (pediatric)
CPT/HCPCS: 99214

== ENCOUNTER 2024-12-15 10:25 | Outpatient (AMB) | payer BC, MEDICARE, MEDICAID, SELFPAY ==
--- NOTE | 2024-12-15 10:32 | A.OFFVIS_ITS ---
Vital Signs 12/15/24 10:33 Height 4 ft 10 in Weight 148 lb BMI 30.9 BP 148/94 H Blood Pressure Location Lt radial Position Sitting Pulse 84 Pulse Source Pulse Oximeter Pulse Oximetry (%) 99 Oxygen Delivery Method Room Air Intake Visit Reasons: pre colo discuss Intake Note: ESTABLISHED PATIENT for IBS w/ abd pain. No outstanding orders. Chief Complaint; C.O. difficulty getting their PPI filled per their insurance. Pt has been purchasing OTC and has had exacerbated sx as a result. Pt also reports intermittent IBS sx but states that it is not as much of a concern lately. 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 Accompanied by: Self / Same As Patient Allergies clindamycin Allergy (Severe, Verified 12/15/24 10:32) itch, nausea, dizziness, scratchy throat, neck redness Penicillins (PENICILLINS) Allergy (Intermediate, Verified 12/15/24 10:32) RASH mushroom Allergy (Mild, Verified 12/15/24 10:32) Rash pineapple Allergy (Mild, Verified 12/15/24 10:32) Rash hydrocodone (HYDROCODONE) Allergy (Unknown, Verified 12/15/24 10:32) UNKNOWN morphine (MORPHINE) Allergy (Unknown, Verified 12/15/24 10:32) LETHARGY oxycodone (OXYCODONE) Allergy (Unknown, Verified 12/15/24 10:32) LEHTARGY HPI HPI pre colo discuss: Details: LAST VISIT Constipation Abdominal pain Status post laparoscopic cholecystectomy IBS (irritable bowel syndrome) GERD (gastroesophageal reflux disease) Plan Continue Nexium, patient will try to get it through good Rx. Avoid dietary triggers in late night snacking. Staying upright for minimum 3 hours after meals discussed with patient. Continue Dulcolax, recommended for patient to try to tablets every other day to put herself on a schedule. Increase fluid intake and activity to promote better bowel motility. Patient will return in 4 months we will discuss going for colonoscopy and possible endoscopy. Patient is agreeable to current plan of her verbalizes understanding of instructions. She was given the opportunity to ask questions and all questions answered. ? Thank you for allowing me to participate in her care Refilled hydrocortisone 2.5% (Proctosol HC) 1 appl DC BID-QID PRN 30 grams 2RF hemorrhoids K64.9 TODAY'S VISIT Patient is here today for follow-up and to discuss going for colonoscopy. Patient reports that she had to by medications [id number] for acid reflux as insurance did not cover her last script. Patient will be having when showering is starting in December. Currently she is continuing to have epigastric pain, bloating and occasional constipation. Patient is using Dulcolax as needed. Denies any nausea or vomiting. Reports dyspepsia without dysphagia or odynophagia. Patient denies melena, hematochezia, unintentional weight loss or ribbon like stools. Patient reports that she had colonoscopy in 2020 and is due in a few months to repeat. Patient also reports feeling tired. Patient states that even she is not eating as much she is not losing any weight. [facility] Medical History Low back pain radiating to right leg GERD (gastroesophageal reflux disease) Hyperparathyroidism Foot fracture, right Asthma Goiter Osteoarthritis, shoulder Chronic fatigue syndrome Fibromyalgia Neuropathy Panic attacks Hypothyroid Breast cancer, right Essential hypertension Allergic rhinitis Hypovitaminosis D Vertigo Mild persistent asthma NAVA (generalized anxiety disorder) Mild recurrent major depression Surgical History Status post laparoscopic cholecystectomy Hx of cholecystectomy Hx of colonoscopy History of salpingectomy History of breast implant History of mastectomy Family History Mother Hypertension Asthma Osteoporosis Depression Anxiety Sleep apnea Fibromyalgia Mental health disorder Diabetes Father Diabetes Substance use disorder Social History Housing: House Alcohol intake: never Patient Tobacco Use Status: Never used Tobacco e-Cigarette/Vaping Use: Never Used Second Hand Smoke Exposure: No service: No Current occupational status: unemployed and disabled Cognitive needs: No Hearing needs: No Vision needs: Yes (Glasses) Review of Systems Const All systems reviewed & are unremarkable except as noted in HPI and below Card Denies chest pain at rest, Denies chest pain with activity, Denies edema, Denies irregular heart rhythm, Denies claudication, Denies dyspnea, Denies dyspnea on exertion, Denies orthopnea, Denies paroxysmal nocturnal dyspnea and Denies slow heart rate Resp Denies cough, Denies dyspnea and Denies dyspnea on exertion GI Denies abdominal pain, Denies bloating, Denies change in bowel habits, Reports constipation, Denies excessive flatus, Denies dyspepsia, Denies heartburn, Denies nausea and Denies vomiting Reports no additional complaints, Denies urinary incontinence, Denies urinary hesitancy and Denies urinary urgency Musc Denies abnormal gait, Denies atrophy, Denies deformity and Denies limited range of motion Skin/Breast Denies bleeding lesions, Denies changing lesions and Denies rash Neuro Denies abnormal gait and Denies lack of coordination Physical Exam Vital Signs: Last Vital Signs Pulse 84 12/15/24 10:33 BP 148/94 H 12/15/24 10:33 Pulse Ox 99 12/15/24 10:33 Oxygen Delivery Method Room Air 12/15/24 10:33 BMI result Body Mass Index 30.9 Const General: healthy appearing and no acute distress Nutritional Appearance: obese Orientation/consciousness: patient oriented x3 Resp Effort & Inspection: normal respiratory effort, able to speak in complete sentences, no tracheal deviation and symmetric chest movement Auscultation: clear to auscultation bilaterally Cardio Rate: regular rate GI Inspection: No distended and Yes obesity Palpation (GI): Soft to palpation, not firm, nontender and No hepatosplenomegaly present Auscultation: normal bowel sounds General: Yes no CVA tenderness Back/Spine/Pelvis Back: no CVA tenderness Skin General skin exam: elasticity normal, turgor normal and dry skin Neuro General: patient oriented x3 Psych Appearance: grossly normal Mental Status: mental status grossly normal Assessment & Plan Assessment & Plan (1) GERD (gastroesophageal reflux disease): Code(s): K21.9 - Gastro-esophageal reflux disease without esophagitis Category: Medical Qualifiers: Esophagitis presence: without esophagitis Qualified Code(s): K21.9 - Gastro-esophageal reflux disease without esophagitis (2) Gallstones: Code(s): K80.20 - Calculus of gallbladder without cholecystitis without obstruction Category: Medical (3) Constipation: Code(s): K59.00 - Constipation, unspecified Category: Medical Qualifiers: Constipation type: slow transit constipation Qualified Code(s): K59.01 - Slow transit constipation (4) Abdominal pain: Code(s): R10.9 - Unspecified abdominal pain Category: Medical Qualifiers: Abdominal location: left lower quadrant Qualified Code(s): R10.32 - Left lower quadrant pain (5) Left flank pain: Code(s): R10.9 - Unspecified abdominal pain Category: Medical Plan Will send patient for upper endoscopy and colonoscopy. Patient will return in 3 months and will discuss going for procedure again. Patient will be starting on lansoprazole. Patient was encouraged to avoid dietary triggers and late night snacking. Staying upright for minimal 3 hours after meals discussed with patient. Continue taking Dulcolax daily or as needed. Hold for loose BM. What to expect before during and after procedure discussed with patient. Stressed importance of good bowel Claritin clear liquid diet day before procedure. Patient is agreeable to current plan of care and verbalizes understanding of instructions. She was given the opportunity to ask questions and all questions answered Thank you for allowing me to participate in her care Orders: Referrals GI Procedure Notification K21.9 - Gastro-esophageal reflux disease without esophagitis, Z12.11 - Encounter for screening for malignant neoplasm of colon Medications: New polyethylene glycol 3350 (Miralax) As directed by gastroenterology department at [facility] 238 grams PO ONCE 238 grams 0RF Z12.11 - Encounter for screening for malignant neoplasm of colon lansoprazole 30 mg PO DAILY 30 caps 3RF K21.9 - Gastro-esophageal reflux disease without esophagitis Refilled bisacodyl (Dulcolax (bisacodyl)) 10 mg (2 x 5 mg) PO BEDTIME 180 tabs 4RF Coding Level of Care Code Est Pt Level 4 (58444) Complex EM visit Add On G2211 Diagnoses Gastroesophageal reflux disease without esophagitis K21.9 Esophagitis presence: without esophagitis Gallstones K80.20 Slow transit constipation K59.01 Constipation type: slow transit constipation Left lower quadrant abdominal pain R10.32 Abdominal location: left lower quadrant Left flank pain R10.9 Time Spent (min) 35 Comment 25 minutes spent with patient and additional 10 minutes spent reviewing her records
[2024-12-15 10:33] VITALS: BP 148/94; PULSE 84; O2SAT 99; BMI 30.9
--- OUTSIDE RECORDS SUMMARY | 2024-12-15 12:55 | XMS_ITS | Encounter Summary ---
Author Organization [facility] Address [address] [place] [id number] Phone Care Team Providers Care Marketing Programs Manager Name Role Phone Self-Referred, Patient Unavailable Unavailab le Jodi Gonzalez MD Primary Care Provider Sydnie Barnes MD Unavailable Encounter Details Date Type Department Care Team (Late st Contact Info) Description 02/28/2017 Procedure Pass [facility] OUTSIDE [facility] [address] [place] [address] Social History Tobacco Use Types Packs/Day Years Used Date Smoking Tobacco: Never Assessed Comments Unknown Sex and Gender Information Value Date Recorded Sex Assigned at Not on file Legal Sex Female 9:43 PM EDT Gender Identity Not on file Sexual Orientation Not on file documented as of this encounter Plan of Treatment Not on file documented as of this encounter Visit Diagnoses Not on filedocumented in this encounter Care Teams Marketing Programs Manager Relationship Specialty Start Date End Date Jodi Gonzalez MD [address] [place] [address] [address] [place] [address] PCP - General Internal Medicine 02/28/17 Self-Referred, Patient Referring Physician 02/18/17 Sydnie Barnes MD [address] [place] [id number] Medical Oncology 02/28/17 documented as of this encounter Additional Source Comments The information contained in this document represents components of the legal health record. It is not the complete legal health record.[facility]
--- OUTSIDE RECORDS SUMMARY | 2024-12-15 12:55 | XMS_ITS | Clinical Summary ---
Author Organization [facility] Address [address] [place] [address] Phone Care Team Providers Care Nursing Educator Name Role Phone Self-Referred, Patient Unavailable Unavailab Jodi Ayers MD Primary Care Provider Sydnie Barnes MD Unavailable [phone] Allergies Active Allergy Reactions Criticality Noted Date Comments Gluten Protein 02/28/2017 Milk Containing Products (Dairy) 02/28/2017 Morphine 02/28/2017 itchiness Mushroom 02/28/2017 Penicillins 02/28/2017 Rash Fluoxetine 02/28/2017 hallucination Diazepam 02/28/2017 Hallucination Hydrocodone-Acetaminophen 02/28/2017 Hallucination, dilaudid ok per patient Medications albuterol (ACCUNEB) 0.63 mg/3 mL nebulizer solution Take 1 ampule by nebulization every 6 (six) hours as needed for wheezing. Active ALPRAZolam (XANAX) 0.5 MG tablet Take 1 mg by mouth as needed. Active cloNIDine HCl (CATAPRES) 0.1 MG tablet Take 0.1 mg by mouth 2 (two) times a day. Active buPROPion (WELLBUTRIN SR) 100 MG SR 12 hr tablet Take 100 mg by mouth 2 (two) times a day. Active ascorbic acid, vitamin C, (VITAMIN C) 250 MG tablet Take 250 mg by mouth daily. Active cholecalciferol (VITAMIN D3) 1,000 unit tablet Take 1,000 Units by mouth daily. Active b complex vitamins capsule Take 1 capsule by mouth daily. Active nystatin (NYSTOP) powder Apply topically 4 (four) times a day. Apply as needed. 30 g 1 7 Active meclizine (ANTIVERT) 12.5 mg tablet Take 12.5 mg by mouth 3 (three) times a day as needed. Active prochlorperazin e (COMPAZINE) 10 MG tablet Take 10 mg by mouth every 6 (six) hours as needed. Active polyethylene glycol (MIRALAX) 17 gram packet Take 17 g by mouth daily. Active ondansetron (ZOFRAN) 4 MG tablet Take 8 mg by mouth every 8 (eight) hours as needed for nausea. Active OLANZapine (ZYPREXA) 5 MG tablet Take 5 mg by mouth nightly. Active lidocaine-prilo edgar (EMLA) cream Apply topically once. Active docusate sodium (COLACE) 100 MG capsule Take 100 mg by mouth 2 (two) times a day. Active gabapentin (NEURONTIN) 100 MG capsule Take 100 mg by mouth 3 (three) times a day. Active Active Problems Problem Noted Date Diagnosed Date Malignant neoplasm of upper- outer quadrant of right breast in female, estrogen receptor negative 02/26/2017 Cancer Staging:Clinical stage from 02/28/2017:Stage IIA(T2, N0, M0) - Signed by Mary Dixon MD on 02/28/2017 Family History Medical History Relation Comments Depression Brother Arthritis Mother Hypertension Mother Breast cancer Neg Hx Ovarian cancer Neg Hx Relation Status Comments Brother Mother Social History Tobacco Use Types Packs/Day Years Used Date Smoking Tobacco: Never Smokeless Tobacco: Never Education Answer Date Recorded Are you interested in more education? Not on jose m e 07/19/2022 Are you concerned about learning? Not on file 07/19/2022 No 07/19/2022 No 07/19/2022 Digital Access Answer Date Recorded No 08/17/2022 No 08/17/2022 No 08/17/2022 Reliable internet access at home? Not on file 08/17/2022 Device with a working camera? Not on file Comments Unknown Sex and Gender Information Value Date Recorded Sex Assigned at Not on file Legal Sex Female 9:43 PM EDT Gender Identity Not on file Sexual Orientation Not on file Last Filed Vital Signs Vital Sign Reading Time Taken Comments Blood Pressure 126/75 02/28/2017 8:43 AM EST Pulse 117 02/28/2017 8:43 AM EST Temperature 37.4 C (99.4 F) 02/28/2017 8:43 AM EST Respiratory Rate 16 02/28/2017 8:43 AM EST Oxygen Saturation - - Inhaled Oxygen Concentration - - Weight 66.7 kg (147 lb) 04/17/2017 8:11 AM EST Height 149.9 cm (4' 11 ) 04/17/2017 8:11 AM EST Body Mass Index 29.69 04/17/2017 8:11 AM EST Plan of Treatment Health Maintenance Due Date Last Done Comments Adult Td,Tdap Booster 1965 LIPID PANEL 1965 DEPRESSION SCREENING 1975 HEPATITIS C SCREENING 09/08/1981 HIV ONE-TIME SCREENING (18-65 YEARS) 09/08/1981 PNEUMOCOCCAL VACCINES (50+ years) (1 of 2 - PCV) 09/08/1982 ZOSTER VACCINES (1 of 2) 09/08/1982 PAP SMEAR 09/08/1984 COLOGUARD 09/08/2008 COLONOSCOPY 09/08/2008 COLORECTAL CANCER SCREENING 09/08/2008 FIT TEST 09/08/2008 FOBT 09/08/2008 SIGMOIDOSCOPY 09/08/2008 VIRTUAL COLONOSCOPY 09/08/2008 MAMMOGRAM 12/09/2018 12/09/2016, 11/22, 12/02/2016, Additional history exists INFLUENZA VACCINE (#1) 2024 COVID-19 VACCINE ( - 2023- season) 2024 RSV VACCINE (1 - 1-dose 75+ series) 09/08/2038 SMOKING STATUS SCREENING (Once After 26 Yrs) Completed 04/17/2017 HEPATITIS A VACCINES Aged Out No long er eligible based on patient's age to complete this topic HIB VACCINES Aged Out No longer eligi ble based on patient's age to complete this topic MENINGOCOCCAL VACCINES (ACWY) Aged Out No longer eligible based on patient's age to complete this topic MENINGOCOCCAL VACCINES (B) Aged Out N o longer eligible based on patient's age to complete this topic Medical Devices Not on file Procedures Procedure Name Priority Date/Time Associated Diagnosis Comments BI MAMMOGRAM OUTSIDE (NO INTERPRETATION) Routine 12/09/2016 12:00 AM EDT from Last 3 Months or Most Recently Relevant to Health Maintenance Results * Mammogram Outside (No Interpretation) (12/09/2016 12:00 AM EDT) Other Narrative PIPO - 02/28/2017 8:01 AM EST This study is for PACS storage only and not for interpretation. Mary TSE OUTSIDE IMAGING W/OUT INTERPRETATION Final Result PIPO from Last 3 Months or Most Recently Relevant to Health Maintenance Insurance MEDICARE PART A & B [facility] PPO MEDICARE PART A & B [place] OUT OF STATE PPO MEDICARE PART A & B [facility] OUT STATE PPO MEDICARE PART A & B [facility] PPO MEDICARE [facility] A & B [place] OUT [facility] PPO MEDICARE PART A & B [facility] PPO MEDICARE PART A & B [facility] PPO MEDICARE PART A & B [place] OUT OF STATE PPO MEDICARE PART A & B [facility] OUT OF [facility] PPO Care Teams Nursing Educator Relationship Specialty Start Date End Date Jodi Gonzalez MD [address] [place] [id number] PCP - General Internal Medicine 02/28/17 Self-Referred, Patient Referring Physician 02/18/17 Sydnie Barnes MD [address] [place] [address] Medical Oncology 02/28/17 Additional Source Comments The information contained in this document represents components of the legal health record. It is not the complete legal health record.[facility]
--- OUTSIDE RECORDS SUMMARY | 2024-12-15 12:55 | XMS_ITS | Encounter Summary ---
Author Organization [facility] Address [address] [place] [address] Phone Care Team Providers Care Perpetual Inventory Clerk Name Role Phone Self-Referred, Patient Unavailable Unavailab le Jodi Gonzalez MD Primary Care Provider Sydnie Barnes MD Unavailable [phone] Encounter Details Date Type Department Care Team (Late st Contact Info) Description 02/28/2017 Procedure Pass [facility] OUTSIDE IMG [address] [place] [address] Social History Tobacco Use Types Packs/Day Years [...] on filedocumented in this encounter Care Teams Perpetual Inventory Clerk Relationship Specialty Start Date End Date Jodi Gonzalez MD [address] [place] [address] [address] [place] [address] PCP - General Internal Medicine 02/28/17 Self-Referred, Patient Referring Physician 02/18/17 Sydnie Barnes MD [address] [place] [address] Medical Oncology 02/28/17 documented as of this encounter Additional Source Comments The information contained in this document represents components of the legal health record. It is not the complete legal health record.[facility]
--- OUTSIDE RECORDS SUMMARY | 2024-12-15 12:56 | XMS_ITS | Encounter Summary ---
Author Organization [facility] Address [address] [place] [address] Phone Care Team Providers Care Apron Trimmer Name Role Phone Self-Referred, Patient Unavailable Unavailab Jodi Ayers MD Primary Care Provider Sydnie Barnes MD Unavailable [phone] Reason for Referral * - Closed Specialty Diagnoses / Procedures Referred By Roberto fonseca Referred To Contact Diagnoses Malignant neoplasm of upper-outer quadrant of right breast in female, estrogen receptor negative Procedures MRI Breast (Right) Brice Gibson MD Phone: tel: fax: mailto:[email or web address] Referral ID Status Reason Start Date Expiration Date Visits Re quested Visits Authorized [id number] Closed 03/13/2017 03/13/2018 1 1 Encounter Details Date Type Department Care Team (Late st Contact Info) Description 03/13/2017 Ancillary Orders [facility], [facility], [facility] [address] [facility], [address]th [place] [address] Brice Gibson MD [address] [place] [address] [email or web address] Malignant neoplasm of upper-outer quadrant of right breast in female, estrogen receptor negative Social History Tobacco Use Types Packs/Day Years Used Date Smoking Tobacco: Never Smokeless Tobacco: Never Comments Unknown Sex and Gender Information Value Date Recorded Sex Assigned at Not on file Legal Sex Female 9:43 PM EDT Gender Identity Not on file Sexual Orientation Not on file documented as of this encounter Plan of Treatment Not on file documented as of this encounter Results * (ABNORMAL) BI MRI BREAST WITH AND WITHOUT CONTRAST (RIGHT) (03/13/2017 8:54 AM EST) Anatomical Region Laterality Modality Breast Right, Breast Bilateral Right M agnetic Resonance 03/13/2017 8:54 AM EST Impressions 03/13/2017 3:13 PM EST Right Breast: BI-RADS Category 6: Known biopsy-proven malignancy. 1. Nonvisualization of the previously noted irregular enhancing mass which was intended for repeat MRI guided biopsy in the upper outer middle depth with a biopsy clip at the expected site. 2. Significant interval decrease in size of the 2 known sites of malignancy in the upper outer breast at posterior depth likely representing a response to therapy. Appropriate action should be taken. Recommendation: Clinical follow up at this time. OVERALL ASSESSMENT -- 6 KNOWN BIOPSY PROVEN MALIGNANCY END OF IMPRESSION I, the teaching physician, have reviewed the images, and agree with the report as written. Narrative 03/13/2017 3:13 PM EST INDICATION: Diagnostic evaluation. Risk Factors: Personal history of invasive ductal carcinoma. CLINICAL SUMMARY: 51-year-old woman with recently diagnosed right breast multifocal invasive ductal carcinoma with 2 adjacent masses in the upper outer breast at posterior depth. An additional irregular enhancing mass in the right breast at 9-10 o'clock middle depth biopsy at an outside institution demonstrating benign breast tissue. On recent review of imaging on [facility] consultation, it was uncertain whether adequate sampling of this mass was performed and repeat MR core biopsy was recommended. RIGHT BREAST MRI, TECHNIQUE: 3.0T Multiplanar MRI imaging of the right breast was performed with a dedicated breast coil. Images were obtained before and after administration of 6.5 cc of gadolinium contrast (Gadavist), using the standard breast mass protocol. LMP: Not known. COMPARISON WITH PRIOR MRIs: 12/02/2016 and 12/09/2016. Correlation with mammograms: Multiple prior studies most recent 12/09/2016. Correlation with ultrasound: 11/04/2016 and 11/13/2016. Amount of fibroglandular tissue: Scattered fibroglandular tissue. Background parenchymal enhancement: Minimal. RIGHT BREAST: Review of the dynamic contrast-enhanced series shows no evidence of abnormal enhancement in the visualized portions of the breast. A signal void is seen in the slightly upper outer breast at middle depth, located in the expected site of the previously biopsied mass. There is no abnormal enhancement surrounding the clip or elsewhere in the visualized portions of the breast. There has been significant interval decrease in size of the known 2 sites of malignancy in the upper outer breast at posterior depth likely representing a response to therapy. Miscellaneous findings: none. Procedure Note Monik Avalos MD - 03/13/2017 INDICATION: Diagnostic evaluation. Risk Factors: Personal history of invasive ductal carcinoma. CLINICAL SUMMARY: 51-year-old woman with recently diagnosed right breast multifocal invasive ductal carcinoma with 2 adjacent masses in the upper outer breast at posterior depth. An additional irregular enhancing mass in the right breast at 9-10 o'clock middle depth biopsy at an outside institution demonstrating benign breast tissue. On recent review of imaging on [facility] consultation, it was uncertain whether adequate sampling of this mass was performed and repeat MR core biopsy was recommended. RIGHT BREAST MRI, TECHNIQUE: 3.0T Multiplanar MRI imaging of the right breast was performed with a dedicated breast coil. Images were obtained before and after administration of 6.5 cc of gadolinium contrast (Gadavist), using the standard breast mass protocol. LMP: Not known. COMPARISON WITH PRIOR MRIs: 12/02/2016 and 12/09/2016. Correlation with mammograms: Multiple prior studies most recent 12/09/2016. Correlation with ultrasound: 11/04/2016 and 11/13/2016. Amount of fibroglandular tissue: Scattered fibroglandular tissue. Background parenchymal enhancement: Minimal. RIGHT BREAST: Review of the dynamic contrast-enhanced series shows no evidence of abnormal enhancement in the visualized portions of the breast. A signal void is seen in the slightly upper outer breast at middle depth, located in the expected site of the previously biopsied mass. There is no abnormal enhancement surrounding the clip or elsewhere in the visualized portions of the breast. There has been significant interval decrease in size of the known 2 sites of malignancy in the upper outer breast at posterior depth likely representing a response to therapy. Miscellaneous findings: none. IMPRESSION: Right Breast: BI-RADS Category 6: Known biopsy-proven malignancy. 1. Nonvisualization of the previously noted irregular enhancing mass which was intended for repeat MRI guided biopsy in the upper outer middle depth with a biopsy clip at the expected site. 2. Significant interval decrease in size of the 2 known sites of malignancy in the upper outer breast at posterior depth likely representing a response to therapy. Appropriate action should be taken. Recommendation: Clinical follow up at this time. OVERALL ASSESSMENT -- 6 KNOWN BIOPSY PROVEN MALIGNANCY END OF IMPRESSION I, the teaching physician, have reviewed the images, and agree with the report as written. Brice Gibson MD IMG MR BREAST Final Result documented in this encounter Visit Diagnoses Diagnosis Malignant neoplasm of upper-outer quadrant of right breast in female, estrogen receptor negative Malignant neoplasm of upper-outer quadrant of right breast in female, estrogen receptor negative documented in this encounter Care Teams Apron Trimmer Relationship Specialty Start Date End Date Jodi Gonzalez MD [address] [place] [address] PCP - General Internal Medicine 02/28/17 Self-Referred, Patient Referring Physician 02/18/17 Sydnie Barnes MD [address] [place] [address] Medical Oncology 02/28/17 documented as of this encounter Additional Source Comments The information contained in this document represents components of the legal health record. It is not the complete legal health record.[facility]
--- OUTSIDE RECORDS SUMMARY | 2024-12-15 12:56 | XMS_ITS | Encounter Summary ---
Author Organization [facility] Address [address] [place] [address] Phone Care Team Providers Care Cash Shortage Investigator Name Role Phone Self-Referred, Patient Unavailable Unavailab le Jodi Gonzalez MD Primary Care Provider Sydnie Barnes MD Unavailable [phone] Encounter Details Date Type Department Care Team (Late st Contact Info) Description 02/28/2017 Procedure Pass [facility] [address] [address] Social History Tobacco Use Types Packs/Day Years [...] on filedocumented in this encounter Care Teams Cash Shortage Investigator Relationship Specialty Start Date End Date Jodi Gonzalez MD [address] [facility] [address] [place] [address] PCP - General Internal Medicine 02/28/17 Self-Referred, Patient Referring Physician 02/18/17 Sydnie Barnes MD [address] [place] [address] Medical Oncology 02/28/17 documented as of this encounter Additional Source Comments The information contained in this document represents components of the legal health record. It is not the complete legal health record.[facility]
--- OUTSIDE RECORDS SUMMARY | 2024-12-15 12:56 | XMS_ITS | Encounter Summary ---
Author Organization [facility] Address [address] [place] [address] Phone Care Team Providers Care Compliance Associate Name Role Phone Self-Referred, Patient Unavailable Unavailab Jodi Ayers MD Primary Care Provider Sydnie Barnes MD Unavailable [phone] Encounter Details Date Type Department Care Team (Late st Contact Info) Description 03/03/2017 Ancillary Orders [facility], [facility], [facility] [place] [address] [facility], [address] [place] [address] Brice Gibson MD [address] [place] [address] [email or web address] Malignant neoplasm of upper-outer quadrant of right [...] documented as of this encounter Visit Diagnoses Diagnosis Malignant neoplasm of upper-outer quadrant of right breast in female, estrogen receptor negative documented in this encounter Care Teams Compliance Associate Relationship Specialty Start Date End Date Jodi Gonzalez MD [address] [facility] [address] [place] [address] PCP - General Internal Medicine 02/28/17 Self-Referred, Patient Referring Physician 02/18/17 Sydnie Barnes MD [address] [place] [address] Medical Oncology 02/28/17 documented as of this encounter Additional Source Comments The information contained in this document represents components of the legal health record. It is not the complete legal health record.[facility]
== END 2024-12-15 11:04 | disposition home or self-care (01) ==
LOC: HO.HGI 10:25
PROVIDERS: PCP Internal Medicine; Visit Provider Nurse Practitioner Family
DX: K21.9 Gastro-esophageal reflux disease without esophagitis (principal); K80.20 Calculus of gallbladder without cholecystitis without obstruction; K59.01 Slow transit constipation; R10.32 Left lower quadrant pain; R10.9 Unspecified abdominal pain
CPT/HCPCS: 99214

== ENCOUNTER → 2024-12-29 10:49 | Outpatient (REF) | payer BC, MEDICARE, MEDICAID, SELFPAY ==
--- NOTE | 2024-12-29 10:54 | CA_ITS ---
Transthoracic Echocardiogram Patient (Last, First, Middle): Bethany Grace, Gender: F Date of : 1965 Age: 59 Procedure Date: 12/29/2024 Procedure Type: Transthoracic Echocardiogram Location: OP Height: 147.32 cm Weight: 67.13 kg BSA: 1.60 m2 Heart Rate: bpm BP: 148 / 94 mmHg Water Plant Operator: TO/RC Referring MD: Gagandeep Maravilla MD Senior Python Developer: Byron Puckett MD Symptoms: I27.20 - Pulmonary hypertension, unspecified Study Quality: Fair ECG Rhythm: Sinus Conclusions: - 1. Normal LV ejection fraction 55-60% with grade 1 diastolic dysfunction 2. Cardiac valvular Dopplers within normal limits 3. Normal RV systolic pressure 4. No gross pericardial effusion Findings Left Ventricle Normal left ventricular size, thickness, and systolic function. The visually estimated ejection fraction is between 55-60%. Spectral Doppler is indicative of an impaired relaxation filling pattern. Evidence suggests grade I (mild) diastolic dysfunction. Right Ventricle Normal right ventricular cavity size and systolic function. Atria Both atria are normal in size. There is lipomatous hypertrophy of the interatrial septum. There is no evidence of interatrial shunt. Aortic Valve Normal aortic valve structure and function. There is mild calcification of the aortic valve. There is no aortic valve stenosis. There is no aortic valve regurgitation. Mitral Valve There is mild anterior and posterior mitral leaflet thickening. There is trace mitral valve regurgitation. There is no mitral valve stenosis. Pulmonic Valve The pulmonic valve is likely normal. Tricuspid Valve Normal tricuspid valve structure. There is trace tricuspid valve regurgitation. The right ventricular systolic pressure is normal. The right ventricular systolic pressure is 22 mmHg. Normal right atrial pressure. There is no evidence of pulmonary hypertension. Great Vessels All visible segments of the aorta are normal in size. The pulmonary artery was not well visualized. Venous The inferior vena cava is normal in size and collapses greater than 50% with inspiration. Pericardium/Pleural There is no evidence of pericardial effusion. Prior Study Comparison No prior study available for comparison. Measurements 2D Linear Measurements IVSd: 0.80 0.6-0.9/0.6-1.0 cm LVIDd: 4.54 3.9-5.3/4.2-5.9 cm LVIDd Index: 2.84 2.4-3.2/2.2-3.1 cm/m2 LVIDs: 2.96 2.0-3.6 cm LVPWd: 0.85 0.7-1.1 cm LA Diam: 2.80 2.7-3.8/3.0-4.0 cm LAIDs Index: 1.75 1.5-2.3 cm/m2 LV Mass: 149.10 67-162/88-224 g LV Mass Index: 93.19 43-95/49-115 g/m2 LVOT Diam: 2.00 3.0+(-)1.3 cm 2D Systolic Function EF 4C: 57.10 >55% EF 2C: 60.00 >55% EF BiP: 58.40 >55% Mitral Valve MV Pk E: 0.78 MV PK A: 0.52 MV Decel Time: 163.00 E/A: 1.50 E'Lateral: 8.05 E'Medial: 6.64 E/E' Med: 11.70 E/E' Lat: 9.60 PHT: 48.00 MVA PHT: 4.58 Decel [place]: 4.76 Aortic Valve AoV Pk Giacomo: 0.97 AoV Mn Giacomo: 0.66 AoV VTI: 0.20 AoV Pk Grad: 4.00 Aov Mn Grad: 2.00 KERMIT Cont.VTI: 2.40 LVOT LVOT Pk Giacomo: 0.76 LVOT Mn Giacomo: 0.50 LVOT VTI: 0.15 LVOT Pk Grad: 2.00 LVOT Mn Grad: 1.00 LVOT Diam: 2.00 LVOT Area: 3.14 Diastolic Function MV Pk E: 0.78 MV Pk A: 0.52 E/A: 1.50 E'Medial: 6.64 E/E' Med: 11.70 E' Laterial: 8.05 E/E' Lat: 9.60 Right Ventricle TAPSE (mm): 20.70 TVS' Giacomo: 9.36 Tricuspid Valve TR Pk Giacomo: 2.16 TR Pk Grad: 19.00 RA Press: 3.00 RVSP: 22.00 Great Vessels Aorta Sinus of Valsalva: 3.00 2.0-3.5 cm Ao Asc: 3.30 2.1-3.4 cm Ao Arch: 2.40 Pulmonary Veins Pulm Vein S/D 1.30 Pulmonary Valve PV Pk Giacomo: 0.70 Peak PV Grad: 2.00 Updated in Other Vendor System with Status of Final Byron Puckett MD electronically signed on 12/29/2024 5:04:35 PM with status of Final
== END ==
LOC: HO.CARD 10:49
PROVIDERS: PCP Internal Medicine; Visit Provider Hospitalist
DX: R07.9 Chest pain, unspecified (principal); I27.20 Pulmonary hypertension, unspecified; G47.33 Obstructive sleep apnea (adult) (pediatric)
CPT/HCPCS: 93306

== ENCOUNTER → 2024-12-29 10:54 | Outpatient (BNV) | payer BC, MEDICARE, MEDICAID, SELFPAY | PROVIDERS: PCP Internal Medicine; Visit Provider Internal Medicine Cardiovascular Disease | DX: I27.20 Pulmonary hypertension, unspecified (principal); I35.8 Other nonrheumatic aortic valve disorders | CPT/HCPCS: 93306 ==

== ENCOUNTER → 2025-02-10 10:40 | Outpatient (REF) | payer BC, MEDICARE, MEDICAID, SELFPAY ==
--- OUTSIDE RECORDS SUMMARY | 2025-02-10 15:58 | XMS_ITS | Encounter Summary ---
Author Organization [facility] Address [address] [place] [address] Phone Care Team Providers Care Monument Erector Name Role Phone Self-Referred, Patient Unavailable Unavailab Jodi Ayers MD Primary Care Provider Sydnie Barnes MD Unavailable [phone] Encounter Details Date Type Department Care Team (Late st Contact Info) Description 03/03/2017 Ancillary Orders [facility], [facility], [facility] [place] [address] [facility], 9th [place] [address] Brice Gibson MD [address] [place] [address] [email or web address] Malignant neoplasm of upper-outer quadrant of right [...] negative documented in this encounter Care Teams Monument Erector Relationship Specialty Start Date End Date Jodi Gonzalez MD [address] [facility] [address] [place] [address] PCP - General Internal Medicine 02/28/17 Self-Referred, Patient Referring Physician 02/18/17 Sydnie Barnes MD [address] [place] [address] Medical Oncology 02/28/17 documented as of this encounter Additional Source Comments The information contained in this document represents components of the legal health record. It is not the complete legal health record.[facility]
--- OUTSIDE RECORDS SUMMARY | 2025-02-10 15:58 | XMS_ITS | Encounter Summary ---
Author Organization [facility] Address [address] [place] [address] Phone Care Team Providers Care Plant Operator Helper Name Role Phone Self-Referred, Patient Unavailable Unavailab Jodi Ayers MD Primary Care Provider Sydnie Barnes MD Unavailable [phone] Reason for Referral * - Closed Specialty Diagnoses / Procedures Referred By Roberto fonseca Referred To Contact Diagnoses Malignant neoplasm of upper-outer quadrant of right breast in female, estrogen receptor negative Procedures MRI Breast (Right) Brice Gibson MD Phone: tel: fax: mailto:[email or web address] Referral ID Status Reason Start Date Expiration Date Visits Re quested Visits Authorized [id number] Closed 03/13/2017 03/13/2018 1 1 Encounter Details Date Type Department Care Team (Late st Contact Info) Description 03/13/2017 Ancillary Orders [facility], [facility], [facility] [address] [facility], [address]th [place] [address] Brice Gibson MD [address] [place] [address] [email or web address] Malignant neoplasm of upper-outer quadrant of right [...] negative documented in this encounter Care Teams Plant Operator Helper Relationship Specialty Start Date End Date Jodi Gonzalez MD [address] [place] [id number] PCP - General Internal Medicine 02/28/17 Self-Referred, Patient Referring Physician 02/18/17 Sydnie Barnes MD [address] [place] [id number] Medical Oncology 02/28/17 documented as of this encounter Additional Source Comments The information contained in this document represents components of the legal health record. It is not the complete legal health record.[facility]
--- OUTSIDE RECORDS SUMMARY | 2025-02-10 15:58 | XMS_ITS | Encounter Summary ---
Author Organization [facility] Address [address] [place] [address] Phone Care Team Providers Care Dog Behaviorist Name Role Phone Self-Referred, Patient Unavailable Unavailab le Jodi Gonzalez MD Primary Care Provider Sydnie Barnes MD Unavailable [phone] Encounter Details Date Type Department Care Team (Late st Contact Info) Description 02/28/2017 Procedure Pass [facility] OUTSIDE IMG [address] [place] [address] Social History Tobacco Use Types Packs/Day Years [...] on filedocumented in this encounter Care Teams Dog Behaviorist Relationship Specialty Start Date End Date Jodi Gonzalez MD [address] [place] [address] [address] [place] [address] PCP - General Internal Medicine 02/28/17 Self-Referred, Patient Referring Physician 02/18/17 Sydnie Barnes MD [address] [place] [id number] Medical Oncology 02/28/17 documented as of this encounter Additional Source Comments The information contained in this document represents components of the legal health record. It is not the complete legal health record.[facility]
--- OUTSIDE RECORDS SUMMARY | 2025-02-10 15:58 | XMS_ITS | Clinical Summary ---
Author Organization [facility] Address [address] [place] [address] Phone Care Team Providers Care Blacktop Paver Operator Name Role Phone Self-Referred, Patient Unavailable Unavailab Jodi Ayers MD Primary Care Provider Sydnie Barnes MD Unavailable [phone] Allergies Active Allergy Reactions Criticality Noted Date [...] VACCINE (#1) 2024 COVID-19 VACCINE ( - 2024- season) 2024 RSV VACCINE (1 - 1-dose [...] PACS storage only and not for interpretation. us Mary TSE OUTSIDE IMAGING W/OUT INTERPRETATION Final Result PIPO from Last 3 Months or Most Recently Relevant to Health Maintenance Insurance MEDICARE PART A & B [facility] PPO MEDICARE PART A & B [place] [place] OUT OF STATE PPO MEDICARE PART A & B [facility] OUT OF STATE PPO MEDICARE PART A & B [facility] PPO MEDICARE PART A & B [facility] OUT [facility] PPO MEDICARE [facility] A & B [facility] PPO MEDICARE PART A & B [facility] PPO MEDICARE PART A & B [place] OUT OF [place] PPO MEDICARE PART A & B [facility] OUT OF STATE PPO Care Teams Blacktop Paver Operator Relationship Specialty Start Date End Date Jodi Gonzalez MD [address] [place] [address] PCP - General Internal Medicine 02/28/17 Self-Referred, Patient Referring Physician 02/18/17 Sydnie Barnes MD [address] [place] [address] Medical Oncology 02/28/17 Additional Source Comments The information contained in this document represents components of the legal health record. It is not the complete legal health record.[facility]
--- OUTSIDE RECORDS SUMMARY | 2025-02-10 15:58 | XMS_ITS | Encounter Summary ---
Author Organization [facility] Address [address] [place] [address] Phone Care Team Providers Care Title Examiner Name Role Phone Self-Referred, Patient Unavailable Unavailab le Jodi Gonzalez MD Primary Care Provider Sydnie Barnes MD Unavailable [phone] Encounter Details Date Type Department Care Team (Late st Contact Info) Description 02/28/2017 Procedure Pass DF IMG OUTSIDE IMG [address] [place] [address] Social History Tobacco Use Types Packs/Day Years [...] on filedocumented in this encounter Care Teams Title Examiner Relationship Specialty Start Date End Date Jodi Gonzalez MD [address] [place] [address] [address] [place] [address] PCP - General Internal Medicine 02/28/17 Self-Referred, Patient Referring Physician 02/18/17 Sydnie Barnes MD [address] [place] [phone] Medical Oncology 02/28/17 documented as of this encounter Additional Source Comments The information contained in this document represents components of the legal health record. It is not the complete legal health record.[facility]
--- OUTSIDE RECORDS SUMMARY | 2025-02-10 15:59 | XMS_ITS | Encounter Summary ---
Author Organization [facility] Address [address] [place] [address] Phone Care Team Providers Care Turner Machine Operator Name Role Phone Self-Referred, Patient Unavailable Unavailab le Jodi Gonzalez MD Primary Care Provider Sydnie Barnes MD Unavailable [phone] Encounter Details Date Type Department Care Team (Late st Contact Info) Description 02/28/2017 Procedure Pass [facility] [address] [address] Social History Tobacco Use Types Packs/Day Years [...] on filedocumented in this encounter Care Teams Turner Machine Operator Relationship Specialty Start Date End Date Jodi Gonzalez MD [address] [facility] [address] [place] [address] PCP - General Internal Medicine 02/28/17 Self-Referred, Patient Referring Physician 02/18/17 Sydnie Barnes MD [address] [place] [phone] Medical Oncology 02/28/17 documented as of this encounter Additional Source Comments The information contained in this document represents components of the legal health record. It is not the complete legal health record.[facility]
== END ==
LOC: HO.SL 10:40
PROVIDERS: PCP Internal Medicine; Visit Provider Hospitalist
DX: G47.33 Obstructive sleep apnea (adult) (pediatric) (principal); R07.9 Chest pain, unspecified
CPT/HCPCS: 95806

== ENCOUNTER → 2025-02-10 11:00 | Outpatient (BNV) | payer BC, MEDICARE, MEDICAID, SELFPAY | PROVIDERS: PCP Internal Medicine; Visit Provider Psychiatry & Neurology Neurology | DX: R40.0 Somnolence (principal) | CPT/HCPCS: 95806 ==

== ENCOUNTER 2025-03-04 11:00 | Outpatient (REF) | payer BC, MEDICARE, MEDICAID, SELFPAY ==
[2025-03-04 12:16] LABS: MANUAL DIFF FLAG NO
[2025-03-04 14:00] LABS: Hematocrit 38.8 % (37.0-47.0); Hemoglobin 12.3 g/dl (12.0-16.0); Imm Gran Abs Auto 0.02 X10*3/uL (0.00-0.03); Imm Gran Pct Auto 0.3 % (0.0-0.4); Lymphocytes Absolute Auto 2.0 X10*3/uL (1.2-4.9); Mean Corpuscular HGB Conc 31.7 g/dl (31.0-35.0); Mean Corpuscular Hemoglobin 25.4 pg (27.0-33.0); Mean Corpuscular Volume 80.2 fL (80.0-98.0); NRBC Abs Auto 0.000 X10*3/uL (0.0-0.012); NRBC Pct Auto 0.0 /100WBC (0.0-0.2); Platelet Count 318 X10*3/uL (160-400); Red Blood Count 4.84 X10*6/uL (4.20-5.50); White Blood Count 7.7 X10*3/uL (4.8-10.8)
[2025-03-04 14:20] LABS: Appearance Urine Clear; Glucose Urine UA Negative (Negative); PH 6.0 (5.0-9.0); Specific Gravity - Urine 1.010 (1.005-1.025); UMIC TRIGGER UACC YES
[2025-03-04 14:48] LABS: Cholesterol 134 mg/dL (<200); HDL Cholesterol 39 mg/dL (>40); Iron 35 mcg/dL (30-160); Percent Iron Saturation 15 % (15-50); Thyroid Stimulating Hormone 1.15 uIU/mL (0.32-4.0); Total Iron Binding Capacity 236 mcg/dL (228-428); Triglycerides 96 mg/dL (<150); Unsaturated Iron Binding 201 ug/dL
[2025-03-04 15:15] LABS: Folate 3.6 ng/mL (> or = 4.0); Vitamin B12 399 pg/mL (200-900)
[2025-03-07 21:38] LABS: Antibody to SS-A Antigen <1.0 NEG AI (<1.0 NEG); Antibody to SS-B Antigen <1.0 NEG AI (<1.0 NEG)
== END 2025-03-04 11:01 | disposition home or self-care (01) ==
LOC: HO.LAB 11:00
PROVIDERS: Absent Provider Internal Medicine; PCP Internal Medicine; Visit Provider Hospitalist
DX: Z01.811 Encounter for preprocedural respiratory examination (principal); J44.89 Other specified chronic obstructive pulmonary disease; J45.40 Moderate persistent asthma, uncomplicated; G47.33 Obstructive sleep apnea (adult) (pediatric); R07.9 Chest pain, unspecified; E50.9 Vitamin A deficiency, unspecified; E03.9 Hypothyroidism, unspecified; E53.8 Deficiency of other specified B group vitamins; R53.82 Chronic fatigue, unspecified; H04.123 Dry eye syndrome of bilateral lacrimal glands; D64.9 Anemia, unspecified; E78.5 Hyperlipidemia, unspecified; E55.9 Vitamin D deficiency, unspecified; R05.3 Chronic cough; T78.40XA Allergy, unspecified, initial encounter; K21.9 Gastro-esophageal reflux disease without esophagitis; Z79.899 Other long term (current) drug therapy
CPT/HCPCS: 36415; 80061; 81001; 82306; 82607; 82746; 83540; 84443; 84590; 85025; 86235

== ENCOUNTER 2025-03-04 11:00 | Outpatient (AMB) | payer BC, MEDICARE, MEDICAID, SELFPAY ==
[2025-03-04 11:03] VITALS: BP 124/90; PULSE 90; O2SAT 98; BMI 30.4
--- NOTE | 2025-03-04 11:03 | A.OFFVIS_ITS ---
Vital Signs 03/04/25 11:03 Height 4 ft 10 in Weight 145 lb 8.081 oz BMI 30.4 BP 124/90 H Blood Pressure Location Lt brachial Position Sitting Pulse 90 Pulse Source Pulse Oximeter Pulse Oximetry (%) 98 Oxygen Delivery Method Room Air Intake Visit Reasons: Cough/Preop ok per MR Grails Web Application Developer Required: No Accompanied by: Self / Same As Patient Allergies clindamycin Allergy (Severe, Verified 03/04/25 11:05) itch, nausea, dizziness, scratchy throat, neck redness Penicillins (PENICILLINS) Allergy (Intermediate, Verified 03/04/25 11:05) RASH mushroom Allergy (Mild, Verified 03/04/25 11:05) Rash pineapple Allergy (Mild, Verified 03/04/25 11:05) Rash hydrocodone (HYDROCODONE) Allergy (Unknown, Verified 03/04/25 11:05) UNKNOWN morphine (MORPHINE) Allergy (Unknown, Verified 03/04/25 11:05) LETHARGY oxycodone (OXYCODONE) Allergy (Unknown, Verified 03/04/25 11:05) LEHTARGY HPI Comments Details: The patient is a 59 year woman with a known history of breast cancer status post mastectomy in addition to asthma. She has had mild intermittent asthma for many years. She has an inhaler that she rarely use. Unfortunately, the summer time she started developing worsening respiratory symptoms and had worsening cough and chest tightness. She has been using her rescue inhaler once or twice a day. the patient was evaluated in the ER he follow were October 2022 with worsening respiratory symptoms. She did undergo a CT a and ruled out pneumonia. The patient also with a history of breast cancer was reassuring without any evidence of any recurrence or any nodular densities or lymphadenopathy. the patient has also been allergic to cats and other other things. Based on her blood work she did have some degree of eosinophilia. Now even the family that only the CT when they go to visit her can exacerbate her breathing. Other triggers can be viruses strong perfumes can also trigger her breathing. In the office she does have significant chest tightness and coughing. The patient did receive a Xopenex treatment in the office improving her chest tightness although she did become tremulous. The patient does need to be on respiratory medications with maintenance inhalers at this time. Will request allergy testing PFTs to further address her ongoing symptoms. 05/16/2023 the patient is here for a pulmonary follow-up visit. The patient overall has been doing better. She continues to take the Breo daily. She does have a rescue inhaler she has not required as often. She continues to take her allergy medications including the Singulair in the antihistamine therapy. Seems like she is doing better from the asthma standpoint on this current therapy. S he still uses her rescue inhaler but typically when exposed to her allergens. She did have allergy testing she has significant allergies to dust mites but more significantly has significant high allergies to both cats and dogs. The worse. She has never had episodes of any stridor angioedema or severe reactions in that fashion but she does have significant chest tightness and wheezing at times. The patient does not have a cat or dog. However, her children do. I did give her information for her to take to her children so they know how severe her allergies are to make sure that the animals in pets are not close to the patient. We did talk about biologic therapy. The patient does have a significant elevation of the IgE and also eosinophils and she will be a great candidate for Xolair in addition to other biologics. The patient also can consider allergy shots specially she was 2 modular humeral response to the dogs in the CT in the dust mites. The patient did not have her PFTs she was not able to do because her car broke down. Will plan to do it the next time. Therefore, she will continue with the current therapy but again she will call if her symptoms worsen we can consider biologic therapy. 11/12/2023 the patient is here for a pulmonary follow-up visit. Overall she is doing better. Unfortunately, her dog and she now had does not have the allergy exposure which will help her asthma. The patient has been responding well to Breo. For some reason she has not been able to fill it. I will send him to the pharmacy. The Breo has been very affecting beneficial so we want to continue. She was not able to get her pulmonary function studies because we had to cancel. Will plan to repeat them or do them in 6 months' time. The patient does not need biologic therapy at this point. Her respiratory symptoms are better controlled on the maintenance inhaler and she needs to continue it as prescribed. She also has a rescue inhaler that she uses and tries to minimize to less than 2 times a week. If she is going to visit her siblings who have dogs sometimes she does have some symptoms. I did recommend that she can pretreated prior to those visits. She also continue antihistamine therapy as needed. So therefore for now will continue with the current therapy will make sure that she gets her Breo and will follow-up in 6 months with PFTs. 05/14/2024 the patient is here for pulmonary follow-up visit. Overall the patient has been doing okay she does complaint of ear pressure and pain. She was started on a course of prednisone and she did not like the way that made her feel. The patient otherwise has not been using her Breo she does not like to use a powdered irritates her. Breathing lam she is doing okay although she has a cough. [id number] severity. Her last imaging study was CT scan of the abdomen that was back in 07/12/2023 lung windows appear to be okay. She had surgery after that for her gallbladder. It showed that she did having the chronic cholecystitis. And now she is following up with her oncologist regarding her history of breast cancer. She did not receive any radiation to the chest. She does have some nasal congestion. We are going to go ahead and start her on fluticasone nasal spray. We did talk about a NeilMed sinus rinse with the Neti bottle. She is going to see about getting 1 and understands she can only use it with distilled water make sure the bottle was clean. In addition to that will switch over to Symbicort to minimize on the powder irritation. 12/02/2024 the patient is here for pulmonary follow-up visit. She has been complaining of dyspnea in addition to some chest pressure. In part she feels like it is related to her blood pressures has been very uncontrolled. She had been followed by endocrinology for the question of pheochromocytoma but that pin down okay. She continues to be on blood pressure medications into the actually her blood pressure was on the low side. She will follow-up with her primary care doctor. In the meantime I will request a stress echo to assess for any cardiac involvement of her ongoing chest pain and shortness of breath. In part because of the elevated blood pressures the patient also was noted to have daytime drowsiness with an elevated [place] score of 11/24. Will go ahead and request a sleep study this time to see if untreated sleep apnea may be a culprit of her high blood pressure. The patient follow-up after those studies. From a pulmonary standpoint she will continue with the current respiratory therapy as prescribed. 03/04/2025 the patient is here for pulmonary follow-up visit. Overall the patient has been doing okay although she is having significant amount of family stress because of a unfortunately situation of the family. In the meantime she continues to have some breathlessness with activity. Mild in severity. She could not get all her inhalers because of the very expensive. We did find the Wixela was only 15 dollars that she can get a rescue inhaler also for 15 dollars a month which will be more reasonable. She does have issues with tachycardia. We did go for brief walking oximetry the patient did have a heart rate that went up to 120 with minimal activity. Therefore will usually while albuterol to avoid any further increase in heart rate. The patient did have an echocardiogram that we personally reviewed. She does have a little mild diastolic dysfunction. We did talk about increasing exercise activity and also considering going up on the metoprolol with her doctor. As far as the sleep she does struggle with her sleep. She has tried multiple sleep aids without any significant improvement. She is tends to tolerate the Xanax very small dose at nighttime. She is going to go ahead and add melatonin as well. The patient is scheduled to undergo GI colonoscopy endoscopy. Currently she is doing well from a respiratory status and she may be able to proceed with anesthesia and the GI procedures without any restrictions. [facility] Medical History Low back pain radiating to right leg GERD (gastroesophageal reflux disease) Hyperparathyroidism Foot fracture, right Asthma Goiter Osteoarthritis, shoulder Chronic fatigue syndrome Fibromyalgia Neuropathy Panic attacks Hypothyroid Breast cancer, right Essential hypertension Allergic rhinitis Hypovitaminosis D Vertigo Mild persistent asthma NAVA (generalized anxiety disorder) Mild recurrent major depression Surgical History Status post laparoscopic cholecystectomy Hx of cholecystectomy Hx of colonoscopy History of salpingectomy History of breast implant History of mastectomy Family History Mother Hypertension Asthma Osteoporosis Depression Anxiety Sleep apnea Fibromyalgia Mental health disorder Diabetes Father Diabetes Substance use disorder Social History (Reviewed 03/04/25 @ 11:06 by NAREN Zimmerman Housing: House Alcohol intake: never Patient Tobacco Use Status: Never used Tobacco e-Cigarette/Vaping Use: Never Used Second Hand Smoke Exposure: No service: No Current occupational status: unemployed and disabled Cognitive needs: No Hearing needs: No Vision needs: Yes (Glasses) Review of Systems Eyes Reports no additional complaints ENT Reports nasal congestion and Reports nasal discharge Card Denies chest pain at rest, Denies chest pain with activity, Denies edema, Denies irregular heart rhythm, Denies claudication, Denies dyspnea, Denies dyspnea on exertion, Denies orthopnea, Denies paroxysmal nocturnal dyspnea and Denies slow heart rate Resp Reports cough, Denies dyspnea, Denies dyspnea on exertion and Denies wheezing GI Denies abdominal pain, Denies change in bowel habits, Denies excessive flatus, Denies nausea and Denies vomiting Skin/Breast Denies rash Neuro Reports no additional complaints Chandu/Lymph Reports no additional complaints Aller/Immun Denies wheezing Physical Exam Vital Signs: Last Vital Signs Pulse 90 03/04/25 11:03 BP 124/90 H 03/04/25 11:03 Pulse Ox 98 03/04/25 11:03 Oxygen Delivery Method Room Air 03/04/25 11:03 BMI result Body Mass Index 30.4 Const General: healthy appearing and no acute distress Nutritional Appearance: obese Orientation/consciousness: patient oriented x3 Chest Chest palpation & inspection: normal inspection of the chest Resp Effort & Inspection: normal respiratory effort, able to speak in complete sentences and no tracheal deviation Auscultation: diminished lung sounds Cardio Rate: regular rate GI Inspection: No distended and Yes obesity Palpation (GI): Soft to palpation, not firm, nontender and No hepatosplenomegaly present Auscultation: normal bowel sounds General: Yes no CVA tenderness Back/Spine/Pelvis Back: no CVA tenderness Skin General skin exam: elasticity normal, turgor normal and dry skin Neuro General: patient oriented x3 Psych Appearance: grossly normal Mental Status: mental status grossly normal Assessment & Plan Assessment & Plan (1) Asthma: Code(s): J45.909 - Unspecified asthma, uncomplicated Category: Medical Qualifiers: Asthma complication type: uncomplicated Asthma persistence: persistent Asthma severity: moderate Qualified Code(s): J45.40 - Moderate persistent asthma, uncomplicated (2) Cough: Code(s): R05.9 - Cough, unspecified Category: Medical Qualifiers: Cough type: chronic Qualified Code(s): R05.3 - Chronic cough (3) Allergic reaction: Code(s): T78.40XA - Allergy, unspecified, initial encounter Category: Medical Qualifiers: Encounter type: initial encounter Qualified Code(s): T78.40XA - Allergy, unspecified, initial encounter (4) Allergic rhinitis: Code(s): J30.9 - Allergic rhinitis, unspecified Category: Medical Qualifiers: Allergic rhinitis seasonality: unspecified Allergic rhinitis trigger: other Qualified Code(s): J30.89 - Other allergic rhinitis (5) Chest pain: Code(s): R07.9 - Chest pain, unspecified Category: Medical Qualifiers: Chest pain type: unspecified Qualified Code(s): R07.9 - Chest pain, unspecified (6) MARCELO (obstructive sleep apnea): Code(s): G47.33 - Obstructive sleep apnea (adult) (pediatric) Category: Medical (7) GERD (gastroesophageal reflux disease): Code(s): K21.9 - Gastro-esophageal reflux disease without esophagitis Qualifiers: Esophagitis presence: esophagitis presence not specified Qualified Code(s): K21.9 - Gastro-esophageal reflux disease without esophagitis (8) Pre-op chest exam: Code(s): Z01.811 - Encounter for preprocedural respiratory examination Category: Medical Plan proceed wit anesthesia and GI EGD/colonoscopy stopped symbicort HFA start Wixela JAMES as needed, change to xopenex due to palpitations continue singulair fluticasone nasal spray anti histamines as needed positoinal sleep therapy reflux diet F/U 4-6 months Medications: New fluticasone propion-salmeterol 250-50 mcg/dose (Wixela Inhub) 1 inh inhalation Q12H 60 ea 11RF 30 days melatonin 5 mg PO BEDTIME PRN 30 tabs 6RF sleep 30 days Refilled levalbuterol tartrate 45 mcg/actuation (Xopenex HFA) 2 puffs inhalation Q4-6H PRN 15 grams 1RF shortness of breath 30 days Coding Level of Care Code Est Pt Level 4 (78012) Diagnoses Moderate persistent asthma without complication J45.40 Asthma complication type: uncomplicated Asthma persistence: persistent Asthma severity: moderate Chronic cough R05.3 Cough type: chronic Allergic reaction, initial encounter T78.40XA Encounter type: initial encounter Allergic rhinitis due to other allergic trigger, unspecified seasonality J30.89 Allergic rhinitis seasonality: unspecified Allergic rhinitis trigger: other Chest pain, unspecified type R07.9 Chest pain type: unspecified MARCELO (obstructive sleep apnea) G47.33 Gastroesophageal reflux disease, unspecified whether esophagitis present K21.9 Esophagitis presence: esophagitis presence not specified Pre-op chest exam Z01.811 Time Spent (min) 16
== END 2025-03-04 11:42 | disposition home or self-care (01) ==
PROVIDERS: PCP Internal Medicine; Visit Provider Hospitalist
DX: J45.40 Moderate persistent asthma, uncomplicated (principal); R05.3 Chronic cough; T78.40XA Allergy, unspecified, initial encounter; J30.89 Other allergic rhinitis; R07.9 Chest pain, unspecified; G47.33 Obstructive sleep apnea (adult) (pediatric); K21.9 Gastro-esophageal reflux disease without esophagitis; Z01.811 Encounter for preprocedural respiratory examination
CPT/HCPCS: 99214

== ENCOUNTER 2025-03-09 16:26 | Outpatient (AMB) | payer BC, MEDICARE, MEDICAID, SELFPAY ==
--- NOTE | 2025-03-09 16:36 | A.OFFPC_ITS ---
Vital Signs 03/09/25 16:37 Height 4 ft 10 in Weight 142 lb 6 oz BMI 29.8 BP 150/90 H Blood Pressure Location Lt brachial Position Sitting Respiration 16 Pulse 88 Pulse Source Pulse Oximeter Temp 97.1 F Temp Source Temporal Artery Scan Pulse Oximetry (%) 99 Oxygen Delivery Method Room Air Intake Visit Reasons: bp, needs 30 minutes, Oil Rig Roughneck Required: No Accompanied by: Self / Same As Patient Allergies clindamycin Allergy (Severe, Verified 03/09/25 17:00) itch, nausea, dizziness, scratchy throat, neck redness Penicillins (PENICILLINS) Allergy (Intermediate, Verified 03/09/25 17:00) RASH mushroom Allergy (Mild, Verified 03/09/25 17:00) Rash pineapple Allergy (Mild, Verified 03/09/25 17:00) Rash hydrocodone (HYDROCODONE) Allergy (Unknown, Verified 03/09/25 17:00) UNKNOWN morphine (MORPHINE) Allergy (Unknown, Verified 03/09/25 17:00) LETHARGY oxycodone (OXYCODONE) Allergy (Unknown, Verified 03/09/25 17:00) LEHTARGY Medication List - Last Reconciled 03/09/25 by Khushboo Godinez MD alprazolam 0.25 mg PO TID PRN 30 days ascorbate calcium (vitamin C) 500 mg PO DAILY bisacodyl (Dulcolax (bisacodyl)) 10 mg (2 x 5 mg) PO BEDTIME cholecalciferol (vitamin D3) 125 mcg PO .every other day 90 days clonidine HCl 0.1 mg PO BID 90 days duloxetine 20 mg PO DAILY escitalopram oxalate 5 mg PO DAILY lansoprazole 30 mg PO DAILY levalbuterol tartrate 45 mcg/actuation (Xopenex HFA) 2 puffs inhalation Q4-6H PRN 30 days magnesium oxide 500 mg PO DAILY 90 days meclizine 12.5 mg PO BID PRN 90 days melatonin 5 mg PO BEDTIME PRN 30 days metoprolol tartrate 25 mg PO DAILY Tobacco use date assessed: 03/09/25 Dental Screening Dental Screen Date: 03/09/25 Did you have a dental visit in the last 12 months?: Yes Did you have a dental problem in the last 6 months where you did not have access to dental care?: No Was dental information given to patient?: Patient has dentist HPI HPI Comments History of Present Illness Details The patient is a 59-year-old female presenting for a follow-up visit and review of lab results. She reports significant acute stress due to a family crisis, which she believes has caused her blood pressure to be elevated today, although it has been well-controlled otherwise. Blood pressure elevated today but at home seems to be within goal being less than 130/80. Has depression with anxiety. She also has hypothyroidism. Regarding her cardiac health, the patient reports a history of feeling chest fatigue upon walking. She has been diagnosed with grade 1 diastolic dysfunction, with an explanation that her heart beats faster than the muscle contracts. Her ejection fraction was noted to be 55-60%. She was previously advised to walk 20- 25 minutes daily and maintain blood pressure control. Recent laboratory results showed a normal hemoglobin of 12.3, normal iron, and an excellent cholesterol level of 134. Her vitamin B12 and D levels were normal, but her vitamin A level was low at 31, and her folic acid level was also slightly low. The patient has a history of dry eyes, for which she tested negative for Sjogren's syndrome antibodies. She has known allergies to penicillin, mushrooms, pineapple, hydrocodone, morphine, and oxycodone. Her sleep is characterized by REM sleep primarily occurring between 4 a.m. and 9 a.m. REPLACED BY [facility] Medical History (Updated 03/09/25 @ 17:22 by Khushboo Godinez MD) Low back pain radiating to right leg GERD (gastroesophageal reflux disease) Hyperparathyroidism Foot fracture, right Asthma Goiter Osteoarthritis, shoulder Chronic fatigue syndrome Fibromyalgia Neuropathy Panic attacks Hypothyroid Breast cancer, right Essential hypertension Allergic rhinitis Hypovitaminosis D Vertigo Mild persistent asthma NAVA (generalized anxiety disorder) Mild recurrent major depression Surgical History Status post laparoscopic cholecystectomy Hx of cholecystectomy Hx of colonoscopy History of salpingectomy History of breast implant History of mastectomy Family History Mother Hypertension Asthma Osteoporosis Depression Anxiety Sleep apnea Fibromyalgia Mental health disorder Diabetes Father Diabetes Substance use disorder Social History Housing: House Alcohol intake: never Patient Tobacco Use Status: Never used Tobacco e-Cigarette/Vaping Use: Never Used Second Hand Smoke Exposure: No service: No Current occupational status: unemployed and disabled Cognitive needs: No Hearing needs: No Vision needs: Yes (Glasses) Questionnaire PHQ-9 Over the last 2 weeks, how often have you been bothered by any of the following problems? 1. Little interest or pleasure in doing things: several days 2. Feeling down, depressed, or hopeless: several days 3. Trouble falling or staying asleep, or sleeping too much: nearly every day 4. Feeling tired or having little energy: nearly every day 5. Poor appetite or overeating: nearly every day 6. Feeling bad about yourself - or that you are a failure or have let yourself or your family down: not at all 7. Trouble concentrating on things, such as reading the newspaper or watching television: several days 8. Moving or speaking so slowly that other people could have noticed. Or the opposite - being so fidgety or restless that you have been moving around a lot more than usual: not at all 9. Thoughts that you would be better off or of hurting yourself in some way: not at all Total score: 12 Depression Screening Interpretation: Positive Depression Screening Follow-up: Existing condition, In treatment, Community Mental Health Worker F/U and Follow- up Visit Requested Depression Screening Done: Yes 87303 - PHQ-9 Billing: Yes Source: Developed by Drs. Homar Cancino, Mar Pike, Imer Montesinos and colleagues, with an educational nalini from [employer]. Thrive Questionnaire Date Thrive assessed: 03/09/25 I am a: Patient What is your living situation today?: I have a steady place to live Within the past 12 months, did the food you bought not last and you didn't have the money to get more?: Never true Within the past 12 months, did you worry whether your food would run out before you got money to buy more?: Never true Do you have trouble paying for medicines?: Yes Do you have trouble getting transportation to medical appointments?: Yes Do you have trouble paying your heating and electricity bill?: Yes Do you have trouble taking care of your child, family member or friend?: No Do you have trouble with day-to-day activities such as bathing, preparing meals, shopping, managing finances, etc.?: No Are you currently unemployed and looking for a job?: I choose not to answer this question Are you interested in more education?: I choose not to answer this question Please select the resources that you would like help with: Paying for medicine Currently or been in a relationship where the following occur: No concerns reported THRIVE Score: 2 AUDIT C Alcohol Use Questionnaire (AUDIT-C) 1. How often do you have a drink containing alcohol?: Never Total Score: 0 Score Reviewed/Action Taken: No NAVA-7 AMB Questionnaire NAVA-7 Date NAVA - 7 assessed: 03/09/25 Feeling nervous, anxious, or on edge: 1 = Several days Not being able to stop or control worryin = Several days Worrying too much about different things: 1 = Several days Trouble relaxin = Several days Being so restless that it is hard to sit still: 1 = Several days Becoming easily annoyed or irritable: 0 = Not at all Feeling afraid as if something awful might happen: 1 = Several days Total NAVA-7 score (0-4 normal; 5-9 mild; 10-14 moderate; 15-21 severe): 6 Source: Developed by Drs. Homar Cancino, Mar Pike, Imer Montesinos and colleagues, with an educational nalini from [employer]. NAVA-7 Assessment Billing NAVA-7 Assessment Tool: NAVA-7 Assessment 19002 Review of Systems Const All systems reviewed & are unremarkable except as noted in HPI and below Card Denies chest pain at rest, Denies chest pain with activity, Denies edema, Denies irregular heart rhythm, Denies claudication, Denies dyspnea, Denies dyspnea on exertion, Denies orthopnea, Denies paroxysmal nocturnal dyspnea and Denies slow heart rate Resp Denies cough, Denies dyspnea and Denies dyspnea on exertion Physical exam (Primary Care) Vital Signs: Last Vital Signs Temp 97.1 F 03/09/25 16:37 Pulse 88 03/09/25 16:37 Resp 16 03/09/25 16:37 BP 150/90 H 03/09/25 16:37 Pulse Ox 99 03/09/25 16:37 Oxygen Delivery Method Room Air 03/09/25 16:37 BMI result Body Mass Index 29.8 Tobacco/Smoking Status: Tobacco use Status Tobacco use date assessed 03/09/25 03/09/25 16:53 Patient Tobacco Use Status Never used Tobacco 03/09/25 16:53 Tobacco use type 10/27/24 17:38 e-Cigarette/Vaping Use Never Used 03/09/25 16:53 PHQ-9: PHQ-9 Score PHQ-9: Total score 12 03/09/25 17:20 Depression Screening Interpretation: Positive Depression Screening Follow-up: Existing condition, In treatment, Community Mental Health Worker F/U and Follow- up Visit Requested Thrive Assessment: Date of Thrive Assessment Date Thrive assessed 03/09/25 03/09/25 16:53 Currently or been in a relationship where the following occur: No concerns reported Resp Effort & Inspection: normal respiratory effort Auscultation: clear to auscultation bilaterally Cardio Jugular venous distension: no JVD Rate: regular rate Rhythm: regular rhythm Heart sounds: S1 normal heart sound present and S2 normal heart sound present Extrem General: Yes full ROM Coding Level of Care Code Est Pt Level 4 (72539) Diagnoses Mild recurrent major depression F33.0 NAVA (generalized anxiety disorder) F41.1 Essential hypertension I10 Hypothyroid E03.9 Vitamin A deficiency E50.9 Additional Codes NAVA-7 Assessment Billing - NAVA-7 Assessment Tool: NAVA-7 Assessment 47865 ([id number]) PHQ-9 - 81489 - PHQ-9 Billing: Yes ([id number]) Time Spent (min) 22 Assessment & Plan Assessment & Plan (1) Mild recurrent major depression: Code(s): F33.0 - Major depressive disorder, recurrent, mild Category: Medical (2) NAVA (generalized anxiety disorder): Code(s): F41.1 - Generalized anxiety disorder Category: Medical (3) Essential hypertension: Code(s): I10 - Essential (primary) hypertension Category: Medical (4) Hypothyroid: Code(s): E03.9 - Hypothyroidism, unspecified Category: Medical (5) Vitamin A deficiency: Code(s): E50.9 - Vitamin A deficiency, unspecified Category: Medical Plan Plan 1. Mild major depression The patient's elevated blood pressure is attributed to significant acute stress from a family emergency. She will continue her current regimen, including as- needed Xanax, duloxetine, and escitalopram, for management. She follows with psychiatry. 2. Diastolic Dysfunction The patient has a known diagnosis of grade 1 diastolic dysfunction, which is the cause of her chest fatigue with exertion. Reinforced the condenser tube tender's recommendation to maintain blood pressure control and to walk 20-25 minutes daily. She will continue metoprolol as part of her management. 3. Vitamin a deficiency Recent labs revealed low vitamin A and slightly low folic acid levels. A prescription for folic acid will be sent. The patient reports having a supply of vitamin A at home and will take it; a prescription will be deferred until her supply runs low. 4. Anxiety Continue benzodiazepines as needed. Follow-up with psychiatry 5. Hypothyroidism Continue levothyroxine. Monitor TSH. Orders: Orders Vitamin A 4 Months E50.9 - Vitamin A deficiency, unspecified Vitamin B12 and Folate 4 Months E53.8 - Deficiency of other specified B group vitamins Medications: New folic acid 1 mg PO DAILY 90 tabs 1RF 90 days
[2025-03-09 16:37] VITALS: BP 150/90; PULSE 88; RESP 16; TEMP 36.2; O2SAT 99; BMI 29.8
--- OUTSIDE RECORDS SUMMARY | 2025-03-09 20:59 | XMS_ITS | Encounter Summary ---
Author Organization [facility] Address [address] [place] [address] Phone Care Team Providers Care Signal Tower Director Name Role Phone Self-Referred, Patient Unavailable Unavailab le Jodi Gonzalez MD Primary Care Provider Sydnie Barnes MD Unavailable [phone] Encounter Details Date Type Department Care Team (Late st Contact Info) Description 02/28/2017 Procedure Pass [facility] OUTSIDE IMG [address] [place] [address] Social History Tobacco Use Types Packs/Day Years [...] on filedocumented in this encounter Care Teams Signal Tower Director Relationship Specialty Start Date End Date Jodi Gonzalez MD [address] [place] [address] [address] [place] [address] PCP - General Internal Medicine 02/28/17 Self-Referred, Patient Referring Physician 02/18/17 Sydnie Barnes MD [address] [place] [address] Medical Oncology 02/28/17 documented as of this encounter Additional Source Comments The information contained in this document represents components of the legal health record. It is not the complete legal health record.[facility]
--- OUTSIDE RECORDS SUMMARY | 2025-03-09 20:59 | XMS_ITS | Encounter Summary ---
Author Organization [facility] Address [address] [place] [phone] Phone Care Team Providers Care Patient Care Representative Name Role Phone Self-Referred, Patient Unavailable Unavailab le Jodi Gonzalez MD Primary Care Provider Sydnie Barnes MD Unavailable [phone] Encounter Details Date Type Department Care Team (Late st Contact Info) Description 02/28/2017 Procedure Pass [facility] [address] [address] Social History Tobacco Use Types Packs/Day Years [...] on filedocumented in this encounter Care Teams Patient Care Representative Relationship Specialty Start Date End Date Jodi Gonzalez MD [address] [facility] [address] [place] [address] PCP - General Internal Medicine 02/28/17 Self-Referred, Patient Referring Physician 02/18/17 Sydnie Barnes MD [address] [place] [address] Medical Oncology 02/28/17 documented as of this encounter Additional Source Comments The information contained in this document represents components of the legal health record. It is not the complete legal health record.[facility]
--- OUTSIDE RECORDS SUMMARY | 2025-03-09 20:59 | XMS_ITS | Clinical Summary ---
Author Organization [facility] Address [address] [place] [address] Phone Care Team Providers Care Neon Glass Bender Name Role Phone Self-Referred, Patient Unavailable Unavailab Jodi Ayers MD Primary Care Provider Sydnie Barnes MD Unavailable [phone] Allergies Active Allergy Reactions Criticality Noted Date [...] Maintenance Insurance MEDICARE PART A & B [facility] PPO MEDICARE PART A & B [employer] [place] OUT OF STATE PPO MEDICARE PART A & B [facility] OUT [facility] STATE PPO MEDICARE PART A & B [facility] PPO MED[facility]ARE PART A & B [facility] OUT [facility] PPO MEDICARE PART A & B [facility] PPO MEDICARE PART A & B [facility] PPO MEDICARE PART A & B [employer] [place] OUT OF STATE PPO MEDICARE PART A & B [facility] OUT OF STATE PPO Care Teams Neon Glass Bender Relationship Specialty Start Date End Date Jodi Gonzalez MD [address] [place] [address] PCP - General Internal Medicine 02/28/17 Self-Referred, Patient Referring Physician 02/18/17 Sydnie Barnes MD [address] [place] [address] Medical Oncology 02/28/17 Additional Source Comments The information contained in this document represents components of the legal health record. It is not the complete legal health record.[facility]
--- OUTSIDE RECORDS SUMMARY | 2025-03-09 20:59 | XMS_ITS | Encounter Summary ---
Author Organization [facility] Address [address] [place] [address] Phone Care Team Providers Care Steel Floor Pan Placing Supervisor Name Role Phone Self-Referred, Patient Unavailable Unavailab Jodi Ayers MD Primary Care Provider Sydnie Barnes MD Unavailable [phone] Reason for Referral * - Closed Specialty Diagnoses / Procedures Referred By Roberto fonseca Referred To Contact Diagnoses Malignant neoplasm of upper-outer quadrant of right breast in female, estrogen receptor negative Procedures MRI Breast (Right) Brice Gibson MD Phone: tel: fax: [email or web address] Referral ID Status Reason Start Date Expiration Date Visits Re quested Visits Authorized [id number] Closed 03/13/2017 03/13/2018 1 1 Encounter Details Date Type Department Care Team (Late st Contact Info) Description 03/13/2017 Ancillary Orders [facility], [facility], [facility] [place] [address] [facility], [address] [place] [address] Brice Gibson MD [address] [place] [address] [email or web address] Malignant neoplasm of upper-outer quadrant of right [...] negative documented in this encounter Care Teams Steel Floor Pan Placing Supervisor Relationship Specialty Start Date End Date Jodi Gonzalez MD [address] [place] [address] PCP - General Internal Medicine 02/28/17 Self-Referred, Patient Referring Physician 02/18/17 Sydnie Barnes MD [address] [place] [address] Medical Oncology 02/28/17 documented as of this encounter Additional Source Comments The information contained in this document represents components of the legal health record. It is not the complete legal health record.[facility]
--- OUTSIDE RECORDS SUMMARY | 2025-03-09 20:59 | XMS_ITS | Encounter Summary ---
Author Organization [facility] Address [address] [place] [address] Phone Care Team Providers Care Reprint Sorter Name Role Phone Self-Referred, Patient Unavailable Unavailab Jodi Ayers MD Primary Care Provider Sydnie Barnes MD Unavailable [phone] Encounter Details Date Type Department Care Team (Late st Contact Info) Description 03/03/2017 Ancillary Orders [facility], [facility], [facility] [place] [address] [facility], [address]th [place] [address] Brice Gibson MD [address] [place] [address] [email or web address] Malignant neoplasm of upper-outer quadrant of [...] negative documented in this encounter Care Teams Reprint Sorter Relationship Specialty Start Date End Date Jodi Gonzalez MD [address] [facility] [address] [place] [address] PCP - General Internal Medicine 02/28/17 Self-Referred, Patient Referring Physician 02/18/17 Sydnie Barnes MD [address] [place] [address] Medical Oncology 02/28/17 documented as of this encounter Additional Source Comments The information contained in this document represents components of the legal health record. It is not the complete legal health record.[facility]
--- OUTSIDE RECORDS SUMMARY | 2025-03-09 20:59 | XMS_ITS | Encounter Summary ---
Author Organization [facility] Address [address] [place] [phone] Phone Care Team Providers Care Acreage Reporter Name Role Phone Self-Referred, Patient Unavailable Unavailab le Jodi Gonzalez MD Primary Care Provider Sydnie Barnes MD Unavailable [phone] Encounter Details Date Type Department Care Team (Late st Contact Info) Description 02/28/2017 Procedure Pass [facility] OUT[facility]IDE [facility]G [address] [place] [address] Social History Tobacco Use Types Packs/Day Years [...] on filedocumented in this encounter Care Teams Acreage Reporter Relationship Specialty Start Date End Date Jodi Gonzalez MD [address] [place] [address] [address] [place] [address] PCP - General Internal Medicine 02/28/17 Self-Referred, Patient Referring Physician 02/18/17 Sydnie Barnes MD [address] [place] [address] Medical Oncology 02/28/17 documented as of this encounter Additional Source Comments The information contained in this document represents components of the legal health record. It is not the complete legal health record.[facility]
== END 2025-03-09 17:30 | disposition home or self-care (01) ==
LOC: HO.HMCH 16:26
PROVIDERS: PCP Internal Medicine; Visit Provider Internal Medicine
DX: F33.0 Major depressive disorder, recurrent, mild (principal); F41.1 Generalized anxiety disorder; I10 Essential (primary) hypertension; E03.9 Hypothyroidism, unspecified; E50.9 Vitamin A deficiency, unspecified

== ENCOUNTER → 2025-03-09 16:26 | Outpatient (BNVA) | payer BC, MEDICARE, MEDICAID, SELFPAY | PROVIDERS: PCP Internal Medicine; Visit Provider Internal Medicine | DX: F33.0 Major depressive disorder, recurrent, mild (principal); F41.1 Generalized anxiety disorder; I10 Essential (primary) hypertension; E03.9 Hypothyroidism, unspecified; E50.9 Vitamin A deficiency, unspecified | CPT/HCPCS: 96127 ==